=== PATIENT | male | born 1935 | race Caucasian/White ===

== ENCOUNTER → 2019-05-21 12:59 | Outpatient (CLI) | payer MEDICARE, BC, SELFPAY ==
--- NOTE | 2019-05-21 | DI.US.S_ITS ---
PROCEDURE: US RENAL COMPLETE INDICATIONS: CKD STAGE 3 TECHNIQUE: Real-time scanning was performed of the kidneys and bladder, with image documentation. COMPARISON: None. FINDINGS: Kidneys: Kidneys are normal in size. Right kidney measures 11.5 cm long; left kidney measures 12.4 cm long. Right renal cortical thickness is 0.8 cm; left renal cortical thickness is 1.2 cm. Renal cortical echotexture is normal. No hydronephrosis. There are several nonobstructing left renal calcifications the largest measuring 1.4 cm. A 1.5 cm right renal cyst is noted. Bladder: Pre-void bladder volume is 219 mL. Post-void residual is 76 mL. Pre-void images demonstrate no intraluminal masses or stones. On pre-void images, neither ureteral jets are noted with color Doppler interrogation. (Of note, ureteral jets may not be detectable in up to 25% of cases due to insufficient differences in specific gravity between ureteral and bladder urine). Miscellaneous: No free pelvic fluid. IMPRESSION: 1. Right renal cortical thinning. 2. Right renal cyst measuring 1.5 cm. 3. Multiple nonobstructing left renal calcifications. 4. 76 mL post void residual. Dictated by: James Noriega [facility] Interpreted: Laz Ruffin MD on 05/21/2019 at 13:58 Approved by: Laz Ruffin M.D. on 05/24/2019 at 16:48
== END ==
PROVIDERS: Family Provider Physician Assistant; PCP Physician Assistant; Referring Provider Internal Medicine Nephrology; Visit Provider Internal Medicine Nephrology
DX: N18.3 Chronic kidney disease, stage 3 (moderate) (principal); N20.0 Calculus of kidney; N28.1 Cyst of kidney, acquired
CPT/HCPCS: 76770

== ENCOUNTER → 2020-07-04 13:29 | Outpatient (CLI) | payer MEDICARE, BC, SELFPAY ==
[2020-07-04 19:34] LABS: Add Manual Diff / Slide Review NO; Basophils Absolute Auto 100 /uL (0-100); Basophils Percent Auto 0.7 % (0-2); Eosinophils Absolute Auto 200 /uL (0-450); Eosinophils Percent Auto 2.3 % (2-4); Hemoglobin 13.3 g/dL (13.5-17.5); Lymphocytes Absolute Auto 1700 /uL (1100-4500); Lymphocytes Percent Auto 17.3 % (25-40); Mean Corpuscular HGB Conc 33.4 % (30-36); Mean Corpuscular Hemoglobin 31.2 PG (26-34); Mean Corpuscular Volume 93.6 fL (80-100); Monocytes Absolute Auto 600 /uL (0-900); Monocytes Percent Auto 6.7 % (3-14); Neutrophils Absolute Auto 7000 /uL (1500-7000); Platelet Count 230 X10^3/uL (150-400); Red Blood Cell Count 4.27 X10^6/uL (4.5-5.9); Red Cell Distribution Width 15.9 % (11.6-14.8); White Blood Cell Count 9.6 X10^3/uL (4.5-11.0)
[2020-07-04 19:40] LABS: Alanine Aminotransferase 17 IU/L (<50); Albumin 3.6 g/dL (3.5-5.0); Albumin Globulin Ratio 1.2 (1.0-2.8); Alkaline Phosphatase 58 U/L (38-126); Aspartate Aminotransferase 29 IU/L (17-59); BUN Creatinine Ratio 20.9 (6-22); Bilirubin Total 0.6 mg/dL (0.2-1.3); Blood Urea Nitrogen 38 mg/dL (9-20); C-Reactive Protein Quant 0.6 mg/dL (<1.0); Calcium 10.1 mg/dL (8.4-10.2); Carbon Dioxide 28 mmol/L (22-32); Chloride 102 mmol/L (98-107); Estimated Glomerular Filt Rate 35.7 mL/min (>60); Globulin 3.1 g/dL (1.7-4.1); Glucose 107 mg/dL (80-110); HEMOLYSIS < 15 (0-50); Potassium 3.9 mmol/L (3.4-5.1); Sodium 136 mmol/L (137-145); Total Protein 6.7 g/dL (6.3-8.2)
[2020-07-04 20:28] LABS: Vitamin B12 > 1000 pg/mL (239-931)
== END ==
PROVIDERS: Family Provider Physician Assistant; PCP Physician Assistant; Visit Provider Family Medicine
DX: E11.9 Type 2 diabetes mellitus without complications (principal); I25.10 Atherosclerotic heart disease of native coronary artery without angina pectoris; E78.2 Mixed hyperlipidemia; I65.29 Occlusion and stenosis of unspecified carotid artery; N18.9 Chronic kidney disease, unspecified; Z79.4 Long term (current) use of insulin
CPT/HCPCS: 80053; 82607; 83036; 85025; 86140

== ENCOUNTER → 2020-08-08 10:36 | Outpatient (CLI) | payer MEDICARE, BC, SELFPAY ==
[2020-08-08 19:20] LABS: COVID19 - ORCAS (NP or Nasal) Negative (Negative)
== END ==
PROVIDERS: Family Provider Physician Assistant; PCP Physician Assistant; Visit Provider Family Medicine
DX: Z01.812 Encounter for preprocedural laboratory examination (principal)
CPT/HCPCS: C9803; U0003

== ENCOUNTER → 2020-10-08 09:13 | Outpatient (CLI) | payer MEDICARE, BC, SELFPAY ==
[2020-10-08 19:40] LABS: Add Manual Diff / Slide Review NO; Basophils Absolute Auto 0 /uL (0-100); Basophils Percent Auto 0.6 % (0-2); Eosinophils Absolute Auto 300 /uL (0-450); Eosinophils Percent Auto 4.3 % (2-4); Hematocrit 40.3 % (41-53); Lymphocytes Absolute Auto 1600 /uL (1100-4500); Lymphocytes Percent Auto 20.5 % (25-40); Mean Corpuscular HGB Conc 32.2 % (30-36); Mean Corpuscular Hemoglobin 30.7 PG (26-34); Mean Corpuscular Volume 95.1 fL (80-100); Monocytes Absolute Auto 500 /uL (0-900); Monocytes Percent Auto 6.9 % (3-14); Neutrophils Absolute Auto 5200 /uL (1500-7000); Neutrophils Percent Auto 67.7 % (50-75); Platelet Count 223 X10^3/uL (150-400); Red Blood Cell Count 4.24 X10^6/uL (4.5-5.9); Red Cell Distribution Width 15.8 % (11.6-14.8); White Blood Cell Count 7.7 X10^3/uL (4.5-11.0)
[2020-10-08 20:15] LABS: Albumin 3.7 g/dL (3.5-5.0); BUN Creatinine Ratio 19.1 (6-22); Blood Urea Nitrogen 34 mg/dL (9-20); Calcium 9.8 mg/dL (8.4-10.2); Carbon Dioxide 26 mmol/L (22-32); Chloride 105 mmol/L (98-107); Estimated Glomerular Filt Rate 36.6 mL/min (>60); Glucose 105 mg/dL (80-110); HEMOLYSIS < 15 (0-50); Phosphorous 3.5 mg/dL (2.3-3.7); Potassium 3.7 mmol/L (3.4-5.1); Sodium 137 mmol/L (137-145)
[2020-10-08 20:22] LABS: Vitamin D 25 Hydroxy (D3) 31.1 ng/mL (30.0-100.0)
[2020-10-21 13:41] LABS: Parathyroid Hormone Int 57
== END ==
PROVIDERS: Family Provider Physician Assistant; PCP Family Medicine; Visit Provider Internal Medicine Nephrology
DX: L91.8 Other hypertrophic disorders of the skin (principal)
CPT/HCPCS: 80069; 82306; 83970; 85025

== ENCOUNTER → 2020-10-14 10:25 | Outpatient (CLI) | payer MEDICARE, BC, SELFPAY ==
[2020-10-16 07:36] LABS: Parathyroid Hormone Int 57 pg/mL (15-65)
== END ==
PROVIDERS: Family Provider Physician Assistant; PCP Family Medicine; Visit Provider Family Medicine
DX: L91.8 Other hypertrophic disorders of the skin (principal)
CPT/HCPCS: 83970

== ENCOUNTER → 2021-01-12 13:39 | Outpatient (CLI) | payer MEDICARE, BC, SELFPAY ==
[2021-01-12 18:50] LABS: Add Manual Diff / Slide Review NO; Basophils Absolute Auto 100 /uL (0-100); Basophils Percent Auto 0.7 % (0-2); Eosinophils Absolute Auto 300 /uL (0-450); Eosinophils Percent Auto 4.1 % (2-4); Hematocrit 37.7 % (41-53); Hemoglobin 12.5 g/dL (13.5-17.5); Lymphocytes Absolute Auto 1500 /uL (1100-4500); Lymphocytes Percent Auto 18.9 % (25-40); Mean Corpuscular HGB Conc 33.1 % (30-36); Mean Corpuscular Hemoglobin 30.5 PG (26-34); Mean Corpuscular Volume 92.1 fL (80-100); Monocytes Absolute Auto 600 /uL (0-900); Monocytes Percent Auto 7.4 % (3-14); Neutrophils Absolute Auto 5400 /uL (1500-7000); Neutrophils Percent Auto 68.9 % (50-75); Platelet Count 199 X10^3/uL (150-400); Red Blood Cell Count 4.09 X10^6/uL (4.5-5.9); Red Cell Distribution Width 15.4 % (11.6-14.8); White Blood Cell Count 7.8 X10^3/uL (4.5-11.0)
[2021-01-12 19:00] LABS: BUN Creatinine Ratio 20.3 (6-22); Blood Urea Nitrogen 42 mg/dL (9-20); Calcium 9.8 mg/dL (8.4-10.2); Carbon Dioxide 28 mmol/L (22-32); Chloride 105 mmol/L (98-107); Estimated Glomerular Filt Rate 30.7 mL/min (>60); Glucose 113 mg/dL (80-110); HEMOLYSIS 21 (0-50); Phosphorous 3.6 mg/dL (2.3-3.7); Sodium 140 mmol/L (137-145)
[2021-01-12 19:13] LABS: Creatinine Urine Random 49.4 mg/dL
[2021-01-12 19:17] LABS: Microalbumi Creatinin Ratio Ur 66.8 ug/mg CR (<30); Microalbumin Urine Random 3.3 mg/dL (0-1.6)
== END ==
PROVIDERS: Family Provider Physician Assistant; PCP Family Medicine; Visit Provider Internal Medicine Nephrology
DX: N18.32 Chronic kidney disease, stage 3b (principal); D63.1 Anemia in chronic kidney disease
CPT/HCPCS: 80069; 82043; 82570; 85025

== ENCOUNTER → 2021-04-06 09:24 | Outpatient (CLI) | payer MEDICARE, BC, SELFPAY ==
[2021-04-06 18:46] LABS: Add Manual Diff / Slide Review NO; Basophils Absolute Auto 100 /uL (0-100); Basophils Percent Auto 0.7 % (0-2); Eosinophils Absolute Auto 400 /uL (0-450); Eosinophils Percent Auto 4.5 % (2-4); Hematocrit 36.7 % (41-53); Hemoglobin 12.3 g/dL (13.5-17.5); Lymphocytes Absolute Auto 1600 /uL (1100-4500); Lymphocytes Percent Auto 19.3 % (25-40); Mean Corpuscular HGB Conc 33.5 % (30-36); Mean Corpuscular Hemoglobin 31.3 PG (26-34); Mean Corpuscular Volume 93.4 fL (80-100); Monocytes Absolute Auto 600 /uL (0-900); Monocytes Percent Auto 7.4 % (3-14); Neutrophils Absolute Auto 5700 /uL (1500-7000); Neutrophils Percent Auto 68.1 % (50-75); Platelet Count 221 X10^3/uL (150-400); Red Blood Cell Count 3.93 X10^6/uL (4.5-5.9); Red Cell Distribution Width 15.6 % (11.6-14.8); White Blood Cell Count 8.3 X10^3/uL (4.5-11.0)
[2021-04-06 19:07] LABS: Appearance Urine UA CLEAR; Bilirubin Urine UA NEGATIVE (NEGATIVE); Color Urine UA YELLOW; Glucose Urine UA NEGATIVE (Negative); Ketones Urine UA NEGATIVE (NEGATIVE); Leukocyte Esterase Urine UA 1+ (NEGATIVE); Nitrite Urine UA NEGATIVE (Negative); Occult Blood Urine UA 3+ (Negative); Protein Urine UA NEGATIVE (Negative); Urobilinogen Urine UA 0.2 E.U./dL (0.2); pH Urine UA 6.5 (4.5-8.0)
[2021-04-06 19:13] LABS: Alanine Aminotransferase 16 IU/L (<50); Albumin 3.6 g/dL (3.5-5.0); Albumin Globulin Ratio 1.2 (1.0-2.8); Alkaline Phosphatase 53 U/L (38-126); Aspartate Aminotransferase 27 IU/L (17-59); BUN Creatinine Ratio 21.2 (6-22); Bilirubin Total 0.8 mg/dL (0.2-1.3); Blood Urea Nitrogen 44 mg/dL (9-20); Calcium 9.8 mg/dL (8.4-10.2); Carbon Dioxide 30 mmol/L (22-32); Chloride 103 mmol/L (98-107); Cholesterol 98 mg/dL (140-199); Estimated Glomerular Filt Rate 30.5 mL/min (>60); Glucose 103 mg/dL (80-110); HDL Cholesterol 37 mg/dL (40-60); HEMOLYSIS < 15 (0-50); Hemoglobin A1C% w Est Avg Glu 5.5 % (4.0-6.0); LDL Cholesterol Calculated 50 mg/dL (<100); Potassium 4.4 mmol/L (3.4-5.1); Sodium 136 mmol/L (137-145); Total Protein 6.6 g/dL (6.3-8.2); Triglycerides 56 mg/dL (35-150)
[2021-04-06 19:15] LABS: RBC Urine 5-10/HPF (0-5/HPF); Squamous Epithelial Cell Urine 0-1 /HPF (0-5/HPF); WBC Urine 5-10/HPF (0-5/HPF)
[2021-04-06 19:16] LABS: Amorphous Sediment Urine 1+; Bacteria Urine None Seen; Culture Indicated Urine Specimen Cultured
[2021-04-06 19:36] LABS: TSH w/ Reflex to FT4 2.97 uIU/mL (0.47-4.68)
== END ==
PROVIDERS: Family Provider Physician Assistant; PCP Family Medicine; Visit Provider Family Medicine
DX: N18.31 Chronic kidney disease, stage 3a (principal); I50.9 Heart failure, unspecified; E11.22 Type 2 diabetes mellitus with diabetic chronic kidney disease; I25.10 Atherosclerotic heart disease of native coronary artery without angina pectoris; C61 Malignant neoplasm of prostate; K22.70 Barrett's esophagus without dysplasia; N18.30 Chronic kidney disease, stage 3 unspecified; N40.0 Benign prostatic hyperplasia without lower urinary tract symptoms; Z00.00 Encounter for general adult medical examination without abnormal findings; E78.2 Mixed hyperlipidemia
CPT/HCPCS: 80053; 80061; 81001; 83036; 84443; 85025; 87086

== ENCOUNTER → 2021-04-13 10:10 | Outpatient (CLI) | payer MEDICARE, BC, SELFPAY ==
[2021-04-13 19:27] LABS: Appearance Urine UA SL CLOUDY; Bilirubin Urine UA NEGATIVE (NEGATIVE); Color Urine UA YELLOW; Glucose Urine UA NEGATIVE (Negative); Ketones Urine UA NEGATIVE (NEGATIVE); Leukocyte Esterase Urine UA 1+ (NEGATIVE); Nitrite Urine UA NEGATIVE (Negative); Occult Blood Urine UA 3+ (Negative); Protein Urine UA 1+ (Negative); Urobilinogen Urine UA 0.2 E.U./dL (0.2); pH Urine UA 5.5 (4.5-8.0)
[2021-04-13 19:41] LABS: Bacteria Urine None Seen; Other Crystals Urine 1+ Amorphous; RBC Urine 30-100/HPF (0-5/HPF); Squamous Epithelial Cell Urine 0-1 /HPF (0-5/HPF); WBC Urine 10-30/HPF (0-5/HPF)
[2021-04-13 19:43] LABS: Culture Indicated Urine Specimen Cultured; Granular Casts Urine 1-5/LPF; Hyaline Casts Urine 5-10/LPF
== END ==
PROVIDERS: Family Provider Physician Assistant; PCP Family Medicine; Visit Provider Family Medicine
DX: R31.21 Asymptomatic microscopic hematuria (principal)
CPT/HCPCS: 81001; 87086

== ENCOUNTER → 2021-08-04 15:23 | Outpatient (CLI) | payer MEDICARE, BC, SELFPAY ==
--- NOTE | 2021-08-04 15:25 | DI.MRI.S_ITS ---
PROCEDURE: MR CERVICAL SPINE WO CON INDICATIONS: Chronic neck pain TECHNIQUE: Noncontrast sagittal T1 spin echo and T2 fast spin echo, sagittal STIR, foraminal oblique sagittal T2 fast spin echo, and axial gradient echo or T2 fast spin echo through the cervical spine. COMPARISON: None. FINDINGS: Image quality: Excellent. Alignment and Curvature: There is trace retrolisthesis of C3 on C4, C4 on C5, trace anterolisthesis of C5 on C6. Bone Marrow: Marrow demonstrates normal overall signal. Spinal Cord: Visualized spinal cord has normal size and signal. No cerebellar tonsillar herniation. Paraspinous Soft Tissues: No paravertebral masses. Prevertebral soft tissues are normal in thickness. Discs: Overall moderate desiccation is present throughout the cervical spine. C2-C3: Mild disc bulge without spinal stenosis. Mild bilateral foraminal narrowing with uncovertebral hypertrophy. C3-C4: Mild disc bulge with mild spinal stenosis. Moderate bilateral foraminal narrowing, left greater than right with uncovertebral hypertrophy. C4-C5: Mild disc bulge with mild spinal stenosis. Moderate right and [id number] left foraminal narrowing with uncovertebral hypertrophy. C5-C6: Mild disc bulge without spinal stenosis. Moderate to severe bilateral foraminal narrowing, right greater than left with uncovertebral hypertrophy. C6-C7: Mild disc bulge without spinal stenosis. Moderate bilateral foraminal narrowing, left greater than right with uncovertebral hypertrophy. C7-T1: Mild disc bulge without spinal stenosis. Mild bilateral foraminal narrowing. IMPRESSION: Multilevel disc bulges. Multilevel spinal stenosis, mild at C3-4 and C4-5 predominantly secondary to disc bulge. Multilevel overall moderate to severe foraminal narrowing most notable at C5-6 secondary to uncovertebral arthropathy. Dictated by: Aracelis Nguyen M.D. on 08/04/2021 at 16:35 Approved by: Aracelis Nguyen M.D. on 08/04/2021 at 16:37
== END ==
PROVIDERS: Family Provider Physician Assistant; PCP Family Medicine; Referring Provider Family Medicine; Visit Provider Family Medicine
DX: C61 Malignant neoplasm of prostate (principal); M54.12 Radiculopathy, cervical region; G89.29 Other chronic pain; M47.812 Spondylosis without myelopathy or radiculopathy, cervical region; M48.02 Spinal stenosis, cervical region; M50.21 Other cervical disc displacement, high cervical region
CPT/HCPCS: 72141

== ENCOUNTER → 2021-11-17 14:39 | Outpatient (CLI) | payer MEDICARE, BC, SELFPAY ==
[2021-11-17 19:44] LABS: Add Manual Diff / Slide Review NO; Basophils Absolute Auto 0 /uL (0-100); Basophils Percent Auto 0.4 % (0-2); Eosinophils Absolute Auto 300 /uL (0-450); Eosinophils Percent Auto 2.8 % (2-4); Hematocrit 32.5 % (41-53); Lymphocytes Absolute Auto 1100 /uL (1100-4500); Lymphocytes Percent Auto 11.7 % (25-40); Mean Corpuscular HGB Conc 33.9 % (30-36); Mean Corpuscular Hemoglobin 32.8 PG (26-34); Mean Corpuscular Volume 96.7 fL (80-100); Monocytes Absolute Auto 700 /uL (0-900); Monocytes Percent Auto 7.6 % (3-14); Neutrophils Absolute Auto 7300 /uL (1500-7000); Neutrophils Percent Auto 77.5 % (50-75); Platelet Count 276 X10^3/uL (150-400); Red Blood Cell Count 3.36 X10^6/uL (4.5-5.9); Red Cell Distribution Width 13.8 % (11.6-14.8); White Blood Cell Count 9.4 X10^3/uL (4.5-11.0)
[2021-11-17 19:59] LABS: Albumin 3.1 g/dL (3.5-5.0); BUN Creatinine Ratio 12.6 (6-22); Blood Urea Nitrogen 20 mg/dL (9-20); Calcium 9.8 mg/dL (8.4-10.2); Carbon Dioxide 23 mmol/L (22-32); Chloride 100 mmol/L (98-107); Estimated Glomerular Filt Rate 42 mL/min (>60); Glucose 105 mg/dL (80-110); HEMOLYSIS < 15 (0-50); Phosphorous 2.3 mg/dL (2.3-3.7); Potassium 4.5 mmol/L (3.4-5.1); Sodium 130 mmol/L (137-145)
[2021-11-17 20:17] LABS: Creatinine Urine Random 61.1 mg/dL
[2021-11-17 20:22] LABS: Microalbumin Urine Random 1.9 mg/dL (0-1.6)
[2021-11-19 06:22] LABS: Parathyroid Hormone Int 25 pg/mL (15-65)
== END ==
PROVIDERS: Internal Medicine Nephrology; Family Provider Physician Assistant; PCP Family Medicine
DX: N18.32 Chronic kidney disease, stage 3b (principal)
CPT/HCPCS: 80069; 82043; 82570; 83970; 85025

== ENCOUNTER 2021-12-04 11:14 | Inpatient (IN) | payer MEDICARE, BC, SELFPAY ==
[2021-12-04] VITALS (22 sets, daily range): BP systolic 103–165; BP diastolic 59–75; PULSE 81–101; RESP 16–49; TEMP 36.3–37.2; O2SAT 96–100; BMI 40.2; BMI 38.0
--- NOTE | 2021-12-04 12:12 | DI.RAD.S_ITS ---
PROCEDURE: XR CHEST 1V INDICATIONS: suspected sepsis TECHNIQUE: One view of the chest was acquired. COMPARISON: [facility] ([place]), CR, XR CHEST 2V, 12/03/2021, 16:23. FINDINGS: Surgical changes and devices: Sternotomy wires and an aortic valve prosthesis can be seen. Lungs and pleura: Right middle lobe consolidation is seen, which is similar to the radiographs from the prior day. There is minimal blunting of the left costophrenic angle. No pneumothorax. Mediastinum: Mediastinal contours appear normal. Heart size is mildly enlarged. Atherosclerotic calcification is noted. Bones and chest wall: No suspicious bony lesions. Age-appropriate bony degenerative changes are seen. Overlying soft tissues appear unremarkable. IMPRESSION: Continued right middle lobe infiltrate. Minimal blunting of the left costophrenic angle, which may be related to atelectasis. Postoperative and degenerative changes are seen. Mild cardiomegaly. Dictated by: Antonio Walters M.D. on 12/04/2021 at 11:36 Approved by: Antonio Walters M.D. on 12/04/2021 at 11:40
[2021-12-04] MEDS: SODIUM CHLORIDE 0.9% 1,000 ML 1000 ML IV (12:18)
[2021-12-04 12:26] LABS: Add Manual Diff / Slide Review NO; Basophils Absolute Auto 100 /uL (0-100); Basophils Percent Auto 0.2 % (0-2); Eosinophils Absolute Auto 100 /uL (0-450); Eosinophils Percent Auto 0.3 % (2-4); Hematocrit 32.7 % (41-53); Hemoglobin 10.7 g/dL (13.5-17.5); Lymphocytes Absolute Auto 1100 /uL (1100-4500); Mean Corpuscular HGB Conc 32.6 % (30-36); Mean Corpuscular Hemoglobin 31.3 PG (26-34); Mean Corpuscular Volume 96.1 fL (80-100); Monocytes Absolute Auto 1500 /uL (0-900); Monocytes Percent Auto 6.8 % (3-14); Neutrophils Absolute Auto 19500 /uL (1500-7000); Neutrophils Percent Auto 87.7 % (50-75); Platelet Count 495 X10^3/uL (150-400); Red Blood Cell Count 3.41 X10^6/uL (4.5-5.9); White Blood Cell Count 22.2 X10^3/uL (4.5-11.0)
--- NOTE | 2021-12-04 12:26 | ED.SOB ---
HPI - SOB/Dyspnea <Asher Boswell PA-C - Last Filed: 12/04/21 15:22> General Chief Complaint: Shortness of Breath/Dyspnea Stated Complaint: Sob, cough elavalted BP Time Seen by Provider: 12/04/21 12:04 Source: patient and family Mode of arrival: Wheelchair History of Present Illness HPI Narrative: Patient is a 86-year-old male who presents to the emergency room today with complaint of shortness of breath weakness cough general concerns to thrive for the last 2 days. Daughter states patient was also seen at [facility] yesterday and was diagnosed with pneumonia. Patient was also started on doxycycline at that time. Has taking 2 doses to date. Daughter is concerned because patient cannot take care of herself and cannot take care of the patient at this time. Daughter states patient is incontinent not bathing not eating and is not able to change his clothes. Daughter is okay with the patient either be admitted or transferred to a intermediate facility until he is able to take care of himself. Main concern now is very sure that the pneumonia has not worsened and that the patient is able to be cared for upon discharge. Daughter also states patient was diagnosed with COVID about 1 month ago. Related Data Home Medications Medication Instructions Recorded Confirmed [COQ10] 25 mg PO BID ##0 10/20/15 12/04/21 [fish oil] 1 gm PO QDAY ##0 10/20/15 12/04/21 [vitamin D3/D2] 2,000 iu PO QDAY ##0 10/20/15 12/04/21 multivitamin (Multiple Vitamins 1 tab PO QDAY #0 tabs 10/20/15 12/04/21 tablet) latanoprost 0.005 % eye drops 1 drp ophthalmic (eye) DAILY 06/11/20 12/04/21 nitroglycerin 0.4 mg sublingual 0.4 mg sublingual Q5M PRN pain 06/11/20 12/04/21 tablet spironolactone 25 mg tablet 25 mg PO DAILY 06/11/20 12/04/21 taurine 1,000 mg capsule 1,000 mg PO DAILY 06/11/20 12/04/21 zinc gluconate 50 mg tablet 50 mg PO DAILY 06/11/20 12/04/21 Disabled Parking Permit 1 ea topical DAILY 12/04/21 12/04/21 Previous Rx's Medication Instructions Recorded atorvastatin 40 mg tablet 40 mg PO DAILY #90 tabs 03/26/21 colesevelam 625 mg tablet (WelChol) 1,875 mg PO BID #540 tabs 03/26/21 fenofibrate nanocrystallized 145 145 mg PO QDAY #90 tabs 03/26/21 mg tablet (Tricor) apixaban 2.5 mg tablet (Eliquis) 2.5 mg PO BID #180 tabs 04/02/21 mirabegron 25 mg tablet,extended 25 mg PO QDAY #90 tabs 06/11/21 release 24 hr (Myrbetriq) torsemide 100 mg tablet 100 mg PO DAILY #90 tabs 06/11/21 lisinopril 20 mg tablet 20 mg PO DAILY #90 tabs 09/01/21 nirmatrelvir 150 mg-ritonavir 100 See Rx Instructions PO PER PKG DIR 11/23/21 mg tablets in a dose pack (EUA) #1 ea (Paxlovid) Allergies Allergy/AdvReac Type Severity Reaction Status Date / Time No Known Drug Allergies Allergy Verified 12/03/21 16:14 Review of Systems <Asher Boswell PA-C - Last Filed: 12/04/21 15:22> Review of Systems Narrative: R.O.S.: General:Fatigue and has not been able to perform routine ADLs. Cardiovascular: No chest pain or palpitations Respiratory: S.O.B. cough and fatigue HEENT: No congestion, ear pain, rhinorrhea, sore throat or tinnitus Gastrointestinal: No nausea or vomiting : No urinary concerns Skin: No rash or associated abnormalities Musculoskeletal: No pain in muscles or joints, no limitation of range of motion, no paresthesia or numbness. ?? Neurological: Awake, alert and in not apparent distress. No Headaches, changes in vision or other related neurological concerns. Patient History <Asher Boswell PA-C - Last Filed: 12/04/21 15:22> Medical History Anemia Asymptomatic microscopic hematuria BPH (benign prostatic hyperplasia) Chronic diastolic heart failure DM2 (diabetes mellitus, type 2) Hypertension Interstitial lung disease Permanent atrial fibrillation Stage 3b chronic kidney disease (CKD) Surgical History S/P AVR (aortic valve replacement) Family History (Updated 12/04/21 @ 17:42 by Arpit Staton DO) Mother No pertinent past medical history Father No pertinent past medical history Social History (Updated 06/11/20 @ 11:25 by Jenniffer Andrade CMA) household members: spouse Smoking Status: Former smoker alcohol intake: current Smoking Status: Former smoker alcohol intake frequency: 0-2 drinks per day Substance Use Type: does not use Exam <Asher Boswell PA-C - Last Filed: 12/04/21 15:22> Narrative Exam Narrative: Physical Exam: ? General: Lethargic. Able to slowly follow commands upon arousal. ? Head: Normocephalic, no lesions. Chest: Lungs CTAB, no rales, rhonchi or wheezes. ?? Heart: RRR, no murmurs, rubs or gallops. Eyes: PERRLA, EOM's full, conjunctivae clear. ? Neuro: Patient lethargic and slow to follow commands. ? Extremities: Warm, well perfused, FROM, no deformities, no edema. ?? Skin: Normal, no rashes, no lesions noted. ?? PSYCHIATRIC: The mood is good, no blunted affect. Speech is clear. Thought process is linear, thought content is appropriate. The voice is without significant inflection. Gastrointestinal: Soft; NT; ND; Pos BS with Neg. rebound tenderness. No scars or major deformities noted on Visual Inspection. Initial Vital Signs Initial Vital Signs: Vital Signs Temperature 97.4 F L 12/04/21 11:15 Pulse Rate 90 12/04/21 11:15 Respiratory Rate 18 12/04/21 11:15 Blood Pressure 132/72 12/04/21 11:15 Pulse Oximetry 96 12/04/21 11:15 Oxygen Delivery Method 12/04/21 11:15 <Jigar Rodarte MD - Last Filed: 12/07/21 11:17> Initial Vital Signs Initial Vital Signs: Vital Signs Temperature 97.4 F L 12/04/21 11:15 Pulse Rate 90 12/04/21 11:15 Respiratory Rate 18 12/04/21 11:15 Blood Pressure 132/72 12/04/21 11:15 Pulse Oximetry 96 12/04/21 11:15 Oxygen Delivery Method 12/04/21 11:15 Course <Asher Boswell PA-C - Last Filed: 12/04/21 15:22> Orders Ordered: ED Orders 12/07/21 08:25 Complete Blood Count AUTO DIFF DAILY Comprehensive Metabolic Panel DAILY Magnesium DAILY Acetaminophen (Acetaminophen 325 Mg Tablet) 975 mg PO Q8H PRN PRN Reason: Pain, Mild (1-3) Apixaban (Apixaban 5 Mg Tablet) 2.5 mg PO BID [facility] Last Admin: 12/07/21 09:01 Dose: 2.5 mg Documented By: Admin: 12/06/21 21:17 Dose: 2.5 mg Documented By: Admin: 12/06/21 10:20 Dose: 2.5 mg Documented By: Admin: 12/05/21 20:34 Dose: 2.5 mg Documented By: Admin: 12/05/21 10:57 Dose: 2.5 mg Documented By: Admin: 12/04/21 20:24 Dose: 2.5 mg Documented By: BALBINA Atorvastatin Calcium (Atorvastatin 20 Mg Tablet) 40 mg PO BEDTIME [facility] Last Admin: 12/06/21 21:17 Dose: 40 mg Documented By: Admin: 12/05/21 20:27 Dose: 40 mg Documented By: Admin: 12/04/21 20:23 Dose: 40 mg Documented By: BALBINA Colesevelam HCl (Colesevelam 625 Mg Tablet) 1,875 mg PO BID [facility] Last Admin: 12/07/21 09:02 Dose: 1,875 mg Documented By: Admin: 12/06/21 21:18 Dose: 1,875 mg Documented By: Admin: 12/06/21 10:21 Dose: 1,875 mg Documented By: Admin: 12/05/21 20:25 Dose: 1,875 mg Documented By: Admin: 12/05/21 10:57 Dose: 1,875 mg Documented By: Admin: 12/04/21 20:22 Dose: 1,875 mg Documented By: OW Doxycycline Hyclate (Doxycycline Hyclate 100 Mg Tablet) 100 mg PO BID [facility] Stop: 12/07/21 20:59 Last Admin: 12/07/21 09:01 Dose: 100 mg Documented By: Admin: 12/06/21 21:17 Dose: 100 mg Documented By: Admin: 12/06/21 10:21 Dose: 100 mg Documented By: Admin: 12/05/21 20:27 Dose: 100 mg Documented By: Admin: 12/05/21 10:55 Dose: 100 mg Documented By: Admin: 12/04/21 20:23 Dose: 100 mg Documented By: BALBINA Guaifenesin (Guaifenesin Er 600 Mg Tab) 1,200 mg PO BID [facility] Last Admin: 12/07/21 09:01 Dose: 1,200 mg Documented By: Admin: 12/06/21 21:17 Dose: 1,200 mg Documented By: Admin: 12/06/21 10:21 Dose: 1,200 mg Documented By: Admin: 12/05/21 20:34 Dose: 1,200 mg Documented By: Admin: 12/05/21 10:54 Dose: 1,200 mg Documented By: ART Ceftriaxone Sodium 1,000 mg/ (Sodium Chloride) 100 mls @ 200 mls/hr IV Q24H [facility] Last Infusion: 12/06/21 19:08 Dose: 0 mls/hr Documented By: Admin: 12/06/21 14:36 Dose: 100 mls/hr Documented By: Infusion: 12/05/21 16:55 Dose: 0 mls/hr Documented By: Admin: 12/05/21 14:08 Dose: 200 mls/hr Documented By: ART Multivitamins (Multivitamin 1 Tablet) 1 tab PO DAILY [facility] Last Admin: 12/07/21 09:01 Dose: 1 tab Documented By: Admin: 12/06/21 10:22 Dose: 1 tab Documented By: Admin: 12/05/21 10:56 Dose: 1 tab Documented By: ART Mirabegron [ Myrbetriq] 25 Mg Tablet Extended Release 24 Hr 25 mg PO DAILY [facility] Last Admin: 12/07/21 09:02 Dose: Not Given Documented By: Admin: 12/06/21 10:22 Dose: Not Given Documented By: Admin: 12/05/21 10:53 Dose: Not Given Documented By: ART Nystatin (Nystatin Powder 15gm) 1 applic TOP TID PRN PRN Reason: Rash Last Admin: 12/04/21 20:23 Dose: 1 applic Documented By: BALBINA Ondansetron HCl (Ondansetron 4 Mg/2 Ml Inj) 4 mg IV Q8HR PRN PRN Reason: Nausea And Vomiting Discontinued Medications Sodium Chloride (Normal Saline 0.9%) 1,000 mls @ 1,000 mls/hr IV BOLUS ONE Stop: 12/04/21 13:11 Last Infusion: 12/04/21 13:25 Dose: 0 mls/hr Documented By: Admin: 12/04/21 12:18 Dose: 1,000 mls/hr Documented By: AMBREEN Ceftriaxone Sodium 1,000 mg/ (Sodium Chloride) 100 mls @ 200 mls/hr IV NOW ONE Stop: 12/04/21 13:25 Last Infusion: 12/04/21 14:06 Dose: 0 mls/hr Documented By: [email or web address]) Admin: 12/04/21 13:34 Dose: 200 mls/hr Documented By: LEMUEL Doxycycline Hyclate 100 mg/ (Sodium Chloride) 100 mls @ 100 mls/hr IV NOW ONE Stop: 12/04/21 13:25 Last Infusion: 12/04/21 15:32 Dose: 0 mls/hr Documented By: AMBREEN(2) Admin: 12/04/21 14:33 Dose: 100 mls/hr Documented By: AMBREEN Lisinopril (Lisinopril 20 Mg Tablet) 20 mg PO DAILY [facility] Last Admin: 12/06/21 10:22 Dose: 20 mg Documented By: Admin: 12/05/21 10:52 Dose: 20 mg Documented By: ART Magnesium Chloride (Magnesium Chloride 64 Mg Tablet) 128 mg PO NOW ONE Stop: 12/06/21 10:38 Last Admin: 12/06/21 11:47 Dose: 128 mg Documented By: GWYN Spironolactone (Spironolactone 25 Mg Tablet) 25 mg PO DAILY [facility] Last Admin: 12/06/21 10:22 Dose: 25 mg Documented By: Admin: 12/05/21 10:57 Dose: 25 mg Documented By: ART Torsemide (Torsemide 100 Mg Tablet) 100 mg PO DAILY [facility] Last Admin: 12/06/21 10:22 Dose: 100 mg Documented By: Admin: 12/05/21 10:53 Dose: 100 mg Documented By: ART Vital Signs Vital signs: Vital Signs - 8 hr 12/04/21 11:15 12/04/21 11:31 12/04/21 11:33 Temperature 97.4 F L Pulse Rate 90 91 H Respiratory Rate 18 Blood Pressure 132/72 Pulse Oximetry 96 99 98 Oxygen Delivery Method Room Air 12/04/21 11:33 12/04/21 12:00 12/04/21 12:09 Temperature Pulse Rate 93 H 88 Respiratory Rate Blood Pressure 132/72 Pulse Oximetry 97 96 Oxygen Delivery Method 12/04/21 12:09 12/04/21 12:30 12/04/21 12:31 Temperature Pulse Rate 81 Respiratory Rate 28 H Blood Pressure 137/75 158/69 H Pulse Oximetry 96 Oxygen Delivery Method 12/04/21 12:31 12/04/21 13:00 12/04/21 13:01 Temperature Pulse Rate 90 85 Respiratory Rate 33 H 49 H Blood Pressure 165/72 H Pulse Oximetry 97 96 Oxygen Delivery Method 12/04/21 13:01 12/04/21 13:30 12/04/21 13:33 Temperature Pulse Rate 87 81 Respiratory Rate 41 H 26 H Blood Pressure 140/67 Pulse Oximetry 96 96 Oxygen Delivery Method 12/04/21 13:33 12/04/21 14:00 12/04/21 14:01 Temperature Pulse Rate 81 89 Respiratory Rate 32 H 23 Blood Pressure 161/75 H Pulse Oximetry 96 97 Oxygen Delivery Method 12/04/21 14:01 12/04/21 14:30 12/04/21 14:31 Temperature Pulse Rate 87 86 Respiratory Rate 23 22 Blood Pressure 146/67 H Pulse Oximetry 97 97 Oxygen Delivery Method 12/04/21 14:31 Temperature Pulse Rate 83 Respiratory Rate 22 Blood Pressure Pulse Oximetry 96 Oxygen Delivery Method <Jigar Rodarte MD - Last Filed: 12/07/21 11:17> Orders Ordered: ED Orders 12/07/21 08:25 Complete Blood Count AUTO DIFF DAILY Comprehensive Metabolic Panel DAILY Magnesium DAILY Acetaminophen (Acetaminophen 325 Mg Tablet) 975 mg PO Q8H PRN PRN Reason: Pain, Mild (1-3) Apixaban (Apixaban 5 Mg Tablet) 2.5 mg PO BID [facility] Last Admin: 12/07/21 09:01 Dose: 2.5 mg Documented By: Admin: 12/06/21 21:17 Dose: 2.5 mg Documented By: Admin: 12/06/21 10:20 Dose: 2.5 mg Documented By: Admin: 12/05/21 20:34 Dose: 2.5 mg Documented By: Admin: 12/05/21 10:57 Dose: 2.5 mg Documented By: Admin: 12/04/21 20:24 Dose: 2.5 mg Documented By: OW Atorvastatin Calcium (Atorvastatin 20 Mg Tablet) 40 mg PO BEDTIME [facility] Last Admin: 12/06/21 21:17 Dose: 40 mg Documented By: Admin: 12/05/21 20:27 Dose: 40 mg Documented By: Admin: 12/04/21 20:23 Dose: 40 mg Documented By: OW Colesevelam HCl (Colesevelam 625 Mg Tablet) 1,875 mg PO BID [facility] Last Admin: 12/07/21 09:02 Dose: 1,875 mg Documented By: Admin: 12/06/21 21:18 Dose: 1,875 mg Documented By: Admin: 12/06/21 10:21 Dose: 1,875 mg Documented By: Admin: 12/05/21 20:25 Dose: 1,875 mg Documented By: Admin: 12/05/21 10:57 Dose: 1,875 mg Documented By: Admin: 12/04/21 20:22 Dose: 1,875 mg Documented By: BALBINA Doxycycline Hyclate (Doxycycline Hyclate 100 Mg Tablet) 100 mg PO BID [facility] Stop: 12/07/21 20:59 Last Admin: 12/07/21 09:01 Dose: 100 mg Documented By: Admin: 12/06/21 21:17 Dose: 100 mg Documented By: Admin: 12/06/21 10:21 Dose: 100 mg Documented By: Admin: 12/05/21 20:27 Dose: 100 mg Documented By: Admin: 12/05/21 10:55 Dose: 100 mg Documented By: Admin: 12/04/21 20:23 Dose: 100 mg Documented By: BALBINA Guaifenesin (Guaifenesin Er 600 Mg Tab) 1,200 mg PO BID [facility] Last Admin: 12/07/21 09:01 Dose: 1,200 mg Documented By: Admin: 12/06/21 21:17 Dose: 1,200 mg Documented By: Admin: 12/06/21 10:21 Dose: 1,200 mg Documented By: Admin: 12/05/21 20:34 Dose: 1,200 mg Documented By: Admin: 12/05/21 10:54 Dose: 1,200 mg Documented By: ART Ceftriaxone Sodium 1,000 mg/ (Sodium Chloride) 100 mls @ 200 mls/hr IV Q24H [facility] Last Infusion: 12/06/21 19:08 Dose: 0 mls/hr Documented By: Admin: 12/06/21 14:36 Dose: 100 mls/hr Documented By: Infusion: 12/05/21 16:55 Dose: 0 mls/hr Documented By: Admin: 12/05/21 14:08 Dose: 200 mls/hr Documented By: ART Multivitamins (Multivitamin 1 Tablet) 1 tab PO DAILY [facility] Last Admin: 12/07/21 09:01 Dose: 1 tab Documented By: Admin: 12/06/21 10:22 Dose: 1 tab Documented By: Admin: 12/05/21 10:56 Dose: 1 tab Documented By: ART Mirabegron [ Myrbetriq] 25 Mg Tablet Extended Release 24 Hr 25 mg PO DAILY [facility] Last Admin: 12/07/21 09:02 Dose: Not Given Documented By: Admin: 12/06/21 10:22 Dose: Not Given Documented By: Admin: 12/05/21 10:53 Dose: Not Given Documented By: ART Nystatin (Nystatin Powder 15gm) 1 applic TOP TID PRN PRN Reason: Rash Last Admin: 12/04/21 20:23 Dose: 1 applic Documented By: BALBINA Ondansetron HCl (Ondansetron 4 Mg/2 Ml Inj) 4 mg IV Q8HR PRN PRN Reason: Nausea And Vomiting Discontinued Medications Sodium Chloride (Normal Saline 0.9%) 1,000 mls @ 1,000 mls/hr IV BOLUS ONE Stop: 12/04/21 13:11 Last Infusion: 12/04/21 13:25 Dose: 0 mls/hr Documented By: Admin: 12/04/21 12:18 Dose: 1,000 mls/hr Documented By: AMBREEN Ceftriaxone Sodium 1,000 mg/ (Sodium Chloride) 100 mls @ 200 mls/hr IV NOW ONE Stop: 12/04/21 13:25 Last Infusion: 12/04/21 14:06 Dose: 0 mls/hr Documented By: [email or web address]) Admin: 12/04/21 13:34 Dose: 200 mls/hr Documented By: LEMUEL Doxycycline Hyclate 100 mg/ (Sodium Chloride) 100 mls @ 100 mls/hr IV NOW ONE Stop: 12/04/21 13:25 Last Infusion: 12/04/21 15:32 Dose: 0 mls/hr Documented By: AMBREEN(2) Admin: 12/04/21 14:33 Dose: 100 mls/hr Documented By: AMBREEN Lisinopril (Lisinopril 20 Mg Tablet) 20 mg PO DAILY [facility] Last Admin: 12/06/21 10:22 Dose: 20 mg Documented By: Admin: 12/05/21 10:52 Dose: 20 mg Documented By: ART Magnesium Chloride (Magnesium Chloride 64 Mg Tablet) 128 mg PO NOW ONE Stop: 12/06/21 10:38 Last Admin: 12/06/21 11:47 Dose: 128 mg Documented By: GWYN Spironolactone (Spironolactone 25 Mg Tablet) 25 mg PO DAILY [facility] Last Admin: 12/06/21 10:22 Dose: 25 mg Documented By: Admin: 12/05/21 10:57 Dose: 25 mg Documented By: ART Torsemide (Torsemide 100 Mg Tablet) 100 mg PO DAILY [facility] Last Admin: 12/06/21 10:22 Dose: 100 mg Documented By: Admin: 12/05/21 10:53 Dose: 100 mg Documented By: ART Vital Signs Vital signs: Vital Signs - 8 hr 12/04/21 11:15 12/04/21 11:31 12/04/21 11:33 Temperature 97.4 F L Pulse Rate 90 91 H Respiratory Rate 18 Blood Pressure 132/72 Pulse Oximetry 96 99 98 Oxygen Delivery Method Room Air 12/04/21 11:33 12/04/21 12:00 12/04/21 12:09 Temperature Pulse Rate 93 H 88 Respiratory Rate Blood Pressure 132/72 Pulse Oximetry 97 96 Oxygen Delivery Method 12/04/21 12:09 12/04/21 12:30 12/04/21 12:31 Temperature Pulse Rate 81 Respiratory Rate 28 H Blood Pressure 137/75 158/69 H Pulse Oximetry 96 Oxygen Delivery Method 12/04/21 12:31 12/04/21 13:00 12/04/21 13:01 Temperature Pulse Rate 90 85 Respiratory Rate 33 H 49 H Blood Pressure 165/72 H Pulse Oximetry 97 96 Oxygen Delivery Method 12/04/21 13:01 12/04/21 13:30 12/04/21 13:33 Temperature Pulse Rate 87 81 Respiratory Rate 41 H 26 H Blood Pressure 140/67 Pulse Oximetry 96 96 Oxygen Delivery Method 12/04/21 13:33 12/04/21 14:00 12/04/21 14:01 Temperature Pulse Rate 81 89 Respiratory Rate 32 H 23 Blood Pressure 161/75 H Pulse Oximetry 96 97 Oxygen Delivery Method 12/04/21 14:01 12/04/21 14:30 12/04/21 14:31 Temperature Pulse Rate 87 86 Respiratory Rate 23 22 Blood Pressure 146/67 H Pulse Oximetry 97 97 Oxygen Delivery Method 12/04/21 14:31 Temperature Pulse Rate 83 Respiratory Rate 22 Blood Pressure Pulse Oximetry 96 Oxygen Delivery Method MDM - SOB/Dyspnea <Asher Boswell PA-C - Last Filed: 12/04/21 15:22> Lab Data Result diagrams: 12/07/21 08:25 12/07/21 08:25 Labs: Lab Results 12/04/21 12/04/21 12/04/21 Range/Units 11:45 11:50 11:50 WBC 22.2 H (4.5-11.0) X10^3/uL RBC 3.41 L (4.5-5.9) X10^6/uL Hgb 10.7 L (13.5-17.5) g/dL Hct 32.7 L (41-53) % MCV 96.1 (80-100) fL MCH 31.3 (26-34) PG MCHC 32.6 (30-36) % RDW 14.0 (11.6-14.8) % Plt Count 495 H (150-400) X10^3/uL Neut % (Auto) 87.7 H (50-75) % Lymph % (Auto) 5.0 L (25-40) % [place] % (Auto) 6.8 (3-14) % Eos % (Auto) 0.3 L (2-4) % Baso % (Auto) 0.2 (0-2) % Neut # (Auto) 77920 H (6692-7150) /uL Lymph # (Auto) 1100 (3564-5922) /uL [place] # (Auto) 1500 H (0-900) /uL Eos # (Auto) 100 (0-450) /uL Baso # (Auto) 100 (0-100) /uL Sodium 136 L (137-145) mmol/L Potassium 4.6 (3.4-5.1) mmol/L Chloride 104 (98-107) mmol/L Carbon Dioxide 28 (22-32) mmol/L BUN 31 H (9-20) mg/dL Creatinine 1.61 H (0.66-1.25) mg/dL Estimated GFR 41 L (>60) mL/min BUN/Creatinine Ratio 19.3 (6-22) Glucose 110 (80-110) mg/dL Lactate (0.7-2.1) mmol/L Calcium 9.9 (8.4-10.2) mg/dL Total Bilirubin 0.6 (0.2-1.3) mg/dL AST 28 (17-59) IU/L ALT 16 (<50) IU/L Alkaline Phosphatase 107 (38-126) U/L Total Protein 7.2 (6.3-8.2) g/dL Albumin 3.0 L (3.5-5.0) g/dL Globulin 4.2 H (1.7-4.1) g/dL Albumin/Globulin Ratio 0.7 L (1.0-2.8) Lipase 78 (23-300) U/L Procalcitonin 0.32 (<0.5) ng/mL Urine Color Urine Appearance Urine pH (4.5-8.0) Ur Specific [place] (1.000-1.035) Urine Protein (Negative) Urine Glucose (UA) (Negative) g/dL Urine Ketones (NEGATIVE) Urine Occult Blood (Negative) Urine Nitrate (Negative) Urine Bilirubin (NEGATIVE) Urine Urobilinogen (0.2) E.U./dL Ur Leukocyte Esterase (NEGATIVE) Urine RBC (0-5/HPF) Urine WBC (0-5/HPF) Ur Squamous Epith Cells (0-5/HPF) Ur Transition Epith Cell (0-5/HPF) Ur Renal Epithelial Cell (0-1/HPF) Amorphous Sediment Urine Bacteria (None) Hyaline Casts (None) Ur Culture Indicated? Chlamy pneumoniae PCR Not detected (Not Detect) Adenovirus (PCR) Not detected (Not Detect) B. pertussis DNA (PCR) Not detected (Not Detecte) B.parapertussis DNA PCR Not detected (Not Detecte) Coronavirus OC43 (PCR) Not detected (Not Detect) Coronavirus HKU1 (PCR) Not detected (Not Detect) Coronavirus 229E (PCR) Not detected (Not Detect) SARS-CoV-2 (PCR) Detected H (Not Detecte) Coronavirus NL63 (PCR) Not detected (Not Detect) Human Metapneumovir PCR Not detected (Not Detect) Influenza Type A (PCR) Not detected (Not Detect) Influenza Type B (PCR) Not detected (Not Detect) M. pneumoniae (PCR) Not detected (Not Detect) Parainfluenza 1 (PCR) Not detected (Not Detect) Parainfluenza 2 (PCR) Not detected (Not Detect) Parainfluenza 3 (PCR) Not detected (Not Detect) Parainfluenza 4 (PCR) Not detected (Not Detect) RSV (PCR) Not detected (Not Detect) Entero/Rhino (PCR) Not detected (Not Detect) 12/04/21 12/04/21 Range/Units 11:50 14:50 WBC (4.5-11.0) X10^3/uL RBC (4.5-5.9) X10^6/uL Hgb (13.5-17.5) g/dL Hct (41-53) % MCV (80-100) fL MCH (26-34) PG MCHC (30-36) % RDW (11.6-14.8) % Plt Count (150-400) X10^3/uL Neut % (Auto) (50-75) % Lymph % (Auto) (25-40) % [place] % (Auto) (3-14) % Eos % (Auto) (2-4) % Baso % (Auto) (0-2) % Neut # (Auto) (7821-4823) /uL Lymph # (Auto) (6303-7564) /uL [place] # (Auto) (0-900) /uL Eos # (Auto) (0-450) /uL Baso # (Auto) (0-100) /uL Sodium (137-145) mmol/L Potassium (3.4-5.1) mmol/L Chloride (98-107) mmol/L Carbon Dioxide (22-32) mmol/L BUN (9-20) mg/dL Creatinine (0.66-1.25) mg/dL Estimated GFR (>60) mL/min BUN/Creatinine Ratio (6-22) Glucose (80-110) mg/dL Lactate 1.5 (0.7-2.1) mmol/L Calcium (8.4-10.2) mg/dL Total Bilirubin (0.2-1.3) mg/dL AST (17-59) IU/L ALT (<50) IU/L Alkaline Phosphatase (38-126) U/L Total Protein (6.3-8.2) g/dL Albumin (3.5-5.0) g/dL Globulin (1.7-4.1) g/dL Albumin/Globulin Ratio (1.0-2.8) Lipase (23-300) U/L Procalcitonin (<0.5) ng/mL Urine Color Yellow Urine Appearance Clear Urine pH 5.0 (4.5-8.0) Ur Specific [place] <=1.005 (1.000-1.035) Urine Protein Negative (Negative) Urine Glucose (UA) Negative (Negative) g/dL Urine Ketones Negative (NEGATIVE) Urine Occult Blood Negative (Negative) Urine Nitrate Negative (Negative) Urine Bilirubin Negative (NEGATIVE) Urine Urobilinogen 0.2 (0.2) E.U./dL Ur Leukocyte Esterase Negative (NEGATIVE) Urine RBC None seen (0-5/HPF) Urine WBC None seen (0-5/HPF) Ur Squamous Epith Cells 1-5 /hpf (0-5/HPF) Ur Transition Epith Cell 1-5/hpf (0-5/HPF) Ur Renal Epithelial Cell 5-10/hpf H (0-1/HPF) Amorphous Sediment 1+ Urine Bacteria None seen (None) Hyaline Casts 1-5/lpf (None) Ur Culture Indicated? Cult not indicated Chlamy pneumoniae PCR (Not Detect) Adenovirus (PCR) (Not Detect) B. pertussis DNA (PCR) (Not Detecte) B.parapertussis DNA PCR (Not Detecte) Coronavirus OC43 (PCR) (Not Detect) Coronavirus HKU1 (PCR) (Not Detect) Coronavirus 229E (PCR) (Not Detect) SARS-CoV-2 (PCR) (Not Detecte) Coronavirus NL63 (PCR) (Not Detect) Human Metapneumovir PCR (Not Detect) Influenza Type A (PCR) (Not Detect) Influenza Type B (PCR) (Not Detect) M. pneumoniae (PCR) (Not Detect) Parainfluenza 1 (PCR) (Not Detect) Parainfluenza 2 (PCR) (Not Detect) Parainfluenza 3 (PCR) (Not Detect) Parainfluenza 4 (PCR) (Not Detect) RSV (PCR) (Not Detect) Entero/Rhino (PCR) (Not Detect) Imaging Data Chest x-ray: Radiologist's Impression: PROCEDURE:? XR CHEST 1V ? INDICATIONS:? suspected sepsis ? TECHNIQUE:? One view of the chest was acquired.? ? [place]ISON:? [facility] [place] 2[place]03/2021, 16:23. ? FINDINGS:? ? Surgical changes and devices:? Sternotomy wires and an aortic valve prosthesis can be seen. ? Lungs and pleura:? Right middle lobe consolidation is seen, which is similar to the radiographs from the prior day.? There is minimal blunting of the left costophrenic angle.? No pneumothorax. ? Mediastinum:? Mediastinal contours appear normal.? Heart size is mildly enlarged.? Atherosclerotic calcification is noted.? ? Bones and chest wall:? No suspicious bony lesions.? Age-appropriate bony degenerative changes are seen.? ? Overlying soft tissues appear unremarkable.? ? ? IMPRESSION:? Continued right middle lobe infiltrate. ? Minimal blunting of the left costophrenic angle, which may be related to atelectasis. ? Postoperative and degenerative changes are seen.? ? Mild cardiomegaly.? ? Dictated by: Antonio Walters M.D. on 12/04/2021 at 11:36 ? ? Approved by: Antonio Walters M.D. on 12/04/2021 at 11:40 ? MDM Narrative Medical decision making narrative: Patient is an 86-year-old male who presents to the emergency room today with complaint shortness of breath cough weakness and fatigue. Patient was seen at [facility] yesterday and was diagnosed with pneumonia. Daughter however is concerned patient's failure to thrive approach to take care of himself or his . This is also coupled with the fact that the patient was diagnosed with COVID about 4 weeks ago. The daughter is also requesting that the patient either be admitted or having a workup done and sent to intermediate facility facility. Labs done and revealed an increased blood cell count of 22 in other labs and diagnostics reveal continued right middle lobe infiltrate. Discussed patient with Dr. Shemar hutchins from Internal Medicine and Dr. Shemar terrazas advised admitting patient under the diagnosis of pneumonia. <Jigar Rodarte MD - Last Filed: 12/07/21 11:17> Lab Data Labs: Lab Results 12/04/21 12/04/21 12/04/21 Range/Units 11:45 11:50 11:50 WBC 22.2 H (4.5-11.0) X10^3/uL RBC 3.41 L (4.5-5.9) X10^6/uL Hgb 10.7 L (13.5-17.5) g/dL Hct 32.7 L (41-53) % MCV 96.1 (80-100) fL MCH 31.3 (26-34) PG MCHC 32.6 (30-36) % RDW 14.0 (11.6-14.8) % Plt Count 495 H (150-400) X10^3/uL Neut % (Auto) 87.7 H (50-75) % Lymph % (Auto) 5.0 L (25-40) % [place] % (Auto) 6.8 (3-14) % Eos % (Auto) 0.3 L (2-4) % Baso % (Auto) 0.2 (0-2) % Neut # (Auto) 78154 H (3745-3766) /uL Lymph # (Auto) 1100 (8625-6202) /uL [place] # (Auto) 1500 H (0-900) /uL Eos # (Auto) 100 (0-450) /uL Baso # (Auto) 100 (0-100) /uL Sodium 136 L (137-145) mmol/L Potassium 4.6 (3.4-5.1) mmol/L Chloride 104 (98-107) mmol/L Carbon Dioxide 28 (22-32) mmol/L BUN 31 H (9-20) mg/dL Creatinine 1.61 H (0.66-1.25) mg/dL Estimated GFR 41 L (>60) mL/min BUN/Creatinine Ratio 19.3 (6-22) Glucose 110 (80-110) mg/dL Lactate (0.7-2.1) mmol/L Calcium 9.9 (8.4-10.2) mg/dL Total Bilirubin 0.6 (0.2-1.3) mg/dL AST 28 (17-59) IU/L ALT 16 (<50) IU/L Alkaline Phosphatase 107 (38-126) U/L Total Protein 7.2 (6.3-8.2) g/dL Albumin 3.0 L (3.5-5.0) g/dL Globulin 4.2 H (1.7-4.1) g/dL Albumin/Globulin Ratio 0.7 L (1.0-2.8) Lipase 78 (23-300) U/L Procalcitonin 0.32 (<0.5) ng/mL Urine Color Urine Appearance Urine pH (4.5-8.0) Ur Specific [place] (1.000-1.035) Urine Protein (Negative) Urine Glucose (UA) (Negative) g/dL Urine Ketones (NEGATIVE) Urine Occult Blood (Negative) Urine Nitrate (Negative) Urine Bilirubin (NEGATIVE) Urine Urobilinogen (0.2) E.U./dL Ur Leukocyte Esterase (NEGATIVE) Urine RBC (0-5/HPF) Urine WBC (0-5/HPF) Ur Squamous Epith Cells (0-5/HPF) Ur Transition Epith Cell (0-5/HPF) Ur Renal Epithelial Cell (0-1/HPF) Amorphous Sediment Urine Bacteria (None) Hyaline Casts (None) Ur Culture Indicated? Chlamy pneumoniae PCR Not detected (Not Detect) Adenovirus (PCR) Not detected (Not Detect) B. pertussis DNA (PCR) Not detected (Not Detecte) B.parapertussis DNA PCR Not detected (Not Detecte) Coronavirus OC43 (PCR) Not detected (Not Detect) Coronavirus HKU1 (PCR) Not detected (Not Detect) Coronavirus 229E (PCR) Not detected (Not Detect) SARS-CoV-2 (PCR) Detected H (Not Detecte) Coronavirus NL63 (PCR) Not detected (Not Detect) Human Metapneumovir PCR Not detected (Not Detect) Influenza Type A (PCR) Not detected (Not Detect) Influenza Type B (PCR) Not detected (Not Detect) M. pneumoniae (PCR) Not detected (Not Detect) Parainfluenza 1 (PCR) Not detected (Not Detect) Parainfluenza 2 (PCR) Not detected (Not Detect) Parainfluenza 3 (PCR) Not detected (Not Detect) Parainfluenza 4 (PCR) Not detected (Not Detect) RSV (PCR) Not detected (Not Detect) Entero/Rhino (PCR) Not detected (Not Detect) 12/04/21 12/04/21 Range/Units 11:50 14:50 WBC (4.5-11.0) X10^3/uL RBC (4.5-5.9) X10^6/uL Hgb (13.5-17.5) g/dL Hct (41-53) % MCV (80-100) fL MCH (26-34) PG MCHC (30-36) % RDW (11.6-14.8) % Plt Count (150-400) X10^3/uL Neut % (Auto) (50-75) % Lymph % (Auto) (25-40) % [place] % (Auto) (3-14) % Eos % (Auto) (2-4) % Baso % (Auto) (0-2) % Neut # (Auto) (6905-7124) /uL Lymph # (Auto) (9774-3775) /uL [place] # (Auto) (0-900) /uL Eos # (Auto) (0-450) /uL Baso # (Auto) (0-100) /uL Sodium (137-145) mmol/L Potassium (3.4-5.1) mmol/L Chloride (98-107) mmol/L Carbon Dioxide (22-32) mmol/L BUN (9-20) mg/dL Creatinine (0.66-1.25) mg/dL Estimated GFR (>60) mL/min BUN/Creatinine Ratio (6-22) Glucose (80-110) mg/dL Lactate 1.5 (0.7-2.1) mmol/L Calcium (8.4-10.2) mg/dL Total Bilirubin (0.2-1.3) mg/dL AST (17-59) IU/L ALT (<50) IU/L Alkaline Phosphatase (38-126) U/L Total Protein (6.3-8.2) g/dL Albumin (3.5-5.0) g/dL Globulin (1.7-4.1) g/dL Albumin/Globulin Ratio (1.0-2.8) Lipase (23-300) U/L Procalcitonin (<0.5) ng/mL Urine Color Yellow Urine Appearance Clear Urine pH 5.0 (4.5-8.0) Ur Specific [place] <=1.005 (1.000-1.035) Urine Protein Negative (Negative) Urine Glucose (UA) Negative (Negative) g/dL Urine Ketones Negative (NEGATIVE) Urine Occult Blood Negative (Negative) Urine Nitrate Negative (Negative) Urine Bilirubin Negative (NEGATIVE) Urine Urobilinogen 0.2 (0.2) E.U./dL Ur Leukocyte Esterase Negative (NEGATIVE) Urine RBC None seen (0-5/HPF) Urine WBC None seen (0-5/HPF) Ur Squamous Epith Cells 1-5 /hpf (0-5/HPF) Ur Transition Epith Cell 1-5/hpf (0-5/HPF) Ur Renal Epithelial Cell 5-10/hpf H (0-1/HPF) Amorphous Sediment 1+ Urine Bacteria None seen (None) Hyaline Casts 1-5/lpf (None) Ur Culture Indicated? Cult not indicated Chlamy pneumoniae PCR (Not Detect) Adenovirus (PCR) (Not Detect) B. pertussis DNA (PCR) (Not Detecte) B.parapertussis DNA PCR (Not Detecte) Coronavirus OC43 (PCR) (Not Detect) Coronavirus HKU1 (PCR) (Not Detect) Coronavirus 229E (PCR) (Not Detect) SARS-CoV-2 (PCR) (Not Detecte) Coronavirus NL63 (PCR) (Not Detect) Human Metapneumovir PCR (Not Detect) Influenza Type A (PCR) (Not Detect) Influenza Type B (PCR) (Not Detect) M. pneumoniae (PCR) (Not Detect) Parainfluenza 1 (PCR) (Not Detect) Parainfluenza 2 (PCR) (Not Detect) Parainfluenza 3 (PCR) (Not Detect) Parainfluenza 4 (PCR) (Not Detect) RSV (PCR) (Not Detect) Entero/Rhino (PCR) (Not Detect) Discharge Plan Departure Patient Disposition: Admitted As Inpatient Clinical Impression: Pneumonia Admit Date/Time: 12/04/21 15:24 Admit Provider: Arpit Staton <Jigar Rodarte MD - Last Filed: 12/07/21 11:17> Cosign ED Attending Cosignature Attestation: I was immediately available in the department for consultation. This documentation has been reviewed and I agree with assessment and plan. Supervised by Jigar Rodarte MD
[2021-12-04 12:35] LABS: Alanine Aminotransferase 16 IU/L (<50); Albumin Globulin Ratio 0.7 (1.0-2.8); Alkaline Phosphatase 107 U/L (38-126); Aspartate Aminotransferase 28 IU/L (17-59); BUN Creatinine Ratio 19.3 (6-22); Bilirubin Total 0.6 mg/dL (0.2-1.3); Blood Urea Nitrogen 31 mg/dL (9-20); Calcium 9.9 mg/dL (8.4-10.2); Carbon Dioxide 28 mmol/L (22-32); Chloride 104 mmol/L (98-107); Estimated Glomerular Filt Rate 41 mL/min (>60); Globulin 4.2 g/dL (1.7-4.1); Glucose 110 mg/dL (80-110); HEMOLYSIS < 15 (0-50); Lipase 78 U/L (23-300); Potassium 4.6 mmol/L (3.4-5.1); Sodium 136 mmol/L (137-145); Total Protein 7.2 g/dL (6.3-8.2)
[2021-12-04 12:36] LABS: Lactate (Lactic Acid) 1.5 mmol/L (0.7-2.1)
[2021-12-04 12:52] LABS: Procalcitonin 0.32 ng/mL (<0.5)
[2021-12-04 13:22] LABS: Adenovirus Not Detected (Not Detect); B. parapertussis Not Detected (Not Detecte); Bordetella pertussis Not Detected (Not Detecte); Chlamydophila pneumoniae Not Detected (Not Detect); Coronavirus 229E Not Detected (Not Detect); Coronavirus HKU1 Not Detected (Not Detect); Coronavirus NL 63 Not Detected (Not Detect); Coronavirus OC43 Not Detected (Not Detect); Human Metapneumovirus Not Detected (Not Detect); Human Rhinovirus/Enterovirus Not Detected (Not Detect); Influenza A Not Detected (Not Detect); Influenza B Not Detected (Not Detect); Mycoplasma pneumoniae Not Detected (Not Detect); Parainfluenza Virus 1 Not Detected (Not Detect); Parainfluenza Virus 2 Not Detected (Not Detect); Parainfluenza Virus 3 Not Detected (Not Detect); Parainfluenza Virus 4 Not Detected (Not Detect); Respiratory Syncytial Virus Not Detected (Not Detect)
[2021-12-04 13:23] LABS: SARS- CoV-2 Detected (Not Detecte)
[2021-12-04] MEDS: cefTRIAXone 1,000 MG in SODIUM CHLORIDE 0.9% 100 ML 200 MG IV (13:34)
[2021-12-04] MEDS: DOXYCYCLINE 100 MG in SODIUM CHLORIDE 0.9% 100 ML IV (14:33)
[2021-12-04 15:29] LABS: Appearance Urine UA CLEAR; Bilirubin Urine UA NEGATIVE (NEGATIVE); Color Urine UA YELLOW; Glucose Urine UA NEGATIVE (Negative); Ketones Urine UA NEGATIVE (NEGATIVE); Leukocyte Esterase Urine UA NEGATIVE (NEGATIVE); Nitrite Urine UA NEGATIVE (Negative); Occult Blood Urine UA NEGATIVE (Negative); Protein Urine UA NEGATIVE (Negative); Specific Gravity Urine UA <=1.005 (1.000-1.035); Urobilinogen Urine UA 0.2 E.U./dL (0.2)
--- NOTE | 2021-12-04 15:31 | CM.IDA ---
Initial Discharge Assessment Note Patient is 86 y/o male who presents to ED via EMS due to concern for worsening Pneumonia symptoms, SOB, increased weakness, cough and elevated BP. Patient went to [facility] in Clinic yesterday and was diagnosed with Pneumonia. Patient has hx of Covid dx from aprox. 4 weeks ago. Patient tests positive for Covid today. Patient has hx of Anemia, Asymptomatic Microscopic Hematuria, BPH and Hypertension. Patient's PCP is Dr. Misha Bruce and patient has Medicare and [employer] insurance. Per EMR, patient has upcoming appt in December [address] Cadena for pain management. SPIRAL BINDER enters room to meet with patient. Patient presents with daughter Dasia who is visiting from [place]. Patient presents as A/Ox3 but would often close his eyes and rest. Patient resides at home with on [facility]. It is reported that was recently discharged from [facility] due to concern for worsening Covid symptoms. It is reported by patient's daughter that patient and are normally independent at baseline but have declined since Covid dx and patient's new Pneumonia dx. Per RN, patient presented with soiled clothes and concern for hygiene. Patient's daughter endorses concern for patient's recent ability to conduct ADLs such as toileting, bathing, preparing food and getting dressed. Patient endorses he uses a FWW but has been struggling with walking recently. Patient does not drive. Patient's daughter endorses she is looking into getting patient and connected with Meals on Wheels. SPIRAL BINDER asks daughter about oysterman care planning and she states that she has started the discussion with patient's but not patient but it is reported that patient and have half-way health care. Daughter endorses that she plans to have discussion with family to determine [place] care plans. Daughter endorses interest in patient going to SNF rehab as patient's is recovering at home for her recent hospital stay and cannot care for patient. Per Alicia, patient has hx of SNF rehab stay at [facility] in [place]. Per ED provider, Asher Boswell PA-C patient has been admitted by Hospitalist Dr. Staton due to patient's Pneumonia and elevated white blood cell count. Plan: patient to be admitted to acute care, DCP to f/u with POC. Awaiting PT evaluation, possible plan of SNF rehab upon d/c. VENTURA Giles Discharge Planning/Care Management CM Discharge Assessment Start: 12/04/21 13:09 Freq: Status: Active Protocol: Document 12/04/21 13:09 LN (Rec: 12/04/21 14:39 LN [id number]) Discharge Planning Assessment Assigned Pantograph Machine Set Up Operator VENTURA Jacobs Advance Directives? Yes History Provided By Patient,Family Member,Medical Record Has Patient been admitted in last 30 No days? Prior Living Arrangements House Household Members spouse Comment Patient resides on [facility] with . Type of transporation used prior to Relies on Others admit Independent with ADL's No Is patient alert and oriented? Yes Needs Assistance With Bathing,Eating,Grooming,Meal Prep,Toileting,Managing Medications,Home Chores / Shopping Comment Patient has had increased weakness and decline since recent Covid and Pnemonia dx and has greatly impacted his ability to complete ADLs. Caregiver for Another No DME Already Rented / Owned FWW / Walker Patient/Family Preference Long Term Facility Comment Family preference is SNF rehab , patient is unsure at this time and focusing on wanting to feel better.
[2021-12-04 15:40] LABS: Amorphous Sediment Urine 1+; Bacteria Urine None Seen; Hyaline Casts Urine 1-5/LPF; RBC Urine None Seen (0-5/HPF); Renal Epithelial Cells Urine 5-10/HPF (0-1/HPF); Squamous Epithelial Cell Urine 1-5 /HPF (0-5/HPF); Transitional Epi Cells Urine 1-5/HPF (0-5/HPF); WBC Urine None Seen (0-5/HPF)
[2021-12-04 15:41] LABS: Culture Indicated Urine Cult Not Indicated
--- NOTE | 2021-12-04 17:40 | P.HP_ITS ---
History of Present Illness History of Present Illness Date Patient Seen: 12/04/21 Time Patient Seen: 18:11 Chief complaint: Sob, cough elavalted BP Narrative: This is an 86-year-old male with a past medical history diastolic heart failure, permanent atrial fibrillation, bioprosthetic aortic valve, interstitial disease with chronic dyspnea, CKD stage IIIB chronic cardiorenal syndrome, carotid artery stenosis, hypertension, hyperlipidemia, obstructive sleep apnea, and type 2 diabetes who presents with progressive cough and weakness over the past week or so. History is largely obtained by the patient and from chart review, no family is available at this time. He presented to the clinic on [facility] yesterday per his Daughter's request, he did not wish to transfer to the hospital at that time. He has has more difficulty caring for himself and reports he has not been eating as he has been having bowel movements and urinating after each meal. He is finding it difficult to do basic activities but states this is only due to weakness at the moment. He could not further elaborate with me. He states he has been weaker since about a week after his covid infection. He was diagnosed with covid about 3 weeks ago, and felt well after. He received paxlovid per chart review. He states about a week after he began to have worsening cough and weakness which continued to today's visit to the ER. CXR showed a right middle lobe infiltrate, similar to yesterday's exam. Laboratory evaluation showed a leukocytosis with WBC of 22. Creatinine was 1.61 from apparent baseline of around 1.1 per review of records. Respiratory panel was positive for COVID 19. EKG was consistent to prior tracings per review of his cardiology notes. Patient was admitted for community acquired pneumonia. Patient History Medical History Anemia Asymptomatic microscopic hematuria BPH (benign prostatic hyperplasia) Chronic diastolic heart failure DM2 (diabetes mellitus, type 2) Hypertension Interstitial lung disease Permanent atrial fibrillation Stage 3b chronic kidney disease (CKD) Surgical History S/P AVR (aortic valve replacement) Family & Social History Family History (Updated 12/04/21 @ 17:42 by Arpit Staton DO) Mother No pertinent past medical history Father No pertinent past medical history Social History: household members spouse Prior Living Arrangements House Safety & Behavioral: Feels Safe in Current Yes Environment Been Physically Hurt or No Threatened By a Person Tobacco & Substance use: Tobacco type cigarettes Smoking Status Former smoker alcohol intake current alcohol intake frequency 0-2 drinks per day Substance Use Type does not use Meds Home Medications and Allergies Home Medications Medication Instructions Recorded Confirmed Type [COQ10] 25 mg PO BID ##0 10/20/15 12/04/21 History [fish oil] 1 gm PO QDAY ##0 10/20/15 12/04/21 History [vitamin D3/D2] 2,000 iu PO QDAY ##0 10/20/15 12/04/21 History multivitamin (Multiple Vitamins 1 tab PO QDAY #0 tabs 10/20/15 12/04/21 History tablet) latanoprost 0.005 % eye drops 1 drp ophthalmic (eye) DAILY 06/11/20 12/04/21 History nitroglycerin 0.4 mg sublingual 0.4 mg sublingual Q5M PRN pain 06/11/20 12/04/21 History tablet spironolactone 25 mg tablet 25 mg PO DAILY 06/11/20 12/04/21 History taurine 1,000 mg capsule 1,000 mg PO DAILY 06/11/20 12/04/21 History zinc gluconate 50 mg tablet 50 mg PO DAILY 06/11/20 12/04/21 History atorvastatin 40 mg tablet 40 mg PO DAILY #90 tabs 03/26/21 12/04/21 Rx colesevelam 625 mg tablet (WelChol) 1,875 mg PO BID #540 tabs 03/26/21 12/04/21 Rx fenofibrate nanocrystallized 145 145 mg PO QDAY #90 tabs 03/26/21 12/04/21 Rx mg tablet (Tricor) apixaban 2.5 mg tablet (Eliquis) 2.5 mg PO BID #180 tabs 04/02/21 12/04/21 Rx mirabegron 25 mg tablet,extended 25 mg PO QDAY #90 tabs 06/11/21 12/04/21 Rx release 24 hr (Myrbetriq) torsemide 100 mg tablet 100 mg PO DAILY #90 tabs 06/11/21 12/04/21 Rx lisinopril 20 mg tablet 20 mg PO DAILY #90 tabs 09/01/21 12/04/21 Rx nirmatrelvir 150 mg-ritonavir 100 See Rx Instructions PO PER PKG DIR 11/23/21 12/04/21 Rx mg tablets in a dose pack (EUA) #1 ea (Paxlovid) Disabled Parking Permit 1 ea topical DAILY 12/04/21 12/04/21 History Allergies Allergy/AdvReac Type Severity Reaction Status Date / Time No Known Drug Allergies Allergy Verified 12/03/21 16:14 Review of Systems Review of Systems Narrative: All other systems reviewed with the patient and are negative unless otherwise stated. Exam Vital Signs (past 8 hours): - 12/04/21 11:15 12/04/21 11:31 12/04/21 11:33 Temperature 97.4 F L Pulse Rate 90 91 H Respiratory Rate 18 Blood Pressure 132/72 Pulse Oximetry 96 99 98 Oxygen Delivery Method Room Air 12/04/21 11:33 12/04/21 12:00 12/04/21 12:09 Temperature Pulse Rate 93 H 88 Respiratory Rate Blood Pressure 132/72 Pulse Oximetry 97 96 Oxygen Delivery Method 12/04/21 12:09 12/04/21 12:30 12/04/21 12:31 Temperature Pulse Rate 81 Respiratory Rate 28 H Blood Pressure 137/75 158/69 H Pulse Oximetry 96 Oxygen Delivery Method 12/04/21 12:31 12/04/21 13:00 12/04/21 13:01 Temperature Pulse Rate 90 85 Respiratory Rate 33 H 49 H Blood Pressure 165/72 H Pulse Oximetry 97 96 Oxygen Delivery Method 12/04/21 13:01 12/04/21 13:30 12/04/21 13:33 Temperature Pulse Rate 87 81 Respiratory Rate 41 H 26 H Blood Pressure 140/67 Pulse Oximetry 96 96 Oxygen Delivery Method 12/04/21 13:33 12/04/21 14:00 12/04/21 14:01 Temperature Pulse Rate 81 89 Respiratory Rate 32 H 23 Blood Pressure 161/75 H Pulse Oximetry 96 97 Oxygen Delivery Method 12/04/21 14:01 12/04/21 14:30 12/04/21 14:31 Temperature Pulse Rate 87 86 Respiratory Rate 23 22 Blood Pressure 146/67 H Pulse Oximetry 97 97 Oxygen Delivery Method 12/04/21 14:31 12/04/21 15:00 12/04/21 15:28 Temperature Pulse Rate 83 94 H 93 H Respiratory Rate 22 24 24 Blood Pressure Pulse Oximetry 96 99 98 Oxygen Delivery Method 12/04/21 15:28 12/04/21 15:30 12/04/21 15:30 Temperature Pulse Rate 93 H Respiratory Rate 21 Blood Pressure 139/73 146/66 H Pulse Oximetry 98 Oxygen Delivery Method 12/04/21 16:51 Temperature Pulse Rate Respiratory Rate Blood Pressure Pulse Oximetry 98 Oxygen Delivery Method Room Air Oxygen Delivery Method Room Air Narrative Exam Narrative: General:? Patient is a mildly ill appearing elderly male in mild distress, appears short of breath and coughing frequently. HEENT:? Normocephalic, atraumatic, extraocular muscles intact, oral pharynx is clear and mucous membranes are moist. Neck: supple and symmetric, trachea is midline, no cervical adenopathy. Negative for JVD Chest:? Normal AP diameter and contour without kyphoscoliosis, no tachypnea, equal chest rise bilaterally. Lungs:? CTA b/l no wheezing rhonchi or rales. Cardio:?RRR no m/r/g. Abdomen: S NT ND. Musculoskeletal:? Muscle strength and tone are equal within normal limits, no deformity. Extremities: Trace bilateral lower extremity edema. No joint effusions. No cyanosis or clubbing. Skin:? Pale,? Warm to touch,dry and intact without rashes, ulcerations or petechiae.? Neuro:? Alert and orientated x3,? sensation to touch intact in all extremities, no gross deficits noted of cranial nerves. Psych:? Patient has a well-kept appearance, appropriate affect, mental status attitude thought context and judgment are appropriate for age. He does seem mildly anxious and answers questions in very short phrases intentionally. Objective ECG Impression: Atrial fibrillation with premature ventricular or aberrantly conducted complexes Right bundle branch block Left anterior fascicular block Bifascicular block Labs Result Diagrams: 12/04/21 11:50 12/04/21 11:50 Labs: Laboratory Results - last 24 hr 12/04/21 12/04/21 12/04/21 11:45 11:50 11:50 WBC 22.2 H RBC 3.41 L Hgb 10.7 L Hct 32.7 L MCV 96.1 MCH 31.3 MCHC 32.6 RDW 14.0 Plt Count 495 H Neut % (Auto) 87.7 H Lymph % (Auto) 5.0 L [place] % (Auto) 6.8 Eos % (Auto) 0.3 L Baso % (Auto) 0.2 Neut # (Auto) 71565 H Lymph # (Auto) 1100 [place] # (Auto) 1500 H Eos # (Auto) 100 Baso # (Auto) 100 Sodium 136 L Potassium 4.6 Chloride 104 Carbon Dioxide 28 BUN 31 H Creatinine 1.61 H Estimated GFR 41 L BUN/Creatinine Ratio 19.3 Glucose 110 Lactate Calcium 9.9 Total Bilirubin 0.6 AST 28 ALT 16 Alkaline Phosphatase 107 Total Protein 7.2 Albumin 3.0 L Globulin 4.2 H Albumin/Globulin Ratio 0.7 L Lipase 78 Procalcitonin 0.32 Urine Color Urine Appearance Urine pH Ur Specific [place] Urine Protein Urine Glucose (UA) Urine Ketones Urine Occult Blood Urine Nitrate Urine Bilirubin Urine Urobilinogen Ur Leukocyte Esterase Urine RBC Urine WBC Ur Squamous Epith Cells Ur Transition Epith Cell Ur Renal Epithelial Cell Amorphous Sediment Urine Bacteria Hyaline Casts Ur Culture Indicated? Chlamy pneumoniae PCR Not detected Adenovirus (PCR) Not detected B. pertussis DNA (PCR) Not detected B.parapertussis DNA PCR Not detected Coronavirus OC43 (PCR) Not detected Coronavirus HKU1 (PCR) Not detected Coronavirus 229E (PCR) Not detected SARS-CoV-2 (PCR) Detected H Coronavirus NL63 (PCR) Not detected Human Metapneumovir PCR Not detected Influenza Type A (PCR) Not detected Influenza Type B (PCR) Not detected M. pneumoniae (PCR) Not detected Parainfluenza 1 (PCR) Not detected Parainfluenza 2 (PCR) Not detected Parainfluenza 3 (PCR) Not detected Parainfluenza 4 (PCR) Not detected RSV (PCR) Not detected Entero/Rhino (PCR) Not detected 12/04/21 12/04/21 11:50 14:50 WBC RBC Hgb Hct MCV MCH MCHC RDW Plt Count Neut % (Auto) Lymph % (Auto) [place] % (Auto) Eos % (Auto) Baso % (Auto) Neut # (Auto) Lymph # (Auto) [place] # (Auto) Eos # (Auto) Baso # (Auto) Sodium Potassium Chloride Carbon Dioxide BUN Creatinine Estimated GFR BUN/Creatinine Ratio Glucose Lactate 1.5 Calcium Total Bilirubin AST ALT Alkaline Phosphatase Total Protein Albumin Globulin Albumin/Globulin Ratio Lipase Procalcitonin Urine Color Yellow Urine Appearance Clear Urine pH 5.0 Ur Specific [place] <=1.005 Urine Protein Negative Urine Glucose (UA) Negative Urine Ketones Negative Urine Occult Blood Negative Urine Nitrate Negative Urine Bilirubin Negative Urine Urobilinogen 0.2 Ur Leukocyte Esterase Negative Urine RBC None seen Urine WBC None seen Ur Squamous Epith Cells 1-5 /hpf Ur Transition Epith Cell 1-5/hpf Ur Renal Epithelial Cell 5-10/hpf H Amorphous Sediment 1+ Urine Bacteria None seen Hyaline Casts 1-5/lpf Ur Culture Indicated? Cult not indicated Chlamy pneumoniae PCR Adenovirus (PCR) B. pertussis DNA (PCR) B.parapertussis DNA PCR Coronavirus OC43 (PCR) Coronavirus HKU1 (PCR) Coronavirus 229E (PCR) SARS-CoV-2 (PCR) Coronavirus NL63 (PCR) Human Metapneumovir PCR Influenza Type A (PCR) Influenza Type B (PCR) M. pneumoniae (PCR) Parainfluenza 1 (PCR) Parainfluenza 2 (PCR) Parainfluenza 3 (PCR) Parainfluenza 4 (PCR) RSV (PCR) Entero/Rhino (PCR) Assessment & Plan Assessment & Plan narrative: 1. Community-acquired bacterial pneumonia of the right middle lobe, respiratory distress. - continue ceftriaxone and doxycycline - WBC 22 and RML infiltrate on CXR. likely superinfection after COVID 19. He is not hypoxic, but does have tachypnea, mild respiratory distress. - PT / OT consultation - UA negative for infection - Elevated PSI of 156, or class V risk. Admit as inpatient. 2. COVID-19 infection - suspect patient has largely recovered from COVID 19 and this does not represent acute infection. S/p completion of paxlovid 2.5 weeks ago. 3. YORDY on CKD 3B - prior baseline Cr around 1.1 per review. Cr 1.61 today but unknown recent baseline. Suspect YORDY in setting of community acquired pneumonia. 4. permanent atrial fibrillation - continue home medications and anticoagulation. 5. HTN - continue home medications 6. HLD - continue home medications 7. Chronic diastolic heart failure with prior bioprosthetic aortic valve - continue home medications, does not represent acute exacerbation - depending on improvement, consider TTE for further evaluation. Code: full, surrogate is patient's DVT: on apixaban Dispo: admit as inpatient. may need SNF depending on PT/OT evaluations. I have utilized all available immediate resources to obtain, update, or review the patient's current medications. COVID-19 COVID-19 status: Positive Time Spent With Patient Critical Care time: I spent a total of [] minutes of critical care time on this patient's care today; this time is exclusive of procedural time. Quality VTE Deep Vein Thrombosis/Pulmonary Embolism Present on Admission: No MIPS - Admit I confirm the patient?s Advance Care Plan is present, Code status is documented, Surrogate decision maker is in patient?s record [If Yes, STOP here]: Yes
--- NOTE | 2021-12-04 19:29 | PC.NURSE ---
Pt arrived from ED this afternoon. He is A&Ox2, forgetful. He states that he doesnt want to eat or drink because he doesn't have a way to get to the bathroom. He is reassured that we will assist him and tolerates 80% of dinner and is drinking water. He denies pain, MD evaluating patient with daughter at bedside. AFIB on telemetry. Bed alarm on and call light in place. Continuos monitoring.
[2021-12-04] MEDS: COLESEVELAM 625 MG TABLET 1875 MG PO (20:22)
[2021-12-04] MEDS: ATORVASTATIN 20 MG TABLET 40 MG PO (20:23)
[2021-12-04] MEDS: NYSTATIN POWDER 15GM 1 APPLIC TOP (20:23)
[2021-12-04] MEDS: DOXYCYCLINE HYCLATE 100 MG TABLET PO (20:23)
[2021-12-04] MEDS: APIXABAN 5 MG TABLET 2.5 MG PO (20:24)
[2021-12-05] VITALS (12 sets, daily range): BP systolic 88–131; BP diastolic 52–79; PULSE 78–98; RESP 18–27; TEMP 36.3–36.8; O2SAT 94–98
--- NOTE | 2021-12-05 04:37 | PC.NURSE ---
Pt is AxOx1-2, calm and cooperative. VSS, pt denies pain. Continue droplet precaution. Tele shows A-fib rhythm with some PVCs. Pt is incontinent and has brief on. No BM overnight. No other changes. Continue monitor.
--- NOTE | 2021-12-05 05:29 | P.PN_ITS ---
Subjective Subjective Date Patient Seen: 12/05/21 Interval history: 86-year-old male with diastolic CHF, permanent atrial fibrillation, bioprosthetic aortic valve, interstitial lung disease with chronic dyspnea, CKD stage IIIB, chronic cardiorenal syndrome, carotid artery stenosis, hypertension, hyperlipidemia, obstructive sleep apnea, and type 2 diabetes who was admitted last night w/RML pneumonia. Patient reports he is feeling poorly today. He denies any sputum production. He does report ongoing dyspnea. He is hungry and plans on eating breakfast. No chest pain. No nausea, vomiting, or diarrhea. Exam Vital Signs (past 8 hours): - 12/05/21 00:00 12/05/21 01:00 12/05/21 04:00 Temperature 98.2 F Pulse Rate 83 Respiratory Rate 18 Blood Pressure 119/72 Pulse Oximetry 98 Oxygen Delivery Method Room Air Room Air Oxygen Flow Rate 0 12/05/21 04:48 Temperature 98.3 F Pulse Rate 88 Respiratory Rate 18 Blood Pressure 116/71 Pulse Oximetry 98 Oxygen Delivery Method Oxygen Flow Rate 0 Oxygen Delivery Method Room Air Oxygen Flow Rate 0 Narrative Exam Narrative: GEN: Ill-appearing elderly male, Alert and oriented x 3, moderately dyspneic at rest HEENT:NC, Face symmetric CHEST: Respiratory excursions symmetric, course with diffusely diminished breath sounds, most notable in the right upper/mid lung zone CV: Irregularly irregular, no M/R/G ABD: Soft, NT/ND, BT present in all 4 quadrants, body habitus limits exam EXTR: warm, well perfused, no C/C/1+ bilateral lower extremity pitting edema, 2+ to the ankles SKIN: warm and dry, no rash NEURO: Alert and oriented x 3, nonfocal Objective Labs Result Diagrams: 12/05/21 05:57 12/05/21 05:57 Labs: Laboratory Results - last 24 hr 12/04/21 12/04/21 12/04/21 11:45 11:50 11:50 WBC 22.2 H RBC 3.41 L Hgb 10.7 L Hct 32.7 L MCV 96.1 MCH 31.3 MCHC 32.6 RDW 14.0 Plt Count 495 H Neut % (Auto) 87.7 H Lymph % (Auto) 5.0 L [place] % (Auto) 6.8 Eos % (Auto) 0.3 L Baso % (Auto) 0.2 Neut # (Auto) 83897 H Lymph # (Auto) 1100 [place] # (Auto) 1500 H Eos # (Auto) 100 Baso # (Auto) 100 Sodium 136 L Potassium 4.6 Chloride 104 Carbon Dioxide 28 BUN 31 H Creatinine 1.61 H Estimated GFR 41 L BUN/Creatinine Ratio 19.3 Glucose 110 Lactate Calcium 9.9 Total Bilirubin 0.6 AST 28 ALT 16 Alkaline Phosphatase 107 Total Protein 7.2 Albumin 3.0 L Globulin 4.2 H Albumin/Globulin Ratio 0.7 L Lipase 78 Procalcitonin 0.32 Urine Color Urine Appearance Urine pH Ur Specific [place] Urine Protein Urine Glucose (UA) Urine Ketones Urine Occult Blood Urine Nitrate Urine Bilirubin Urine Urobilinogen Ur Leukocyte Esterase Urine RBC Urine WBC Ur Squamous Epith Cells Ur Transition Epith Cell Ur Renal Epithelial Cell Amorphous Sediment Urine Bacteria Hyaline Casts Ur Culture Indicated? Chlamy pneumoniae PCR Not detected Adenovirus (PCR) Not detected B. pertussis DNA (PCR) Not detected B.parapertussis DNA PCR Not detected Coronavirus OC43 (PCR) Not detected Coronavirus HKU1 (PCR) Not detected Coronavirus 229E (PCR) Not detected SARS-CoV-2 (PCR) Detected H Coronavirus NL63 (PCR) Not detected Human Metapneumovir PCR Not detected Influenza Type A (PCR) Not detected Influenza Type B (PCR) Not detected M. pneumoniae (PCR) Not detected Parainfluenza 1 (PCR) Not detected Parainfluenza 2 (PCR) Not detected Parainfluenza 3 (PCR) Not detected Parainfluenza 4 (PCR) Not detected RSV (PCR) Not detected Entero/Rhino (PCR) Not detected 12/04/21 12/04/21 11:50 14:50 WBC RBC Hgb Hct MCV MCH MCHC RDW Plt Count Neut % (Auto) Lymph % (Auto) [place] % (Auto) Eos % (Auto) Baso % (Auto) Neut # (Auto) Lymph # (Auto) [place] # (Auto) Eos # (Auto) Baso # (Auto) Sodium Potassium Chloride Carbon Dioxide BUN Creatinine Estimated GFR BUN/Creatinine Ratio Glucose Lactate 1.5 Calcium Total Bilirubin AST ALT Alkaline Phosphatase Total Protein Albumin Globulin Albumin/Globulin Ratio Lipase Procalcitonin Urine Color Yellow Urine Appearance Clear Urine pH 5.0 Ur Specific [place] <=1.005 Urine Protein Negative Urine Glucose (UA) Negative Urine Ketones Negative Urine Occult Blood Negative Urine Nitrate Negative Urine Bilirubin Negative Urine Urobilinogen 0.2 Ur Leukocyte Esterase Negative Urine RBC None seen Urine WBC None seen Ur Squamous Epith Cells 1-5 /hpf Ur Transition Epith Cell 1-5/hpf Ur Renal Epithelial Cell 5-10/hpf H Amorphous Sediment 1+ Urine Bacteria None seen Hyaline Casts 1-5/lpf Ur Culture Indicated? Cult not indicated Chlamy pneumoniae PCR Adenovirus (PCR) B. pertussis DNA (PCR) B.parapertussis DNA PCR Coronavirus OC43 (PCR) Coronavirus HKU1 (PCR) Coronavirus 229E (PCR) SARS-CoV-2 (PCR) Coronavirus NL63 (PCR) Human Metapneumovir PCR Influenza Type A (PCR) Influenza Type B (PCR) M. pneumoniae (PCR) Parainfluenza 1 (PCR) Parainfluenza 2 (PCR) Parainfluenza 3 (PCR) Parainfluenza 4 (PCR) RSV (PCR) Entero/Rhino (PCR) [facility] Medical History Anemia Asymptomatic microscopic hematuria BPH (benign prostatic hyperplasia) Chronic diastolic heart failure DM2 (diabetes mellitus, type 2) Hypertension Interstitial lung disease Permanent atrial fibrillation Stage 3b chronic kidney disease (CKD) Surgical History S/P AVR (aortic valve replacement) Family History (Updated 12/04/21 @ 17:42 by Arpit Staton DO) Mother No pertinent past medical history Father No pertinent past medical history Social History (Updated 06/11/20 @ 11:25 by Jenniffer Andrade [facility]) household members: spouse Smoking Status: Former smoker alcohol intake: current Assessment & Plan Assessment & Plan narrative: 1. Community-acquired bacterial pneumonia of the right middle lobe, respiratory distress. White blood cell count is improved today, down from 22.2-17.5 today. Continue ceftriaxone and doxycycline. Vital signs are stable. Remains stable in room air. He remains moderately dyspneic. Will add a flutter valve and Mucinex to assist with expectoration. 2. COVID-19 infection Patient was diagnosed several weeks ago and completed Paxlovid approximately 2 and half weeks ago. He remains in droplet precautions here. 3. YORDY on CKD 3B Baseline creatinine is 1.1. On admission creatinine was 1.61, but it is down to 1.42 today. Improving. Etiology of the YORDY is likely acute pneumonia. 4. permanent atrial fibrillation Presently rate controlled. Anticoagulated on apixaban which has been continued. 5. HTN Continue lisinopril 20 mg daily, torsemide 100 mg daily, and spironolactone 25 m g daily. Blood pressures are normotensive. 6. HLD Continue atorvastatin. 7. Chronic diastolic heart failure with prior bioprosthetic aortic valve He does have some pitting edema which he describes as being chronic. He typically wears compression stockings. He remains on Osei inhibitor, spironola ctone, and torsemide. Code: full, surrogate is patient's Prophylaxis: On apixaban Dispo: PT/OT consult requested. Time Spent With Patient Critical Care time: I spent a total of [] minutes of critical care time on this patient's care today; this time is exclusive of procedural time. Quality VTE Deep Vein Thrombosis/Pulmonary Embolism Present on Admission: No
[2021-12-05 06:15] LABS: Add Manual Diff / Slide Review NO; Basophils Absolute Auto 100 /uL (0-100); Basophils Percent Auto 0.4 % (0-2); Eosinophils Absolute Auto 300 /uL (0-450); Eosinophils Percent Auto 1.7 % (2-4); Hematocrit 28.2 % (41-53); Hemoglobin 9.4 g/dL (13.5-17.5); Lymphocytes Absolute Auto 1300 /uL (1100-4500); Lymphocytes Percent Auto 7.6 % (25-40); Mean Corpuscular HGB Conc 33.4 % (30-36); Mean Corpuscular Hemoglobin 31.9 PG (26-34); Mean Corpuscular Volume 95.6 fL (80-100); Monocytes Absolute Auto 1400 /uL (0-900); Monocytes Percent Auto 7.8 % (3-14); Neutrophils Absolute Auto 14400 /uL (1500-7000); Neutrophils Percent Auto 82.5 % (50-75); Platelet Count 405 X10^3/uL (150-400); Red Blood Cell Count 2.95 X10^6/uL (4.5-5.9); Red Cell Distribution Width 13.8 % (11.6-14.8); White Blood Cell Count 17.5 X10^3/uL (4.5-11.0)
[2021-12-05 06:20] LABS: Alanine Aminotransferase 13 IU/L (<50); Albumin 2.4 g/dL (3.5-5.0); Albumin Globulin Ratio 0.6 (1.0-2.8); Alkaline Phosphatase 76 U/L (38-126); Aspartate Aminotransferase 22 IU/L (17-59); BUN Creatinine Ratio 21.8 (6-22); Bilirubin Total 0.4 mg/dL (0.2-1.3); Blood Urea Nitrogen 31 mg/dL (9-20); Calcium 9.2 mg/dL (8.4-10.2); Carbon Dioxide 24 mmol/L (22-32); Chloride 108 mmol/L (98-107); Estimated Glomerular Filt Rate 48 mL/min (>60); Globulin 3.7 g/dL (1.7-4.1); Glucose 110 mg/dL (80-110); HEMOLYSIS 19 (0-50); Potassium 4.4 mmol/L (3.4-5.1); Sodium 135 mmol/L (137-145); Total Protein 6.1 g/dL (6.3-8.2)
[2021-12-05] MEDS: lisinopriL 20 MG TABLET PO (10:52)
[2021-12-05] MEDS: TORSEMIDE 100 MG TABLET PO (10:53)
[2021-12-05] MEDS: guaiFENesin ER 600 MG TAB 1200 MG PO ×2 (10:54→20:34)
[2021-12-05] MEDS: DOXYCYCLINE HYCLATE 100 MG TABLET PO ×2 (10:55→20:27)
[2021-12-05] MEDS: MULTIVITAMIN 1 TABLET 1 TAB PO (10:56)
[2021-12-05] MEDS: SPIRONOLACTONE 25 MG TABLET PO (10:57)
[2021-12-05] MEDS: COLESEVELAM 625 MG TABLET 1875 MG PO ×2 (10:57→20:25)
[2021-12-05] MEDS: APIXABAN 5 MG TABLET 2.5 MG PO ×2 (10:57→20:34)
--- NOTE | 2021-12-05 11:01 | PT.IIE ---
Surgical History (Last Reviewed 12/04/21 @ 17:44 by Arpit Staton DO) S/P AVR (aortic valve replacement) Medical History (Last Reviewed 12/04/21 @ 17:45 by Arpit Staton DO) Anemia Asymptomatic microscopic hematuria BPH (benign prostatic hyperplasia) Chronic diastolic heart failure DM2 (diabetes mellitus, type 2) Hypertension Interstitial lung disease Permanent atrial fibrillation Stage 3b chronic kidney disease (CKD) Physical Therapy Inpatient Evaluation/Re-Eval M1 PT/OT-IP Prior Functional Status Start: 12/05/21 12:53 Freq: NEEDED Status: Active Protocol: Document 12/05/21 11:01 AB (Rec: 12/05/21 13:06 [email or web address]) Medical Review Prior Functional Status Medical History Reviewed Yes Communication able to make needs known Mobility and Gait pt stated that he is modified independent with ambulation using a FWW but can only walk ~ 10 ft and uses a manual w/c for outdoor mobility; pt stated that his neighbor comes in every morning to assist him to get up from his chair and comes in every time he needs assistance; daughter also comes to assist pt Social History Household Members spouse Living Arrangements House Number of Floors (Floors) One Floor Number of Stairs To Enter/Railing? no steps to enter Home Environment Standard Height Toilet,Walk in Shower,Built-In Shower Seat Home Equipment Front Wheel Walker,Manual Wheelchair,Hand Held Shower, Grab Bars Near Toilet Additional Social History Comment pt sleeps on a recliner pt stated that their shower has not been working for 2 months and he has not taken a shower since then M2 PT-IP Current Condition Start: 12/05/21 12:53 Freq: NEEDED Status: Active Protocol: Document 12/05/21 11:01 AB (Rec: 12/05/21 13:06 [email or web address]) Physical Therapy Current Condition Current Condition Evaluation Date 12/05/21 Treatment Diagnosis Covid; difficulty in walking Onset Date 12/04/21 M3 PT-IP Subjective Start: 12/05/21 12:53 Freq: NEEDED Status: Active Protocol: Document 12/05/21 11:01 AB (Rec: 12/05/21 13:06 [email or web address]) Subjective Physical Therapy Visit Type Type Initial Evaluation Visit Start Time 11:01 Visit Stop Time 11:39 Total Visit Minutes 39 Number of TRANS ROUTER Visits 0 Physical Therapy Visit Comments Patient Comments agreeable to do PT but needs encouragement M4 PT-IP Mobility and Gait Start: 12/05/21 12:53 Freq: NEEDED Status: Active Protocol: Document 12/05/21 11:01 AB (Rec: 12/05/21 13:06 AB [email or web address]) PT-Bed Mobility Assessment Supine to Sit Supine to Sit Maximum Assistance,1 Person Assistance,Head of Bed Elevated,Bedrails Scooting Scooting to Edge of Bed Maximum Assistance PT-Transfer Assessment Sit to and From Stand Sit to and from Stand Moderate Assistance,1 Person Assistance,Use of Upper Extremities Equipment Transfer Assistive Device Gait Belt,Front Wheeled Walker Orthotic/Prosthetic Devices or Brace: No Transfers Transfer Destination Chair Transfer Technique Stand Step Pivot Comments Mobility Comments BP: 137/67 O2 sat at room air: 96% completed supine to sit max A and max cues with HOB elevated . used bed rail to assist. able to sit on EOB min A. completed sit to stand mod A and cues and step transfer to chair using FWW min A. O2 sat checked: 89% cued for deep breathing and O2 sat increased to 94%. pt agreed to ambulate in room. completed sit to stand mod A and ambulated in room using FWW ~ 20 ft min A. agreed to sit on the chair. O2 sat after ambulation: 85%. cued for deep breathing and O2 sat increased to 91%. positioned pt on the chair. call light and table placed within reach. Left pt with NAC in room. informed nurse regarding O2 sat. Gait Assessment Gait Gait Assistance Required: Minimum Assistance Distance (Feet) 20 Able to Maintain Weight Bearing Status Yes During Gait Assistive Devices Assistive Device Gait Belt,Front Wheeled Walker Orthotic/Prosthetic Devices or Brace: No Gait Deviations General Gait Pattern Antalgic,Decreased Stride Length,Decreased Feet Clearance,Flexed Trunk,Step-to Gait Factors Limiting Gait Function Factors Limiting Gait Function Decreased Activity Tolerance, Decreased Strength,Difficulty Following Directions,Poor Safety Awareness,Respiratory Distress PT-Balance Assessment Sitting Balance and Reactions Static Sitting Balance Ability Good Dynamic Sitting Balance Ability Fair Standing Balance and Reactions Static Standing Balance Ability Fair Dynamic Standing Balance Ability Poor Device Used FWW M5 PT-IP Objective Assessments Start: 12/05/21 12:53 Freq: NEEDED Status: Active Protocol: Document 12/05/21 11:01 AB (Rec: 12/05/21 13:06 [email or web address]) Orientation Orientation/Cognition Level of Alertness Alert Orientation Name,Place,Situation Safety Awareness Decreased Safety Awareness Memory Description Short Term Impaired Gross Range of Motion Lower Extremity ROM Assessment Within Functional Limits Strength Lower Extremity Strength Hip 4-/5 Knee 4-/5 Sensation Assessment Sensation Gross Sensation WNL Muscle Tone Muscle Tone WNL Yes M6 PT-IP Treatment Start: 12/05/21 12:53 Freq: NEEDED Status: Active Protocol: Document 12/05/21 11:01 (Rec: 12/05/21 13:06 [email or web address]) Physical Therapy Treatment Education Education Provided Safety M7 PT-IP Assessment and Plan Start: 12/05/21 12:53 Freq: NEEDED Status: Active Protocol: Document 12/05/21 11:01 (Rec: 12/05/21 13:06 [email or web address]) PT Summary Assessment and Plan Potential Rehabilitation Potential Fair Status of Condition at Evaluation Evolving Summary Impairments Pain,ROM,Strength,Balance, Coordination,Sensation,Tone, Cognition,Bed Mobility, Transfers,Gait,Activity Tolerance Assessment Summary pt requiring max A for bed mobility, mod A for sit to stand and min A for ambulation using FWW. pt presents with decrease activity tolerance with decrease in O2 sat to 85% after ambulation. d/c plan depending on progress and assistance availability at home but at this time will require SNF rehab. Goals Bed Mobility Goal Standby Assistance Transfer Goal Standby Assistance,Front Wheeled Walker Gait Goal Standby Assistance,Front Wheel Walker Gait Distance 50 Days to Meet Goals 10 Frequency of Treatment Frequency Of Treatment Once a Day Treatment Plan Physical Therapy Treatment Plan Bed Mobility Training,Transfer Training,Gait Training, Therapeutic Exercise,Balance Retraining,Discharge Planning, Hot or Cold Pack,Neuromuscular Re-ed,Coordination Retraining ,Manual Therapy Precautions Other Precautions Covid Recommendations To Nursing Amount of Assist Needed 1 Person Assist Discharge Recommendations PT Discharge Recommendations SNF Rehab Transportation Needs at Discharge Wheelchair/Cabulance
[2021-12-05] MEDS: cefTRIAXone 1,000 MG in SODIUM CHLORIDE 0.9% 100 ML 200 MG IV (14:08)
--- NOTE | 2021-12-05 16:24 | OT.IPNOTE ---
Attempted to see pt for OT eval and pt states too tired and wanting to rest. Able to get prior history for pt, no charge.
[2021-12-05] MEDS: ATORVASTATIN 20 MG TABLET 40 MG PO (20:27)
[2021-12-06] VITALS (10 sets, daily range): BP systolic 103–130; BP diastolic 58–81; PULSE 73–93; RESP 18–20; TEMP 35.7–36.5; O2SAT 96–100
--- NOTE | 2021-12-06 05:36 | P.PN_ITS ---
Subjective Subjective Date Patient Seen: 12/06/21 Interval history: [address] [address] Progress Note Patient: Delfino Albarado MR#: [id number] : 1935 Acct:[id number] Age/Sex: 86 / M ? Date of Service: 12/04/21 86-year-old male with diastolic CHF, permanent atrial fibrillation, bioprosthet ic aortic valve, interstitial lung disease with chronic dyspnea, CKD stage IIIB, chronic cardiorenal syndrome, carotid artery stenosis, hypertension, hyperlipidemia, obstructive sleep apnea, and type 2 diabetes who was admitted last night w/RML pneumonia. Patient reports he is feeling poorly today.? He denies any sputum production.? He does report ongoing dyspnea.? He is hungry and plans on eating breakfast.? No chest pain.? No nausea, vomiting, or diarrhea. Exam Vital Signs (past 8 hours): - 12/05/21 23:33 12/06/21 00:00 12/06/21 04:00 Temperature 97.4 F L Pulse Rate 81 Respiratory Rate 20 Blood Pressure 112/68 Pulse Oximetry 96 96 96 Oxygen Delivery Method Room Air Room Air Oxygen Flow Rate 0 0 Oxygen Delivery Method Room Air Oxygen Flow Rate 0 Narrative Exam Narrative: GEN:? Ill-appearing elderly male, Alert and oriented x 3, moderately dyspneic at rest HEENT:NC, Face symmetric CHEST: Respiratory excursions symmetric, course with diffusely diminished breath sounds, most notable in the right upper/mid lung zone CV:? Irregularly irregular, no M/R/G ABD: Soft, NT/ND, BT present in all 4 quadrants, body habitus limits exam EXTR: warm, well perfused, no C/C/1+ bilateral lower extremity pitting edema, 2+ to the ankles SKIN: warm and dry, no rash NEURO: Alert and oriented x 3, nonfocal Objective Labs Result Diagrams: 12/05/21 05:57 12/05/21 05:57 Labs: Laboratory Results - last 24 hr 12/05/21 12/05/21 05:57 05:57 WBC 17.5 H RBC 2.95 L Hgb 9.4 L Hct 28.2 L MCV 95.6 MCH 31.9 MCHC 33.4 RDW 13.8 Plt Count 405 H Neut % (Auto) 82.5 H Lymph % (Auto) 7.6 L [place] % (Auto) 7.8 Eos % (Auto) 1.7 L Baso % (Auto) 0.4 Neut # (Auto) 55029 H Lymph # (Auto) 1300 [place] # (Auto) 1400 H Eos # (Auto) 300 Baso # (Auto) 100 Sodium 135 L Potassium 4.4 Chloride 108 H Carbon Dioxide 24 BUN 31 H Creatinine 1.42 H Estimated GFR 48 L BUN/Creatinine Ratio 21.8 Glucose 110 Calcium 9.2 Magnesium 2.0 Total Bilirubin 0.4 AST 22 ALT 13 Alkaline Phosphatase 76 Total Protein 6.1 L Albumin 2.4 L Globulin 3.7 Albumin/Globulin Ratio 0.6 L PFSH Medical History Anemia Asymptomatic microscopic hematuria BPH (benign prostatic hyperplasia) Chronic diastolic heart failure DM2 (diabetes mellitus, type 2) Hypertension Interstitial lung disease Permanent atrial fibrillation Stage 3b chronic kidney disease (CKD) Surgical History S/P AVR (aortic valve replacement) Family History (Updated 12/04/21 @ 17:42 by Arpit Staton DO) Mother No pertinent past medical history Father No pertinent past medical history Social History (Updated 06/11/20 @ 11:25 by Jenniffer Andrade CMA) household members: spouse Smoking Status: Former smoker alcohol intake: current Assessment & Plan Assessment & Plan narrative: 1. Community-acquired bacterial pneumonia of the right middle lobe, respiratory distress. White blood cell count is improved today, down from 22.2-17.5 today.? Continue ceftriaxone and doxycycline.? Vital signs are stable.? Remains stable in room ai r.? He remains moderately dyspneic.? Will add a flutter valve and Mucinex to assist with expectoration. 2. COVID-19 infection Patient was diagnosed several weeks ago and completed Paxlovid approximately 2 and half weeks ago.? He remains in droplet precautions here. 3. YORDY on CKD 3B Baseline creatinine is 1.1.? On admission creatinine was 1.61, but it is down to 1.42 today.? Improving.? Etiology of the YORDY is likely acute pneumonia. 4. permanent atrial fibrillation Presently rate controlled.? Anticoagulated on apixaban which has been continued. 5. HTN Continue lisinopril 20 mg daily, torsemide 100 mg daily, and spironolactone 25 mg daily.? Blood pressures are normotensive. 6. HLD Continue atorvastatin. 7. Chronic diastolic heart failure with prior bioprosthetic aortic valve He does have some pitting edema which he describes as being chronic.? He typically wears compression stockings.? He remains on Osei inhibitor, spironolactone, and torsemide. Code: full, surrogate is patient's Prophylaxis: On apixaban Dispo: PT/OT consult requested. Time Spent With Patient Critical Care time: I spent a total of [] minutes of critical care time on this patient's care today; this time is exclusive of procedural time. Quality VTE Deep Vein Thrombosis/Pulmonary Embolism Present on Admission: No
[2021-12-06 08:05] LABS: Add Manual Diff / Slide Review NO; Basophils Absolute Auto 0 /uL (0-100); Basophils Percent Auto 0.2 % (0-2); Eosinophils Absolute Auto 300 /uL (0-450); Eosinophils Percent Auto 2.1 % (2-4); Hematocrit 30.2 % (41-53); Hemoglobin 10.1 g/dL (13.5-17.5); Lymphocytes Absolute Auto 1400 /uL (1100-4500); Lymphocytes Percent Auto 8.8 % (25-40); Mean Corpuscular HGB Conc 33.4 % (30-36); Mean Corpuscular Hemoglobin 31.7 PG (26-34); Mean Corpuscular Volume 95.1 fL (80-100); Monocytes Absolute Auto 1400 /uL (0-900); Monocytes Percent Auto 8.7 % (3-14); Neutrophils Absolute Auto 12700 /uL (1500-7000); Neutrophils Percent Auto 80.2 % (50-75); Platelet Count 420 X10^3/uL (150-400); Red Blood Cell Count 3.18 X10^6/uL (4.5-5.9); Red Cell Distribution Width 13.9 % (11.6-14.8); White Blood Cell Count 15.9 X10^3/uL (4.5-11.0)
[2021-12-06 08:23] LABS: Alanine Aminotransferase 15 IU/L (<50); Albumin 2.5 g/dL (3.5-5.0); Albumin Globulin Ratio 0.7 (1.0-2.8); Alkaline Phosphatase 88 U/L (38-126); Aspartate Aminotransferase 27 IU/L (17-59); BUN Creatinine Ratio 20.6 (6-22); Bilirubin Total 0.4 mg/dL (0.2-1.3); Blood Urea Nitrogen 36 mg/dL (9-20); Calcium 9.3 mg/dL (8.4-10.2); Carbon Dioxide 27 mmol/L (22-32); Chloride 105 mmol/L (98-107); Estimated Glomerular Filt Rate 37 mL/min (>60); Globulin 3.8 g/dL (1.7-4.1); Glucose 108 mg/dL (80-110); HEMOLYSIS < 15 (0-50); Magnesium 1.7 mg/dL (1.6-2.3); Potassium 3.9 mmol/L (3.4-5.1); Sodium 137 mmol/L (137-145); Total Protein 6.3 g/dL (6.3-8.2)
--- NOTE | 2021-12-06 10:16 | PT.IPTN ---
Physical Therapy Treatment Note M2 PT-IP Current Condition Start: 12/05/21 12:53 Freq: NEEDED Status: Active Protocol: Document 12/05/21 11:01 AB (Rec: 12/05/21 13:06 AB [email or web address]) Physical Therapy Current Condition Current Condition Evaluation Date 12/05/21 Treatment Diagnosis Covid; difficulty in walking Onset Date 12/04/21 M3 PT-IP Subjective Start: 12/05/21 12:53 Freq: NEEDED Status: Active Protocol: Document 12/06/21 10:16 AW (Rec: 12/06/21 12:19 AW [id number]) Subjective Physical Therapy Visit Type Type Treatment Note Visit Start Time 09:44 Visit Stop Time 10:16 Total Visit Minutes 32 Number of FINANCIAL SERVICES SPECIALIST Visits 0 Physical Therapy Visit Comments Patient Comments Pt is interested in getting out of bed M4 PT-IP Mobility and Gait Start: 12/05/21 12:53 Freq: NEEDED Status: Active Protocol: Document 12/06/21 10:16 AW (Rec: 12/06/21 12:19 AW [id number]) PT-Bed Mobility Assessment Supine to Sit Supine to Sit Moderate Assistance,1 Person Assistance,Head of Bed Elevated,Bedrails Scooting Scooting to Edge of Bed Moderate Assistance PT-Transfer Assessment Sit to and From Stand Sit to and from Stand Moderate Assistance,Maximum Assistance,1 Person Assistance ,Use of Upper Extremities Equipment Transfer Assistive Device Gait Belt,Front Wheeled Walker Orthotic/Prosthetic Devices or Brace: No Transfers Transfer Destination Chair,Toilet Transfer Technique pt ambulated with FWW Transfer Ability Level of Assist Moderate Assistance Comments Mobility Comments Pt was lying in bed as PT arrived and expressed interest in getting up to chair. SpO2 97% on room air. Pt needed mod A for supine to sit. Sitting balance was fair. He stood mod A and used FWW to ambulate to the chair. He sat and was able to scoot backward/forward on the chair. He stood from the chair mod A and used FWW to walk to the toilet. Cues were needed for hand placement and use of the grab bar as pt transferred mod A. Standing from the toilet required max A and cues for hand placement. Pt was unable to pull up his briefs and needed assist. Pt ambulated to the chair and sat . SpO2 was stable throughout 96-98%. Gait Assessment Gait Gait Assistance Required: Contact Guard Assist,Minimum Assistance Distance (Feet) 20 Assistive Devices Assistive Device Gait Belt,Front Wheeled Walker Orthotic/Prosthetic Devices or Brace: No Gait Deviations General Gait Pattern Antalgic,Decreased Stride Length,Decreased Feet Clearance,Flexed Trunk,Step-to Gait Factors Limiting Gait Function Factors Limiting Gait Function Decreased Activity Tolerance, Decreased Strength,Difficulty Following Directions,Poor Safety Awareness,Respiratory Distress Comments Gait Comments Pt had poor tolerance. Wet cough and SOB during ambulation were limiting factors. Quick to fatigue. PT-Balance Assessment Sitting Balance and Reactions Static Sitting Balance Ability Good Dynamic Sitting Balance Ability Fair Standing Balance and Reactions Static Standing Balance Ability Fair Dynamic Standing Balance Ability Fair Device Used FWW M5 PT-IP Objective Assessments Start: 12/05/21 12:53 Freq: NEEDED Status: Active Protocol: Document 12/05/21 11:01 AB (Rec: 12/05/21 13:06 AB [id number]) Orientation Orientation/Cognition Level of Alertness Alert Orientation Name,Place,Situation Safety Awareness Decreased Safety Awareness Memory Description Short Term Impaired Gross Range of Motion Lower Extremity ROM Assessment Within Functional Limits Strength Lower Extremity Strength Hip 4-/5 Knee 4-/5 Sensation Assessment Sensation Gross Sensation WNL Muscle Tone Muscle Tone WNL Yes M6 PT-IP Treatment Start: 12/05/21 12:53 Freq: NEEDED Status: Active Protocol: Document 12/06/21 10:16 AW (Rec: 12/06/21 12:19 AW [id number]) Physical Therapy Treatment Education Education Provided Safety Other Treatments Other Treatment Performed Seated marching and LAQ x 10 each side. Pt instructed to do several times daily. M7 PT-IP Assessment and Plan Start: 12/05/21 12:53 Freq: NEEDED Status: Active Protocol: Document 12/06/21 10:16 AW (Rec: 12/06/21 12:19 AW [id number]) PT Summary Assessment and Plan Summary Progress Towards Goals Slow Progress due to Medical Issues,Slow Progress due to Activity Tolerance Assessment Summary Pt needs mod assist for bed mobility and CGA/min A for ambulation and transfers with FWW today. SpO2 was stable throughout all activity 96-98% but pt is quick to fatigue and needing assist with all mobility. d/c plan depending on progress and assistance availability at home but at this time would benefit from SNF rehab. Goals Bed Mobility Goal Standby Assistance Transfer Goal Standby Assistance,Front Wheeled Walker Gait Goal Standby Assistance,Front Wheel Walker Gait Distance 50 Days to Meet Goals 10 Frequency of Treatment Frequency Of Treatment Once a Day Treatment Plan Physical Therapy Treatment Plan Bed Mobility Training,Transfer Training,Gait Training, Therapeutic Exercise,Balance Retraining,Discharge Planning, Hot or Cold Pack,Neuromuscular Re-ed,Coordination Retraining ,Manual Therapy Precautions Other Precautions Covid Recommendations To Nursing Amount of Assist Needed 2 Person Assist Discharge Recommendations PT Discharge Recommendations SNF Rehab Transportation Needs at Discharge Wheelchair/Cabulance
[2021-12-06] MEDS: APIXABAN 5 MG TABLET 2.5 MG PO ×2 (10:20→21:17)
[2021-12-06] MEDS: DOXYCYCLINE HYCLATE 100 MG TABLET PO ×2 (10:21→21:17)
[2021-12-06] MEDS: COLESEVELAM 625 MG TABLET 1875 MG PO ×2 (10:21→21:18)
[2021-12-06] MEDS: guaiFENesin ER 600 MG TAB 1200 MG PO ×2 (10:21→21:17)
[2021-12-06] MEDS: MULTIVITAMIN 1 TABLET 1 TAB PO (10:22)
[2021-12-06] MEDS: TORSEMIDE 100 MG TABLET PO (10:22)
[2021-12-06] MEDS: lisinopriL 20 MG TABLET PO (10:22)
[2021-12-06] MEDS: SPIRONOLACTONE 25 MG TABLET PO (10:22)
[2021-12-06] MEDS: MAGNESIUM CHLORIDE 64 MG TABLET 128 MG PO (11:47)
[2021-12-06] MEDS: cefTRIAXone 1,000 MG in SODIUM CHLORIDE 0.9% 100 ML 100 MG IV (14:36)
--- NOTE | 2021-12-06 18:49 | P.PN_ITS ---
Subjective Subjective Date Patient Seen: 12/06/21 Time Patient Seen: 18:00 Interval history: He continues to have a cough. He feels weak. He does not feel short of breath. Exam Vital Signs (past 8 hours): - 12/06/21 11:53 12/06/21 12:00 12/06/21 16:21 Temperature 96.2 F L 97.4 F L Pulse Rate 88 91 H Respiratory Rate 18 19 Blood Pressure 126/69 105/59 L Pulse Oximetry 96 97 100 Oxygen Delivery Method Room Air 12/06/21 16:00 Temperature Pulse Rate Respiratory Rate Blood Pressure Pulse Oximetry 100 Oxygen Delivery Method Room Air Oxygen Delivery Method Room Air Oxygen Flow Rate 0 Narrative Exam Narrative: GEN:?appears in mild respiratory distress PULM: diminished breath sounds, increased work of breathing CV:? Irregularly irregular ABD: soft, nontender EXTR: warm, well perfused, with 1+ edema Objective Labs Result Diagrams: 12/06/21 06:50 12/06/21 06:50 Labs: Laboratory Results - last 24 hr 12/06/21 12/06/21 06:50 06:50 WBC 15.9 H RBC 3.18 L Hgb 10.1 L Hct 30.2 L MCV 95.1 MCH 31.7 MCHC 33.4 RDW 13.9 Plt Count 420 H Neut % (Auto) 80.2 H Lymph % (Auto) 8.8 L Dupage % (Auto) 8.7 Eos % (Auto) 2.1 Baso % (Auto) 0.2 Neut # (Auto) 50720 H Lymph # (Auto) 1400 Dupage # (Auto) 1400 H Eos # (Auto) 300 Baso # (Auto) 0 Sodium 137 Potassium 3.9 Chloride 105 Carbon Dioxide 27 BUN 36 H Creatinine 1.75 H Estimated GFR 37 L BUN/Creatinine Ratio 20.6 Glucose 108 Calcium 9.3 Magnesium 1.7 Total Bilirubin 0.4 AST 27 ALT 15 Alkaline Phosphatase 88 Total Protein 6.3 Albumin 2.5 L Globulin 3.8 Albumin/Globulin Ratio 0.7 L PFSH Medical History Anemia Asymptomatic microscopic hematuria BPH (benign prostatic hyperplasia) Chronic diastolic heart failure DM2 (diabetes mellitus, type 2) Hypertension Interstitial lung disease Permanent atrial fibrillation Stage 3b chronic kidney disease (CKD) Surgical History S/P AVR (aortic valve replacement) Family History (Updated 12/04/21 @ 17:42 by Arpit Staton DO) Mother No pertinent past medical history Father No pertinent past medical history Social History (Updated 06/11/20 @ 11:25 by Jenniffer Andrade CMA) household members: spouse Smoking Status: Former smoker alcohol intake: current Assessment & Plan Assessment & Plan narrative: 1. Community-acquired bacterial pneumonia of the right middle lobe, respiratory distress. White blood cell count continues to improve.? Continue ceftriaxone and doxycycline.? Vital signs are stable.? Remains stable in room air.? He remains dyspneic. Already ordered for a flutter valve and Mucinex to assist with expectoration. 2. COVID-19 infection Patient was diagnosed several weeks ago and completed Paxlovid approximately 2 and half weeks ago.? He remains in droplet precautions here. 3. YORDY on CKD 3B Baseline creatinine is 1.1.? On admission creatinine was 1.61 now up to 1.75, Etiology of the YORDY is likely acute pneumonia. Trend daily. Hold lisinoporil, torsemide and spironolactone on 12/06 4. permanent atrial fibrillation Presently rate controlled.? Anticoagulated on apixaban which has been continued. 5. HTN Continue lisinopril 20 mg daily, torsemide 100 mg daily, and spironolactone 25 mg daily.? Blood pressures are normotensive. 6. HLD Continue atorvastatin. 7. Chronic diastolic heart failure with prior bioprosthetic aortic valve He does have some pitting edema which he describes as being chronic.? He typically wears compression stockings.? Code: full, surrogate is patient's Prophylaxis: On apixaban Dispo: PT/OT consult requested. Time Spent With Patient Critical Care time: I spent a total of [] minutes of critical care time on this patient's care today; this time is exclusive of procedural time. Quality VTE Deep Vein Thrombosis/Pulmonary Embolism Present on Admission: No
[2021-12-06] MEDS: ATORVASTATIN 20 MG TABLET 40 MG PO (21:17)
[2021-12-07 06:00] VITALS: BP 117/74; PULSE 51; RESP 18; TEMP 36.4; O2SAT 94
[2021-12-07 07:00] VITALS: BP 129/79; PULSE 80; RESP 20; TEMP 36.2; O2SAT 94
--- NOTE | 2021-12-07 08:27 | PM.PN.1 ---
Subjective Subjective Date Patient Seen: 12/07/21 Time Patient Seen: 13:00 Interval history: Patient still feeling somewhat poorly but improving slowly. Has trouble standing and requiring assist to get from chair to bed. Exam Vital Signs (past 8 hours): - 12/07/21 06:00 Temperature 97.5 F L Pulse Rate 51 L Respiratory Rate 18 Blood Pressure 117/74 Pulse Oximetry 94 Oxygen Flow Rate 0 Oxygen Delivery Method Room Air Oxygen Flow Rate 0 Narrative Exam Narrative: GEN:?appears comfortable SKIN: no rashes PULM: diminished breath sounds, increased work of breathing CV:? Irregularly irregular ABD: soft, nontender EXTR: warm, well perfused, with 1+ edema NEURO: no focal deficits Objective Labs Result Diagrams: 12/07/21 08:25 12/07/21 08:25 [facility] Medical History Anemia Asymptomatic microscopic hematuria BPH (benign prostatic hyperplasia) Chronic diastolic heart failure DM2 (diabetes mellitus, type 2) Hypertension Interstitial lung disease Permanent atrial fibrillation Stage 3b chronic kidney disease (CKD) Surgical History S/P AVR (aortic valve replacement) Family History (Updated 12/04/21 @ 17:42 by Arpit Staton DO) Mother No pertinent past medical history Father No pertinent past medical history Social History (Updated 06/11/20 @ 11:25 by Jenniffer Andrade CMA) household members: spouse Smoking Status: Former smoker alcohol intake: current Assessment & Plan Assessment & Plan narrative: 1. Community-acquired bacterial pneumonia of the right middle lobe, respiratory distress resolved Continue ceftriaxone and doxycycline.? Vital signs are stable.? Remains stable in room air.? He remains dyspneic. Already ordered for a flutter valve and Mucinex to assist with expectoration. 2. COVID-19 infection Patient was diagnosed several weeks ago and completed Paxlovid approximately 2 and half weeks ago.? He remains in droplet precautions here due to persistenly positive PCR. 3. YORDY on CKD 3B Baseline creatinine is 1.1.? On admission creatinine was 1.61 now up to 1.75, Etiology of the YORDY is likely acute pneumonia. Trend daily. Hold lisinoporil, torsemide and spironolactone on 12/06 4. Permanent atrial fibrillation Presently rate controlled.? Anticoagulated on apixaban which has been continued. 5. HTN Continue lisinopril 20 mg daily, torsemide 100 mg daily, and spironolactone 25 mg daily.? Blood pressures are normotensive. 6. HLD Continue atorvastatin. 7. Chronic diastolic heart failure with prior bioprosthetic aortic valve He does have some pitting edema which he describes as being chronic.? He typically wears compression stockings.? Code: full, surrogate is patient's Prophylaxis: On apixaban Dispo: PT/OT rec SNF. Time Spent With Patient Critical Care time: I spent a total of [] minutes of critical care time on this patient's care today; this time is exclusive of procedural time. Quality VTE Deep Vein Thrombosis/Pulmonary Embolism Present on Admission: No
[2021-12-07 08:35] LABS: Add Manual Diff / Slide Review NO; Basophils Absolute Auto 100 /uL (0-100); Basophils Percent Auto 0.5 % (0-2); Eosinophils Absolute Auto 300 /uL (0-450); Eosinophils Percent Auto 1.6 % (2-4); Hematocrit 30.6 % (41-53); Hemoglobin 10.1 g/dL (13.5-17.5); Lymphocytes Absolute Auto 1600 /uL (1100-4500); Lymphocytes Percent Auto 8.8 % (25-40); Mean Corpuscular HGB Conc 33.1 % (30-36); Mean Corpuscular Hemoglobin 31.6 PG (26-34); Mean Corpuscular Volume 95.5 fL (80-100); Monocytes Absolute Auto 1200 /uL (0-900); Monocytes Percent Auto 6.4 % (3-14); Neutrophils Absolute Auto 15200 /uL (1500-7000); Neutrophils Percent Auto 82.7 % (50-75); Platelet Count 445 X10^3/uL (150-400); Red Blood Cell Count 3.21 X10^6/uL (4.5-5.9); Red Cell Distribution Width 13.7 % (11.6-14.8); White Blood Cell Count 18.4 X10^3/uL (4.5-11.0)
[2021-12-07 09:00] LABS: Alanine Aminotransferase 18 IU/L (<50); Albumin 2.6 g/dL (3.5-5.0); Albumin Globulin Ratio 0.7 (1.0-2.8); Alkaline Phosphatase 86 U/L (38-126); Aspartate Aminotransferase 33 IU/L (17-59); BUN Creatinine Ratio 25.1 (6-22); Bilirubin Total 0.4 mg/dL (0.2-1.3); Blood Urea Nitrogen 43 mg/dL (9-20); Calcium 9.5 mg/dL (8.4-10.2); Carbon Dioxide 28 mmol/L (22-32); Chloride 103 mmol/L (98-107); Estimated Glomerular Filt Rate 39 mL/min (>60); Glucose 102 mg/dL (80-110); HEMOLYSIS < 15 (0-50); Magnesium 1.6 mg/dL (1.6-2.3); Potassium 3.7 mmol/L (3.4-5.1); Sodium 136 mmol/L (137-145); Total Protein 6.6 g/dL (6.3-8.2)
[2021-12-07] MEDS: APIXABAN 5 MG TABLET 2.5 MG PO ×2 (09:01→20:47)
[2021-12-07] MEDS: guaiFENesin ER 600 MG TAB 1200 MG PO ×2 (09:01→20:46)
[2021-12-07] MEDS: DOXYCYCLINE HYCLATE 100 MG TABLET PO (09:01)
[2021-12-07] MEDS: MULTIVITAMIN 1 TABLET 1 TAB PO (09:01)
[2021-12-07] MEDS: COLESEVELAM 625 MG TABLET 1875 MG PO ×2 (09:02→20:46)
--- NOTE | 2021-12-07 09:58 | PC.NURSE ---
Patient has a slight cough, is nonproductive. Lung sounds with some wheezes. He is incontinent of urine and 2person assist when cleaning up. Patient is also a 2 pa when moving with a walker. He does have a few skin issues that can be seen under physical assessment.
--- NOTE | 2021-12-07 13:01 | CM.DPC ---
Addendum entered by ESTUARDO Lehman 12/07/21 15:34: ADD: Samira from [facility] called stating she has reviewed and if they have a bed when pt stable for d/c then she would like to do an onsite bedside assessment with pt as he has had some occasional confusion. Keep her updated. BF Addendum entered by ESTUARDO Lehman 12/07/21 15:32: ADD: Per Jennifer, they will not be able to accept as they do not have space for any more pts that might need to be in isolation initially. BF Original Note: DCP SNF Planning: Per MD, pt continues to be quite fatigued and not yet medically stable to d/c yet today. Per CNO, will try to confirm that due to pt's initial COVID+ being 3 weeks ago around 11/17/21 and treated with Paxlovid that isolation precautions can be discontinued. Per PT and Dtr, recommending SNF at d/c as spouse is home recovering from COVID as well and pt currently 1-2PA and Dtr only visiting from [place]. SW called Jennifer and they will need documentation that pt was initially COVID positive back in Nov and SW found [facility] documentation of pt being COVID+ on 11/17/21 and treated and faxed to [facility] to review. SW made following SNF referrals: [facility]- reviewing [facility]- reviewing [facility]- left msg and faxed referral [facility]- reviewing [facility]- reviewing. [facility] completed and printed [facility] COVID vax status. Plan: SW to follow closely for above SNF reviews for rehab prior to return home with spouse on [facility]. ESTUARDO Lehman
[2021-12-07] MEDS: cefTRIAXone 1,000 MG in SODIUM CHLORIDE 0.9% 100 ML 200 MG IV (13:26)
--- NOTE | 2021-12-07 15:36 | OT.IP.EVAL ---
Current Diagnoses Unspecified bacterial pneumonia (12/04/21) Past Medical History (Last Reviewed 12/04/21 @ 17:45 by Arpit Staton DO) Anemia Asymptomatic microscopic hematuria BPH (benign prostatic hyperplasia) Chronic diastolic heart failure DM2 (diabetes mellitus, type 2) Hypertension Interstitial lung disease Permanent atrial fibrillation Stage 3b chronic kidney disease (CKD) Surgical History (Last Reviewed 12/04/21 @ 17:44 by Arpit Staton DO) S/P AVR (aortic valve replacement) Occupational Therapy Inpatient Evaluation/Re-Eval M1 PT/OT-IP Prior Functional Status Start: 12/05/21 12:53 Freq: NEEDED Status: Active Protocol: Document 12/07/21 17:50 CGR (Rec: 12/07/21 18:04 CGR [id number]) Medical Review Prior Functional Status Medical History Reviewed Yes Communication able to make needs known Mobility and Gait pt stated that he is modified independent with ambulation using a FWW but can only walk ~ 10 ft and uses a manual w/c for outdoor mobility; pt stated that his neighbor comes in every morning to assist him to get up from his chair and comes in every time he needs assistance; daughter also comes to assist pt Activities of Daily Living and IADL's Pt states that his family assists with all needs in the last few weeks. Pt's does all IADLs. Social History Household Members spouse Living Arrangements House Number of Floors (Floors) One Floor Number of Stairs To Enter/Railing? no steps to enter Home Environment Standard Height Toilet,Walk in Shower,Built-In Shower Seat Home Equipment Front Wheel Walker,Manual Wheelchair,Hand Held Shower, Grab Bars Near Toilet Employment Status Retired Additional Social History Comment pt sleeps on a recliner pt stated that their shower has not been working for 2 months and he has not taken a shower since then M1 PT/OT-IP Prior Functional Status Start: 12/07/21 17:50 Freq: NEEDED Status: Active Protocol: Document 12/07/21 17:50 CGR (Rec: 12/07/21 18:04 CGR [id number]) Medical Review Prior Functional Status Medical History Reviewed Yes Communication able to make needs known Mobility and Gait pt stated that he is modified independent with ambulation using a FWW but can only walk ~ 10 ft and uses a manual w/c for outdoor mobility; pt stated that his neighbor comes in every morning to assist him to get up from his chair and comes in every time he needs assistance; daughter also comes to assist pt Activities of Daily Living and IADL's Pt states that his family assists with all needs in the last few weeks. Pt's does all IADLs. Social History Household Members spouse Living Arrangements House Number of Floors (Floors) One Floor Number of Stairs To Enter/Railing? no steps to enter Home Environment Standard Height Toilet,Walk in Shower,Built-In Shower Seat Home Equipment Front Wheel Walker,Manual Wheelchair,Hand Held Shower, Grab Bars Near Toilet Employment Status Retired Additional Social History Comment pt sleeps on a recliner pt stated that their shower has not been working for 2 months and he has not taken a shower since then M2 OT-IP Current Condition Start: 12/07/21 17:50 Freq: Status: Active Protocol: Document 12/07/21 17:50 CGR (Rec: 12/07/21 18:04 CGR [id number]) Occupational Therapy Current Condition Current Condition Evaluation Date 12/07/21 Treatment Diagnosis R middle lobe PNA, covid + ~3 weeks ago, still testing covid + Diagnosis Onset Date 12/04/21 M3 OT- IP Subjective and Pain Start: 12/07/21 17:50 Freq: Status: Active Protocol: Document 12/07/21 17:50 CGR (Rec: 12/07/21 18:04 CGR [id number]) OT- Subjective Occupational Therapy Visit Type Type Initial Evaluation Visit Start Time 15:20 Visit Stop Time 15:36 Total Visit Minutes 16 Notes Pt agreeable to get up to the chair. Occupational Therapy Visit Comments Patient Comments I want to be seen by physical therapy. OT Pain Assessment Pain When Pain Assessed At Rest Pain Present Pain Present Denied Pain M4 OT- IP ADL's Start: 12/07/21 17:50 Freq: Status: Active Protocol: Document 12/07/21 17:50 CGR (Rec: 12/07/21 18:04 CGR [id number]) OT [id number] Comments OT Self-Feeding Comments not meal time OT ADL-Grooming General Evaluation Grooming Ability Standby Assistance Areas Needing Assistance Face Washing Comments OT Grooming Comments seated in chair OT ADL-Oral Care General Eval Oral Care Ability Standby Assistance Areas of Assistance Brushing Teeth Comments Oral Care Comments seated in chair OT ADL-Dressing Comments OT Dressing Comments not performed, pt declined OT ADL-Toileting Comments OT Toileting Comments not performed, pt declined need OT ADL-Bathing Comments OT Bathing Comments not performed M5 OT- IP IADL's Start: 12/07/21 17:50 Freq: Status: Active Protocol: Document 12/07/21 17:50 CGR (Rec: 12/07/21 18:04 CGR [id number]) OT-Instrumental Activities of Daily Living Deficits IADL Deficits Identified Deficits Home Safety Awareness Awareness of Need for Assistance at Home Decreased Awareness Ability to Problem Solve Emergency Able to Problem Solve Situations Medication Management Medication Management Caregiver Administers Money Management Money Management Caregiver Provides Assistance Meal Preparation Meal Preparation Caregiver Provides Assist Oil Laboratory Analyst Oil Laboratory Analyst Caregiver Provides Assist Driving Driving Comments Pt does not drive M6 OT- IP Functional Cognition Start: 12/07/21 17:50 Freq: Status: Active Protocol: Document 12/07/21 17:50 CGR (Rec: 12/07/21 18:04 CGR [id number]) Cognitive Factors Limiting Selfcare Function Cognitive Ability Level of Alertness Alert Patient Orientation Name,Age,Birthday,Month,Date, Year,Day of Week,Place, Situation Cognitive Comments Cognitive Assessment Comments Pt is minimally participatory in OT services. Pt would benefit from cog assessment but is unlikley to agree to it . OT- Vision and Hearing OT- Hearing Assessment OT- Hearing Assessment WFL OT- Vision Assessment Visual Acuity Glasses For Reading Visual Attentiveness WFL Occular Pursuits WFL Visual Convergence WFL M7 OT- IP Mobility and Balance Start: 12/07/21 17:50 Freq: Status: Active Protocol: Document 12/07/21 17:50 CGR (Rec: 12/07/21 18:04 CGR [id number]) OT- Bed Mobility Assessment Supine to Sit Supine to Sit Assist Standby Assistance,Head of Bed Elevated,Bedrails Scooting Scooting to Edge of Bed Standby Assistance OT-Transfer Assessment Sit to and From Stand Sit to and from Stand Moderate Assistance,1 Person Assistance Transfers Transfer Ability Moderate Assistance,1 Person Assistance Technique Transfer Destination Bed,Chair Transfer Technique Stand Step Pivot Devices Transfer Assistive Devices Gait Belt,Front Wheeled Walker Comments Mobility Comments Pt was able to transfer to the chair with mod a. Pt declined all other mobility stating that he wants to be seen by P. T. OT- Balance Assessment Sitting Balance and Reactions Static Sitting Balance Ability Good Dynamic Sitting Balance Ability Good M8 OT- IP Objective Assessments Start: 12/07/21 17:50 Freq: Status: Active Protocol: Document 12/07/21 17:50 CGR (Rec: 12/07/21 18:04 CGR [id number]) OT Gross Range of Motion Upper Extremity Range of Motion Assessment Bilaterally Impaired ROM Impairments 0-90 shld ROM to B shlds OT Strength Comments Strength Comments arms and hands 4-/5 OT- Coordination Assessment Upper Extremity Finger to Nose Test Within Functional Limits Finger Tapping Test Within Functional Limits OT-Muscle Tone Assessment Muscle Tone WNL Yes OT Sensation Assessment Edema Edema Absent M9 OT- IP Assessment and Plan Start: 12/07/21 17:50 Freq: Status: Active Protocol: Document 12/07/21 17:50 CGR (Rec: 12/07/21 18:04 CGR [id number]) OT Summary Assessment and Plan Potential Rehabilitation Potential Good Analytic Complexity at Evaluation High Summary OT Impairments Range of Motion,Strength, Balance,Functional Cognition, Functional Mobility,Grooming, Dressing,Toileting,Bathing, Toilet Transfers,Shower Transfers,Activity Tolerance Progress Towards Goals Slow Progress due to Medical Issues,Slow Progress due to Activity Tolerance Assessment Summary Pt presents as a high complexity evaluation s/p admit for generalized weakness , found to have R middle lobe PNA and recent covid +. Pt is grossly weak with poor endurance. Pt was able to transfer to the chair with mod a and declined other activity. Of note, pt with noted heavy diaphramatic breathing after transfer. PT states his breathing at this time is normal. Pt performed ADLs seated in chair and declined other activity. Pt would benefit from a cog assessment but is unlikely to agree to perform. Pt is likely to need SNF at time of discharge. Goals Self-Feeding Goal Independent Grooming Goal Independent Dressing Goal Independent Toileting Goal Independent Bathing Goal Independent Toilet Transfer Goal Independent Shower Transfer Goal Independent Days to Meet Goals 30 Frequency of Treatment Frequency Of Treatment Once a Day Treatment Plan OT Treatment Plan ADL Training,Functional Mobility,Patient/Family Education,Discharge Planning Other Treatment Recommendations and Next cog assessment if pt is Treatment Focus willing, ADLs seated at sink? Discharge Recommendations OT Discharge Recommendations SNF Rehab Transportation Needs at Discharge Wheelchair/Cabulance
[2021-12-07] MEDS: MAGNESIUM CHLORIDE 64 MG TABLET 128 MG PO (16:05)
--- NOTE | 2021-12-07 16:44 | PT.IPTN ---
Current Diagnoses Unspecified bacterial pneumonia (12/04/21) Physical Therapy Treatment Note M2 PT-IP Current Condition Start: 12/05/21 12:53 Freq: NEEDED Status: Active Protocol: Document 12/05/21 11:01 AB (Rec: 12/05/21 13:06 AB [id number]) Physical Therapy Current Condition Current Condition Evaluation Date 12/05/21 Treatment Diagnosis Covid; difficulty in walking Onset Date 12/04/21 M3 PT-IP Subjective Start: 12/05/21 12:53 Freq: NEEDED Status: Active Protocol: Document 12/07/21 16:47 AW (Rec: 12/07/21 16:58 AW [id number]) Subjective Physical Therapy Visit Type Type Treatment Note Visit Start Time 16:20 Visit Stop Time 16:44 Total Visit Minutes 24 Number of POULTRY HUSBANDRY WORKER Visits 0 Physical Therapy Visit Comments Patient Comments Pt has been asking to get up again. M4 PT-IP Mobility and Gait Start: 12/05/21 12:53 Freq: NEEDED Status: Active Protocol: Document 12/07/21 16:47 AW (Rec: 12/07/21 16:58 AW [id number]) PT-Transfer Assessment Sit to and From Stand Sit to and from Stand Moderate Assistance,1 Person Assistance,Use of Upper Extremities Equipment Transfer Assistive Device Gait Belt,Front Wheeled Walker Orthotic/Prosthetic Devices or Brace: No Transfers Transfer Destination Chair,Toilet Transfer Technique pt ambulated with FWW Transfer Ability Level of Assist Minimal Assistance,Moderate Assistance,1 Person Assistance ,Use of Upper Extremities Comments Mobility Comments Pt was sitting up in the chair as PT arrived. He stood mod A and used FWW to walk slowly around the room. He was then interested in using the bathroom. Mod A for toilet transfer with heavy use of grab bar. Pt was straining to have a BM. PT instructed pt in deep breathing techniques and pelvic movement. Encouraged pt to stand and sit again which he did three times mod A at first and min A on 3rd rep . Ultimately, pt was unable to move his bowels. He stood again min A and used FWW to walk back to the chair, transferring min A. Pt was left in the chair with call light and all needs in reach. Gait Assessment Gait Gait Assistance Required: Contact Guard Assist,Minimum Assistance Distance (Feet) 25 Assistive Devices Assistive Device Gait Belt,Front Wheeled Walker Orthotic/Prosthetic Devices or Brace: No Gait Deviations General Gait Pattern Antalgic,Decreased Stride Length,Decreased Feet Clearance,Flexed Trunk,Step-to Gait Factors Limiting Gait Function Factors Limiting Gait Function Decreased Activity Tolerance, Decreased Strength,Difficulty Following Directions,Poor Safety Awareness,Respiratory Distress PT-Balance Assessment Sitting Balance and Reactions Static Sitting Balance Ability Good Dynamic Sitting Balance Ability Fair Standing Balance and Reactions Static Standing Balance Ability Fair Dynamic Standing Balance Ability Fair Device Used FWW M5 PT-IP Objective Assessments Start: 12/05/21 12:53 Freq: NEEDED Status: Active Protocol: Document 12/05/21 11:01 AB (Rec: 12/05/21 13:06 AB [id number]) Orientation Orientation/Cognition Level of Alertness Alert Orientation Name,Place,Situation Safety Awareness Decreased Safety Awareness Memory Description Short Term Impaired Gross Range of Motion Lower Extremity ROM Assessment Within Functional Limits Strength Lower Extremity Strength Hip 4-/5 Knee 4-/5 Sensation Assessment Sensation Gross Sensation WNL Muscle Tone Muscle Tone WNL Yes M6 PT-IP Treatment Start: 12/05/21 12:53 Freq: NEEDED Status: Active Protocol: Document 12/07/21 16:47 AW (Rec: 12/07/21 16:58 AW [id number]) Physical Therapy Treatment Education Education Provided Safety Other Treatments Other Treatment Performed Instruction in deep breathing and pelvic movement for relaxed pelvic floor on the toilet. Sit to stand x 3 at the toilet. M7 PT-IP Assessment and Plan Start: 12/05/21 12:53 Freq: NEEDED Status: Active Protocol: Document 12/07/21 16:47 AW (Rec: 12/07/21 16:58 AW [id number]) PT Summary Assessment and Plan Summary Impairments Pain,ROM,Strength,Balance, Coordination,Sensation,Tone, Cognition,Bed Mobility, Transfers,Gait,Activity Tolerance Progress Towards Goals Slow Progress due to Medical Issues,Slow Progress due to Activity Tolerance Assessment Summary Pt improving slowly but still needing min/mod A for trasnfers and CGA/min A for gait with FWW. Pt fatigues quickly and appears discouraged today. SpO2 was stable high 90's thoughout treatment. Discharge plan depending on progress and assistance availability at home but at this time would benefit from SNF rehab. Goals Bed Mobility Goal Standby Assistance Transfer Goal Standby Assistance,Front Wheeled Walker Gait Goal Standby Assistance,Front Wheel Walker Gait Distance 50 Days to Meet Goals 10 Frequency of Treatment Frequency Of Treatment Once a Day Treatment Plan Physical Therapy Treatment Plan Bed Mobility Training,Transfer Training,Gait Training, Therapeutic Exercise,Balance Retraining,Discharge Planning, Hot or Cold Pack,Neuromuscular Re-ed,Coordination Retraining ,Manual Therapy Precautions Other Precautions Covid Recommendations To Nursing Amount of Assist Needed 1 Person Assist Discharge Recommendations PT Discharge Recommendations SNF Rehab Transportation Needs at Discharge Wheelchair/Cabulance
[2021-12-07 19:50] VITALS: BP 126/70; PULSE 59; RESP 17; TEMP 36.9; O2SAT 96
[2021-12-07] MEDS: ATORVASTATIN 20 MG TABLET 40 MG PO (20:46)
[2021-12-07 21:00] VITALS: O2SAT 96
--- NOTE | 2021-12-08 03:46 | PC.NURSE ---
Pt is AxOx2-3, slighlty forgetful and calm. VSS, pt denies pain. VSS, continued droplet precaution. Last BM on 12/07. Pt slept well. No other changes. Continue monitor.
[2021-12-08 06:38] LABS: Add Manual Diff / Slide Review NO; Basophils Absolute Auto 100 /uL (0-100); Basophils Percent Auto 0.5 % (0-2); Eosinophils Absolute Auto 400 /uL (0-450); Eosinophils Percent Auto 2.2 % (2-4); Hematocrit 30.4 % (41-53); Lymphocytes Absolute Auto 1700 /uL (1100-4500); Lymphocytes Percent Auto 9.4 % (25-40); Mean Corpuscular HGB Conc 32.8 % (30-36); Mean Corpuscular Hemoglobin 31.2 PG (26-34); Mean Corpuscular Volume 95.1 fL (80-100); Monocytes Absolute Auto 1300 /uL (0-900); Monocytes Percent Auto 7.4 % (3-14); Neutrophils Absolute Auto 14500 /uL (1500-7000); Neutrophils Percent Auto 80.5 % (50-75); Platelet Count 407 X10^3/uL (150-400); Red Blood Cell Count 3.19 X10^6/uL (4.5-5.9); Red Cell Distribution Width 13.9 % (11.6-14.8)
[2021-12-08 06:47] LABS: BUN Creatinine Ratio 28.7 (6-22); Blood Urea Nitrogen 45 mg/dL (9-20); Calcium 9.2 mg/dL (8.4-10.2); Carbon Dioxide 25 mmol/L (22-32); Chloride 105 mmol/L (98-107); Estimated Glomerular Filt Rate 43 mL/min (>60); Glucose 103 mg/dL (80-110); HEMOLYSIS < 15 (0-50); Potassium 3.7 mmol/L (3.4-5.1); Sodium 135 mmol/L (137-145)
[2021-12-08 06:48] LABS: Magnesium 1.7 mg/dL (1.6-2.3)
[2021-12-08 08:00] VITALS: BP 131/77; PULSE 84; RESP 18; TEMP 36.3; O2SAT 95
--- NOTE | 2021-12-08 08:49 | P.PN_ITS ---
Subjective Subjective Date Patient Seen: 12/08/21 Time Patient Seen: 16:00 Interval history: Patient still feeling quite tired today. Worked with PT and was quite weak so SNF is recommended. He feels constipated as well. Exam Vital Signs (past 8 hours): - 12/08/21 01:00 12/08/21 05:00 12/08/21 08:00 Temperature 97.4 F L Pulse Rate 84 Respiratory Rate 18 Blood Pressure 131/77 Pulse Oximetry 95 Oxygen Delivery Method Room Air Room Air Oxygen Flow Rate 0 Oxygen Delivery Method Room Air Oxygen Flow Rate 0 Narrative Exam Narrative: GEN:?appears comfortable SKIN: no rashes PULM: diminished breath sounds, no increased work of breathing CV:? Irregularly irregular ABD: soft, nontender EXTR: warm, well perfused, with 1+ edema NEURO: no focal deficits Objective Labs Result Diagrams: 12/08/21 06:20 12/08/21 06:20 Labs: Laboratory Results - last 24 hr 12/07/21 12/08/21 12/08/21 08:25 06:20 06:20 WBC 18.0 H RBC 3.19 L Hgb 10.0 L Hct 30.4 L MCV 95.1 MCH 31.2 MCHC 32.8 RDW 13.9 Plt Count 407 H Neut % (Auto) 80.5 H Lymph % (Auto) 9.[address] [place] % (Auto) 7.4 Eos % (Auto) 2.2 Baso % (Auto) 0.5 Neut # (Auto) 52740 H Lymph # (Auto) 17[address] [place] # (Auto) 1300 H Eos # (Auto) 400 Baso # (Auto) 100 Sodium 136 L Potassium 3.7 Chloride 103 Carbon Dioxide 28 BUN 43 H Creatinine 1.71 H Estimated GFR 39 L BUN/Creatinine Ratio 25.1 H Glucose 102 Calcium 9.5 Magnesium 1.6 1.7 Total Bilirubin 0.4 AST 33 ALT 18 Alkaline Phosphatase 86 Total Protein 6.6 Albumin 2.6 L Globulin 4.0 Albumin/Globulin Ratio 0.7 L 12/08/21 06:20 WBC RBC Hgb Hct MCV MCH MCHC RDW Plt Count Neut % (Auto) Lymph % (Auto) [place] % (Auto) Eos % (Auto) Baso % (Auto) Neut # (Auto) Lymph # (Auto) [place] # (Auto) Eos # (Auto) Baso # (Auto) Sodium 135 L Potassium 3.7 Chloride 105 Carbon Dioxide 25 BUN 45 H Creatinine 1.57 H Estimated GFR 43 L BUN/Creatinine Ratio 28.7 H Glucose 103 Calcium 9.2 Magnesium Total Bilirubin AST ALT Alkaline Phosphatase Total Protein Albumin Globulin Albumin/Globulin Ratio [facility] Medical History Anemia Asymptomatic microscopic hematuria BPH (benign prostatic hyperplasia) Chronic diastolic heart failure DM2 (diabetes mellitus, type 2) Hypertension Interstitial lung disease Permanent atrial fibrillation Stage 3b chronic kidney disease (CKD) Surgical History S/P AVR (aortic valve replacement) Family History (Updated 12/04/21 @ 17:42 by Arpit Staton DO) Mother No pertinent past medical history Father No pertinent past medical history Social History (Updated 06/11/20 @ 11:25 by Jenniffer Andrade CMA) household members: spouse Smoking Status: Former smoker alcohol intake: current Assessment & Plan Assessment & Plan narrative: 1. Community-acquired bacterial pneumonia of the right middle lobe, respiratory distress resolved Continue ceftriaxone and doxycycline.? Vital signs are stable.? Remains stable in room air.? He remains dyspneic. Already ordered for a flutter valve and Mucinex to assist with expectoration. Obtain sputum culture. 2. COVID-19 infection Patient was diagnosed several weeks ago and completed Paxlovid approximately 2 and half weeks ago.? He remains in droplet precautions here due to persistenly positive PCR. 3. YORDY on CKD 3B Baseline creatinine is 1.1.? On admission creatinine was 1.61 now up to 1.75, Etiology of the YORDY is likely acute pneumonia. Trend daily. Hold lisinoporil, torsemide and spironolactone on 12/06 4. Permanent atrial fibrillation Presently rate controlled.? Anticoagulated on apixaban which has been continued. 5. HTN Continue lisinopril 20 mg daily, torsemide 100 mg daily, and spironolactone 25 mg daily.? Blood pressures are normotensive. 6. HLD Continue atorvastatin. 7. Chronic diastolic heart failure with prior bioprosthetic aortic valve He does have some pitting edema which he describes as being chronic.? He typically wears compression stockings.? 8. Constipation -start scheduled laxatives Code: full, surrogate is patient's Prophylaxis: On apixaban Dispo: PT/OT rec SNF and pending acceptance likely 12/09. Time Spent With Patient Critical Care time: I spent a total of [] minutes of critical care time on this patient's care today; this time is exclusive of procedural time. Quality VTE Deep Vein Thrombosis/Pulmonary Embolism Present on Admission: No
[2021-12-08 09:00] VITALS: O2SAT 95
[2021-12-08] MEDS: COLESEVELAM 625 MG TABLET 1875 MG PO ×2 (09:03→21:04)
[2021-12-08] MEDS: guaiFENesin ER 600 MG TAB 1200 MG PO ×2 (09:06→21:07)
[2021-12-08] MEDS: MULTIVITAMIN 1 TABLET 1 TAB PO (09:10)
[2021-12-08] MEDS: APIXABAN 5 MG TABLET 2.5 MG PO ×2 (09:10→21:05)
[2021-12-08] MEDS: MAGNESIUM CHLORIDE 64 MG TABLET 128 MG PO (09:36)
--- NOTE | 2021-12-08 11:33 | PT.IPTN ---
Current Diagnoses Unspecified bacterial pneumonia (12/04/21) Physical Therapy Treatment Note M2 PT-IP Current Condition Start: 12/05/21 12:53 Freq: NEEDED Status: Active Protocol: Document 12/08/21 11:00 SP (Rec: 12/08/21 11:57 SP [id number]) Physical Therapy Current Condition Current Condition Evaluation Date 12/05/21 Treatment Diagnosis Covid; difficulty in walking Onset Date 12/04/21 M3 PT-IP Subjective Start: 12/05/21 12:53 Freq: NEEDED Status: Active Protocol: Document 12/08/21 11:00 SP (Rec: 12/08/21 11:57 SP [id number]) Subjective Physical Therapy Visit Type Type Treatment Note Visit Start Time 11:00 Visit Stop Time 11:33 Total Visit Minutes 33 Notes Vitals pre mobility: BP 128/73 HR 80s SaO2 92 on RA . Number of GRAVITY PROSPECTING OPERATOR Visits 1 Physical Therapy Visit Comments Patient Comments Pt requested use of bathroom. M4 PT-IP Mobility and Gait Start: 12/05/21 12:53 Freq: NEEDED Status: Active Protocol: Document 12/08/21 11:00 SP (Rec: 12/08/21 11:57 SP [id number]) PT-Transfer Assessment Sit to and From Stand Sit to and from Stand Contact Guard Assistance, Minimal Assistance,1 Person Assistance,Use of Upper Extremities Equipment Transfer Assistive Device Gait Belt,Front Wheeled Walker Orthotic/Prosthetic Devices or Brace: No Transfers Transfer Destination Chair,Toilet Transfer Technique pt ambulated using FWW Transfer Ability Level of Assist Contact Guard Assistance,Use of Upper Extremities Comments Mobility Comments Pt was up in chair when arrived. completed forward scoot to EOchair with cues, Sit>stand cued push from chair arms Min A to complete to standing, gait to bathroom toilet w/FWW, pivot turn with cues fully back to toilet, self brief mgt lowering and stand>sit L grab bar and RUE on FWW Min A descend to sit, cued scoot to L to center self on toilet. Pt challenged with defocating so stated needed to stand then sit for gravity assist, needed complete x8 decrease assist required to CGA, GRAVITY PROSPECTING OPERATOR light contact FWW for stability as needed, pt also self stimulation with cleansing wipe good productive post sitting lrg MB with noted small blood clot and loose blood in toilet but stopped. Pt able to complete self hygiene in standing CGA- SBA for safety throughout time . Pt gait to sink wash hands w / FWW 15 ft stable standign without UE support. Pt returned to chair, cues for centering and reachign back for slow descent to chair Min A. GRAVITY PROSPECTING OPERATOR assisted donning pull up brief, completed sit<>stand Min A. DAIRY POWDER MIXER OPERATOR arrived assist pt with all other needs while GRAVITY PROSPECTING OPERATOR left. Pt total gait 10 ft, 15 ft, 5 ft in room w/ FWW CGA> SBA. Pt declined reassessment of bed mobility, will attempt next tx, but pt sleeps in his recliner at home . Gait Assessment Gait Gait Assistance Required: Contact Guard Assist,Minimum Assistance Distance (Feet) 30 Able to Maintain Weight Bearing Status Yes During Gait Assistive Devices Assistive Device Gait Belt,Front Wheeled Walker Orthotic/Prosthetic Devices or Brace: No Gait Deviations General Gait Pattern Antalgic,Decreased Stride Length,Decreased Feet Clearance,Flexed Trunk,Wide Based Gait Factors Limiting Gait Function Factors Limiting Gait Function Decreased Activity Tolerance, Decreased Strength,Poor Safety Awareness Comments Gait Comments Pt stable gait and standing during bathroom transfer w/ FWW/grab bar. Receiprocal stepping WBOS, flexed posture at neck> thoracic spine, cued increase upright posture but reports is the best can. Stair Climbing Assessment Comments Stair Climbing Comments no stairs at home need assess. PT-Balance Assessment Sitting Balance and Reactions Static Sitting Balance Ability Normal Dynamic Sitting Balance Ability Good Standing Balance and Reactions Static Standing Balance Ability Good Dynamic Standing Balance Ability Good Device Used FWW M5 PT-IP Objective Assessments Start: 12/05/21 12:53 Freq: NEEDED Status: Active Protocol: Document 12/05/21 11:01 AB (Rec: 12/05/21 13:06 AB [id number]) Orientation Orientation/Cognition Level of Alertness Alert Orientation Name,Place,Situation Safety Awareness Decreased Safety Awareness Memory Description Short Term Impaired Gross Range of Motion Lower Extremity ROM Assessment Within Functional Limits Strength Lower Extremity Strength Hip 4-/5 Knee 4-/5 Sensation Assessment Sensation Gross Sensation WNL Muscle Tone Muscle Tone WNL Yes M6 PT-IP Treatment Start: 12/05/21 12:53 Freq: NEEDED Status: Active Protocol: Document 12/08/21 11:00 SP (Rec: 12/08/21 11:57 SP [id number]) Physical Therapy Treatment Education Education Provided Safety Other Treatments Other Treatment Performed Instruction in deep breathing and pelvic movement for relaxed pelvic floor on the toilet. Sit to stand x 8 at the toilet to assist bowel bowel production. M7 PT-IP Assessment and Plan Start: 12/05/21 12:53 Freq: NEEDED Status: Active Protocol: Document 12/08/21 11:00 SP (Rec: 12/08/21 11:57 SP [id number]) PT Summary Assessment and Plan Potential Rehabilitation Potential Fair Status of Condition at Evaluation Evolving Summary Impairments Pain,ROM,Strength,Balance, Coordination,Sensation,Tone, Cognition,Bed Mobility, Transfers,Gait,Activity Tolerance Progress Towards Goals Progressing Toward Goals,Slow Progress due to Activity Tolerance Assessment Summary Pt improving Mod>CGA during mobiltiy with FWW. Declined bed mobility today, but sleeps in recliner so doesn't have to lay down. Will continue to assess progress. Pt would beneifit from CGT for safe DC home when medically cleared. Recommending home 24/7 assist available HHPT vs SNF. Goals Bed Mobility Goal Standby Assistance Transfer Goal Standby Assistance,Front Wheeled Walker Gait Goal Standby Assistance,Front Wheel Walker Gait Distance 50 Days to Meet Goals 10 Frequency of Treatment Frequency Of Treatment Once a Day Treatment Plan Physical Therapy Treatment Plan Bed Mobility Training,Transfer Training,Gait Training, Therapeutic Exercise,Balance Retraining,Discharge Planning, Hot or Cold Pack,Neuromuscular Re-ed,Coordination Retraining ,Manual Therapy Other Recommendations and Next Treatment Le ex, STS, standing balance Focus acitivities, bed mob, gait further distances LRAD. Precautions Other Precautions Covid Recommendations To Nursing Amount of Assist Needed 1 Person Assist Discharge Recommendations PT Discharge Recommendations Home with Assistance,Home with 24/7 Assist Available,SNF Rehab,Home vs SNF Transportation Needs at Discharge Private Vehicle,Wheelchair/ Cabulance
[2021-12-08 13:00] VITALS: O2SAT 95
[2021-12-08] MEDS: cefTRIAXone 1,000 MG in SODIUM CHLORIDE 0.9% 100 ML 200 MG IV (13:32)
[2021-12-08] MEDS: SODIUM CHLORIDE 0.9% FLUSH 10 ML IV ×2 (13:34→21:07)
--- NOTE | 2021-12-08 13:45 | CM.DPC ---
DCP/continued: Reviewed chart. Received phone call from Elizabeth at [facility], she reports that they can accept this patient on Tuesday12-09-21 if he is medically stable. Per Elizabeth's message they have private room. [employer] updated provider. Unclear at this time if COVID test will be needed prior to d/c? Will refer to provider and facility in AM when we know for sure patient is discharging. P: [facility] has accepted when medically stable. GERRI
[2021-12-08 17:00] VITALS: O2SAT 95
--- NOTE | 2021-12-08 17:00 | OT.IPNOTE ---
Attempted to work with pt for OT and pt states just had a bowel movement earlier. Pt just content to wait on dinner coming up shortly. NO charge.
[2021-12-08] MEDS: PIPERACILLIN/TAZO 4.5 GM in SODIUM CHLORIDE 0.9% 100 ML IV (17:30)
[2021-12-08 20:00] VITALS: BP 130/66; PULSE 81; RESP 25; TEMP 36.4; O2SAT 96
[2021-12-08 21:00] VITALS: O2SAT 96
[2021-12-08] MEDS: PIPERACILLIN/TAZO 3.375 GM in SODIUM CHLORIDE 0.9% 100 ML IV (21:04)
[2021-12-08] MEDS: ATORVASTATIN 20 MG TABLET 40 MG PO (21:07)
[2021-12-08 22:19] LABS: COVID19 -Nasal RAPID Negative (Negative)
[2021-12-09] VITALS (8 sets, daily range): BP systolic 131–133; BP diastolic 66–71; PULSE 88; RESP 17; TEMP 36.4–36.5; O2SAT 94–100
[2021-12-09] MEDS: PIPERACILLIN/TAZO 3.375 GM in SODIUM CHLORIDE 0.9% 100 ML IV ×3 (05:03→21:29)
[2021-12-09 07:35] LABS: Add Manual Diff / Slide Review NO; Basophils Absolute Auto 100 /uL (0-100); Basophils Percent Auto 0.6 % (0-2); Eosinophils Absolute Auto 400 /uL (0-450); Eosinophils Percent Auto 2.4 % (2-4); Hematocrit 30.9 % (41-53); Hemoglobin 10.2 g/dL (13.5-17.5); Lymphocytes Absolute Auto 1600 /uL (1100-4500); Lymphocytes Percent Auto 9.8 % (25-40); Mean Corpuscular HGB Conc 33.1 % (30-36); Mean Corpuscular Hemoglobin 31.6 PG (26-34); Mean Corpuscular Volume 95.6 fL (80-100); Monocytes Absolute Auto 1200 /uL (0-900); Monocytes Percent Auto 7.5 % (3-14); Neutrophils Absolute Auto 13100 /uL (1500-7000); Neutrophils Percent Auto 79.7 % (50-75); Platelet Count 423 X10^3/uL (150-400); Red Blood Cell Count 3.23 X10^6/uL (4.5-5.9); Red Cell Distribution Width 13.7 % (11.6-14.8); White Blood Cell Count 16.5 X10^3/uL (4.5-11.0)
[2021-12-09 07:44] LABS: BUN Creatinine Ratio 24.5 (6-22); Blood Urea Nitrogen 39 mg/dL (9-20); Calcium 9.5 mg/dL (8.4-10.2); Carbon Dioxide 27 mmol/L (22-32); Chloride 107 mmol/L (98-107); Estimated Glomerular Filt Rate 42 mL/min (>60); Glucose 101 mg/dL (80-110); HEMOLYSIS < 15 (0-50); Potassium 3.8 mmol/L (3.4-5.1); Sodium 139 mmol/L (137-145)
[2021-12-09 07:47] LABS: Magnesium 1.9 mg/dL (1.6-2.3)
--- NOTE | 2021-12-09 07:47 | P.PN_ITS ---
Subjective Subjective Date Patient Seen: 12/09/21 Time Patient Seen: 14:00 Interval history: Feels better today with less coughing and overall generally better. Likely to SNF tomorrow. Exam Vital Signs (past 8 hours): - 12/09/21 01:00 12/09/21 05:00 Pulse Oximetry 95 94 Oxygen Delivery Method Room Air Room Air Oxygen Flow Rate 0 0 Oxygen Delivery Method Room Air Oxygen Flow Rate 0 Narrative Exam Narrative: GEN:?appears comfortable SKIN: no rashes PULM: diminished breath sounds, no increased work of breathing CV:? Irregularly irregular ABD: soft, nontender EXTR: warm, well perfused, with 1+ edema NEURO: no focal deficits Objective Labs Result Diagrams: 12/09/21 06:56 12/09/21 06:56 Labs: Laboratory Results - last 24 hr 12/08/21 12/09/21 12/09/21 21:34 06:56 06:56 WBC 16.5 H RBC 3.23 L Hgb 10.2 L Hct 30.9 L MCV 95.6 MCH 31.6 MCHC 33.1 RDW 13.7 Plt Count 423 H Neut % (Auto) 79.7 H Lymph % (Auto) 9.[address] [place] % (Auto) 7.5 Eos % (Auto) 2.4 Baso % (Auto) 0.6 Neut # (Auto) 44326 H Lymph # (Auto) [address] [place] # (Auto) 1200 H Eos # (Auto) 400 Baso # (Auto) 100 Sodium 139 Potassium 3.8 Chloride 107 Carbon Dioxide 27 BUN 39 H Creatinine 1.59 H Estimated GFR 42 L BUN/Creatinine Ratio 24.5 H Glucose 101 Calcium 9.5 SARS-CoV-2 (PCR) Negative COUNTS INCLUDE 234 BEDS AT [facility] Medical History Anemia Asymptomatic microscopic hematuria BPH (benign prostatic hyperplasia) Chronic diastolic heart failure DM2 (diabetes mellitus, type 2) Hypertension Interstitial lung disease Permanent atrial fibrillation Stage 3b chronic kidney disease (CKD) Surgical History S/P AVR (aortic valve replacement) Family History (Updated 12/04/21 @ 17:42 by Arpit Staton DO) Mother No pertinent past medical history Father No pertinent past medical history Social History (Updated 06/11/20 @ 11:25 by Jenniffer Andrade CMA) household members: spouse Smoking Status: Former smoker alcohol intake: current Assessment & Plan Assessment & Plan narrative: 1. Community-acquired bacterial pneumonia of the right middle lobe, respiratory distress resolved Changed from ceftriaxone and doxycycline to zosyn given persistent elevated WBC.? Vital signs are stable.? Remains stable in room air.? He remains dyspneic. Already ordered for a flutter valve and Mucinex to assist with expectoration. Sputum culture with normal jessie. -Leukocytosis now improving, likely to dc on po levaquin 2. COVID-19 infection Patient was diagnosed several weeks ago and completed Paxlovid approximately 2 and half weeks ago.? PCR negative on 12/08 so taken off precautions. 3. YORDY on CKD 3B Baseline creatinine is 1.1.? On admission creatinine was 1.61 now up to 1.75, Etiology of the YORDY is likely acute pneumonia. Trend daily. Hold lisinoporil, torsemide and spironolactone on 12/06 4. Permanent atrial fibrillation Presently rate controlled.? Anticoagulated on apixaban which has been continued. 5. HTN Continue lisinopril 20 mg daily, torsemide 100 mg daily, and spironolactone 25 mg daily.? Blood pressures are normotensive. 6. HLD Continue atorvastatin. 7. Chronic diastolic heart failure with prior bioprosthetic aortic valve He does have some pitting edema which he describes as being chronic.? He typically wears compression stockings.? 8. Constipation -start scheduled laxatives Code: full, surrogate is patient's Prophylaxis: On apixaban Dispo: PT/OT rec SNF and pending acceptance likely 12/10. Time Spent With Patient Critical Care time: I spent a total of [] minutes of critical care time on this patient's care today; this time is exclusive of procedural time. Quality VTE Deep Vein Thrombosis/Pulmonary Embolism Present on Admission: No
[2021-12-09] MEDS: MULTIVITAMIN 1 TABLET 1 TAB PO (08:27)
[2021-12-09] MEDS: APIXABAN 5 MG TABLET 2.5 MG PO ×2 (08:27→21:30)
[2021-12-09] MEDS: guaiFENesin ER 600 MG TAB 1200 MG PO ×2 (08:28→21:30)
[2021-12-09] MEDS: COLESEVELAM 625 MG TABLET 1875 MG PO (08:28)
[2021-12-09] MEDS: SODIUM CHLORIDE 0.9% FLUSH 10 ML IV ×2 (08:29→22:13)
--- NOTE | 2021-12-09 11:45 | PT.IPTN ---
Current Diagnoses Unspecified bacterial pneumonia (12/04/21) Physical Therapy Treatment Note M2 PT-IP Current Condition Start: 12/05/21 12:53 Freq: NEEDED Status: Active Protocol: Document 12/08/21 11:00 SP (Rec: 12/08/21 11:57 SP [id number]) Physical Therapy Current Condition Current Condition Evaluation Date 12/05/21 Treatment Diagnosis Covid; difficulty in walking Onset Date 12/04/21 M3 PT-IP Subjective Start: 12/05/21 12:53 Freq: NEEDED Status: Active Protocol: Document 12/09/21 11:22 KS (Rec: 12/09/21 12:35 KS [id number]) Subjective Physical Therapy Visit Type Type Treatment Note Visit Start Time 11:22 Visit Stop Time 11:45 Total Visit Minutes 23 Number of GOVERNMENT GUARD Visits 2 Physical Therapy Visit Comments Patient Comments Pt agreeable to ambulate. M4 PT-IP Mobility and Gait Start: 12/05/21 12:53 Freq: NEEDED Status: Active Protocol: Document 12/09/21 11:22 KS (Rec: 12/09/21 12:35 KS [id number]) PT-Bed Mobility Assessment Supine to Sit Supine to Sit Minimal Assistance Scooting Scooting to Edge of Bed Minimal Assistance PT-Transfer Assessment Sit to and From Stand Sit to and from Stand Minimal Assistance,1 Person Assistance,Use of Upper Extremities Equipment Transfer Assistive Device Gait Belt,Front Wheeled Walker Orthotic/Prosthetic Devices or Brace: No Transfers Transfer Destination Chair Transfer Technique pt ambulated using FWW Transfer Ability Level of Assist Minimal Assistance,1 Person Assistance,Use of Upper Extremities Comments Mobility Comments Pt in bed upon arrival and agreeable to ambulate and transfer to chair for lunch. Pt required Min A for bed mobility and increased time to scoot EOB. Fatigues quickly. After short seated rest break, pt sit<>Stand w/ FWW Min A. He then ambulated ~25 ft in room w/ FWW and CGA w/ cues for FWW mgmt. Decreased stride and foot clearance w/ wide based gait. Pt then requested to sit, able to follow instructions for hand placement and slow descent. Pt then completed ankle pumps, quad sets, and glute sets. Left in chair w/ all needs in reach. Gait Assessment Gait Gait Assistance Required: Contact Guard Assist,Minimum Assistance Distance (Feet) 25 Able to Maintain Weight Bearing Status Yes During Gait Assistive Devices Assistive Device Gait Belt,Front Wheeled Walker Orthotic/Prosthetic Devices or Brace: No Gait Deviations General Gait Pattern Antalgic,Decreased Stride Length,Decreased Feet Clearance,Flexed Trunk,Wide Based Gait Factors Limiting Gait Function Factors Limiting Gait Function Decreased Activity Tolerance, Decreased Strength,Poor Safety Awareness Comments Gait Comments Please refer to mobility section for details. Stair Climbing Assessment Comments Stair Climbing Comments no stairs at home need assess. PT-Balance Assessment Sitting Balance and Reactions Static Sitting Balance Ability Normal Dynamic Sitting Balance Ability Good Standing Balance and Reactions Static Standing Balance Ability Good Dynamic Standing Balance Ability Fair Device Used FWW M5 PT-IP Objective Assessments Start: 12/05/21 12:53 Freq: NEEDED Status: Active Protocol: Document 12/05/21 11:01 AB (Rec: 12/05/21 13:06 AB [id number]) Orientation Orientation/Cognition Level of Alertness Alert Orientation Name,Place,Situation Safety Awareness Decreased Safety Awareness Memory Description Short Term Impaired Gross Range of Motion Lower Extremity ROM Assessment Within Functional Limits Strength Lower Extremity Strength Hip 4-/5 Knee 4-/5 Sensation Assessment Sensation Gross Sensation WNL Muscle Tone Muscle Tone WNL Yes M6 PT-IP Treatment Start: 12/05/21 12:53 Freq: NEEDED Status: Active Protocol: Document 12/09/21 11:22 KS (Rec: 12/09/21 12:35 CA [id number]) Physical Therapy Treatment Exercises Exercises Ankle Pumps,Gluteal Sets,Quad Sets Education Education Provided Safety M7 PT-IP Assessment and Plan Start: 12/05/21 12:53 Freq: NEEDED Status: Active Protocol: Document 12/09/21 11:22 KS (Rec: 12/09/21 12:35 CA [id number]) PT Summary Assessment and Plan Potential Rehabilitation Potential Fair Summary Impairments Pain,ROM,Strength,Balance, Coordination,Sensation,Tone, Cognition,Bed Mobility, Transfers,Gait,Activity Tolerance Progress Towards Goals Progressing Toward Goals,Slow Progress due to Activity Tolerance Assessment Summary Pt required Min A for bed mobility and sit<>stand w/ FWW . He was able to ambulate 25 ft w/ FWW but had quick approach to fatigue needing to sit down. At this time, recommending SNF to improve strength, functional mobility, and activity tolerance as pt does not have adequate assistance at home/lives alone . Goals Bed Mobility Goal Standby Assistance Transfer Goal Standby Assistance,Front Wheeled Walker Gait Goal Standby Assistance,Front Wheel Walker Gait Distance 50 Days to Meet Goals 10 Frequency of Treatment Frequency Of Treatment Once a Day Treatment Plan Physical Therapy Treatment Plan Bed Mobility Training,Transfer Training,Gait Training, Therapeutic Exercise,Balance Retraining,Discharge Planning, Hot or Cold Pack,Neuromuscular Re-ed,Coordination Retraining ,Manual Therapy Other Recommendations and Next Treatment Le ex, STS, standing balance Focus acitivities, bed mob, gait further distances LRAD. Recommendations To Nursing Amount of Assist Needed 1 Person Assist Discharge Recommendations PT Discharge Recommendations Home with 27/09 Assist Available,Home Health,SNF Rehab Transportation Needs at Discharge Private Vehicle,Wheelchair/ Cabulance
--- NOTE | 2021-12-09 14:01 | OT.IP.TRT ---
Current Diagnoses Unspecified bacterial pneumonia (12/04/21) Occupational Therapy Treatment Note M2 OT-IP Current Condition Start: 12/07/21 17:50 Freq: Status: Active Protocol: Document 12/07/21 17:50 [facility] (Rec: 12/07/21 18:04 [facility] [id number]) Occupational Therapy Current Condition Current Condition Evaluation Date 12/07/21 Treatment Diagnosis R middle lobe PNA, covid + ~3 weeks ago, still testing covid + Diagnosis Onset Date 12/04/21 M3 OT- IP Subjective and Pain Start: 12/07/21 17:50 Freq: Status: Active Protocol: Document 12/09/21 14:00 [facility] (Rec: 12/09/21 14:20 [facility] [id number]) OT- Subjective Occupational Therapy Visit Type Type Treatment Note Visit Start Time 13:40 Visit Stop Time 14:01 Total Visit Minutes 21 Occupational Therapy Visit Comments Patient Comments Pt not wanting to get up as currently having an IV running and not wanting to move his arm. OT Pain Assessment Pain When Pain Assessed At Rest Pain Present Pain Present Denied Pain M6 OT- IP Functional Cognition Start: 12/07/21 17:50 Freq: Status: Active Protocol: Document 12/09/21 14:00 [facility] (Rec: 12/09/21 14:20 [facility] [id number]) Cognitive Factors Limiting Selfcare Function Cognitive Tests SLUMS Pt scoring 9/24 as not wanting to do any of the writing items as having IV in at the time. Pt thought it was instead of Tuesday, not able to recall information of math questions in order to add and subtract values, able to recall 3/5 objects after time passed, not able to states 4 digit number backwards, and able to answer 3/4 questions right after paragraph read. Cognitive Comments Cognitive Assessment Comments Pt very hard of hearing but able to participate today and agreed to do the SLUMS. Pt score even though unable to complete all of the assessment scoring 9/24 which appears to imply dementia. Pt wanting to go over states and capitals as pt states did geology in school and only able to recall approximately 20% of the [place] capitals at this time. M9 OT- IP Assessment and Plan Start: 12/07/21 17:50 Freq: Status: Active Protocol: Document 12/09/21 14:00 [facility] (Rec: 12/09/21 14:20 [facility] [id number]) OT Summary Assessment and Plan Potential Rehabilitation Potential Good Analytic Complexity at Evaluation High Summary OT Impairments Range of Motion,Strength, Balance,Functional Cognition, Functional Mobility,Grooming, Dressing,Toileting,Bathing, Toilet Transfers,Shower Transfers,Activity Tolerance Progress Towards Goals Slow Progress due to Medical Issues,Slow Progress due to Activity Tolerance,Slow Progress due to Cognition Assessment Summary Pt able to initiate SLUMS and scoring 11/28 so far. Pt not wanting to get up as IV currently running for the pt. Pt is motivated to go to skilled rehab to get stronger and be able to do more for himself. Pt to go to skilled rehab when medically stable. Goals Self-Feeding Goal Independent Grooming Goal Independent Dressing Goal Independent Toileting Goal Independent Bathing Goal Independent Toilet Transfer Goal Independent Shower Transfer Goal Independent Days to Meet Goals 29 Frequency of Treatment Frequency Of Treatment Once a Day Treatment Plan OT Treatment Plan ADL Training,Functional Mobility,Patient/Family Education,Discharge Planning Other Treatment Recommendations and Next Oral care while standing with Treatment Focus FWW and recliner behind him. Discharge Recommendations OT Discharge Recommendations SNF Rehab Transportation Needs at Discharge Wheelchair/Cabulance
[2021-12-09] MEDS: ATORVASTATIN 20 MG TABLET 40 MG PO (21:29)
[2021-12-10] MEDS: PIPERACILLIN/TAZO 3.375 GM in SODIUM CHLORIDE 0.9% 100 ML IV (04:59)
--- NOTE | 2021-12-10 05:31 | PC.NURSE ---
Pt is AxOx3 sometimes forgetful but pleasant. VSS, pt denies pain. Pt slept well. No other changes. Continue monitor.
[2021-12-10 07:00] VITALS: BP 120/64; PULSE 86; RESP 20; TEMP 35.9; O2SAT 95
[2021-12-10 07:04] LABS: Add Manual Diff / Slide Review NO; Basophils Absolute Auto 100 /uL (0-100); Basophils Percent Auto 0.4 % (0-2); Eosinophils Absolute Auto 500 /uL (0-450); Eosinophils Percent Auto 3.3 % (2-4); Hematocrit 30.2 % (41-53); Hemoglobin 10.3 g/dL (13.5-17.5); Lymphocytes Absolute Auto 2000 /uL (1100-4500); Mean Corpuscular HGB Conc 33.9 % (30-36); Mean Corpuscular Hemoglobin 32.1 PG (26-34); Mean Corpuscular Volume 94.6 fL (80-100); Monocytes Absolute Auto 1200 /uL (0-900); Monocytes Percent Auto 7.2 % (3-14); Neutrophils Absolute Auto 12700 /uL (1500-7000); Neutrophils Percent Auto 77.1 % (50-75); Platelet Count 407 X10^3/uL (150-400); Red Blood Cell Count 3.19 X10^6/uL (4.5-5.9); Red Cell Distribution Width 13.9 % (11.6-14.8); White Blood Cell Count 16.4 X10^3/uL (4.5-11.0)
[2021-12-10 07:16] LABS: BUN Creatinine Ratio 23.1 (6-22); Blood Urea Nitrogen 31 mg/dL (9-20); Calcium 9.2 mg/dL (8.4-10.2); Carbon Dioxide 24 mmol/L (22-32); Chloride 109 mmol/L (98-107); Estimated Glomerular Filt Rate 52 mL/min (>60); Glucose 97 mg/dL (80-110); HEMOLYSIS < 15 (0-50); Potassium 4.2 mmol/L (3.4-5.1); Sodium 135 mmol/L (137-145)
--- NOTE | 2021-12-10 08:38 | PM.DS.1 ---
History of Present Illness History of Present Illness Date Patient Seen: 12/10/21 Time Patient Seen: 08:39 Chief complaint: Sob, cough elavalted BP Narrative: This is an 86-year-old male with a past medical history diastolic heart failure, permanent atrial fibrillation, bioprosthetic aortic valve, interstitial disease with chronic dyspnea, CKD stage IIIB chronic cardiorenal syndrome, carotid artery stenosis, hypertension, hyperlipidemia, obstructive sleep apnea, and type 2 diabetes who presents with progressive cough and weakness over the past week or so.? History is largely obtained by the patient and from chart review, no family is available at this time. He presented to the clinic on [facility] yesterday per his Daughter's request, he did not wish to transfer to the hospital at that time. He has has more difficulty caring for himself and reports he has not been eating as he has been having bowel movements and urinating after each meal. He is finding it difficult to do basic activities but states this is only due to weakness at the moment. He could not further elaborate with me. He states he has been weaker since about a week after his covid infection. He was diagnosed with covid about 3 weeks ago, and felt well after. He received paxlovid per chart review. He states about a week after he began to have worsening cough and weakness which continued to today's visit to the ER. CXR showed a right middle lobe infiltrate, similar to yesterday's exam. Laboratory evaluation showed a leukocytosis with WBC of 22. Creatinine was 1.61 from apparent baseline of around 1.1 per review of records. Respiratory panel was positive for COVID 19. EKG was consistent to prior tracings per review of his cardiology notes. Patient was admitted for community acquired pneumonia. Discharge Providers Provider Date of admission: 12/04/21 15:24 Discharge Date: 12/10/21 Primary care physician: Misha Bruce DO Consults: 12/04/21 12:34 Consult to HUMAN [employer] TRAINING MANAGER - [employer] Filling Machine Operator Stat Comment: 12/05/21 09:05 Consult to Occupational Therapy Evaluate & Treat Comment: Physician Instructions: Evaluate and treat Consult to Physical Therapy Evaluate & Treat Comment: Physician Instructions: Evaluate and Treat Discharge provider: Francisco Nava DO Summary Hospital Course Discharge Diagnosis: 1. Community-acquired bacterial pneumonia of the right middle lobe, respiratory distress resolved Changed from ceftriaxone and doxycycline to zosyn given persistent elevated WBC.? Vital signs are stable.? Remains stable in room air.? He remains dyspneic. Already ordered for a flutter valve and Mucinex to assist with expectoration. Sputum culture with normal jessie. -Leukocytosis now improving, will dc with 1 additional week of po levaquin 2. COVID-19 infection Patient was diagnosed several weeks ago and completed Paxlovid approximately 2 and half weeks ago.? PCR negative on 12/08 so taken off precautions. 3. YORDY on CKD 3B Baseline creatinine is 1.1.? On admission creatinine was 1.61 now up to 1.75, Etiology of the YORDY is likely acute pneumonia. Trend daily. Hold lisinoporil, torsemide and spironolactone on 12/06 4. Permanent atrial fibrillation Presently rate controlled.? Anticoagulated on apixaban which has been continued. 5. HTN Continue lisinopril 20 mg daily, torsemide 100 mg daily, and spironolactone 25 mg daily.? Blood pressures are normotensive. 6. HLD Continue atorvastatin. 7. Chronic diastolic heart failure with prior bioprosthetic aortic valve He does have some pitting edema which he describes as being chronic.? He typically wears compression stockings.? 8. Constipation, resolved -improved with laxatives Hospital Course: Admitted for CAP after having COVID recently. Initially required O2 but able to wean to room air. Had persistently elevated WBC despite rocephina and doxy so switched to zosyn with improvement in his white count. All cultures including blood, sputum and urine were negative. No diarrhea. He was dsicharged to SNF on 1 additional week of po levaquin. Time Spent with Patient Time spent: Greater than 30 minutes Exam Vital Signs (past 8 hours): - 12/10/21 01:00 12/10/21 05:00 Oxygen Delivery Method Room Air Room Air Oxygen Delivery Method Room Air Oxygen Flow Rate 0 Narrative Exam Narrative: GEN:?appears comfortable SKIN: no rashes PULM: diminished breath sounds, no increased work of breathing CV:? Irregularly irregular ABD: soft, nontender EXTR: warm, well perfused, with 1+ edema NEURO: no focal deficits Objective Labs Result Diagrams: 12/10/21 06:36 12/10/21 06:36 Labs: Laboratory Results - last 24 hr 10/06/22 10/06/22 06:36 06:36 WBC 16.4 H RBC 3.19 L Hgb 10.3 L Hct 30.2 L MCV 94.6 MCH 32.1 MCHC 33.9 RDW 13.9 Plt Count 407 H Neut % (Auto) 77.1 H Lymph % (Auto) 12.0 L [place] % (Auto) 7.2 Eos % (Auto) 3.3 Baso % (Auto) 0.4 Neut # (Auto) 14203 H Lymph # (Auto) 2000 [place] # (Auto) 1200 H Eos # (Auto) 500 H Baso # (Auto) 100 Sodium 135 L Potassium 4.2 Chloride 109 H Carbon Dioxide 24 BUN 31 H Creatinine 1.34 H Estimated GFR 52 L BUN/Creatinine Ratio 23.1 H Glucose 97 Calcium 9.2 PFSH Medical History Anemia Asymptomatic microscopic hematuria BPH (benign prostatic hyperplasia) Chronic diastolic heart failure DM2 (diabetes mellitus, type 2) Hypertension Interstitial lung disease Permanent atrial fibrillation Stage 3b chronic kidney disease (CKD) Surgical History S/P AVR (aortic valve replacement) Family History (Updated 12/04/21 @ 17:42 by Arpit Staton DO) Mother No pertinent past medical history Father No pertinent past medical history Social History (Updated 06/11/20 @ 11:25 by Jenniffer Andrade CMA) household members: spouse Smoking Status: Former smoker alcohol intake: current Discharge Plan Discharge Plan Patient Disposition: SNF Discharge orders & Medications Prescriptions: New levofloxacin 750 mg tablet 750 mg PO DAILY 7 Days Qty: 7 0RF Continued [COQ10] 25 mg PO BID Qty: 0 [vitamin D3/D2] 2,000 iu PO QDAY Qty: 0 [fish oil] 1 gm PO QDAY Qty: 0 multivitamin [Multiple Vitamins] 1 EACH tablet 1 tab PO QDAY Qty: 0 atorvastatin 40 mg tablet 40 mg PO DAILY Qty: 90 3RF colesevelam [WelChol] 625 mg tablet 1,875 mg PO BID Qty: 540 3RF fenofibrate nanocrystallized [Tricor] 145 mg tablet 145 mg PO QDAY Qty: 90 3RF Eliquis 2.5 mg tablet 2.5 mg PO BID Qty: 180 4RF torsemide 100 mg tablet 100 mg PO DAILY Qty: 90 3RF Myrbetriq 25 mg tablet extended release 24 hr 25 mg PO QDAY Qty: 90 3RF Disabled Parking Permit 1 ea topical DAILY latanoprost 0.005 % drops 1 drp ophthalmic (eye) DAILY nitroglycerin 0.4 mg tablet, sublingual 0.4 mg sublingual Q5M PRN (Reason: pain) Rx Instructions: do not exceed 3 doses per episode spironolactone 25 mg tablet 25 mg PO DAILY Rx Instructions: TAKE 0.5 TABLETS (12.5 MG) BY MOUTH DAILY. taurine 1,000 mg capsule 1,000 mg PO DAILY zinc gluconate 50 mg tablet 50 mg PO DAILY lisinopril 20 mg tablet 20 mg PO DAILY Qty: 90 3RF Discontinued Paxlovid (EUA) 150-100 mg tablets,dose pack See Rx Instructions PO PER PKG DIR Qty: 1 0RF Rx Instructions: PO PER PKG DIR Follow up/Referrals: Misha Bruce, [Primary Care Provider] - Discharge Data Primary Care Provider: Misha Bruce Quality VTE Deep Vein Thrombosis/Pulmonary Embolism Present on Admission: No
[2021-12-10 09:00] VITALS: O2SAT 95
[2021-12-10] MEDS: APIXABAN 5 MG TABLET 2.5 MG PO (09:52)
[2021-12-10] MEDS: MULTIVITAMIN 1 TABLET 1 TAB PO (09:52)
[2021-12-10] MEDS: guaiFENesin ER 600 MG TAB 1200 MG PO (09:52)
[2021-12-10] MEDS: SODIUM CHLORIDE 0.9% FLUSH 10 ML IV (09:54)
--- NOTE | 2021-12-10 11:40 | PT-IP ANOTE ---
Attempted to see pt at 11:40, pt had already d/c.
--- NOTE | 2021-12-10 11:58 | PC.NURSE ---
Pt discharged at 1100, escorted off floor in wheelchair, accompanied by staff from [facility]. IV removed, discharge packet and prescriptions sent with patient. All belongings left with patient. Report called to Quang at [facility].
--- NOTE | 2021-12-10 12:30 | CM.DPNOTE ---
DC Note DC to [facility] today; faxed completed AUBREY Caceres CMA, faxed DC ppk, med list, DC Summary Patient remained agreeable to plan, no need for COVID to be updated per Marleni at [facility] P/u at approx [phone] JW
== END 2021-12-10 12:00 | DRG 193 ==
LOC: ED 15:23 → AC 15:25
PROVIDERS: Emergency Medicine; Student in an Organized Health Care Education/Training Program; Admitting Provider Internal Medicine; Emergency Provider Physician Assistant; Family Provider Physician Assistant; PCP Family Medicine; Referring Provider Physician Assistant; Visit Provider Internal Medicine
DX: J15.9 Unspecified bacterial pneumonia (principal); U07.1 COVID-19; N17.9 Acute kidney failure, unspecified; I48.21 Permanent atrial fibrillation; I13.0 Hypertensive heart and chronic kidney disease with heart failure and stage 1 through stage 4 chronic kidney disease, or unspecified chronic kidney disease; I50.32 Chronic diastolic (congestive) heart failure; N18.32 Chronic kidney disease, stage 3b; E78.5 Hyperlipidemia, unspecified; K59.00 Constipation, unspecified; E11.22 Type 2 diabetes mellitus with diabetic chronic kidney disease; Z79.01 Long term (current) use of anticoagulants; Z95.2 Presence of prosthetic heart valve; Z87.891 Personal history of nicotine dependence; Z79.84 Long term (current) use of oral hypoglycemic drugs
CPT/HCPCS: 36415; 51701; 71045; 71046; 80048; 80053; 81001; 83605; 83690; 83735; 84145; 85025; 87040; 87070; 87205; 87633; 87635; 93005; 96365; 96367; 97116; 97129; 97162; 97167; 97530; 99284; C9803; J0696; J2543

== ENCOUNTER → 2022-03-25 13:15 | Outpatient (CLI) | payer MEDICARE, BC, SELFPAY ==
[2022-03-10 09:49] VITALS: BMI 38.0
[2022-03-25 20:21] LABS: Add Manual Diff / Slide Review NO; Basophils Absolute Auto 100 /uL (0-100); Basophils Percent Auto 0.8 % (0-2); Eosinophils Absolute Auto 400 /uL (0-450); Eosinophils Percent Auto 5.4 % (2-4); Hematocrit 32.5 % (41-53); Hemoglobin 10.7 g/dL (13.5-17.5); Lymphocytes Absolute Auto 1700 /uL (1100-4500); Lymphocytes Percent Auto 22.2 % (25-40); Mean Corpuscular HGB Conc 32.9 % (30-36); Mean Corpuscular Hemoglobin 31.1 PG (26-34); Mean Corpuscular Volume 94.7 fL (80-100); Monocytes Absolute Auto 600 /uL (0-900); Monocytes Percent Auto 7.3 % (3-14); Neutrophils Absolute Auto 4800 /uL (1500-7000); Neutrophils Percent Auto 64.3 % (50-75); Platelet Count 243 X10^3/uL (150-400); Red Blood Cell Count 3.44 X10^6/uL (4.5-5.9); White Blood Cell Count 7.5 X10^3/uL (4.5-11.0)
[2022-03-25 20:30] LABS: Alanine Aminotransferase 17 IU/L (<50); Alkaline Phosphatase 56 U/L (38-126); Aspartate Aminotransferase 25 IU/L (17-59); BUN Creatinine Ratio 16.7 (6-22); BUN Creatinine Ratio 17.5 (6-22); Bilirubin Total 0.6 mg/dL (0.2-1.3); Blood Urea Nitrogen 40 mg/dL (9-20); Calcium 9.4 mg/dL (8.4-10.2); Calcium 9.5 mg/dL (8.4-10.2); Carbon Dioxide 27 mmol/L (22-32); Carbon Dioxide 28 mmol/L (22-32); Chloride 102 mmol/L (98-107); Chloride 104 mmol/L (98-107); Estimated Glomerular Filt Rate 26 mL/min (>60); Estimated Glomerular Filt Rate 27 mL/min (>60); Glucose 86 mg/dL (80-110); Glucose 87 mg/dL (80-110); HEMOLYSIS < 15 (0-50); Phosphorous 4.3 mg/dL (2.3-3.7); Potassium 3.7 mmol/L (3.4-5.1); Potassium 3.8 mmol/L (3.4-5.1); Sodium 138 mmol/L (137-145); Sodium 139 mmol/L (137-145)
[2022-03-25 20:31] LABS: Creatinine Urine Random 35.6 mg/dL; Microalbumi Creatinin Ratio Ur 33.7 ug/mg CR (<30); Microalbumin Urine Random 1.2 mg/dL (0-1.6)
[2022-03-25 20:41] LABS: NT-proBNP (BNP-Adult 18+) 3810 pg/mL (<450)
[2022-03-26 16:53] LABS: Albumin 3.8 g/dL (3.5-5.0); Albumin Globulin Ratio 1.2 (1.0-2.8); Globulin 3.2 g/dL (1.7-4.1)
[2022-03-26 17:28] LABS: Albumin 3.8 g/dL (3.5-5.0)
== END ==
PROVIDERS: Internal Medicine Nephrology; Family Provider Physician Assistant; PCP Family Medicine; Visit Provider Physician Assistant
DX: I50.42 Chronic combined systolic (congestive) and diastolic (congestive) heart failure (principal); I25.10 Atherosclerotic heart disease of native coronary artery without angina pectoris; N18.31 Chronic kidney disease, stage 3a; R60.0 Localized edema; N18.32 Chronic kidney disease, stage 3b
CPT/HCPCS: 80053; 80069; 82043; 82570; 83880; 85025

== ENCOUNTER → 2022-04-14 10:51 | Outpatient (CLI) | payer MEDICARE, BC, SELFPAY ==
[2022-03-10 09:49] VITALS: BMI 38.0
--- NOTE | 2022-04-14 | DI.US.S_ITS ---
PROCEDURE: US RENAL COMPLETE INDICATIONS: ACUTE KIDNEY INJURY TECHNIQUE: Real-time scanning was performed of the kidneys and bladder, with image documentation. COMPARISON: [facility], , US RENAL COMPLETE, 05/21/2019, 13:10. FINDINGS: Kidneys: Kidneys are normal in size. Right kidney measures 11.1 cm long; left kidney measures 11.1 cm long. Right renal cortical thickness is 0.9 cm; left renal cortical thickness is 0.9 cm. Renal cortical echotexture is echogenic bilaterally. There is no obstruction. The right kidney demonstrates at least 3 foci of echogenicity most suggestive of stones the largest measuring 1.6 cm. Multiple simple cysts are noted the largest inferiorly measuring 2 cm on the right. The left kidney demonstrates multiple stones the largest measuring 2 cm. Bladder: Pre-void bladder volume is 780 mL. Post-void residual is 238 mL. Pre-void images demonstrate no intraluminal masses or stones. On pre-void images, neither ureteral jets are noted with color Doppler interrogation. (Of note, ureteral jets may not be detectable in up to 25% of cases due to insufficient differences in specific gravity between ureteral and bladder urine). Miscellaneous: No free pelvic fluid. Gallstones are present without wall thickening. There is a non mobile focus of increased echogenicity measuring 4 mm suspicious for polyp. IMPRESSION: Nonobstructing bilateral renal stones. Bilateral simple renal cysts. Cholelithiasis as well as suspected gallbladder polyp. Dictated by: Aracelis Nguyen M.D. on 04/15/2022 at 15:05 Approved by: Aracelis Nguyen M.D. on 04/15/2022 at 15:07
[2022-04-14 12:57] LABS: Add Manual Diff / Slide Review NO; Basophils Absolute Auto 100 /uL (0-100); Basophils Percent Auto 0.8 % (0-2); Eosinophils Absolute Auto 600 /uL (0-450); Eosinophils Percent Auto 8.7 % (2-4); Hematocrit 34.8 % (41-53); Hemoglobin 11.4 g/dL (13.5-17.5); Lymphocytes Absolute Auto 1600 /uL (1100-4500); Lymphocytes Percent Auto 22.9 % (25-40); Mean Corpuscular HGB Conc 32.7 % (30-36); Mean Corpuscular Hemoglobin 30.7 PG (26-34); Mean Corpuscular Volume 93.8 fL (80-100); Monocytes Absolute Auto 500 /uL (0-900); Monocytes Percent Auto 7.8 % (3-14); Neutrophils Absolute Auto 4200 /uL (1500-7000); Neutrophils Percent Auto 59.8 % (50-75); Platelet Count 278 X10^3/uL (150-400); Red Blood Cell Count 3.71 X10^6/uL (4.5-5.9); Red Cell Distribution Width 15.1 % (11.6-14.8)
[2022-04-14 13:16] LABS: Albumin 4.1 g/dL (3.5-5.0); BUN Creatinine Ratio 29.7 (6-22); Blood Urea Nitrogen 73 mg/dL (9-20); Carbon Dioxide 27 mmol/L (22-32); Chloride 101 mmol/L (98-107); Estimated Glomerular Filt Rate 25 mL/min (>60); Glucose 97 mg/dL (80-110); HEMOLYSIS < 15 (0-50); Phosphorous 4.6 mg/dL (2.3-3.7); Potassium 3.9 mmol/L (3.4-5.1); Sodium 138 mmol/L (137-145)
== END ==
PROVIDERS: Family Provider Physician Assistant; PCP Family Medicine; Referring Provider Internal Medicine Nephrology; Visit Provider Internal Medicine Nephrology
DX: N17.9 Acute kidney failure, unspecified (principal); N20.0 Calculus of kidney; N28.1 Cyst of kidney, acquired; K80.20 Calculus of gallbladder without cholecystitis without obstruction
CPT/HCPCS: 36415; 76770; 80069; 85025

== ENCOUNTER 2022-04-21 16:38 | Inpatient (IN) | payer MEDICARE, BC, SELFPAY ==
[2022-03-10 09:49] VITALS: BMI 38.0
[2022-04-21] VITALS (13 sets, daily range): BP systolic 137–154; BP diastolic 66–84; PULSE 82–108; RESP 16–31; TEMP 36.2–36.3; O2SAT 97–99; BMI 34.2; BMI 32.8
--- NOTE | 2022-04-21 16:56 | DI.RAD.S_ITS ---
PROCEDURE: XR CHEST 1V INDICATIONS: Suspected sepsis TECHNIQUE: One view of the chest was acquired. COMPARISON: [facility], CR, XR CHEST 1V, 12/04/2021, 12:14. FINDINGS: Patchy airspace disease in the right mid lung and right lung base. Possible small left pleural effusion. Increased interstitial markings with cephalization of pulmonary vessels in both lungs. Cardiomegaly and median sternotomy changes. IMPRESSION: Cardiomegaly with probable mild to moderate interstitial edema. Airspace disease in the right mid lung and right lung base may be infectious but has significantly improved from 12/04/2021 exam. Dictated by: Israel Vásquez M.D. on 04/21/2022 at 17:16 Approved by: Israel Vásquez M.D. on 04/21/2022 at 17:17
[2022-04-21 17:31] LABS: INR 1.1 (0.9-1.3); Prothrombin Time 12.5 SECONDS (10.1-12.7)
[2022-04-21 17:34] LABS: PTT Partial Thromboplastin Tim 34 SECONDS (26-36)
[2022-04-21 17:37] LABS: Alanine Aminotransferase 21 IU/L (<50); Albumin 4.3 g/dL (3.5-5.0); Albumin Globulin Ratio 1.1 (1.0-2.8); Alkaline Phosphatase 63 U/L (38-126); Aspartate Aminotransferase 31 IU/L (17-59); BUN Creatinine Ratio 28.3 (6-22); Bilirubin Total 0.5 mg/dL (0.2-1.3); Blood Urea Nitrogen 77 mg/dL (9-20); Calcium 9.6 mg/dL (8.4-10.2); Carbon Dioxide 25 mmol/L (22-32); Chloride 105 mmol/L (98-107); Estimated Glomerular Filt Rate 22 mL/min (>60); Glucose 100 mg/dL (80-110); HEMOLYSIS < 15 (0-50); Lactate (Lactic Acid) 0.9 mmol/L (0.7-2.1); Lipase 499 U/L (23-300); Potassium 4.4 mmol/L (3.4-5.1); Sodium 138 mmol/L (137-145); Total Protein 8.3 g/dL (6.3-8.2)
[2022-04-21 17:54] LABS: Procalcitonin 0.19 ng/mL (<0.5)
--- NOTE | 2022-04-21 17:56 | ED.SKABFB ---
HPI - Skin/Abscess/Foreign Bdy <Carmelina Diaz, [facility] - Last Filed: 04/21/22 20:25> General Chief complaint: Skin/Abscess/Foreign Body Stated complaint: Lt Lower Leg Cellulitis Time Seen by Provider: 04/21/22 17:48 History of Present Illness HPI narrative: This is an 86-year-old gentleman who was mode of back to the emergency department today for worsening swelling to his bilateral lower extremities with weeping, wounds, an extensive medical history. Patient states he is anticoagulated on apixaban, has a history of AVR repair, is a poor historian, but on chart review it appears that patient has history of CHF, CKD with a baseline creatinine of around 2, carotid artery stenosis, CAD, diabetes, hyperlipidemia, atrial fibrillation and chronic anticoagulation. Patient states that he is incontinent at baseline, states that he needs to void. Patient states he has been taking his medications as prescribed, was concerned about his lower extremity edema, wounds, erythema and inability to walk. He states that he was here for renal ultrasound onto 823, states that his right thigh and hip have been hurting since then and he has been unable to walk on them, an x-ray of his right hip was taken on 04/19/2022 without acute fracture. He called EMS today for the new blister to his left lower extremity and weeping wounds and they told him to go to the emergency department. He has a history of CHF and chronic anticoagulation and endorses shortness of breath with exertion. Denies chest pain, dizziness or lightheadedness, states that he feels poorly. He has not had any recent antibiotics. Related Data Home Medications Medication Instructions Recorded Confirmed [COQ10] 25 mg PO BID ##0 10/20/15 04/21/22 [fish oil] 1 gm PO QDAY ##0 10/20/15 04/21/22 [vitamin D3/D2] 2,000 iu PO QDAY ##0 10/20/15 04/21/22 multivitamin (Multiple Vitamins 1 tab PO QDAY #0 tabs 10/20/15 04/21/22 tablet) latanoprost 0.005 % eye drops 1 drp ophthalmic (eye) DAILY 06/11/20 04/21/22 nitroglycerin 0.4 mg sublingual 0.4 mg sublingual Q5M PRN pain 06/11/20 04/21/22 tablet taurine 1,000 mg capsule 1,000 mg PO DAILY 06/11/20 04/21/22 zinc gluconate 50 mg tablet 50 mg PO DAILY 06/11/20 04/21/22 Disabled Parking Permit 1 ea topical DAILY 12/04/21 04/21/22 acetaminophen 325 mg capsule 650 mg PO Q4H PRN Pain (Scale 02/16/22 04/21/22 Score 1-3) albuterol sulfate 90 mcg/actuation 2 puff inhalation Q6H PRN 02/16/22 04/21/22 aerosol inhaler Bronchospasm bisacodyl 10 mg rectal suppository 10 mg VA DAILY PRN Constipation 02/16/22 04/21/22 dextromethorphan-guaifenesin 5 15 ml PO Q4H PRN Cough 02/16/22 04/21/22 mg-100 mg/5 mL oral liquid dextrose 40 % oral gel (Glutose-15) 10 g PO Q15M PRN Hypoglycemia 02/16/22 04/21/22 glucagon 1 mg injection kit See Rx Instructions .Route 02/16/22 04/21/22 .COMPLEX PRN Hypoglycemia ipratropium 0.5 mg-albuterol 3 mg 3 ml inhalation Q6H PRN short 02/16/22 04/21/22 (2.5 mg base)/3 mL nebulization soln magnesium hydroxide 400 mg/5 mL 30 ml PO DAILY PRN Constipation 02/16/22 04/21/22 oral suspension (Milk of Magnesia) doxazosin 2 mg tablet (Cardura) 2 mg PO DAILY 03/05/22 04/21/22 lisinopril 20 mg tablet 20 mg PO DAILY 03/05/22 04/21/22 spironolactone 25 mg tablet 25 mg PO DAILY 03/05/22 04/21/22 Previous Rx's Medication Instructions Recorded colesevelam 625 mg tablet (WelChol) 1,875 mg PO BID #540 tabs 03/26/21 mirabegron 25 mg tablet,extended 25 mg PO QDAY #90 tabs 06/11/21 release 24 hr (Myrbetriq) apixaban 2.5 mg tablet (Eliquis) 2.5 mg PO BID #180 tabs 02/16/22 atorvastatin 40 mg tablet 40 mg PO DAILY #90 tabs 03/05/22 torsemide 20 mg tablet 20 mg PO TID #270 tabs 03/15/22 mupirocin 2 % ointment topical kit 1 applic topical BID #1 ea 04/19/22 oxycodone 5 mg tablet 5 mg PO BEDTIME PRN pain #10 tabs 04/19/22 Allergies Allergy/AdvReac Type Severity Reaction Status Date / Time No Known Drug Allergies Allergy Verified 03/05/22 13:48 Review of Systems <AUGUST Newman - Last Filed: 04/21/22 20:25> Review of Systems ROS Unobtainable: All systems reviewed & are unremarkable except as noted in HPI and below Patient History <AUGUST Newman - Last Filed: 04/21/22 20:25> Medical History Anemia Asymptomatic microscopic hematuria BPH (benign prostatic hyperplasia) Chronic diastolic heart failure DM2 (diabetes mellitus, type 2) Hypertension Interstitial lung disease Permanent atrial fibrillation Stage 3b chronic kidney disease (CKD) Surgical History S/P AVR (aortic valve replacement) Family History Mother No pertinent past medical history Father No pertinent past medical history Social History household members: spouse Smoking Status: Former smoker alcohol intake: current Smoking Status: Former smoker alcohol intake frequency: 0-2 drinks per day Substance Use Type: does not use Exam <AUGUST Newman - Last Filed: 04/21/22 20:25> Narrative Exam Narrative: Reviewed vitals signs and nursing notes. General: cooperative, comfortable, in no acute distress, sitting upright in bed resting backwards HEENT: symmetrical facial expressions, dry mucous membranes, EOMI Cardiovascular: Irregular rate and rhythm, left extremity with multiple wounds, clear fluid draining large blister to the anterior left lower leg, wound culture obtained and is pending, erythematous circumferentially around the lower leg, edema to bilateral lower extremities is pitting, multiple small wounds Respiratory: normal effort, able to speak in complete sentences, without wheezing, stridor, or abnormal breath sounds. No retractions or tachypnea. GI: abdomen soft, nontender to palpation, nondistended, without masses, rebound tenderness or exquisite tenderness with exam. MSK: moves all extremities, neurovascularly intact, no weakness, normal tone Skin: brisk capillary refill, without pallor or erythema Neuro: normal speech and cognition, A&O x3, ambulatory, clear speech Psych: mental status is grossly normal, congruent mood, normal affect, pleasant and cooperative Initial Vital Signs Initial Vital Signs: Vital Signs Temperature 97.2 F L 04/21/22 16:50 Pulse Rate 99 H 04/21/22 16:50 Respiratory Rate 16 04/21/22 16:50 Blood Pressure 141/75 H 04/21/22 16:50 Pulse Oximetry 97 04/21/22 16:50 Oxygen Delivery Method 04/21/22 16:50 <Barrera Mccann DO - Last Filed: 04/22/22 03:43> Initial Vital Signs Initial Vital Signs: Vital Signs Temperature 97.2 F L 04/21/22 16:50 Pulse Rate 99 H 04/21/22 16:50 Respiratory Rate 16 04/21/22 16:50 Blood Pressure 141/75 H 04/21/22 16:50 Pulse Oximetry 97 04/21/22 16:50 Oxygen Delivery Method 04/21/22 16:50 Course <AUGUST Newman - Last Filed: 04/21/22 20:25> Orders Ordered: ED Orders 04/21/22 18:48 EKG-12 Lead Stat 04/21/22 19:43 Covid-19 + FLU A/B + RSV - PCR Stat 04/21/22 22:48 Consult to Physical Therapy Evaluate & Treat 04/22/22 05:00 Complete Blood Count AUTO DIFF Routine Comprehensive Metabolic Panel Routine Magnesium Routine Acetaminophen (Acetaminophen 325 Mg Tablet) 650 mg PO Q6H PRN PRN Reason: Fever/Mild Pain (1-3) Last Admin: 04/21/22 23:14 Dose: 650 mg Documented By: CT Apixaban (Apixaban 5 Mg Tablet) 2.5 mg PO BID SAHIL Cephalexin HCl (Cephalexin 250 Mg Capsule) 500 mg PO TID SAHIL Furosemide 80 mg/ Sodium (Chloride) 58 mls @ 116 mls/hr IV Q12H SAHIL Last Infusion: 04/22/22 01:30 Dose: 0 mls/hr Documented By: Admin: 04/22/22 00:57 Dose: 116 mls/hr Documented By: CT Naloxone HCl (Naloxone 0.4 Mg/Ml Vial) 0.2 mg IV Q2MIN PRN PRN Reason: Opiate Reversal Ondansetron HCl (Ondansetron 4 Mg/2 Ml Inj) 4 mg IV Q8HR PRN PRN Reason: Nausea And Vomiting Discontinued Medications Sodium Chloride (Normal Saline 0.9%) 1,000 mls @ 1,000 mls/hr IV BOLUS ONE Stop: 04/21/22 17:55 Last Admin: 04/21/22 18:27 Dose: Not Given Documented By: NR Ceftriaxone Sodium 2,000 mg/ (Sodium Chloride) 100 mls @ 200 mls/hr IV NOW ONE Stop: 04/21/22 18:48 Last Infusion: 04/21/22 19:54 Dose: 0 mls/hr Documented By: Admin: 04/21/22 19:12 Dose: 200 mls/hr Documented By: PACO Vital Signs Vital signs: Vital Signs - 8 hr 04/21/22 20:00 04/21/22 20:30 04/21/22 20:53 Pulse Rate 86 107 H Respiratory Rate 31 H 25 H Blood Pressure 137/82 Pulse Oximetry 99 99 04/21/22 20:53 Pulse Rate 87 Respiratory Rate Blood Pressure Pulse Oximetry 99 <Barrera Mccann DO - Last Filed: 04/22/22 03:43> Orders Ordered: ED Orders 04/21/22 18:48 EKG-12 Lead Stat 04/21/22 19:43 Covid-19 + FLU A/B + RSV - PCR Stat 04/21/22 22:48 Consult to Physical Therapy Evaluate & Treat 04/22/22 05:00 Complete Blood Count AUTO DIFF Routine Comprehensive Metabolic Panel Routine Magnesium Routine Acetaminophen (Acetaminophen 325 Mg Tablet) 650 mg PO Q6H PRN PRN Reason: Fever/Mild Pain (1-3) Last Admin: 04/21/22 23:14 Dose: 650 mg Documented By: CT Apixaban (Apixaban 5 Mg Tablet) 2.5 mg PO BID SAHIL Cephalexin HCl (Cephalexin 250 Mg Capsule) 500 mg PO TID SAHIL Furosemide 80 mg/ Sodium (Chloride) 58 mls @ 116 mls/hr IV Q12H ASHIL Last Infusion: 04/22/22 01:30 Dose: 0 mls/hr Documented By: Admin: 04/22/22 00:57 Dose: 116 mls/hr Documented By: CT Naloxone HCl (Naloxone 0.4 Mg/Ml Vial) 0.2 mg IV Q2MIN PRN PRN Reason: Opiate Reversal Ondansetron HCl (Ondansetron 4 Mg/2 Ml Inj) 4 mg IV Q8HR PRN PRN Reason: Nausea And Vomiting Discontinued Medications Sodium Chloride (Normal Saline 0.9%) 1,000 mls @ 1,000 mls/hr IV BOLUS ONE Stop: 04/21/22 17:55 Last Admin: 04/21/22 18:27 Dose: Not Given Documented By: JUDITH Ceftriaxone Sodium 2,000 mg/ (Sodium Chloride) 100 mls @ 200 mls/hr IV NOW ONE Stop: 04/21/22 18:48 Last Infusion: 04/21/22 19:54 Dose: 0 mls/hr Documented By: Admin: 04/21/22 19:12 Dose: 200 mls/hr Documented By: PACO Vital Signs Vital signs: Vital Signs - 8 hr 04/21/22 20:00 04/21/22 20:30 04/21/22 20:53 Pulse Rate 86 107 H Respiratory Rate 31 H 25 H Blood Pressure 137/82 Pulse Oximetry 99 99 04/21/22 20:53 Pulse Rate 87 Respiratory Rate Blood Pressure Pulse Oximetry 99 MDM - Skin/Abscess/Foreign Bdy <AUGUST Newman - Last Filed: 04/21/22 20:25> Lab Data 04/21/22 17:00 04/21/22 17:00 Labs: Lab Results 04/21/22 04/21/22 04/21/22 Range/Units 17:00 17:00 17:00 WBC 7.7 (4.5-11.0) X10^3/uL RBC 3.67 L (4.5-5.9) X10^6/uL Hgb 11.4 L (13.5-17.5) g/dL Hct 33.9 L (41-53) % MCV 92.3 (80-100) fL MCH 31.0 (26-34) PG MCHC 33.6 (30-36) % RDW 15.0 H (11.6-14.8) % Plt Count 286 (150-400) X10^3/uL Neut % (Auto) 67.7 (50-75) % Lymph % (Auto) 17.8 L (25-40) % Ceiba % (Auto) 7.9 (3-14) % Eos % (Auto) 6.2 H (2-4) % Baso % (Auto) 0.4 (0-2) % Neut # (Auto) 5200 (4866-7314) /uL Lymph # (Auto) 1400 (2731-0296) /uL [place] # (Auto) 600 (0-900) /uL Eos # (Auto) 500 H (0-450) /uL Baso # (Auto) 0 (0-100) /uL ESR (0-15) MM/HR PT 12.5 (10.1-12.7) SECONDS INR 1.1 (0.9-1.3) APTT 34 (26-36) SECONDS Sodium 138 (137-145) mmol/L Potassium 4.4 (3.4-5.1) mmol/L Chloride 105 (98-107) mmol/L Carbon Dioxide 25 (22-32) mmol/L BUN 77 H (9-20) mg/dL Creatinine 2.72 H (0.66-1.25) mg/dL Estimated GFR 22 L (>60) mL/min BUN/Creatinine Ratio 28.3 H (6-22) Glucose 100 (80-110) mg/dL Lactate (0.7-2.1) mmol/L Calcium 9.6 (8.4-10.2) mg/dL Total Bilirubin 0.5 (0.2-1.3) mg/dL AST 31 (17-59) IU/L ALT 21 (<50) IU/L Alkaline Phosphatase 63 (38-126) U/L Total Creatine Kinase (55-170) U/L CK-MB (CK-2) CK-MB (CK-2) Rel Index Troponin I (0.01-0.034) ng/mL C-Reactive Protein (<1.0) mg/dL NT-Pro-B Natriuret Pep (<450) pg/mL Total Protein 8.3 H (6.3-8.2) g/dL Albumin 4.3 (3.5-5.0) g/dL Globulin 4.0 (1.7-4.1) g/dL Albumin/Globulin Ratio 1.1 (1.0-2.8) Lipase 499 H (23-300) U/L Procalcitonin 0.19 (<0.5) ng/mL SARS-CoV-2 (PCR) (Negative) Influenza A (RT-PCR) (NEGATIVE) Influenza B (RT-PCR) (NEGATIVE) RSV (PCR) (Negative) 04/21/22 04/21/22 04/21/22 Range/Units 17:00 17:00 17:00 WBC (4.5-11.0) X10^3/uL RBC (4.5-5.9) X10^6/uL Hgb (13.5-17.5) g/dL Hct (41-53) % MCV (80-100) fL MCH (26-34) PG MCHC (30-36) % RDW (11.6-14.8) % Plt Count (150-400) X10^3/uL Neut % (Auto) (50-75) % Lymph % (Auto) (25-40) % [place]iba % (Auto) (3-14) % Eos % (Auto) (2-4) % Baso % (Auto) (0-2) % Neut # (Auto) (4442-8592) /uL Lymph # (Auto) (9815-8774) /uL Ceiba # (Auto) (0-900) /uL Eos # (Auto) (0-450) /uL Baso # (Auto) (0-100) /uL ESR 38 H (0-15) MM/HR PT (10.1-12.7) SECONDS INR (0.9-1.3) APTT (26-36) SECONDS Sodium (137-145) mmol/L Potassium (3.4-5.1) mmol/L Chloride (98-107) mmol/L Carbon Dioxide (22-32) mmol/L BUN (9-20) mg/dL Creatinine (0.66-1.25) mg/dL Estimated GFR (>60) mL/min BUN/Creatinine Ratio (6-22) Glucose (80-110) mg/dL Lactate 0.9 (0.7-2.1) mmol/L Calcium (8.4-10.2) mg/dL Total Bilirubin (0.2-1.3) mg/dL AST (17-59) IU/L ALT (<50) IU/L Alkaline Phosphatase (38-126) U/L Total Creatine Kinase (55-170) U/L CK-MB (CK-2) CK-MB (CK-2) Rel Index Troponin I (0.01-0.034) ng/mL C-Reactive Protein (<1.0) mg/dL NT-Pro-B Natriuret Pep 1820 H (<450) pg/mL Total Protein (6.3-8.2) g/dL Albumin (3.5-5.0) g/dL Globulin (1.7-4.1) g/dL Albumin/Globulin Ratio (1.0-2.8) Lipase (23-300) U/L Procalcitonin (<0.5) ng/mL SARS-CoV-2 (PCR) (Negative) Influenza A (RT-PCR) (NEGATIVE) Influenza B (RT-PCR) (NEGATIVE) RSV (PCR) (Negative) 04/21/22 04/21/22 04/21/22 Range/Units 17:00 17:31 19:43 WBC (4.5-11.0) X10^3/uL RBC (4.5-5.9) X10^6/uL Hgb (13.5-17.5) g/dL Hct (41-53) % MCV (80-100) fL MCH (26-34) PG MCHC (30-36) % RDW (11.6-14.8) % Plt Count (150-400) X10^3/uL Neut % (Auto) (50-75) % Lymph % (Auto) (25-40) % Ceiba % (Auto) (3-14) % Eos % (Auto) (2-4) % Baso % (Auto) (0-2) % Neut # (Auto) (2770-5743) /uL Lymph # (Auto) (6630-2007) /uL Ceiba # (Auto) (0-900) /uL Eos # (Auto) (0-450) /uL Baso # (Auto) (0-100) /uL ESR (0-15) MM/HR PT (10.1-12.7) SECONDS INR (0.9-1.3) APTT (26-36) SECONDS Sodium (137-145) mmol/L Potassium (3.4-5.1) mmol/L Chloride (98-107) mmol/L Carbon Dioxide (22-32) mmol/L BUN (9-20) mg/dL Creatinine (0.66-1.25) mg/dL Estimated GFR (>60) mL/min BUN/Creatinine Ratio (6-22) Glucose (80-110) mg/dL Lactate (0.7-2.1) mmol/L Calcium (8.4-10.2) mg/dL Total Bilirubin (0.2-1.3) mg/dL AST (17-59) IU/L ALT (<50) IU/L Alkaline Phosphatase (38-126) U/L Total Creatine Kinase 70 (55-170) U/L CK-MB (CK-2) TNP CK-MB (CK-2) Rel Index TNP Troponin I 0.045 H (0.01-0.034) ng/mL C-Reactive Protein < 0.5 (<1.0) mg/dL NT-Pro-B Natriuret Pep (<450) pg/mL Total Protein (6.3-8.2) g/dL Albumin (3.5-5.0) g/dL Globulin (1.7-4.1) g/dL Albumin/Globulin Ratio (1.0-2.8) Lipase (23-300) U/L Procalcitonin (<0.5) ng/mL SARS-CoV-2 (PCR) Negative Negative (Negative) Influenza A (RT-PCR) Flu a negative (NEGATIVE) Influenza B (RT-PCR) Flu b negative (NEGATIVE) RSV (PCR) Negative (Negative) Urine Dip Bedside Urine Glucose Negative Bedside Urine Bilirubin - Negative Bedside Urine Ketone - Negative Urine Specific [place] 1.015 Bedside Urine Occult Blood - Negative Bedside Urine pH 6 Bedside Urine Protein - Negative Bedside Urine Urobilinogen - Negative Bedside Urine Nitrite - Negative Bedside Urine Leukocytes - Negative Esterase Imaging Data Chest x-ray: Radiologist's Impression: PROCEDURE:? XR CHEST 1V ? INDICATIONS:? Suspected sepsis ? TECHNIQUE:? One view of the chest was acquired.? ? COMPARISON:? [facility], CR, XR CHEST 1V, 12/04/2021, 12:14. ? FINDINGS:? ? Patchy airspace disease in the right mid lung and right lung base.? Possible small left pleural effusion.? Increased interstitial markings with cephalization of pulmonary vessels in both lungs.? Cardiomegaly and median sternotomy changes. ? IMPRESSION:? Cardiomegaly with probable mild to moderate interstitial edema.? Airspace disease in the right mid lung and right lung base may be infectious but has significantly improved from 12/04/2021 exam. ? ? Dictated by: Israel Vásquez M.D. on 04/21/2022 at 17:16 ? ? Approved by: Israel Vásquez M.D. on 04/21/2022 at 17:17 ? CT scan - abdomen/pelvis: Radiologist's Impression: [place] [address] CT Scan Report Signed Patient: Delfino Albarado MR#: [id number] : 1935 Acct:[id number] Age/Sex: 86 / M Date of Service: 04/21/22 Loc: ED Accession Number: [id number] ?? Procedure: CT chest abd pel wo con Ordering Provider: Carmelina Diaz PROCEDURE:? CT CHEST ABD PEL WO CON ? INDICATIONS:? Pancreatitis?? Ascites?? Pleural effusion? ? TECHNIQUE:? After the administration of oral contrast, 5 mm thick sections acquired from the lung apices to the symphysis pubis.? 5 mm thick coronal and sagittal reformats acquired, with additional 7 mm coronal MIP reformats through the lungs.? For radiation dose reduction, the following was used:? automated exposure control, adjustment of mA and/or kV according to patient size.? ? COMPARISON:? [facility] ([place]), CR, XR HIP W PEL IF DONE RT 2V, 04/19/2022, 14:36. ? FINDINGS:? Image quality:? Excellent.? ? CHEST:? Lungs and pleura:? Central airways, lungs, and pleural spaces are clear other than a few scattered tiny pulmonary nodules which likely reflect granulomata. ? Mediastinum:? Cardiomegaly with four-vessel coronary atherosclerosis.? No pericardial effusion.? No mediastinal or hilar lymphadenopathy. ? Chest wall:? No acute thoracic or lumbar compression fracture.? No suspicious bone lesion identified. ? ? ABDOMEN:? Solid organs:? Grossly unremarkable unenhanced CT appearance of the liver, spleen, pancreas, and adrenal glands.? Bilateral nonobstructing renal calculi.? No findings of hydronephrosis or hydroureter.? Fairly symmetric mild perinephric fat stranding likely chronic.? Small gallstone in the dependent gallbladder measuring 8 mm.? No gallbladder wall thickening or adjacent fat stranding. ? Peritoneum and bowel:? No findings of bowel obstruction.? No pericolonic or mesenteric inflammatory changes. ? Nodes and vessels:? No retroperitoneal or mesenteric adenopathy by size criteria.? Aorta and inferior vena cava are normal in size.? ? Miscellaneous:? No ventral hernias.? ? ? PELVIS:? Moderately distended urinary bladder.? No pelvic or inguinal lymphadenopathy.? 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 ? IMPRESSION:? ? ? No acute finding. ? Atrophic appearance of the kidneys with bone findings suggestive of renal osteodystrophy. ? Cardiomegaly with four-vessel coronary atherosclerosis. ? Cholelithiasis without findings of cholecystitis.? ? Dictated by: Israel Vásquez M.D. on 04/21/2022 at 18:31 ? ? Approved by: Israel Vásquez M.D. on 04/21/2022 at 18:38 ? ECG Data Interpretation: EKG independently reviewed by myself at 1850 reveals irregularly irregular rhythm with wide QRS of 162 milliseconds, left axis with a right bundle-branch bpm with regular axis and intervals. No STEMI, ST segment changes, arrhythmia, or acute ischemic changes. MDM Narrative Medical decision making narrative: Chief Complaint: Lower extremity wounds, redness, not able to walk due to pain This is an 86-year-old gentleman who was mode of back to the emergency department today for worsening swelling to his bilateral lower extremities with weeping, wounds, an extensive medical history. Patient states he is anticoagulated on apixaban, has a history of AVR repair, is a poor historian, but on chart review it appears that patient has history of CHF, CKD with a baseline creatinine of around 2, carotid artery stenosis, CAD, diabetes, hyperlipidemia, atrial fibrillation and chronic anticoagulation. Differential diagnoses include but are not limited to: Cellulitis, diabetic ulcer, osteomyelitis, CHF exacerbation, fluid overload, I have reviewed the patient's vital signs and nursing notes as well as prior records if available. Pertinent lab findings reviewed: CMP is significant for worsening GFR and creatinine compared with prior today creatinine 2.72, BUN of 77 and GFR of 22. troponin of 0.045 without priors to compare to, no elevation to CRP, today BNP is 1820, previously BNP was 3810 on 03/25/2022, patient takes torsemide at baseline and doxazosin. ESR is elevated at 38, INR 1.1 Lipase is elevated at 499, most recent lipase is 78 on 12/04/2021. Patient has nontender to the right upper quadrant. Pertinent Imaging reviewed: Chest CT abdomen and pelvis without contrast shows no acute abnormalities cardiomegaly 4 vessel atherosclerosis, cholelithiasis without cholecystitis, moderately distended urinary bladder, patient states that he is unable to void. Wallace catheter was placed by bedside RN with 1400 mL of urinary output. This was clamped for 1-1/2 hour and opened again. Patient has been taking his medications as prescribed, states that over the last 3 days his lower legs have gotten worse and he is having difficulty moving around, complains of shortness of breath with any activity, states that he feels poorly, denies fever chills or vomiting. Discussed patient's case and presenting symptoms w/Dr. Paz Hospitalist who agrees to come and see the patient. Patient was informed of lab and imaging results, pertinent diagnoses, consulting physicians, and treatment plan. I have spoken with the patient in regard to admission, patient understands and agrees. I have communicated the patient's evaluation and treatment plan to the admitting physician who agrees with admission. All questions answered at this time. 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 MIPS: This encounter doesn't have any diagnosis' associated with MIPS criteria. <Barrera Mccann DO - Last Filed: 04/22/22 03:43> Lab Data Labs: Lab Results 04/21/22 04/21/22 04/21/22 Range/Units 17:00 17:00 17:00 WBC 7.7 (4.5-11.0) X10^3/uL RBC 3.67 L (4.5-5.9) X10^6/uL Hgb 11.4 L (13.5-17.5) g/dL Hct 33.9 L (41-53) % MCV 92.3 (80-100) fL MCH 31.0 (26-34) PG MCHC 33.6 (30-36) % RDW 15.0 H (11.6-14.8) % Plt Count 286 (150-400) X10^3/uL Neut % (Auto) 67.7 (50-75) % Lymph % (Auto) 17.8 L (25-40) % Ceiba % (Auto) 7.9 (3-14) % Eos % (Auto) 6.2 H (2-4) % Baso % (Auto) 0.4 (0-2) % Neut # (Auto) 5200 (8592-3844) /uL Lymph # (Auto) 1400 (4533-2326) /uL Ceiba # (Auto) 600 (0-900) /uL Eos # (Auto) 500 H (0-450) /uL Baso # (Auto) 0 (0-100) /uL ESR (0-15) MM/HR PT 12.5 (10.1-12.7) SECONDS INR 1.1 (0.9-1.3) APTT 34 (26-36) SECONDS Sodium 138 (137-145) mmol/L Potassium 4.4 (3.4-5.1) mmol/L Chloride 105 (98-107) mmol/L Carbon Dioxide 25 (22-32) mmol/L BUN 77 H (9-20) mg/dL Creatinine 2.72 H (0.66-1.25) mg/dL Estimated GFR 22 L (>60) mL/min BUN/Creatinine Ratio 28.3 H (6-22) Glucose 100 (80-110) mg/dL Lactate (0.7-2.1) mmol/L Calcium 9.6 (8.4-10.2) mg/dL Total Bilirubin 0.5 (0.2-1.3) mg/dL AST 31 (17-59) IU/L ALT 21 (<50) IU/L Alkaline Phosphatase 63 (38-126) U/L Total Creatine Kinase (55-170) U/L CK-MB (CK-2) CK-MB (CK-2) Rel Index Troponin I (0.01-0.034) ng/mL C-Reactive Protein (<1.0) mg/dL NT-Pro-B Natriuret Pep (<450) pg/mL Total Protein 8.3 H (6.3-8.2) g/dL Albumin 4.3 (3.5-5.0) g/dL Globulin 4.0 (1.7-4.1) g/dL Albumin/Globulin Ratio 1.1 (1.0-2.8) Lipase 499 H (23-300) U/L Procalcitonin 0.19 (<0.5) ng/mL SARS-CoV-2 (PCR) (Negative) Influenza A (RT-PCR) (NEGATIVE) Influenza B (RT-PCR) (NEGATIVE) RSV (PCR) (Negative) 04/21/22 04/21/22 04/21/22 Range/Units 17:00 17:00 17:00 WBC (4.5-11.0) X10^3/uL RBC (4.5-5.9) X10^6/uL Hgb (13.5-17.5) g/dL Hct (41-53) % MCV (80-100) fL MCH (26-34) PG MCHC (30-36) % RDW (11.6-14.8) % Plt Count (150-400) X10^3/uL Neut % (Auto) (50-75) % Lymph % (Auto) (25-40) % [place] % (Auto) (3-14) % Eos % (Auto) (2-4) % Baso % (Auto) (0-2) % Neut # (Auto) (3502-0432) /uL Lymph # (Auto) (2792-2797) /uL Ce[place] # (Auto) (0-900) /uL Eos # (Auto) (0-450) /uL Baso # (Auto) (0-100) /uL ESR 38 H (0-15) MM/HR PT (10.1-12.7) SECONDS INR (0.9-1.3) APTT (26-36) SECONDS Sodium (137-145) mmol/L Potassium (3.4-5.1) mmol/L Chloride (98-107) mmol/L Carbon Dioxide (22-32) mmol/L BUN (9-20) mg/dL Creatinine (0.66-1.25) mg/dL Estimated GFR (>60) mL/min BUN/Creatinine Ratio (6-22) Glucose (80-110) mg/dL Lactate 0.9 (0.7-2.1) mmol/L Calcium (8.4-10.2) mg/dL Total Bilirubin (0.2-1.3) mg/dL AST (17-59) IU/L ALT (<50) IU/L Alkaline Phosphatase (38-126) U/L Total Creatine Kinase (55-170) U/L CK-MB (CK-2) CK-MB (CK-2) Rel Index Troponin I (0.01-0.034) ng/mL C-Reactive Protein (<1.0) mg/dL NT-Pro-B Natriuret Pep 1820 H (<450) pg/mL Total Protein (6.3-8.2) g/dL Albumin (3.5-5.0) g/dL Globulin (1.7-4.1) g/dL Albumin/Globulin Ratio (1.0-2.8) Lipase (23-300) U/L Procalcitonin (<0.5) ng/mL SARS-CoV-2 (PCR) (Negative) Influenza A (RT-PCR) (NEGATIVE) Influenza B (RT-PCR) (NEGATIVE) RSV (PCR) (Negative) 04/21/22 04/21/22 04/21/22 Range/Units 17:00 17:31 19:43 WBC (4.5-11.0) X10^3/uL RBC (4.5-5.9) X10^6/uL Hgb (13.5-17.5) g/dL Hct (41-53) % MCV (80-100) fL MCH (26-34) PG MCHC (30-36) % RDW (11.6-14.8) % Plt Count (150-400) X10^3/uL Neut % (Auto) (50-75) % Lymph % (Auto) (25-40) % [place] % (Auto) (3-14) % Eos % (Auto) (2-4) % Baso % (Auto) (0-2) % Neut # (Auto) (5462-7541) /uL Lymph # (Auto) (8988-5897) /uL [place] # (Auto) (0-900) /uL Eos # (Auto) (0-450) /uL Baso # (Auto) (0-100) /uL ESR (0-15) MM/HR PT (10.1-12.7) SECONDS INR (0.9-1.3) APTT (26-36) SECONDS Sodium (137-145) mmol/L Potassium (3.4-5.1) mmol/L Chloride (98-107) mmol/L Carbon Dioxide (22-32) mmol/L BUN (9-20) mg/dL Creatinine (0.66-1.25) mg/dL Estimated GFR (>60) mL/min BUN/Creatinine Ratio (6-22) Glucose (80-110) mg/dL Lactate (0.7-2.1) mmol/L Calcium (8.4-10.2) mg/dL Total Bilirubin (0.2-1.3) mg/dL AST (17-59) IU/L ALT (<50) IU/L Alkaline Phosphatase (38-126) U/L Total Creatine Kinase 70 (55-170) U/L CK-MB (CK-2) TNP CK-MB (CK-2) Rel Index TNP Troponin I 0.045 H (0.01-0.034) ng/mL C-Reactive Protein < 0.5 (<1.0) mg/dL NT-Pro-B Natriuret Pep (<450) pg/mL Total Protein (6.3-8.2) g/dL Albumin (3.5-5.0) g/dL Globulin (1.7-4.1) g/dL Albumin/Globulin Ratio (1.0-2.8) Lipase (23-300) U/L Procalcitonin (<0.5) ng/mL SARS-CoV-2 (PCR) Negative Negative (Negative) Influenza A (RT-PCR) Flu a negative (NEGATIVE) Influenza B (RT-PCR) Flu b negative (NEGATIVE) RSV (PCR) Negative (Negative) Urine Dip Bedside Urine Glucose Negative Bedside Urine Bilirubin - Negative Bedside Urine Ketone - Negative Urine Specific [place] 1.015 Bedside Urine Occult Blood - Negative Bedside Urine pH 6 Bedside Urine Protein - Negative Bedside Urine Urobilinogen - Negative Bedside Urine Nitrite - Negative Bedside Urine Leukocytes - Negative Esterase Discharge Plan Departure Patient Disposition: Admitted As Inpatient Clinical Impression: Cellulitis of left leg, Chronic anticoagulation, Acute urinary retention, Diabetic leg ulcer CHF (congestive heart failure) Qualifiers: Heart failure type: unspecified Heart failure chronicity: acute on chronic Qualified Code(s): I50.9 - Heart failure, unspecified Acute renal failure superimposed on chronic kidney disease Qualifiers: Acute renal failure type: unspecified Chronic kidney disease stage: stage 4 (severe) Qualified Code(s): N17.9 - Acute kidney failure, unspecified Cholelithiasis Qualifiers: Cholelithiasis location: gallbladder Cholecystitis presence: without cholecystitis Biliary obstruction: without biliary obstruction Qualified Code(s): K80.20 - Calculus of gallbladder without cholecystitis without obstruction Admit Date/Time: 04/21/22 21:33 Admit Provider: Marco Paz <Barrera Mccann DO - Last Filed: 04/22/22 03:43> Cosign ED Attending Cosignature Attestation: I was immediately available in the department for consultation. This documentation has been reviewed and I agree with assessment and plan. Supervised by Barrera Mccann DO
[2022-04-21 17:59] LABS: Add Manual Diff / Slide Review NO; Basophils Absolute Auto 0 /uL (0-100); Basophils Percent Auto 0.4 % (0-2); Eosinophils Absolute Auto 500 /uL (0-450); Eosinophils Percent Auto 6.2 % (2-4); Hematocrit 33.9 % (41-53); Hemoglobin 11.4 g/dL (13.5-17.5); Lymphocytes Absolute Auto 1400 /uL (1100-4500); Lymphocytes Percent Auto 17.8 % (25-40); Mean Corpuscular HGB Conc 33.6 % (30-36); Mean Corpuscular Volume 92.3 fL (80-100); Monocytes Absolute Auto 600 /uL (0-900); Monocytes Percent Auto 7.9 % (3-14); Neutrophils Absolute Auto 5200 /uL (1500-7000); Neutrophils Percent Auto 67.7 % (50-75); Platelet Count 286 X10^3/uL (150-400); Red Blood Cell Count 3.67 X10^6/uL (4.5-5.9); White Blood Cell Count 7.7 X10^3/uL (4.5-11.0)
--- NOTE | 2022-04-21 18:07 | DI.CT.S_ITS ---
PROCEDURE: CT CHEST ABD PEL WO CON INDICATIONS: Pancreatitis? Ascites? Pleural effusion? TECHNIQUE: After the administration of oral contrast, 5 mm thick sections acquired from the lung apices to the symphysis pubis. 5 mm thick coronal and sagittal reformats acquired, with additional 7 mm coronal MIP reformats through the lungs. For radiation dose reduction, the following was used: automated exposure control, adjustment of mA and/or kV according to patient size. COMPARISON: [facility] ([facility]), CR, XR HIP W PEL IF DONE RT 2V, 04/19/2022, 14:36. FINDINGS: Image quality: Excellent. CHEST: Lungs and pleura: Central airways, lungs, and pleural spaces are clear other than a few scattered tiny pulmonary nodules which likely reflect granulomata. Mediastinum: Cardiomegaly with four-vessel coronary atherosclerosis. No pericardial effusion. No mediastinal or hilar lymphadenopathy. Chest wall: No acute thoracic or lumbar compression fracture. No suspicious bone lesion identified. ABDOMEN: Solid organs: Grossly unremarkable unenhanced CT appearance of the liver, spleen, pancreas, and adrenal glands. Bilateral nonobstructing renal calculi. No findings of hydronephrosis or hydroureter. Fairly symmetric mild perinephric fat stranding likely chronic. Small gallstone in the dependent gallbladder measuring 8 mm. No gallbladder wall thickening or adjacent fat stranding. Peritoneum and bowel: No findings of bowel obstruction. No pericolonic or mesenteric inflammatory changes. Nodes and vessels: No retroperitoneal or mesenteric adenopathy by size criteria. Aorta and inferior vena cava are normal in size. Miscellaneous: No ventral hernias. PELVIS: Moderately distended urinary bladder. No pelvic or inguinal lymphadenopathy. 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 IMPRESSION: No acute finding. Atrophic appearance of the kidneys with bone findings suggestive of renal osteodystrophy. Cardiomegaly with four-vessel coronary atherosclerosis. Cholelithiasis without findings of cholecystitis. Dictated by: Israel Vásquez M.D. on 04/21/2022 at 18:31 Approved by: Israel Vásquez M.D. on 04/21/2022 at 18:38
[2022-04-21 18:34] LABS: Creatine Kinase 70 U/L (55-170)
[2022-04-21 18:45] LABS: NT-proBNP (BNP-Adult 18+) 1820 pg/mL (<450)
[2022-04-21 18:47] LABS: Troponin I 0.045 ng/mL (0.01-0.034)
[2022-04-21 18:49] LABS: COVID19 -Nasal RAPID Negative (Negative)
[2022-04-21] MEDS: cefTRIAXone 2,000 MG in SODIUM CHLORIDE 0.9% 100 ML 200 MG IV (19:12)
[2022-04-21 19:17] LABS: Erythrocyte Sedimentation Rate 38 MM/HR (0-15)
--- NOTE | 2022-04-21 19:21 | PC.NURSE ---
1000ml of clear yellow drained immediately from catheter. Clamped for a short while. IVAN Bell informed.
[2022-04-21 19:32] LABS: C-Reactive Protein Quant < 0.5 mg/dL (<1.0)
[2022-04-21 20:33] LABS: Influenza A - CEPHEID Flu A NEGATIVE (NEGATIVE); Influenza B - CEPHEID Flu B NEGATIVE (NEGATIVE); Respiratory Syncytial Virus Negative (Negative)
[2022-04-21 20:39] LABS: COVID-19 CEPHEID 4-PLEX PCR Negative (Negative)
--- NOTE | 2022-04-21 21:42 | PM.HP.1 ---
History of Present Illness History of Present Illness Date Patient Seen: 04/21/22 Time Patient Seen: 21:00 Chief complaint: Lt Lower Leg Cellulitis Narrative: Mr. Albarado is a 86M with PMH CHFpEF, DM 2, HTN, afib, CKD stage 3 who presents to the hospital with leg swelling and short of breath. He has notes documenting that he has some cognitive issues. He states that he notes he has had wounds and swelling in his legs for two weeks. He began having weeping legs, and some mild erythema around ulcers. He denies missing any of his medications. He came in to the hospital with exertional shortness of breath. He has had worsening difficulty with ambulating. He has no chest pain. No fevers/chills. He has seen a geotechnical operating engineer, he does not remember the details of if there were discussions of dialysis. He has seen his automotive machinist apprentice recently, last month, who noted that he has had right heart cath in the past to help determine medical management, and whose note states the patient would right heart cath prior to adjust diuretics. At that time he weighed 96kg, and in the ED today he is weighed in the bed at 102kg. In the ED workup was done, vitals notable for afebrile, heart rate in the 90s, blood pressure 140s/70s, sats in the 90s on room air. Labs notable for WBC 7.7, hgb 11.4, plts 286. BUN 77, creatinine 2.72. BNP 1820, Procal 0.19. Mccoy was placed for difficulty with urination, and he had over a 1L of urine out quickly. Chest xray concerning for cardiomegaly and interstitial pulmonary edema. CT chest abdomen and pelvis showed no acute process. He was given antibiotics and admitted for further treatment. Patient History Medical History Anemia Asymptomatic microscopic hematuria BPH (benign prostatic hyperplasia) Chronic diastolic heart failure DM2 (diabetes mellitus, type 2) Hypertension Interstitial lung disease Permanent atrial fibrillation Stage 3b chronic kidney disease (CKD) Surgical History S/P AVR (aortic valve replacement) Family & Social History Family History Mother No pertinent past medical history Father No pertinent past medical history Social History: household members spouse Safety & Behavioral: Feels Safe in Current Yes Environment Been Physically Hurt or No Threatened By a Person Tobacco & Substance use: Tobacco type cigarettes Smoking Status Former smoker alcohol intake current alcohol intake frequency 0-2 drinks per day Substance Use Type does not use Meds Home Medications and Allergies Home Medications Medication Instructions Recorded Confirmed Type [COQ10] 25 mg PO BID ##0 10/20/15 04/21/22 History [fish oil] 1 gm PO QDAY ##0 10/20/15 04/21/22 History [vitamin D3/D2] 2,000 iu PO QDAY ##0 10/20/15 04/21/22 History multivitamin (Multiple Vitamins 1 tab PO QDAY #0 tabs 10/20/15 04/21/22 History tablet) latanoprost 0.005 % eye drops 1 drp ophthalmic (eye) DAILY 06/11/20 04/21/22 History nitroglycerin 0.4 mg sublingual 0.4 mg sublingual Q5M PRN pain 06/11/20 04/21/22 History tablet taurine 1,000 mg capsule 1,000 mg PO DAILY 06/11/20 04/21/22 History zinc gluconate 50 mg tablet 50 mg PO DAILY 06/11/20 04/21/22 History colesevelam 625 mg tablet (WelChol) 1,875 mg PO BID #540 tabs 03/26/21 04/21/22 Rx mirabegron 25 mg tablet,extended 25 mg PO QDAY #90 tabs 06/11/21 04/21/22 Rx release 24 hr (Myrbetriq) Disabled Parking Permit 1 ea topical DAILY 12/04/21 04/21/22 History acetaminophen 325 mg capsule 650 mg PO Q4H PRN Pain (Scale 02/16/22 04/21/22 History Score 1-3) albuterol sulfate 90 mcg/actuation 2 puff inhalation Q6H PRN 02/16/22 04/21/22 History aerosol inhaler Bronchospasm apixaban 2.5 mg tablet (Eliquis) 2.5 mg PO BID #180 tabs 02/16/22 04/21/22 Rx bisacodyl 10 mg rectal suppository 10 mg FL DAILY PRN Constipation 02/16/22 04/21/22 History dextromethorphan-guaifenesin 5 15 ml PO Q4H PRN Cough 02/16/22 04/21/22 History mg-100 mg/5 mL oral liquid dextrose 40 % oral gel (Glutose-15) 10 g PO Q15M PRN Hypoglycemia 02/16/22 04/21/22 History glucagon 1 mg injection kit See Rx Instructions .Route 02/16/22 04/21/22 History .COMPLEX PRN Hypoglycemia ipratropium 0.5 mg-albuterol 3 mg 3 ml inhalation Q6H PRN short 02/16/22 04/21/22 History (2.5 mg base)/3 mL nebulization soln magnesium hydroxide 400 mg/5 mL 30 ml PO DAILY PRN Constipation 02/16/22 04/21/22 History oral suspension (Milk of Magnesia) atorvastatin 40 mg tablet 40 mg PO DAILY #90 tabs 03/05/22 04/21/22 Rx doxazosin 2 mg tablet (Cardura) 2 mg PO DAILY 03/05/22 04/21/22 History lisinopril 20 mg tablet 20 mg PO DAILY 03/05/22 04/21/22 History spironolactone 25 mg tablet 25 mg PO DAILY 03/05/22 04/21/22 History torsemide 20 mg tablet 20 mg PO TID #270 tabs 03/15/22 04/21/22 Rx mupirocin 2 % ointment topical kit 1 applic topical BID #1 ea 04/19/22 04/21/22 Rx oxycodone 5 mg tablet 5 mg PO BEDTIME PRN pain #10 tabs 04/19/22 04/21/22 Rx Allergies Allergy/AdvReac Type Severity Reaction Status Date / Time No Known Drug Allergies Allergy Verified 03/05/22 13:48 Review of Systems Review of Systems Narrative: 14 systems reviewed and negative aside from what is noted in HPI Exam Vital Signs (past 8 hours): - 04/21/22 16:50 04/21/22 16:54 04/21/22 17:00 Temperature 97.2 F L Pulse Rate 99 H 95 H Respiratory Rate 16 26 H Blood Pressure 141/75 H 153/84 H Pulse Oximetry 97 98 Oxygen Delivery Method Room Air 04/21/22 17:00 04/21/22 17:30 04/21/22 17:30 Temperature Pulse Rate 90 82 Respiratory Rate 23 28 H Blood Pressure 154/72 H Pulse Oximetry 99 99 Oxygen Delivery Method 04/21/22 18:00 04/21/22 18:00 04/21/22 18:30 Temperature Pulse Rate 85 90 Respiratory Rate 21 19 Blood Pressure 138/69 Pulse Oximetry 99 99 Oxygen Delivery Method 04/21/22 19:00 04/21/22 19:30 04/21/22 20:00 Temperature Pulse Rate 108 H 94 H 86 Respiratory Rate 31 H Blood Pressure Pulse Oximetry 98 99 99 Oxygen Delivery Method 04/21/22 20:30 04/21/22 20:53 04/21/22 20:53 Temperature Pulse Rate 107 H 87 Respiratory Rate 25 H Blood Pressure 137/82 Pulse Oximetry 99 99 Oxygen Delivery Method Oxygen Delivery Method Room Air Narrative Exam Narrative: GEN: no acute distress HEENT: moist mucous membranes, PERRL NECK: trachea midline, no JVD PULM: clear bilaterally, no wheezes, rhonchi, rales CV: irregular, no murmurs ABD: soft, nontender, nondistended, no organomegaly EXT: warm and well perfused, 2+ edema with shallow ulcers, left leg with mild erythema above ankle, slight tenderness, no warmth NEURO: awake, alert, oriented, no focal deficits Objective Labs 04/21/22 17:00 04/21/22 17:00 Labs: Laboratory Results - last 24 hr 04/21/22 04/21/22 04/21/22 17:00 17:00 17:00 WBC 7.7 RBC 3.67 L Hgb 11.4 L Hct 33.9 L MCV 92.3 MCH 31.0 MCHC 33.6 RDW 15.0 H Plt Count 286 Neut % (Auto) 67.7 Lymph % (Auto) 17.8 L [place] % (Auto) 7.9 Eos % (Auto) 6.2 H Baso % (Auto) 0.4 Neut # (Auto) 5200 Lymph # (Auto) 1400 [place] # (Auto) 600 Eos # (Auto) 500 H Baso # (Auto) 0 ESR PT 12.5 INR 1.1 APTT 34 Sodium 138 Potassium 4.4 Chloride 105 Carbon Dioxide 25 BUN 77 H Creatinine 2.72 H Estimated GFR 22 L BUN/Creatinine Ratio 28.3 H Glucose 100 Lactate Calcium 9.6 Total Bilirubin 0.5 AST 31 ALT 21 Alkaline Phosphatase 63 Total Creatine Kinase CK-MB (CK-2) CK-MB (CK-2) Rel Index Troponin I C-Reactive Protein NT-Pro-B Natriuret Pep Total Protein 8.3 H Albumin 4.3 Globulin 4.0 Albumin/Globulin Ratio 1.1 Lipase 499 H Procalcitonin 0.19 SARS-CoV-2 (PCR) Influenza A (RT-PCR) Influenza B (RT-PCR) RSV (PCR) 04/21/22 04/21/22 04/21/22 17:00 17:00 17:00 WBC RBC Hgb Hct MCV MCH MCHC RDW Plt Count Neut % (Auto) Lymph % (Auto) [place] % (Auto) Eos % (Auto) Baso % (Auto) Neut # (Auto) Lymph # (Auto) [place] # (Auto) Eos # (Auto) Baso # (Auto) ESR 38 H PT INR APTT Sodium Potassium Chloride Carbon Dioxide BUN Creatinine Estimated GFR BUN/Creatinine Ratio Glucose Lactate 0.9 Calcium Total Bilirubin AST ALT Alkaline Phosphatase Total Creatine Kinase CK-MB (CK-2) CK-MB (CK-2) Rel Index Troponin I C-Reactive Protein NT-Pro-B Natriuret Pep 1820 H Total Protein Albumin Globulin Albumin/Globulin Ratio Lipase Procalcitonin SARS-CoV-2 (PCR) Influenza A (RT-PCR) Influenza B (RT-PCR) RSV (PCR) 04/21/22 04/21/22 04/21/22 17:00 17:31 19:43 WBC RBC Hgb Hct MCV MCH MCHC RDW Plt Count Neut % (Auto) Lymph % (Auto) [place] % (Auto) Eos % (Auto) Baso % (Auto) Neut # (Auto) Lymph # (Auto) [place] # (Auto) Eos # (Auto) Baso # (Auto) ESR PT INR APTT Sodium Potassium Chloride Carbon Dioxide BUN Creatinine Estimated GFR BUN/Creatinine Ratio Glucose Lactate Calcium Total Bilirubin AST ALT Alkaline Phosphatase Total Creatine Kinase 70 CK-MB (CK-2) TNP CK-MB (CK-2) Rel Index TNP Troponin I 0.045 H C-Reactive Protein < 0.5 NT-Pro-B Natriuret Pep Total Protein Albumin Globulin Albumin/Globulin Ratio Lipase Procalcitonin SARS-CoV-2 (PCR) Negative Negative Influenza A (RT-PCR) Flu a negative Influenza B (RT-PCR) Flu b negative RSV (PCR) Negative Assessment & Plan Assessment & Plan narrative: 1. Acute on chronic CHF exacerbation -noted on admission with fluid overload, elevated bnp, and weight 6kg higher than last office visit -will order 80mg IV lasix BID -hold spironolactone for now -order ECHO for further evaluation -check AM troponin 2. YORDY on CKD stage 4 -suspect etiology is secondary to obstructive process -now status post mccoy placement -may also be secondarty to volume overload, will start IV lasix as above -patient not sure he would want dialysis -will need to watch creatinine daily 3. Possible cellulitis -possible left leg cellulitis -no leukocytosis, fevers, or elevated procalcitonin -for now ordered keflex, plan for 5-7 days 4. Chronic atrial fibrillation -continue home medications with apixaban 5. HTN -hold spironolactone I have discussed the case with bedside RN and ED physician. I have discussed the plan of care with the patient. I have personally reviewed the labs, oupatient clinic notes, chest xray and CT scan, and EKG CODE: DNR/DNI Proxy: Loreta Albarado, spouse I have utilized all available resources to reconcile the patient's home medications Time Spent With Patient Critical Care time: I spent a total of [] minutes of critical care time on this patient's care today; this time is exclusive of procedural time. Quality MIPS - Meds 'Current medications' to include all prescriptions, [id number] products, herbals, cannabis/cannabidiol products, and vitamin/mineral/dietary (nutritional) supplements. I have utilized all available resources to obtain, update, or review the patient?s current medications. [If Yes, STOP here]: Yes
[2022-04-21] MEDS: ACETAMINOPHEN 325 MG TABLET 650 MG PO (23:14)
[2022-04-22] VITALS (12 sets, daily range): BP systolic 85–137; BP diastolic 42–69; PULSE 69–84; RESP 18–20; TEMP 36.4–36.8; O2SAT 94–100; BMI 32.8
--- NOTE | 2022-04-22 00:35 | DI.ECHO.S_ITS ---
[place] +---------+ [facility] +---------+ : : [address] : : : : [id number] : : : : Phone: [phone] Echocardiogram Report + + :Name: NISHANT TRAN Study Date: 04/22/2022 Height: 68 in : :[facility] ReadingLocation: Weight: 216 lb : : Gender: Male BSA: 2.1 m2 : :: 1935 Age: 86 yrs BP: 137/69 mmHg: :Reason For Study: CONGESTIVE HEART FAILURE : :Ordering Physician: NO, : :OLU Performed By: Sloane Silva : :Referring: OLU SARABIA : + + Interpretation Summary The patient was in atrial fibrillation with controlled ventricular rate during the exam. The left ventricle is normal in size. There is mild-moderate concentric left ventricular hypertrophy. The ejection fraction is estimated to be 65-70%. The right ventricle is mildly dilated. The right ventricular systolic function is normal. There is severe biatrial enlargement. There is a bioprosthetic aortic valve. Ao V2 max: 252.8 cm/sec Ao mean P.8 mmHg There is moderate tricuspid regurgitation. The right ventricular systolic pressure is estimated to be at least 32 mmHg based on an estimated right atrial pressure of 3 mm Hg. The ascending aorta is mildly enlarged. Procedure: A two-dimensional transthoracic echocardiogram with color flow and Doppler was performed. The study quality was technically difficult. There is no prior echocardiogram noted for this patient. The patient was in atrial fibrillation with controlled ventricular rate during the exam. The patient had a bundle branch block rhythm during the exam. Left Ventricle: The left ventricle is normal in size. There is mild-moderate concentric left ventricular hypertrophy. Proximal septal thickening is noted. There is no echo evidence for significant left ventricular outflow tract obstruction. There is no thrombus. The ejection fraction is estimated to be 65-70%. There are no focal wall motion abnormalities. Diastolic function could not be accurately assessed due to atrial fibrillation. Right Ventricle: The right ventricle is mildly dilated. The right ventricular systolic function is normal. Atria: The left atrium is severely dilated. There is severe biatrial enlargement. The right atrium is severely dilated. There is no Doppler evidence for an interatrial shunt. Mitral Valve: There is mild mitral annular calcification. There is trace mitral regurgitation. Aortic Valve: There is a bioprosthetic aortic valve. The prosthetic aortic valve is well-seated. The prosthetic aortic valve is not well visualized. Ao V2 max: 252.8 cm/sec Ao mean P.8 mmHg. There is trace aortic regurgitation. Tricuspid Valve: The tricuspid valve is not well visualized, but is grossly normal. The tricuspid annulus is dilated. There is moderate tricuspid regurgitation. The right ventricular systolic pressure is estimated to be at least 32 mmHg based on an estimated right atrial pressure of 3 mm Hg. Pulmonic Valve: The pulmonic valve is not well seen, but is grossly normal. There is no pulmonic valvular regurgitation. Great Vessels: The ascending aorta is mildly enlarged. The IVC is of normal diameter and collapses greater than 50% with a sniff. This suggests a low right atrial pressure of 3 mm Hg. Pericardium/ Pleura There is no pericardial effusion. There is no pleural effusion. MMode/2D Measurements & Calculations LVIDd: 4.9 cm LVOT diam: 2.2 cm LVIDs: 3.0 cm asc Aorta Diam: 3.9 cm FS: 38.6 % IVSd: 1.5 cm LVPWd: 1.2 cm LV joy. diameter/BSA (cm/m^2): 2.3 LV sys. diameter/BSA (cm/m^2): 1.4 LA A2 area: 43.8 cm2 RA long axis: 7.6 cm LA A4 area: 37.6 cm2 RA area: 38.5 cm2 LA length (vol): 8.0 cm RA vol: 166.0 ml LA vol: 175.5 ml RA : 78.6 ml/m2 LA vol index: 83.1 ml/m2 IVC diam: 1.6 cm RVD1 (basal): 4.3 cm RVD2 (mid): 3.8 cm Doppler Measurements & Calculations Ao V2 max: 252.8 cm/sec LVOT Max Robb: 91.5 cm/sec Ao V2 mean: 173.8 cm/sec LV V1 max P.4 mmHg Ao max P.6 mmHg LV V1 VTI: 18.3 cm Ao mean P.8 mmHg MYRTLE(I,D): 1.6 cm2 Ao V2 VTI: 43.0 cm MYRTLE(V,D): 1.3 cm2 sev ratio: 0.43 MYRTLE indexed to BSA (cm^2/m^2): 0.74 MV E max robb: 102.2 cm/sec TR max robb: 267.2 cm/sec MV A max robb: 1.4 cm/sec TR max P.5 mmHg MV E/A: 70.8 PA V2 max: 123.4 cm/sec Med Peak E' Robb: 9.2 cm/sec PA V2 mean: 82.3 cm/sec E/E' med: 11.1 PA mean P.1 mmHg Lat Peak E' Robb: 11.1 cm/sec PA pr(Accel): 37.9 mmHg E/E' lat: 9.2 E/e' average: 10.2 MV dec time: 0.20 sec SV(LVOT): 66.8 ml Reading Physician:11:11 AM
[2022-04-22] MEDS: FUROSEMIDE 80 MG in SODIUM CHLORIDE 0.9% 50 ML 116 MG IV ×2 (00:57→12:00)
[2022-04-22 05:21] LABS: Add Manual Diff / Slide Review NO; Basophils Absolute Auto 0 /uL (0-100); Basophils Percent Auto 0.3 % (0-2); Eosinophils Absolute Auto 500 /uL (0-450); Eosinophils Percent Auto 6.3 % (2-4); Hematocrit 30.7 % (41-53); Hemoglobin 10.3 g/dL (13.5-17.5); Lymphocytes Absolute Auto 1100 /uL (1100-4500); Mean Corpuscular HGB Conc 33.6 % (30-36); Mean Corpuscular Volume 92.3 fL (80-100); Monocytes Absolute Auto 900 /uL (0-900); Monocytes Percent Auto 10.3 % (3-14); Neutrophils Absolute Auto 5800 /uL (1500-7000); Neutrophils Percent Auto 70.1 % (50-75); Platelet Count 249 X10^3/uL (150-400); Red Blood Cell Count 3.32 X10^6/uL (4.5-5.9); White Blood Cell Count 8.3 X10^3/uL (4.5-11.0)
[2022-04-22 05:32] LABS: Alanine Aminotransferase 20 IU/L (<50); Albumin 3.5 g/dL (3.5-5.0); Alkaline Phosphatase 47 U/L (38-126); Aspartate Aminotransferase 31 IU/L (17-59); BUN Creatinine Ratio 28.7 (6-22); Bilirubin Total 0.6 mg/dL (0.2-1.3); Blood Urea Nitrogen 77 mg/dL (9-20); Calcium 9.3 mg/dL (8.4-10.2); Carbon Dioxide 24 mmol/L (22-32); Chloride 105 mmol/L (98-107); Estimated Glomerular Filt Rate 22 mL/min (>60); Globulin 3.4 g/dL (1.7-4.1); Glucose 126 mg/dL (80-110); HEMOLYSIS < 15 (0-50); Magnesium 2.4 mg/dL (1.6-2.3); Potassium 3.8 mmol/L (3.4-5.1); Sodium 139 mmol/L (137-145); Total Protein 6.9 g/dL (6.3-8.2)
--- NOTE | 2022-04-22 05:54 | PC.NURSE ---
Picture 1-Dorsal Head Picture 2-L lower leg Picture 3- R lower leg
[2022-04-22] MEDS: ACETAMINOPHEN 325 MG TABLET 650 MG PO ×2 (07:24→22:45)
--- NOTE | 2022-04-22 07:57 | P.PN_ITS ---
Subjective Subjective Date Patient Seen: 04/22/22 Interval history: Patient says he feels terrible. Mainly due to pain in his legs. He is requesting a LE US as he has one scheduled outpatient next week. Exam Vital Signs (past 8 hours): - 04/22/22 04:00 04/22/22 02:48 04/22/22 06:00 Temperature 97.8 F Pulse Rate 84 Respiratory Rate 20 Blood Pressure 137/69 Pulse Oximetry 97 98 98 Oxygen Delivery Method Room Air Room Air Oxygen Flow Rate 0 0 Oxygen Delivery Method Room Air Oxygen Flow Rate 0 Narrative Exam Narrative: GEN: no acute distress, elderly male HEENT: moist mucous membranes, PERRL NECK: trachea midline, no JVD PULM: clear bilaterally, no wheezes, rhonchi, rales CV: irregular, no murmurs ABD: soft, nontender, nondistended, no organomegaly EXT: warm and well perfused, 2+ edema with shallow ulcers, left leg with mild erythema above ankle, slight tenderness, slight warmth NEURO: awake, alert, oriented, no focal deficits Objective Labs 04/22/22 04:54 04/22/22 04:54 Labs: Laboratory Results - last 24 hr 04/21/22 04/21/22 04/21/22 17:00 17:00 17:00 WBC 7.7 RBC 3.67 L Hgb 11.4 L Hct 33.9 L MCV 92.3 MCH 31.0 MCHC 33.6 RDW 15.0 H Plt Count 286 Neut % (Auto) 67.7 Lymph % (Auto) 17.8 L [place] % (Auto) 7.9 Eos % (Auto) 6.2 H Baso % (Auto) 0.4 Neut # (Auto) 5200 Lymph # (Auto) 1400 [place] # (Auto) 600 Eos # (Auto) 500 H Baso # (Auto) 0 ESR PT 12.5 INR 1.1 APTT 34 Sodium 138 Potassium 4.4 Chloride 105 Carbon Dioxide 25 BUN 77 H Creatinine 2.72 H Estimated GFR 22 L BUN/Creatinine Ratio 28.3 H Glucose 100 Lactate Calcium 9.6 Magnesium Total Bilirubin 0.5 AST 31 ALT 21 Alkaline Phosphatase 63 Total Creatine Kinase CK-MB (CK-2) CK-MB (CK-2) Rel Index Troponin I C-Reactive Protein NT-Pro-B Natriuret Pep Total Protein 8.3 H Albumin 4.3 Globulin 4.0 Albumin/Globulin Ratio 1.1 Lipase 499 H Procalcitonin 0.19 SARS-CoV-2 (PCR) Influenza A (RT-PCR) Influenza B (RT-PCR) RSV (PCR) 04/21/22 04/21/22 04/21/22 17:00 17:00 17:00 WBC RBC Hgb Hct MCV MCH MCHC RDW Plt Count Neut % (Auto) Lymph % (Auto) [place] % (Auto) Eos % (Auto) Baso % (Auto) Neut # (Auto) Lymph # (Auto) [place] # (Auto) Eos # (Auto) Baso # (Auto) ESR 38 H PT INR APTT Sodium Potassium Chloride Carbon Dioxide BUN Creatinine Estimated GFR BUN/Creatinine Ratio Glucose Lactate 0.9 Calcium Magnesium Total Bilirubin AST ALT Alkaline Phosphatase Total Creatine Kinase CK-MB (CK-2) CK-MB (CK-2) Rel Index Troponin I C-Reactive Protein NT-Pro-B Natriuret Pep 1820 H Total Protein Albumin Globulin Albumin/Globulin Ratio Lipase Procalcitonin SARS-CoV-2 (PCR) Influenza A (RT-PCR) Influenza B (RT-PCR) RSV (PCR) 04/21/22 04/21/22 04/21/22 17:00 17:31 19:43 WBC RBC Hgb Hct MCV MCH MCHC RDW Plt Count Neut % (Auto) Lymph % (Auto) [place] % (Auto) Eos % (Auto) Baso % (Auto) Neut # (Auto) Lymph # (Auto) [place] # (Auto) Eos # (Auto) Baso # (Auto) ESR PT INR APTT Sodium Potassium Chloride Carbon Dioxide BUN Creatinine Estimated GFR BUN/Creatinine Ratio Glucose Lactate Calcium Magnesium Total Bilirubin AST ALT Alkaline Phosphatase Total Creatine Kinase 70 CK-MB (CK-2) TNP CK-MB (CK-2) Rel Index TNP Troponin I 0.045 H C-Reactive Protein < 0.5 NT-Pro-B Natriuret Pep Total Protein Albumin Globulin Albumin/Globulin Ratio Lipase Procalcitonin SARS-CoV-2 (PCR) Negative Negative Influenza A (RT-PCR) Flu a negative Influenza B (RT-PCR) Flu b negative RSV (PCR) Negative 04/22/22 04/22/22 04:54 04:54 WBC 8.3 RBC 3.32 L Hgb 10.3 L Hct 30.7 L MCV 92.3 MCH 31.0 MCHC 33.6 RDW 15.0 H Plt Count 249 Neut % (Auto) 70.1 Lymph % (Auto) 13.0 L [place] % (Auto) 10.3 Eos % (Auto) 6.3 H Baso % (Auto) 0.3 Neut # (Auto) 5800 Lymph # (Auto) 1100 [place] # (Auto) 900 Eos # (Auto) 500 H Baso # (Auto) 0 ESR PT INR APTT Sodium 139 Potassium 3.8 Chloride 105 Carbon Dioxide 24 BUN 77 H Creatinine 2.68 H Estimated GFR 22 L BUN/Creatinine Ratio 28.7 H Glucose 126 H Lactate Calcium 9.3 Magnesium 2.4 H Total Bilirubin 0.6 AST 31 ALT 20 Alkaline Phosphatase 47 Total Creatine Kinase CK-MB (CK-2) CK-MB (CK-2) Rel Index Troponin I C-Reactive Protein NT-Pro-B Natriuret Pep Total Protein 6.9 Albumin 3.5 Globulin 3.4 Albumin/Globulin Ratio 1.0 Lipase Procalcitonin SARS-CoV-2 (PCR) Influenza A (RT-PCR) Influenza B (RT-PCR) RSV (PCR) [facility] Medical History Anemia Asymptomatic microscopic hematuria BPH (benign prostatic hyperplasia) Chronic diastolic heart failure DM2 (diabetes mellitus, type 2) Hypertension Interstitial lung disease Permanent atrial fibrillation Stage 3b chronic kidney disease (CKD) Surgical History S/P AVR (aortic valve replacement) Family History Mother No pertinent past medical history Father No pertinent past medical history Social History household members: spouse Smoking Status: Former smoker alcohol intake: current Assessment & Plan Assessment & Plan narrative: 1. Acute on chronic HFpEF exacerbation with myocardial demand ischemia -noted on admission with fluid overload, elevated bnp, and weight 6kg higher than last office visit -ciontinue 80mg IV lasix BID -hold spironolactone for now -echo with EF 65-70%, mild-mod LVH, and RVSP 32 -initial troponin 0.045, likely demand ischemia from CHF 2. YORDY on CKD stage 4 -suspect etiology is secondary to congestion from CHF and urinary obstruction -immediate 1L drainage after mccoy placement -diuresis as above -daily BMP's 3. Possible cellulitis -possible left leg cellulitis -no leukocytosis, fevers, or elevated procalcitonin -for now ordered keflex, plan for 5-7 days -patient notes increased pain in his legs and they are slightly erythematous and increased warmth to touch -LE DVT US ordered, although unlikely given he is on eliquis 4. Chronic atrial fibrillation -continue home medications with apixaban 5. HTN -hold spironolactone due to YORDY 6. Bladder outlet obstruction -will perform voiding trail and if fails, mccoy likely to remain in on discharge and patient will need to see urology as outpatient CODE: DNR/DNI Proxy: Loreta Albarado, spouse Dispo: Home in 1-2 days. Time Spent With Patient Critical Care time: I spent a total of [] minutes of critical care time on this patient's care to day; this time is exclusive of procedural time. Quality VTE Deep Vein Thrombosis/Pulmonary Embolism Present on Admission: No
[2022-04-22] MEDS: cephALEXin 250 MG CAPSULE 500 MG PO (08:23)
[2022-04-22] MEDS: APIXABAN 5 MG TABLET 2.5 MG PO (08:24)
--- NOTE | 2022-04-22 10:41 | PT.IPTN ---
Physical Therapy Treatment Note M3 PT-IP Subjective Start: 04/22/22 14:48 Freq: NEEDED Status: Active Protocol: Document 04/22/22 10:41 AB (Rec: 04/22/22 14:51 AB [id number]) Subjective Physical Therapy Visit Type Type Patient Refusal Notes checked on pt and initially agreeable to do PT. PLOF and home set up obtained but when instructed to move, pt refused . educated pt on importance of PT but pt stated that he is not going to move today and that he just got into the hospital last night. will f/u.
--- NOTE | 2022-04-22 14:03 | DI.US.S_ITS ---
PROCEDURE: US PERIPH VENOUS LOW EXTREM BI INDICATIONS: RULE OUT DVT TECHNIQUE: Real-time imaging, as well as color and pulse Doppler interrogation, were performed of the deep veins of both legs from the inguinal ligament to the popliteal fossa. COMPARISON: None. FINDINGS: Right: The common femoral, femoral and popliteal veins are normally compressible, and free of intraluminal thrombus. Color and pulse Doppler demonstrate normal phasic intravascular flow. There is normal augmentation response to distal compression maneuver. Left: There is incomplete compressibility of the distal left femoral vein with incomplete filling on color flow images, compatible with nonocclusive thrombus. The common femoral and popliteal veins and the mid to proximal left femoral vein are normally compressible, and free of intraluminal thrombus. Color and pulse Doppler demonstrate normal phasic intravascular flow. There is normal augmentation response to distal compression maneuver. IMPRESSION: Short segment of nonocclusive deep venous thrombus within the distal left femoral vein. Concordant preliminary findings were conveyed to the treatment team by the manager protein at the time of the exam. Approved by: Alex Clifton M.D. on 04/22/2022 at 17:37
--- NOTE | 2022-04-22 14:40 | CM.DANOTE ---
Addendum entered by ESTUARDO Sutton 04/23/22 10:17: ADD: Therapies on hold, patient w/known DVT and on heparin drip currently SHA Original Note: Initial DCP Assessment Note Pt is an 86 yo male, resident of [facility] , presents to the ER w/worsening swelling to his bilateral lower extremities with weeping, wounds admitted inpatient for management of CHF, YORDY and possible cellulitis. PMH includes CHF, CKD with a baseline creatinine of around 2, carotid artery stenosis, CAD, diabetes, hyperlipidemia, atrial fibrillation and chronic anticoagulation. PCP: Carmelina Casey Payer: [facility] Reviewed chart, attempted call to patient's spouse today and listed number is incorrect, states disconnected number. Met w/patient to introduce self and role. Patient reports he lives on [facility] w/spouse who assists w/most ADLs- toileting, bathing, meal prep, meds, chores and transportation. Patient has [facility] services Patient reports his 3 dtrs live out of state According to review of APPLICATIONS ARCHITECT notes from patient's Nov admission- Dtr Trish had been assisting her parents w/LTC planning. Trish Hou: P [phone]. Patient has hx at [facility] and a stay at [facility] () CM team will plan to follow closely for needs, therapy evals will be helpful to assist in dispo planning. Coordination w/spouse and family will be paramount ESTUARDO Lang Discharge Planning/Care Management CM Discharge Assessment Start: 04/22/22 14:04 Freq: Status: Active Protocol: Document 04/22/22 14:04 SHA (Rec: 04/22/22 14:40 SHA [id number]) Discharge Planning Assessment Assigned Legal Billing Analyst ESTUARDO Saeed DPOA/Assigned Designee Name Loreta Albarado, spouse Contact Information [phone] Advance Directives? Yes Advance Directives on File No History Provided By Patient,Family Member,Medical Record Prior Living Arrangements House Household Members spouse Type of transporation used prior to Relies on Others admit Independent with ADL's No Is patient alert and oriented? No: Mild cog impairment Needs Assistance With Bathing,Grooming,Meal Prep, Toileting,Managing Medications ,Home Chores / Shopping Comment Spouse provides assist according to patient Patient/Family Preference Shelter Facility,Home with Home Health Barriers to Discharge Yes Comment Therapies will be helpful to assist in dispo recs and planning. Will discuss DCP w/ patient and spouse as medical POC unfolds Whiteboard Updated in Patient Room with Yes name and ext. # of Legal Billing Analyst
--- NOTE | 2022-04-22 15:39 | PC.NURSE ---
MADE AWARE OF LOW BP,REV.TREND FOR THE BED AND WILL RECHECK IN 20MIN
[2022-04-22] MEDS: polyethylene glycoL 3350 17 GM POWD.PACK PO (16:43)
[2022-04-22] MEDS: cephALEXin 250 MG CAPSULE PO ×2 (16:43→20:20)
[2022-04-22] MEDS: HEPARIN 5,000 UNIT/ML VIAL 7500 UNIT IV (17:42)
[2022-04-22] MEDS: HEPARIN DRIP 25,000 UNIT/500 ML IV.SOLN 35.28 UNIT IV (17:43)
[2022-04-22 18:01] LABS: PTT Partial Thromboplastin Tim 34 SECONDS (26-36)
[2022-04-22] MEDS: LATANOPROST 0.005% OPHTH 2.5 ML 1 DROPS EYE-BOTH (20:19)
[2022-04-22] MEDS: ATORVASTATIN 20 MG TABLET 40 MG PO (20:20)
[2022-04-22] MEDS: SENNOSIDES 8.6 MG TABLET PO (20:20)
[2022-04-22] MEDS: COLESEVELAM 625 MG TABLET 1875 MG PO (20:21)
[2022-04-23] VITALS (7 sets, daily range): BP systolic 89–120; BP diastolic 35–69; PULSE 62–87; RESP 16–18; TEMP 36.6–36.9; O2SAT 95–97
[2022-04-23 00:21] LABS: PTT Partial Thromboplastin Tim 161 SECONDS (26-36)
--- NOTE | 2022-04-23 00:33 | PC.NURSE ---
Checked B/P prior to admin. 80 mg. of Lasix IV. Hypotensive 89/35 & 95/47, SH[employer]UT[employer] DEVELOPERKevin Gaines notified ordered to hold 2359 dose of Lasix. APTT was very high 161, 0020 stopped infusion for 60 minutes & will resume @ 0120 and decrease infusion rate by 300 units per hour. Will cont. POC & monitor.
[2022-04-23] MEDS: ACETAMINOPHEN 325 MG TABLET 650 MG PO ×3 (05:26→21:44)
[2022-04-23 07:57] LABS: PTT Partial Thromboplastin Tim 88 SECONDS (26-36)
[2022-04-23 08:02] LABS: Add Manual Diff / Slide Review NO; BUN Creatinine Ratio 30.6 (6-22); Basophils Absolute Auto 0 /uL (0-100); Basophils Percent Auto 0.2 % (0-2); Blood Urea Nitrogen 72 mg/dL (9-20); Calcium 8.9 mg/dL (8.4-10.2); Carbon Dioxide 22 mmol/L (22-32); Chloride 102 mmol/L (98-107); Eosinophils Absolute Auto 600 /uL (0-450); Estimated Glomerular Filt Rate 26 mL/min (>60); Glucose 126 mg/dL (80-110); HEMOLYSIS < 15 (0-50); Hematocrit 28.7 % (41-53); Hemoglobin 9.8 g/dL (13.5-17.5); Lymphocytes Absolute Auto 1300 /uL (1100-4500); Lymphocytes Percent Auto 14.8 % (25-40); Mean Corpuscular HGB Conc 34.3 % (30-36); Mean Corpuscular Hemoglobin 31.5 PG (26-34); Mean Corpuscular Volume 91.8 fL (80-100); Monocytes Absolute Auto 900 /uL (0-900); Monocytes Percent Auto 9.9 % (3-14); Neutrophils Absolute Auto 6100 /uL (1500-7000); Neutrophils Percent Auto 68.1 % (50-75); Platelet Count 218 X10^3/uL (150-400); Red Blood Cell Count 3.13 X10^6/uL (4.5-5.9); Red Cell Distribution Width 14.7 % (11.6-14.8); Sodium 136 mmol/L (137-145); White Blood Cell Count 8.9 X10^3/uL (4.5-11.0)
--- NOTE | 2022-04-23 08:45 | PC.NURSE ---
Addendum entered by Genevieve Qureshi R.N. 04/23/22 12:52: Patient has been napping comfortably. He has a mccoy catheter in with yellow urine present. Patients PTT this morning was 88, this is within normal target range for patients heparin drip. Next PTT will be drawn tomorrow morning at 0720. His settings will remain the same on the drip at 1465 and 29.3 cc/hr. Original Note: Patient has multiple bruises to his arms and legs, blisters to l.extremity with a large blister open and wheeping. Patient attempted to get up to have a bowel movement, he only managed to sit up at the side of the bed. Put on the bed gautam and just passed gas. He is eating breakfast with hob up 90 degrees. Patient has dx of diabetes in his history with leg ulcers and kidney issues caused from this according to dx in chart. Patient states that he is not diabetic. This RN talked to and he states that blood sugars are not needed at this time.
--- NOTE | 2022-04-23 09:26 | OT.IPNOTE ---
OT eval orders received and pt on Heparin drip and per hospitalist to okay to hold therapy evals for today.
[2022-04-23] MEDS: cephALEXin 250 MG CAPSULE PO ×3 (09:42→21:43)
[2022-04-23] MEDS: polyethylene glycoL 3350 17 GM POWD.PACK PO (09:42)
[2022-04-23] MEDS: COLESEVELAM 625 MG TABLET 1875 MG PO ×2 (10:08→17:51)
--- NOTE | 2022-04-23 10:30 | PT-IP ANOTE ---
EMR reviewed and pt with LLE DVT and on heparin drip at this time. talked with hospitalist and stated to hold pt at this time.
[2022-04-23] MEDS: HEPARIN DRIP 25,000 UNIT/500 ML IV.SOLN 29.302 UNIT IV (10:55)
--- NOTE | 2022-04-23 13:02 | PT-IP ANOTE ---
talked with nurse and stated that pt will be on heparin drip until tomorrow. hold PT for today.
--- NOTE | 2022-04-23 17:25 | PM.PN.1 ---
Subjective Subjective Date Patient Seen: 04/23/22 Interval history: Continues on heparin drip after DVT found in LLE. No bleeding. Patient notes right thigh pain likely from a cramp. Cr down to 2.35 today and lasix held due to soft BP. Exam Vital Signs (past 8 hours): - 04/23/22 11:27 04/23/22 14:06 04/23/22 15:00 Temperature 97.9 F Pulse Rate 78 Respiratory Rate 16 Blood Pressure 116/69 Pulse Oximetry 96 Oxygen Delivery Method Room Air Room Air Oxygen Delivery Method Room Air Oxygen Flow Rate 0 Narrative Exam Narrative: GEN: no acute distress, elderly male HEENT: moist mucous membranes, PERRL NECK: trachea midline, no JVD PULM: clear bilaterally, no wheezes, rhonchi, rales CV: irregular, no murmurs ABD: soft, nontender, nondistended, no organomegaly EXT: warm and well perfused, 1+ edema with shallow ulcers, left leg with mild erythema above ankle, slight tenderness, slight warmth NEURO: awake, alert, oriented, no focal deficits Objective Labs 04/23/22 07:33 04/23/22 07:33 Labs: Laboratory Results - last 24 hr 04/22/22 04/22/22 04/23/22 17:44 23:49 07:21 WBC RBC Hgb Hct MCV MCH MCHC RDW Plt Count Neut % (Auto) Lymph % (Auto) [place] % (Auto) Eos % (Auto) Baso % (Auto) Neut # (Auto) Lymph # (Auto) [place] # (Auto) Eos # (Auto) Baso # (Auto) APTT 34 161 H* D 88 H* D Sodium Potassium Chloride Carbon Dioxide BUN Creatinine Estimated GFR BUN/Creatinine Ratio Glucose Calcium 04/23/22 04/23/22 07:33 07:33 WBC 8.9 RBC 3.13 L Hgb 9.8 L Hct 28.7 L MCV 91.8 MCH 31.5 MCHC 34.3 RDW 14.7 Plt Count 218 Neut % (Auto) 68.1 Lymph % (Auto) 14.8 L [place] % (Auto) 9.9 Eos % (Auto) 7.0 H Baso % (Auto) 0.2 Neut # (Auto) 6100 Lymph # (Auto) 1300 [place] # (Auto) 900 Eos # (Auto) 600 H Baso # (Auto) 0 APTT Sodium 136 L Potassium 4.0 Chloride 102 Carbon Dioxide 22 BUN 72 H Creatinine 2.35 H Estimated GFR 26 L BUN/Creatinine Ratio 30.6 H Glucose 126 H Calcium 8.9 PFSH Medical History Anemia Asymptomatic microscopic hematuria BPH (benign prostatic hyperplasia) Chronic diastolic heart failure DM2 (diabetes mellitus, type 2) Hypertension Interstitial lung disease Permanent atrial fibrillation Stage 3b chronic kidney disease (CKD) Surgical History S/P AVR (aortic valve replacement) Family History Mother No pertinent past medical history Father No pertinent past medical history Social History household members: spouse Smoking Status: Former smoker alcohol intake: current Assessment & Plan Assessment & Plan narrative: 1. Acute on chronic HFpEF exacerbation with myocardial demand ischemia -noted on admission with fluid overload, elevated bnp, and weight 6kg higher than last office visit -received 80mg IV lasix BID, now stopped -hold spironolactone for now -echo with EF 65-70%, mild-mod LVH, and RVSP 32 -initial troponin 0.045, likely demand ischemia from CHF 2. YORDY on CKD stage 4, improving -suspect etiology is secondary to congestion from CHF and urinary obstruction -immediate 1L drainage after mccoy placement -diuresis as above -daily BMP's 3. Possible cellulitis -possible left leg cellulitis -no leukocytosis, fevers, or elevated procalcitonin -for now ordered keflex, plan for 5-7 days -patient notes increased pain in his legs and they are slightly erythematous and increased warmth to touch 4. Chronic atrial fibrillation -now on heparin drip as below 5. HTN -hold spironolactone due to YORDY 6. Bladder outlet obstruction -will perform voiding trail and if fails, mccoy likely to remain in on discharge and patient will need to see urology as outpatient 7. Acute DVT of LLE -increased swelling, warmth and pain of left leg noted -US positive for femoral DVT -stopped eliquis 2.5 BID and started heparin drip -if Cr continues to improve will start xarelto on 04/24 CODE: DNR/DNI Proxy: Loreta Albarado, spouse Dispo: Home in 1-2 days pending PT evals. Time Spent With Patient Critical Care time: I spent a total of [] minutes of critical care time on this patient's care today; this time is exclusive of procedural time. Quality VTE Deep Vein Thrombosis/Pulmonary Embolism Present on Admission: No
[2022-04-23] MEDS: ATORVASTATIN 20 MG TABLET 40 MG PO (21:43)
[2022-04-23] MEDS: LATANOPROST 0.005% OPHTH 2.5 ML 1 DROPS EYE-BOTH (21:51)
[2022-04-24] VITALS (9 sets, daily range): BP systolic 106–133; BP diastolic 56–72; PULSE 68–72; RESP 18–20; TEMP 36.1–36.9; O2SAT 95–100
[2022-04-24] MEDS: HEPARIN DRIP 25,000 UNIT/500 ML IV.SOLN 29.302 UNIT IV (02:33)
[2022-04-24 06:28] LABS: Add Manual Diff / Slide Review NO; Basophils Absolute Auto 0 /uL (0-100); Basophils Percent Auto 0.4 % (0-2); Eosinophils Absolute Auto 600 /uL (0-450); Eosinophils Percent Auto 7.4 % (2-4); Hematocrit 27.4 % (41-53); Hemoglobin 9.4 g/dL (13.5-17.5); Lymphocytes Absolute Auto 1400 /uL (1100-4500); Lymphocytes Percent Auto 16.6 % (25-40); Mean Corpuscular HGB Conc 34.3 % (30-36); Mean Corpuscular Hemoglobin 31.3 PG (26-34); Mean Corpuscular Volume 91.3 fL (80-100); Monocytes Absolute Auto 800 /uL (0-900); Monocytes Percent Auto 9.8 % (3-14); Neutrophils Absolute Auto 5500 /uL (1500-7000); Neutrophils Percent Auto 65.8 % (50-75); Platelet Count 207 X10^3/uL (150-400); Red Cell Distribution Width 14.4 % (11.6-14.8); White Blood Cell Count 8.3 X10^3/uL (4.5-11.0)
[2022-04-24 06:32] LABS: PTT Partial Thromboplastin Tim 65 SECONDS (26-36)
[2022-04-24 06:35] LABS: BUN Creatinine Ratio 29.3 (6-22); Blood Urea Nitrogen 66 mg/dL (9-20); Carbon Dioxide 22 mmol/L (22-32); Chloride 102 mmol/L (98-107); Estimated Glomerular Filt Rate 28 mL/min (>60); Glucose 111 mg/dL (80-110); HEMOLYSIS < 15 (0-50); Potassium 3.8 mmol/L (3.4-5.1); Sodium 132 mmol/L (137-145)
--- NOTE | 2022-04-24 07:35 | PM.PN.1 ---
Subjective Subjective Date Patient Seen: 04/24/22 Interval history: Transitioning from heparin drip to xarelto 15mg daily today. PT/OT evals ordered. Patient says his legs still hurt. Exam Vital Signs (past 8 hours): - 04/24/22 02:31 04/24/22 04:56 Temperature 98.5 F 97.5 F L Pulse Rate 72 72 Respiratory Rate 18 18 Blood Pressure 121/72 114/69 Pulse Oximetry 98 97 Oxygen Flow Rate 0 0 Oxygen Delivery Method Room Air Oxygen Flow Rate 0 Narrative Exam Narrative: GEN: no acute distress, elderly male HEENT: moist mucous membranes, PERRL NECK: trachea midline, no JVD PULM: clear bilaterally, no wheezes, rhonchi, rales CV: irregular, no murmurs ABD: soft, nontender, nondistended, no organomegaly EXT: warm and well perfused, no edema with shallow ulcers, left leg with mild erythema above ankle, slight tenderness, slight warmth NEURO: awake, alert, oriented, no focal deficits Objective Labs 04/24/22 06:13 04/24/22 06:13 Labs: Laboratory Results - last 24 hr 04/23/22 04/23/22 04/23/22 07:21 07:33 07:33 WBC 8.9 RBC 3.13 L Hgb 9.8 L Hct 28.7 L MCV 91.8 MCH 31.5 MCHC 34.3 RDW 14.7 Plt Count 218 Neut % (Auto) 68.1 Lymph % (Auto) 14.8 L [place] % (Auto) 9.9 Eos % (Auto) 7.0 H Baso % (Auto) 0.2 Neut # (Auto) 6100 Lymph # (Auto) 1300 [place] # (Auto) 900 Eos # (Auto) 600 H Baso # (Auto) 0 APTT 88 H* D Sodium 136 L Potassium 4.0 Chloride 102 Carbon Dioxide 22 BUN 72 H Creatinine 2.35 H Estimated GFR 26 L BUN/Creatinine Ratio 30.6 H Glucose 126 H Calcium 8.9 04/24/22 04/24/22 04/24/22 06:13 06:13 06:13 WBC 8.3 RBC 3.00 L Hgb 9.4 L Hct 27.4 L MCV 91.3 MCH 31.3 MCHC 34.3 RDW 14.4 Plt Count 207 Neut % (Auto) 65.8 Lymph % (Auto) 16.6 L [place] % (Auto) 9.8 Eos % (Auto) 7.4 H Baso % (Auto) 0.4 Neut # (Auto) 5500 Lymph # (Auto) 1400 [place] # (Auto) 800 Eos # (Auto) 600 H Baso # (Auto) 0 APTT 65 H D Sodium 132 L Potassium 3.8 Chloride 102 Carbon Dioxide 22 BUN 66 H Creatinine 2.25 H Estimated GFR 28 L BUN/Creatinine Ratio 29.3 H Glucose 111 H Calcium 9.0 PFSH Medical History Anemia Asymptomatic microscopic hematuria BPH (benign prostatic hyperplasia) Chronic diastolic heart failure DM2 (diabetes mellitus, type 2) Hypertension Interstitial lung disease Permanent atrial fibrillation Stage 3b chronic kidney disease (CKD) Surgical History S/P AVR (aortic valve replacement) Family History Mother No pertinent past medical history Father No pertinent past medical history Social History household members: spouse Smoking Status: Former smoker alcohol intake: current Assessment & Plan Assessment & Plan narrative: 1. Acute on chronic HFpEF exacerbation with myocardial demand ischemia, improving -noted on admission with fluid overload, elevated bnp, and weight 6kg higher than last office visit -received 80mg IV lasix BID, now stopped as euvolemic -resumed spironolactone -echo with EF 65-70%, mild-mod LVH, and RVSP 32 -initial troponin 0.045, likely demand ischemia from CHF 2. YORDY on CKD stage 4, improving -suspect etiology is secondary to congestion from CHF and urinary obstruction -immediate 1L drainage after mccoy placement -diuresis as above -daily BMP's 3. Possible left leg cellulitis -no leukocytosis, fevers, or elevated procalcitonin -for now ordered keflex, plan for 5 days -patient notes increased pain in his legs and they are slightly erythematous and increased warmth to touch 4. Chronic atrial fibrillation -now on xarelto 5. HTN -restarted spironolactone -holding lisinopril due to YORDY 6. Bladder outlet obstruction -had 1L return after mccoy placed -mccoy likely to remain in on discharge and patient will need to see urology as outpatient 7. Acute DVT of LLE -increased swelling, warmth and pain of left leg noted -US positive for femoral DVT -stopped eliquis 2.5 BID and started heparin drip due to kidney function -transitioned from heparin to xarelto 15mg daily CODE: DNR/DNI Proxy: Loreta Albarado, spouse Dispo: Likely SNF pending PT evals. Time Spent With Patient Critical Care time: I spent a total of [] minutes of critical care time on this patient's care today; this time is exclusive of procedural time. Quality VTE Deep Vein Thrombosis/Pulmonary Embolism Present on Admission: No
[2022-04-24] MEDS: cephALEXin 250 MG CAPSULE PO ×3 (08:49→20:34)
[2022-04-24] MEDS: COLESEVELAM 625 MG TABLET 1875 MG PO ×2 (08:50→16:03)
[2022-04-24] MEDS: RIVAROXABAN 10 MG TABLET 15 MG PO (08:50)
[2022-04-24] MEDS: ACETAMINOPHEN 325 MG TABLET 650 MG PO (08:51)
[2022-04-24] MEDS: polyethylene glycoL 3350 17 GM POWD.PACK PO (08:51)
--- NOTE | 2022-04-24 10:40 | CM.DPNOTE ---
Addendum entered by ESTUARDO Sutton 04/24/22 13:43: ADD: PT recommending SNF. Returned to patient's room to review and patient states he is hopeful to go home w/spouse but unsure when she will be here to discuss plan further. Patient recommends a call to spouse Loreta, cell P [phone]. Placed call to Loreta, introduced self and role. Lroeta unsure when she will be able to come [place] but will try. Loreta hopeful patient can come home and states planning for SNF stay is premature Educated spouse that if patient requires more assist than she can provide once home and patient/spouse agreeable to facility search, SNF referrals need to be sent ERIC to secure a SNF bed. Suggested electronic review of SNF options via IPAD; Spouse states understanding and reiterates she hopes to bring patient home CM team will continue to follow closely for coordination of plan. DC home w/spouse and HH vs SNF stay. If home, Transport (?) JW Addendum entered by ESTUARDO Sutton 04/24/22 11:49: ADD: PASRR completed in anticipation of SNF upon DC JW Original Note: DCP Note Patient discussed in multidisciplinary rounds this morning. Heparin drip has been discontinued and Xarelto started. PT pending today Team anticipates patient will need SNF rehab before returning home. Met w/patient at bedside to discuss this recommendation, patient currently with very poor activity tolerance. Patient requests time to discuss this w/spouse by phone today, states his three daughters live out of the area and so are unlikely to be able to assist patient upon his return home. Spouse has not been here to visit so unsure what her capabilities are (?) Offered to speak with patient and spouse on speaker re DCP options and patient stated he would rather speak to his in private CM team following closely for coordination of DCP, PT eval and dispo recs will be helpful SHA
--- NOTE | 2022-04-24 11:05 | PT.IIE ---
Current Diagnoses Heart failure, unspecified (04/21/22) Surgical History (Last Reviewed 04/22/22 @ 01:14 by Marco Paz MD) S/P AVR (aortic valve replacement) Medical History (Last Reviewed 04/22/22 @ 01:14 by Marco Paz MD) Anemia Asymptomatic microscopic hematuria BPH (benign prostatic hyperplasia) Chronic diastolic heart failure DM2 (diabetes mellitus, type 2) Hypertension Interstitial lung disease Permanent atrial fibrillation Stage 3b chronic kidney disease (CKD) Physical Therapy Inpatient Evaluation/Re-Eval M1 PT/OT-IP Prior Functional Status Start: 04/22/22 14:48 Freq: NEEDED Status: Active Protocol: Document 04/24/22 11:05 AB (Rec: 04/24/22 11:59 AB [id number]) Medical Review Prior Functional Status Medical History Reviewed Yes Communication able to make needs known Mobility and Gait pt stated that he is modified independent with ambulation using 4WW indoors but also uses a manual w/c for mobility ; stated that he uses a FWW from the house to the car Social History Household Members spouse Living Arrangements House Number of Floors (Floors) One Floor Number of Stairs To Enter/Railing? no steps to enter Home Environment High Toilet,Walk in Shower, Built-In Shower Seat Home Equipment Front Wheel Walker,Four Wheel Walker,Manual Wheelchair,Hand Held Shower,Grab Bars Near Toilet,Grab Bars In Shower Additional Social History Comment pt stated that he sleeps on a recliner M2 PT-IP Current Condition Start: 04/22/22 14:48 Freq: NEEDED Status: Active Protocol: Document 04/24/22 11:05 AB (Rec: 04/24/22 11:59 AB [email or web address]) Physical Therapy Current Condition Current Condition Evaluation Date 04/24/22 Treatment Diagnosis LLE cellulitis; LLE DVT; difficulty in walking Onset Date 04/21/22 M3 PT-IP Subjective Start: 04/22/22 14:48 Freq: NEEDED Status: Active Protocol: Document 04/24/22 11:05 AB (Rec: 04/24/22 11:59 AB [email or web address]) Subjective Physical Therapy Visit Type Type Initial Evaluation Visit Start Time 11:05 Visit Stop Time 11:35 Total Visit Minutes 30 Notes pt completed his heparin drip and is cleared for PT eval. Number of BOOKKEEPER RECEPTIONIST Visits 0 Physical Therapy Visit Comments Patient Comments needs encouragement to participate but agreed to do PT Therapy Pain Assessment Pain When Pain Assessed At Rest Pain Present Pain Present Pain Reported Location Bilateral Leg Intensity 8 Scale Used Numeric (0 - 10) Pain Management Techniques Distraction,Modification of Treatment,Re-positioning, Timing of Activity with Medications M4 PT-IP Mobility and Gait Start: 04/22/22 14:48 Freq: NEEDED Status: Active Protocol: Document 04/24/22 11:05 AB (Rec: 04/24/22 11:59 AB [id number]) PT-Bed Mobility Assessment Supine to Sit Supine to Sit Maximum Assistance,2 Person Assistance,Head of Bed Elevated,Bedrails Sit to Supine Sit to Supine Maximum Assistance,2 Person Assistance,Head of Bed Elevated,Bedrails Scooting Scooting to Edge of Bed Dependent PT-Transfer Assessment Sit to and From Stand Sit to and from Stand Maximum Assistance,2 Person Assistance,Use of Upper Extremities Equipment Transfer Assistive Device Gait Belt,Front Wheeled Walker Orthotic/Prosthetic Devices or Brace: No Comments Mobility Comments Checked on pt and stated that he want 1 hour to rest due to being moved during brief change. checked back on pt. completed supine to sit max A x 2 and max cues. pt can be resistant and needs motivation to participate. Able to sit on EOB with initial max A. positioned pt on EOB total A and was able to sit SBA to CGA after positioning. completed sit to stand max A x 2 and max cues and was able to stand mod to max A using FWW for support. pt refusing to transfer to the chair. stated that he is doing BM. encouraged to transfer to a bedside commode and pt stating NO! but eventually tried to transfer but unable to complete stating that he cannot move his legs and refused for PT to assist him with his legs but when instructed to take side steps towards HOB for positioning, pt was able to take side steps using FWW max A x 1-2 and max cues. pt sat on EOB. completed sit to supine max A x 2 and max cues. Left pt with NAC to be cleaned up. PT-Balance Assessment Sitting Balance and Reactions Static Sitting Balance Ability Good Dynamic Sitting Balance Ability Fair Standing Balance and Reactions Static Standing Balance Ability Poor Dynamic Standing Balance Ability Poor Device Used FWW M5 PT-IP Objective Assessments Start: 04/22/22 14:48 Freq: NEEDED Status: Active Protocol: Document 04/24/22 11:05 AB (Rec: 04/24/22 11:59 AB [id number]) Orientation Orientation/Cognition Level of Alertness Alert Orientation Name,Place,Situation Language Function Ability Hard of Hearing Safety Awareness Decreased Safety Awareness Memory Description Short Term Impaired Gross Range of Motion Lower Extremity ROM Impairments increase guarding during movement with c/o pain limiting ROM Strength Lower Extremity Strength Assessment Bilaterally Impaired Hip 3-/5 Knee 3+/5 Muscle Tone Muscle Tone WNL Yes M6 PT-IP Treatment Start: 04/22/22 14:48 Freq: NEEDED Status: Active Protocol: Document 04/24/22 11:05 AB (Rec: 04/24/22 11:59 AB [id number]) Physical Therapy Treatment Education Education Provided Safety M7 PT-IP Assessment and Plan Start: 04/22/22 14:48 Freq: NEEDED Status: Active Protocol: Document 04/24/22 11:05 AB (Rec: 04/24/22 11:59 AB [email or web address]) PT Summary Assessment and Plan Potential Rehabilitation Potential Fair Status of Condition at Evaluation Evolving Summary Impairments Pain,ROM,Strength,Balance, Coordination,Sensation,Tone, Cognition,Bed Mobility, Transfers,Gait,Activity Tolerance Assessment Summary pt requiring max A x 2 with mobility and recommending mechanical lift transfer with nursing staff at this time. pt needs encouragement to participate. pt will need SNF rehab to improve mobility. Goals Bed Mobility Goal Minimal Assistance Transfer Goal Minimal Assistance,Front Wheeled Walker Gait Goal Minimal Assistance,Front Wheel Walker Gait Distance 25 Other Goals improve bed mobility, transfers, ambulation using FWW 50 ft SBA Days to Meet Goals 10 Frequency of Treatment Frequency Of Treatment Once a Day Treatment Plan Physical Therapy Treatment Plan Bed Mobility Training,Transfer Training,Gait Training, Therapeutic Exercise,Balance Retraining,Discharge Planning, Hot or Cold Pack,Neuromuscular Re-ed,Coordination Retraining ,Manual Therapy Precautions Other Precautions falls Recommendations To Nursing Amount of Assist Needed Mechanical Lift Discharge Recommendations PT Discharge Recommendations SNF Rehab Transportation Needs at Discharge Wheelchair/Cabulance,Stretcher /Ambulance
[2022-04-24] MEDS: OXYCODONE IR 5 MG TABLET PO ×2 (13:26→20:34)
[2022-04-24] MEDS: LATANOPROST 0.005% OPHTH 2.5 ML 1 DROPS EYE-BOTH (20:33)
[2022-04-24] MEDS: ATORVASTATIN 20 MG TABLET 40 MG PO (20:34)
[2022-04-25] VITALS (9 sets, daily range): BP systolic 93–115; BP diastolic 54–68; PULSE 60–90; RESP 18–20; TEMP 36.1–36.8; O2SAT 96–97
[2022-04-25] MEDS: OXYCODONE IR 5 MG TABLET PO ×5 (00:30→21:55)
[2022-04-25] MEDS: ACETAMINOPHEN 325 MG TABLET 650 MG PO ×3 (00:30→21:55)
[2022-04-25 07:54] LABS: Add Manual Diff / Slide Review NO; Basophils Absolute Auto 0 /uL (0-100); Basophils Percent Auto 0.5 % (0-2); Eosinophils Absolute Auto 700 /uL (0-450); Eosinophils Percent Auto 8.3 % (2-4); Hematocrit 28.7 % (41-53); Hemoglobin 9.6 g/dL (13.5-17.5); Lymphocytes Absolute Auto 1500 /uL (1100-4500); Lymphocytes Percent Auto 18.9 % (25-40); Mean Corpuscular HGB Conc 33.5 % (30-36); Mean Corpuscular Hemoglobin 30.7 PG (26-34); Mean Corpuscular Volume 91.5 fL (80-100); Monocytes Absolute Auto 800 /uL (0-900); Monocytes Percent Auto 9.8 % (3-14); Neutrophils Absolute Auto 5100 /uL (1500-7000); Neutrophils Percent Auto 62.5 % (50-75); Platelet Count 232 X10^3/uL (150-400); Red Blood Cell Count 3.13 X10^6/uL (4.5-5.9); Red Cell Distribution Width 14.8 % (11.6-14.8); White Blood Cell Count 8.1 X10^3/uL (4.5-11.0)
[2022-04-25 08:07] LABS: PTT Partial Thromboplastin Tim 31 SECONDS (26-36)
[2022-04-25 08:13] LABS: BUN Creatinine Ratio 30.6 (6-22); Blood Urea Nitrogen 60 mg/dL (9-20); Calcium 9.3 mg/dL (8.4-10.2); Carbon Dioxide 22 mmol/L (22-32); Chloride 100 mmol/L (98-107); Estimated Glomerular Filt Rate 33 mL/min (>60); Glucose 110 mg/dL (80-110); HEMOLYSIS < 15 (0-50); Sodium 129 mmol/L (137-145)
[2022-04-25] MEDS: SPIRONOLACTONE 25 MG TABLET PO (10:16)
[2022-04-25] MEDS: cephALEXin 250 MG CAPSULE PO ×3 (10:17→22:05)
[2022-04-25] MEDS: DOXAZOSIN 2 MG TABLET PO (10:17)
[2022-04-25] MEDS: COLESEVELAM 625 MG TABLET 1875 MG PO ×2 (11:45→17:57)
--- NOTE | 2022-04-25 15:44 | PM.PN.1 ---
Subjective Subjective Date Patient Seen: 04/25/22 Interval history: Mr. Albarado is a 86M with PMH CHFpEF, DM 2, HTN, afib, CKD stage 3 who presents to the hospital with leg swelling and short of breath. He has notes documenting that he has some cognitive issues. He states that he notes he has had wounds and swelling in his legs for two weeks. He began having weeping legs, and some mild erythema around ulcers. He denies missing any of his medications. He came in to the hospital with exertional shortness of breath. He has had worsening difficulty with ambulating. He has no chest pain. No fevers/chills. He has seen a hair designer, he does not remember the details of if there were discussions of dialysis. He has seen his basket turner recently, last month, who noted that he has had right heart cath in the past to help determine medical management, and whose note states the patient would right heart cath prior to adjust diuretics. At that time he weighed 96kg, and in the ED today he is weighed in the bed at 102kg. Exam Vital Signs (past 8 hours): - 04/25/22 09:17 04/25/22 12:00 Temperature 97.6 F Pulse Rate 78 Respiratory Rate 18 Blood Pressure 114/60 Pulse Oximetry 97 97 Oxygen Delivery Method Room Air Oxygen Flow Rate 0 Oxygen Delivery Method Room Air Oxygen Flow Rate 0 Narrative Exam Narrative: GEN: no acute distress, elderly male HEENT: moist mucous membranes, PERRL NECK: trachea midline, no JVD PULM: clear bilaterally, no wheezes, rhonchi, rales CV: irregular, no murmurs ABD: soft, nontender, nondistended, no organomegaly EXT: warm and well perfused, no edema with shallow ulcers, left leg with mild erythema above ankle which has improved, slight tenderness, has some blistering on legs with bloody fluid inside NEURO: awake, alert, oriented, no focal deficits Objective Labs 04/25/22 06:50 04/25/22 06:50 Labs: Laboratory Results - last 24 hr 04/25/22 04/25/22 04/25/22 06:50 06:50 06:50 WBC 8.1 RBC 3.13 L Hgb 9.6 L Hct 28.7 L MCV 91.5 MCH 30.7 MCHC 33.5 RDW 14.8 Plt Count 232 Neut % (Auto) 62.5 Lymph % (Auto) 18.9 L Guthrie % (Auto) 9.8 Eos % (Auto) 8.3 H Baso % (Auto) 0.5 Neut # (Auto) 5100 Lymph # (Auto) 1500 Guthrie # (Auto) 800 Eos # (Auto) 700 H Baso # (Auto) 0 APTT 31 D Sodium 129 L Potassium 4.0 Chloride 100 Carbon Dioxide 22 BUN 60 H Creatinine 1.96 H Estimated GFR 33 L BUN/Creatinine Ratio 30.6 H Glucose 110 Calcium 9.3 PFSH Medical History Anemia Asymptomatic microscopic hematuria BPH (benign prostatic hyperplasia) Chronic diastolic heart failure DM2 (diabetes mellitus, type 2) Hypertension Interstitial lung disease Permanent atrial fibrillation Stage 3b chronic kidney disease (CKD) Surgical History S/P AVR (aortic valve replacement) Family History Mother No pertinent past medical history Father No pertinent past medical history Social History (Reviewed 04/21/22 @ 20:11 by Carmelina Diaz [facility]) household members: spouse Smoking Status: Former smoker alcohol intake: current Assessment & Plan Assessment & Plan narrative: 1. Acute on chronic CHF exacerbation -noted on admission with fluid overload, elevated bnp, and weight 6kg higher than last office visit -ordered 80mg IV lasix BID on admission but not now -hold spironolactone initially and now that no longer on lasix, is on spironolactone 25 mg daily - ECHO shows ejection fraction of 60-65% - troponin was minimally elevated 2. YORDY on CKD stage 4 -suspect etiology is secondary to obstructive process -now status post mccoy placement, trending to towards baseline values -may also be secondarty to volume overload, initially treated with IV Lasix as above -patient not sure he would want dialysis -will need to watch creatinine daily, continue, trending downward consistently 3. Possible cellulitis -possible left leg cellulitis -no leukocytosis, fevers, or elevated procalcitonin -for now ordered keflex, plan for 5-7 days 4. Chronic atrial fibrillation -continue home medications with apixaban 5. HTN -hold spironolactone initially due to IV furosemide. Spironolactone has been reinitiated. 6. Hyponatremia. Likely secondary to furosemide diuresis. Continue to follow. Follow labs and clinically. CODE: DNR/DNI Proxy: Loreta Albarado, spouse Time Spent With Patient Critical Care time: I spent a total of [] minutes of critical care time on this patient's care today; this time is exclusive of procedural time. Quality VTE Deep Vein Thrombosis/Pulmonary Embolism Present on Admission: No
[2022-04-25] MEDS: RIVAROXABAN 10 MG TABLET 15 MG PO (17:59)
[2022-04-25] MEDS: ATORVASTATIN 20 MG TABLET 40 MG PO (21:55)
[2022-04-25] MEDS: LATANOPROST 0.005% OPHTH 2.5 ML 1 DROPS EYE-BOTH (21:59)
[2022-04-25] MEDS: ONDANSETRON 4 MG/2 ML INJ IV (22:32)
[2022-04-26] VITALS (10 sets, daily range): BP systolic 79–106; BP diastolic 47–64; PULSE 58–87; RESP 16–74; TEMP 36.2–36.8; O2SAT 93–96
--- NOTE | 2022-04-26 01:40 | DI.RAD.S_ITS ---
PROCEDURE: XR KUB INDICATIONS: abdominal pain TECHNIQUE: One view of the abdomen acquired. COMPARISON: [facility], CT, CT CHEST ABD PEL WO CON, 04/21/2022, 18:16. FINDINGS: Surgical changes and devices: Surgical clips are seen projecting over the pelvis. Sternotomy wires. Bowel: Large amount of stool is seen within the colon. Mildly dilated loops of small and large bowel are seen throughout the abdomen, which appear worse when compared to the CT from 04/21/2022. Soft tissues: No suspicious abdominal calcifications. Visualized solid organ contours appear normal in size. Bones: No suspicious bony lesions. IMPRESSION: Mildly dilated loops of bowel throughout the abdomen, possibly related to ileus. Mechanical bowel obstruction is considered less likely, but is not excluded. Large amount of stool is seen in the colon. There is no significant discrepancy when compared to the overnight preliminary report. Approved by: Alex Clifton M.D. on 04/26/2022 at 8:01
[2022-04-26] MEDS: METOCLOPRAMIDE 10 MG/2 ML INJ IV (02:04)
--- NOTE | 2022-04-26 02:32 | PC.NURSE ---
Patient is A & O x 4, c/o nausea, stated he had chicken for dinner and it was too spicy, small emesis. Zofran IV given at 2232. 0230: Patient continued to c/o nausea and had several emesis, very dark brown. Patient anxious, insisted that it was food poisoning and wanted to call 911. Patient denies abdominal pain. Abdomen distended, which patient states is his baseline.. Abdomen non-tender, bowel tones active x4Q. Two small BMs reported on day shift, one loose garrett and one watery. Guaiac of emesis positive for blood. AUGUST Lizama, notified of above and orders received. Metoclopromide given, KUB done. Patient calm and resting in bed.
[2022-04-26] MEDS: BISACODYL 10 MG SUPP PR (04:04)
[2022-04-26] MEDS: ONDANSETRON 4 MG/2 ML INJ IV (04:04)
[2022-04-26] MEDS: OXYCODONE IR 5 MG TABLET PO ×5 (05:29→21:55)
--- NOTE | 2022-04-26 06:14 | PC.NURSE ---
Patient's nausea improved after Metoclopramide and 2nd dose of Zofran, no further emesis. Suppository given, patient passed large amount of flatulence and small amount liquid brown stool. BP 89/47, MAP 59, HR 75. AUGUST Lizama notified, no new orders.
[2022-04-26] MEDS: SODIUM CHLORIDE 0.9% 1,000 ML 1000 ML IV (06:50)
[2022-04-26 07:21] LABS: Add Manual Diff / Slide Review NO; Basophils Absolute Auto 0 /uL (0-100); Basophils Percent Auto 0.2 % (0-2); Eosinophils Absolute Auto 200 /uL (0-450); Eosinophils Percent Auto 2.4 % (2-4); Hematocrit 27.7 % (41-53); Hemoglobin 9.3 g/dL (13.5-17.5); Lymphocytes Absolute Auto 800 /uL (1100-4500); Lymphocytes Percent Auto 8.8 % (25-40); Mean Corpuscular HGB Conc 33.8 % (30-36); Mean Corpuscular Volume 91.9 fL (80-100); Monocytes Absolute Auto 900 /uL (0-900); Monocytes Percent Auto 9.2 % (3-14); Neutrophils Absolute Auto 7600 /uL (1500-7000); Neutrophils Percent Auto 79.4 % (50-75); Platelet Count 215 X10^3/uL (150-400); Red Blood Cell Count 3.01 X10^6/uL (4.5-5.9); Red Cell Distribution Width 14.8 % (11.6-14.8); White Blood Cell Count 9.6 X10^3/uL (4.5-11.0)
[2022-04-26 07:32] LABS: Blood Urea Nitrogen 76 mg/dL (9-20); Carbon Dioxide 23 mmol/L (22-32); Chloride 98 mmol/L (98-107); Estimated Glomerular Filt Rate 24 mL/min (>60); Glucose 133 mg/dL (80-110); HEMOLYSIS < 15 (0-50); Potassium 4.4 mmol/L (3.4-5.1); Sodium 131 mmol/L (137-145)
--- NOTE | 2022-04-26 07:46 | PC.NURSE ---
BP 79/47, MAP 57, HR 74. AUGUST Lizama notified. NS 1000ml bolus hung and infusing.
[2022-04-26] MEDS: polyethylene glycoL 3350 17 GM POWD.PACK PO (09:52)
[2022-04-26] MEDS: COLESEVELAM 625 MG TABLET 1875 MG PO ×2 (09:52→17:18)
[2022-04-26] MEDS: cephALEXin 250 MG CAPSULE PO ×3 (10:00→21:54)
--- NOTE | 2022-04-26 10:29 | OT.IP.EVAL ---
Current Diagnoses Heart failure, unspecified (04/21/22) Past Medical History (Last Reviewed 04/22/22 @ 01:14 by Marco Paz MD) Anemia Asymptomatic microscopic hematuria BPH (benign prostatic hyperplasia) Chronic diastolic heart failure DM2 (diabetes mellitus, type 2) Hypertension Interstitial lung disease Permanent atrial fibrillation Stage 3b chronic kidney disease (CKD) Surgical History (Last Reviewed 04/22/22 @ 01:14 by Marco Paz MD) S/P AVR (aortic valve replacement) Occupational Therapy Inpatient Evaluation/Re-Eval M1 PT/OT-IP Prior Functional Status Start: 04/22/22 14:48 Freq: NEEDED Status: Active Protocol: Document 04/26/22 10:29 [facility] (Rec: 04/26/22 13:04 [facility] [id number]) Medical Review Prior Functional Status Medical History Reviewed Yes Communication able to make needs known Mobility and Gait pt stated that he is modified independent with ambulation using 4WW indoors but also uses a manual w/c for mobility ; stated that he uses a FWW from the house to the car Activities of Daily Living and IADL's Pt states initially that he can care for himself with ADl needs and then states that his has been assisting him for ADL's in addition to IADL needs. Social History Household Members spouse Living Arrangements House Number of Floors (Floors) One Floor Number of Stairs To Enter/Railing? no steps to enter Home Environment High Toilet,Walk in Shower, Built-In Shower Seat Home Equipment Front Wheel Walker,Four Wheel Walker,Manual Wheelchair,Hand Held Shower,Grab Bars Near Toilet,Grab Bars In Shower Additional Social History Comment pt stated that he sleeps on a recliner M2 OT-IP Current Condition Start: 04/26/22 12:46 Freq: Status: Active Protocol: Document 04/26/22 10:29 [facility] (Rec: 04/26/22 13:04 [facility] [id number]) Occupational Therapy Current Condition Current Condition Evaluation Date 04/26/22 Treatment Diagnosis LLE cellulitis, LLE DVT Diagnosis Onset Date 04/21/22 M3 OT- IP Subjective and Pain Start: 04/26/22 12:46 Freq: Status: Active Protocol: Document 04/26/22 10:29 [facility] (Rec: 04/26/22 13:04 [facility] [id number]) OT- Subjective Occupational Therapy Visit Type Type Initial Evaluation Visit Start Time 10:29 Visit Stop Time 11:08 Total Visit Minutes 39 Occupational Therapy Visit Comments Patient Comments Pt needing encouragement initially and then agreed to get up. Patient/Caregiver Goals TO go home. OT Pain Assessment Pain When Pain Assessed During Mobility Pain Present Pain Present Pain Reported M4 OT- IP ADL's Start: 04/26/22 12:46 Freq: Status: Active Protocol: Document 04/26/22 10:29 [facility] (Rec: 04/26/22 13:04 [facility] [id number]) OT [id number] Comments OT Self-Feeding Comments Not at meal time. OT ADL-Grooming Comments OT Grooming Comments Pt able to wash his face after set-up. OT ADL-Oral Care Comments Oral Care Comments NOt performed. OT ADL-Dressing General Eval Lower Body Dressing Ability Maximum Assistance Comments OT Dressing Comments Assist to help van the brief over his feet and up over his hips. Pt also has Wallace in place. OT ADL-Toileting General Evaluation Toileting Ability Total Assistance Comments OT Toileting Comments Wallace in place and dependent for brief change and hygiene needs after a bowel movement. OT ADL-Bathing Comments OT Bathing Comments Sponge bath more appropriate at this time. Pt states sponges off at home. Pt able to sponge his arms and needing assist to get under his armpits due to decreased AROM and weakness for BUE. M5 OT- IP IADL's Start: 04/26/22 12:46 Freq: Status: Active Protocol: Document 04/26/22 10:29 [facility] (Rec: 04/26/22 13:04 [facility] [id number]) OT-Instrumental Activities of Daily Living Deficits IADL Deficits Identified Deficits Home Safety Awareness Awareness of Need for Assistance at Home Decreased Awareness Ability to Problem Solve Emergency Able to Problem Solve Situations Medication Management Medication Management Caregiver Administers Money Management Money Management Caregiver Provides Assistance Meal Preparation Meal Preparation Caregiver Provides Assist Drug Purchaser Drug Purchaser Caregiver Provides Assist M6 OT- IP Functional Cognition Start: 04/26/22 12:46 Freq: Status: Active Protocol: Document 04/26/22 10:29 [facility] (Rec: 04/26/22 13:04 [facility] [id number]) Cognitive Factors Limiting Selfcare Function Cognitive Ability Level of Alertness Alert Patient Orientation Name Attention Span Ability Capable of Focused Attention, Capable of Sustained Attention Ability to Follow Commands Able to Follow One Step Commands with Increased Time, Able to Follow One Step Commands with Repetition Memory Description Short Term Impaired Cognitive Comments Cognitive Assessment Comments Pt needing step by step commands to follow for ADl and mobility needs. OT- Vision and Hearing OT- Hearing Assessment OT- Hearing Assessment WFL OT- Vision Assessment Visual Acuity Glasses For Reading Visual Attentiveness WFL Occular Pursuits WFL M7 OT- IP Mobility and Balance Start: 04/26/22 12:46 Freq: Status: Active Protocol: Document 04/26/22 10:29 [facility] (Rec: 04/26/22 13:04 [facility] [id number]) OT- Bed Mobility Assessment Supine to Sit Supine to Sit Assist Maximum Assistance,2 Person Assistance Sit to Supine Sit to Supine Assist Maximum Assistance,2 Person Assistance OT-Transfer Assessment Sit to and From Stand Sit to and from Stand Maximum Assistance,2 Person Assistance Comments Mobility Comments Pt sleep in his recliner at home and needing MAX AX 2 to get to the edge of the bed, assist to help move his trunk and legs. MAX AX 2 to stand to FWW. Pt able to stand long enough for the nurse to switch the bed to BSC. Pt able to take small side steps with cues and encouragement to push on the FWw with his BUE so able to move his legs. MAX AX 1with FWW. Pt not wanting to do anymore at this time. Pt's BP 95/55 supine, sitting 93/ 39 and 97/51, after standing and then sitting on the BSC 67 /36- nursing present and after getting back to bed 87/46. OT- Balance Assessment Sitting Balance and Reactions Static Sitting Balance Ability Fair Dynamic Sitting Balance Ability Poor Standing Balance and Reactions Static Standing Balance Ability Poor Dynamic Standing Balance Ability Poor M8 OT- IP Objective Assessments Start: 04/26/22 12:46 Freq: Status: Active Protocol: Document 04/26/22 10:29 [facility] (Rec: 04/26/22 13:04 [facility] [id number]) OT Gross Range of Motion Upper Extremity Range of Motion Assessment Bilaterally Impaired OT Strength Upper Extremity Strength Assessment Bilaterally Impaired Shoulder 3-/5 Elbow 4/5 Forearm 4/5 Wrist 4-/5 Hand 4-/5 OT Sensation Assessment Comments Summary Comments INtact for light touch M9 OT- IP Assessment and Plan Start: 04/26/22 12:46 Freq: Status: Active Protocol: Document 04/26/22 10:29 [facility] (Rec: 04/26/22 13:04 [facility] [id number]) OT Summary Assessment and Plan Potential Rehabilitation Potential Good Analytic Complexity at Evaluation Moderate Summary OT Impairments Pain,Range of Motion,Strength, Balance,Functional Cognition, Functional Mobility,Self- Feeding,Grooming,Dressing, Toileting,Bathing,Toilet Transfers,Shower Transfers, Activity Tolerance Progress Towards Goals Slow Progress due to Pain,Slow Progress due to Medical Issues,Slow Progress due to Activity Tolerance,Slow Progress due to Cognition Assessment Summary Pt MOD complexity and main barriers are decreased activity tolerance, balance, pain and now needing extensive two person assist for mobility and ADL needs. pt will benefit from skilled rehab prior to going home. Pt' s current level too great for his to assist. Goals Grooming Goal Independent Dressing Goal Minimal Assistance Toileting Goal Moderate Assistance Bathing Goal Moderate Assistance Toilet Transfer Goal Minimal Assistance Days to Meet Goals 30 Frequency of Treatment Frequency Of Treatment Once a Day Treatment Plan OT Treatment Plan ADL Training,Functional Cognition Training,Functional Mobility,Patient/Family Education,Discharge Planning Other Treatment Recommendations and Next Transfer to [facility] with MAX x2 Treatment Focus with FWW. Discharge Recommendations OT Discharge Recommendations SNF Rehab Transportation Needs at Discharge Wheelchair/Cabulance
--- NOTE | 2022-04-26 11:04 | PT.IPTN ---
Current Diagnoses Heart failure, unspecified (04/21/22) Physical Therapy Treatment Note M2 PT-IP Current Condition Start: 04/22/22 14:48 Freq: NEEDED Status: Active Protocol: Document 04/24/22 11:05 AB (Rec: 04/24/22 11:59 AB [id number]) Physical Therapy Current Condition Current Condition Evaluation Date 04/24/22 Treatment Diagnosis LLE cellulitis; LLE DVT; difficulty in walking Onset Date 04/21/22 M3 PT-IP Subjective Start: 04/22/22 14:48 Freq: NEEDED Status: Active Protocol: Document 04/26/22 11:04 AW (Rec: 04/26/22 12:49 AW [id number]) Subjective Physical Therapy Visit Type Type Treatment Note Visit Start Time 10:29 Visit Stop Time 11:04 Total Visit Minutes 35 Notes Co-tx with OT due to pt's need for high level mobility assist Number of MARKET SURVEY REPRESENTATIVE Visits 0 Physical Therapy Visit Comments Patient Comments Pt is on the fence about going home vs SNF. Encouraged pt to participate to better gauge his abilities. Therapy Pain Assessment Pain When Pain Assessed At Rest Pain Present Pain Present Pain Reported Location Bilateral Leg Scale Used not quantified Pain Management Techniques Distraction,Modification of Treatment,Re-positioning, Timing of Activity with Medications M4 PT-IP Mobility and Gait Start: 04/22/22 14:48 Freq: NEEDED Status: Active Protocol: Document 04/26/22 11:04 AW (Rec: 04/26/22 12:49 AW [id number]) PT-Bed Mobility Assessment Supine to Sit Supine to Sit Maximum Assistance,2 Person Assistance,Head of Bed Elevated,Bedrails Sit to Supine Sit to Supine Maximum Assistance,2 Person Assistance,Head of Bed Elevated,Bedrails Scooting Scooting to Edge of Bed Maximum Assistance PT-Transfer Assessment Sit to and From Stand Sit to and from Stand Maximum Assistance,2 Person Assistance,Use of Upper Extremities Equipment Transfer Assistive Device Gait Belt,Front Wheeled Walker Transfers Transfer Destination Bed,Bedside Commode Transfer Technique sit <> stand Transfer Ability Level of Assist Maximum Assistance,1 Person Assistance,Use of Upper Extremities Comments Mobility Comments Pt was lying in bed as PT and OT arrived. BP 95/55 HR 78. He initially stated he could not move his legs at all but agreed to attempt sitting up EOB. He needed assist to begin moving his legs toward the left side of the bed and ultimately needed max A x 2 to complete supine to sit transfer. In sitting, he attempted to assist with scooting forward but expressed fear of falling which may have limited his participation . PT and OT were able to help him shift weight side to side to move his legs forward. He sat min A initially and then was able to support himself with BUE on the bed. Sitting BP was 93/39 HR 82. Checked a few minutes later and BP was 97/51 HR 82. Pt sat several minutes and then agreed to attempt to stand. Pt needed max A x 2 and both therapists blocked pt's feet to avoid sliding. In standing with FWW, pt able to stand ~2 minutes with 1PA as briefs were pulled up and bed linens were changed. Pt sat EOB and stated he may need to have a bowel movement. He stood max A x 2 and attempted to move his feet but was unable to do more than pivot both feet with minimal movement. He refused transfer to the commode but stated he was actively having a bowel movement. RN was in the room and able to move the bed and push the BSC into position behind pt. Pt sat on the commode. After several minutes, BP was assessed 67/35 . Pt stated he was feeling slightly lightheaded. Assisted pt to stand max A x 2 with FWW as RN rearranged with bed behind pt again. He was able to take small steps backward toward the bed before sitting. He reached back to the mattress with his hands and sat with good control. He needed max A x 2 to return to supine. He was able to effectively bridge his hips x 4 to reposition on the bed but needed help to move his legs side to side. He was left with OT for further assessment. Gait Assessment Comments Gait Comments Unable at this time. PT-Balance Assessment Sitting Balance and Reactions Static Sitting Balance Ability Fair Dynamic Sitting Balance Ability Fair Standing Balance and Reactions Static Standing Balance Ability Poor Dynamic Standing Balance Ability Poor Device Used FWW M5 PT-IP Objective Assessments Start: 04/22/22 14:48 Freq: NEEDED Status: Active Protocol: Document 04/24/22 11:05 AB (Rec: 04/24/22 11:59 AB [id number]) Orientation Orientation/Cognition Level of Alertness Alert Orientation Name,Place,Situation Language Function Ability Hard of Hearing Safety Awareness Decreased Safety Awareness Memory Description Short Term Impaired Gross Range of Motion Lower Extremity ROM Impairments increase guarding during movement with c/o pain limiting ROM Strength Lower Extremity Strength Assessment Bilaterally Impaired Hip 3-/5 Knee 3+/5 Muscle Tone Muscle Tone WNL Yes M6 PT-IP Treatment Start: 04/22/22 14:48 Freq: NEEDED Status: Active Protocol: Document 04/26/22 11:04 AW (Rec: 04/26/22 12:49 AW [id number]) Physical Therapy Treatment Education Education Provided Safety Other Treatments Other Treatment Performed Educated pt on level of assist currently required for mobility and on recommendation for SNF rehab. Pt understood and agreed. M7 PT-IP Assessment and Plan Start: 04/22/22 14:48 Freq: NEEDED Status: Active Protocol: Document 04/26/22 11:04 AW (Rec: 04/26/22 12:49 AW [id number]) PT Summary Assessment and Plan Potential Rehabilitation Potential Fair Status of Condition at Evaluation Evolving Summary Impairments Pain,ROM,Strength,Balance, Coordination,Sensation,Tone, Cognition,Bed Mobility, Transfers,Gait,Activity Tolerance Assessment Summary Pt continues to require max assist x 2 for bed mobility and sit to stand. He is unable to transfer. He lacks the strength to elevate his LE's during gait attempts and resorts to pivoting on his feet to achieve minimal movement. Pt will require SNF rehab to improve his functional mobility. Goals Bed Mobility Goal Minimal Assistance Transfer Goal Minimal Assistance,Front Wheeled Walker Gait Goal Minimal Assistance,Front Wheel Walker Gait Distance 25 Other Goals improve bed mobility, transfers, ambulation using FWW 50 ft SBA Days to Meet Goals 10 Frequency of Treatment Frequency Of Treatment Once a Day Treatment Plan Physical Therapy Treatment Plan Bed Mobility Training,Transfer Training,Gait Training, Therapeutic Exercise,Balance Retraining,Discharge Planning, Hot or Cold Pack,Neuromuscular Re-ed,Coordination Retraining ,Manual Therapy Precautions Other Precautions falls, LE wounds Recommendations To Nursing Amount of Assist Needed Mechanical Lift Discharge Recommendations PT Discharge Recommendations SNF Rehab Transportation Needs at Discharge Wheelchair/Cabulance,Stretcher /Ambulance
[2022-04-26] MEDS: SODIUM CHLORIDE 0.9% 500 ML 1000 ML IV (12:06)
--- NOTE | 2022-04-26 12:49 | PM.PN.1 ---
Subjective Subjective Date Patient Seen: 04/26/22 Interval history: Mr. Albarado is a 86M with H CHFpEF, DM 2, HTN, afib, CKD stage 3 who presents to the hospital with leg swelling and short of breath. He has notes documenting that he has some cognitive issues. He states that he notes he has had wounds and swelling in his legs for two weeks. He began having weeping legs, and some mild erythema around ulcers. He denies missing any of his medications. He came in to the hospital with exertional shortness of breath. He has had worsening difficulty with ambulating. He has no chest pain. No fevers/chills. He has seen a analyst sales, he does not remember the details of if there were discussions of dialysis. He has seen his counter sales representative recently, last month, who noted that he has had right heart cath in the past to help determine medical management, and whose note states the patient would right heart cath prior to adjust diuretics. At that time he weighed 96kg, and in the ED today he is weighed in the bed at 102kg. Today patient had episode of low BP and had fluid bolus early in AM and then up with PT and minimal walking and also had BP systolic less than 90, so a second bolus of 500 ml NS given. No new complaints from the patient himself. Exam Vital Signs (past 8 hours): - 04/26/22 06:41 04/26/22 07:00 04/26/22 12:10 Temperature 97.5 F L 97.8 F Pulse Rate 72 87 Respiratory Rate 74 H 16 22 Blood Pressure 79/47 L 89/47 L 89/55 L Pulse Oximetry 95 93 Oxygen Delivery Method Oxygen Flow Rate 0 04/26/22 09:00 04/26/22 08:00 Temperature Pulse Rate Respiratory Rate Blood Pressure Pulse Oximetry 96 Oxygen Delivery Method Room Air Room Air Oxygen Flow Rate 0 Oxygen Delivery Method Room Air Oxygen Flow Rate 0 Narrative Exam Narrative: GEN: no acute distress, elderly male HEENT: moist mucous membranes, PERRL NECK: trachea midline, no JVD PULM: clear bilaterally, no wheezes, rhonchi, rales CV: irregular, no murmurs ABD: soft, nontender, nondistended, no organomegaly EXT: warm and well perfused, no edema with shallow ulcers, left leg with mild erythema above ankle which has improved, slight tenderness, has some blistering on legs with bloody fluid inside which has been drained and covered with dressing NEURO: awake, alert, oriented, no focal deficits Objective Labs 04/26/22 06:37 04/26/22 06:37 Labs: Laboratory Results - last 24 hr 04/26/22 04/26/22 06:37 06:37 WBC 9.6 RBC 3.01 L Hgb 9.3 L Hct 27.7 L MCV 91.9 MCH 31.0 MCHC 33.8 RDW 14.8 Plt Count 215 Neut % (Auto) 79.4 H Lymph % (Auto) 8.8 L [place] % (Auto) 9.2 Eos % (Auto) 2.4 Baso % (Auto) 0.2 Neut # (Auto) 7600 H Lymph # (Auto) 800 L [place] # (Auto) 900 Eos # (Auto) 200 Baso # (Auto) 0 Sodium 131 L Potassium 4.4 Chloride 98 Carbon Dioxide 23 BUN 76 H Creatinine 2.53 H Estimated GFR 24 L BUN/Creatinine Ratio 30.0 H Glucose 133 H Calcium 9.0 PFSH Medical History Anemia Asymptomatic microscopic hematuria BPH (benign prostatic hyperplasia) Chronic diastolic heart failure DM2 (diabetes mellitus, type 2) Hypertension Interstitial lung disease Permanent atrial fibrillation Stage 3b chronic kidney disease (CKD) Surgical History S/P AVR (aortic valve replacement) Family History Mother No pertinent past medical history Father No pertinent past medical history Social History household members: spouse Smoking Status: Former smoker alcohol intake: current Assessment & Plan Assessment & Plan narrative: 1. Acute on chronic CHF exacerbation -noted on admission with fluid overload, elevated bnp, and weight 6kg higher than last office visit, will follow BNP tomorrow -ordered 80mg IV lasix BID on admission but not now -hold spironolactone initially and now that no longer on lasix, is on spironolactone 25 mg daily - ECHO shows ejection fraction of 60-65% - troponin was minimally elevated 2. YORDY on CKD stage 4 -suspect etiology is secondary to obstructive process -now status post mccoy placement, trending to towards baseline values, however today creatinine increased, follow. -may also be secondarty to volume overload, initially treated with IV Lasix as above -patient not sure he would want dialysis -will need to watch creatinine daily, continue 3. Possible cellulitis -possible left leg cellulitis -no leukocytosis, fevers, or elevated procalcitonin -for now ordered keflex, plan for 5-7 days 4. Chronic atrial fibrillation -continue home medications with apixaban 5. HTN -hold spironolactone initially due to IV furosemide.? Spironolactone has been reinitiated. 6. Hyponatremia.? Likely secondary to furosemide diuresis.? Appears to be stablizing low 130's. Continue to follow. Follow labs and clinically. CODE: DNR/DNI Proxy: Loreta Albarado, spouse Time Spent With Patient Critical Care time: I spent a total of [] minutes of critical care time on this patient's care today; this time is exclusive of procedural time. Quality VTE Deep Vein Thrombosis/Pulmonary Embolism Present on Admission: No
--- NOTE | 2022-04-26 13:25 | CM.DPC ---
Addendum entered by ESTUARDO Lehman 04/26/22 14:18: ADD: SW met bedside with pt again to discuss d/c planning of likely SNF and inquired if pt had spoken to his spouse about it while on the phone earlier like he said he was planning to do, and pt states no I didn't talk to her about d/c plans. SW inquired if spouse could be called again now and SW could answer any questions and pt states she won't be home until tonight and does not have a cell phone with her. SW discussed the importance of making SNF referrals to secure a bed and also best attempts at getting his SNF preference otherwise he could be left with a SNF that isn't his preference. SW discussed need of plan A and B since pt is currently max 2PA and ginny and aware his preference is home but he has already been in the hospital for 5 nights and likely getting close to being discharged. Pt acknowledged understanding and states he will talk with his tomorrow towards providing his SNF preference in the AM. SW discussed need to make some SNF referrals today to [facility]Fs to determine bed availability and can update him in the morning if any can accept so he can make his preference at that time or discuss additional SNF referrals. Pt acknowledges understanding. SW made initial SNF referrals to [facility], [facility] to start with. BF Original Note: DCP SNF Planning: Per MD, pt was nauseous and taken for xray and determined he was constipated and has now had a bm but continues with some nausea and will have PT attempt to work with him again today as there was no PT or OT available yesterday Sun. Per PT/OT, pt needed max 2PA for bed mobility and to stand and was unable to ambulate but had to pivot to BSC. Ginny and SNF recommended. SW attempted to meet bedside with pt who had spouse on speaker phone providing her an update and SW inquired if d/c discussion could happen now with spouse on phone and pt requested SW come back after he has a chance to update his spouse. SW updated RN and will return shortly to discuss SNF. ESTUARDO Lehman
[2022-04-26] MEDS: MINERAL OIL 1 EACH ENEMA PR (16:30)
[2022-04-26] MEDS: RIVAROXABAN 10 MG TABLET 15 MG PO (17:17)
[2022-04-26] MEDS: ATORVASTATIN 20 MG TABLET 40 MG PO (21:55)
[2022-04-26] MEDS: SENNOSIDES 8.6 MG TABLET PO (21:56)
[2022-04-26] MEDS: LATANOPROST 0.005% OPHTH 2.5 ML 1 DROPS EYE-BOTH (21:57)
[2022-04-27] VITALS (10 sets, daily range): BP systolic 87–111; BP diastolic 50–60; PULSE 74–91; RESP 15–19; TEMP 36.3–37; O2SAT 94–98
[2022-04-27 05:02] LABS: Add Manual Diff / Slide Review NO; Basophils Absolute Auto 0 /uL (0-100); Basophils Percent Auto 0.2 % (0-2); Eosinophils Absolute Auto 500 /uL (0-450); Eosinophils Percent Auto 4.9 % (2-4); Hematocrit 26.7 % (41-53); Lymphocytes Absolute Auto 800 /uL (1100-4500); Lymphocytes Percent Auto 8.9 % (25-40); Mean Corpuscular HGB Conc 33.8 % (30-36); Mean Corpuscular Hemoglobin 31.3 PG (26-34); Mean Corpuscular Volume 92.6 fL (80-100); Monocytes Absolute Auto 1000 /uL (0-900); Monocytes Percent Auto 10.3 % (3-14); Neutrophils Absolute Auto 7200 /uL (1500-7000); Neutrophils Percent Auto 75.7 % (50-75); Platelet Count 209 X10^3/uL (150-400); Red Blood Cell Count 2.88 X10^6/uL (4.5-5.9); Red Cell Distribution Width 14.7 % (11.6-14.8); White Blood Cell Count 9.6 X10^3/uL (4.5-11.0)
[2022-04-27 05:03] LABS: Alanine Aminotransferase 26 IU/L (<50); Albumin 3.1 g/dL (3.5-5.0); Alkaline Phosphatase 42 U/L (38-126); Aspartate Aminotransferase 45 IU/L (17-59); BUN Creatinine Ratio 29.7 (6-22); Bilirubin Total 0.7 mg/dL (0.2-1.3); Blood Urea Nitrogen 78 mg/dL (9-20); Calcium 8.9 mg/dL (8.4-10.2); Carbon Dioxide 24 mmol/L (22-32); Chloride 100 mmol/L (98-107); Estimated Glomerular Filt Rate 23 mL/min (>60); Globulin 3.2 g/dL (1.7-4.1); Glucose 115 mg/dL (80-110); HEMOLYSIS < 15 (0-50); Potassium 4.3 mmol/L (3.4-5.1); Sodium 131 mmol/L (137-145); Total Protein 6.3 g/dL (6.3-8.2)
[2022-04-27 05:09] LABS: NT-proBNP (BNP-Adult 18+) 3430 pg/mL (<450)
[2022-04-27] MEDS: ACETAMINOPHEN 325 MG TABLET 650 MG PO ×2 (07:12→20:48)
[2022-04-27] MEDS: OXYCODONE IR 5 MG TABLET PO ×4 (07:12→20:48)
[2022-04-27] MEDS: BISACODYL 10 MG SUPP PR (09:36)
[2022-04-27] MEDS: cephALEXin 250 MG CAPSULE PO (09:36)
[2022-04-27] MEDS: COLESEVELAM 625 MG TABLET 1875 MG PO ×2 (09:36→18:12)
[2022-04-27] MEDS: polyethylene glycoL 3350 17 GM POWD.PACK PO (09:36)
--- NOTE | 2022-04-27 11:20 | PM.PN.1 ---
Subjective Subjective Date Patient Seen: 04/27/22 Interval history: Mr. Albarado is a 86M with H CHFpEF, DM 2, HTN, afib, CKD stage 3 who presents to the hospital with leg swelling and short of breath. He has notes documenting that he has some cognitive issues. He states that he notes he has had wounds and swelling in his legs for two weeks. He began having weeping legs, and some mild erythema around ulcers. He denies missing any of his medications. He came in to the hospital with exertional shortness of breath. He has had worsening difficulty with ambulating. He has no chest pain. No fevers/chills. He has seen a body straightener, he does not remember the details of if there were discussions of dialysis. He has seen his supervisor pleating recently, last month, who noted that he has had right heart cath in the past to help determine medical management, and whose note states the patient would right heart cath prior to adjust diuretics. At that time he weighed 96kg, and in the ED today he is weighed in the bed at 102kg. Current weight is 98kg, which is still a little high for patient. Generally feel fine but still has catheter. Discussed with patient will remove and do a trial of void. no SOB and off O2. Exam Vital Signs (past 8 hours): - 04/27/22 05:00 04/27/22 06:00 04/27/22 07:42 Temperature 97.4 F L Pulse Rate 80 Respiratory Rate 16 Blood Pressure 95/55 L 87/50 L Pulse Oximetry 96 95 Oxygen Delivery Method Room Air Oxygen Flow Rate 0 04/27/22 07:42 04/27/22 09:00 Temperature Pulse Rate 74 Respiratory Rate Blood Pressure 100/51 L 93/58 L Pulse Oximetry Oxygen Delivery Method Oxygen Flow Rate Oxygen Delivery Method Room Air Oxygen Flow Rate 0 Narrative Exam Narrative: GEN: no acute distress, elderly male HEENT: moist mucous membranes, PERRL NECK: trachea midline, no JVD PULM: clear bilaterally, no wheezes, rhonchi, rales CV: irregular, no murmurs ABD: soft, nontender, nondistended, no organomegaly EXT: warm and well perfused, no edema with shallow ulcers, left leg with no erythema above ankle, minimal tenderness, had some blistering on legs with bloody fluid inside which has been drained and covered with dressing NEURO: awake, alert, oriented, no focal deficits BASS: draining well, will do a trial of void, not on home Bass Objective Labs 04/27/22 04:15 04/27/22 04:15 Labs: Laboratory Results - last 24 hr 04/27/22 04/27/22 04:15 04:15 WBC 9.6 RBC 2.88 L Hgb 9.0 L Hct 26.7 L MCV 92.6 MCH 31.3 MCHC 33.8 RDW 14.7 Plt Count 209 Neut % (Auto) 75.7 H Lymph % (Auto) 8.9 L [place] % (Auto) 10.3 Eos % (Auto) 4.9 H Baso % (Auto) 0.2 Neut # (Auto) 7200 H Lymph # (Auto) 800 L [place] # (Auto) 1000 H Eos # (Auto) 500 H Baso # (Auto) 0 Sodium 131 L Potassium 4.3 Chloride 100 Carbon Dioxide 24 BUN 78 H Creatinine 2.63 H Estimated GFR 23 L BUN/Creatinine Ratio 29.7 H Glucose 115 H Calcium 8.9 Total Bilirubin 0.7 AST 45 ALT 26 Alkaline Phosphatase 42 NT-Pro-B Natriuret Pep 3430 H Total Protein 6.3 Albumin 3.1 L Globulin 3.2 Albumin/Globulin Ratio 1.0 PFSH Medical History Anemia Asymptomatic microscopic hematuria BPH (benign prostatic hyperplasia) Chronic diastolic heart failure DM2 (diabetes mellitus, type 2) Hypertension Interstitial lung disease Permanent atrial fibrillation Stage 3b chronic kidney disease (CKD) Surgical History S/P AVR (aortic valve replacement) Family History Mother No pertinent past medical history Father No pertinent past medical history Social History household members: spouse Smoking Status: Former smoker alcohol intake: current Assessment & Plan Assessment & Plan narrative: 1. Acute on chronic CHF exacerbation -noted on admission with fluid overload, elevated bnp, and weight 6kg higher than last office visit, will follow BNP tomorrow, has lost 4 kg fluid in hospital per today's weight -ordered 80mg IV lasix BID initally on admission, now only on sprionalactone 25 mg daily, will add torsemide 10 mg daily -held spironolactone initially and now that no longer on lasix, is on spironolactone 25 mg daily - ECHO shows ejection fraction of 60-65% - troponin was minimally elevated 2. YORDY on CKD stage 4 -suspect etiology is secondary to obstructive process -now status post bass placement, trending to towards baseline values, however yesterday creatinine increased, today similar value at 2.63, query new baseline? -may also be secondary to volume overload, initially treated with IV Lasix as above -patient not sure he would want dialysis -will need to watch creatinine daily, continue 3. Possible cellulitis -possible left leg cellulitis -no leukocytosis, fevers, or elevated procalcitonin -for now ordered keflex, plan for 5-7 days 4. Chronic atrial fibrillation -was on apixaban at home, this was switch to rivaroxaban due to findings of vascular US of left leg 5. HTN -hold spironolactone initially due to IV furosemide.? Spironolactone has been reinitiated. Starting low dose torsemide tomorrow to help BNP 6. Hyponatremia.? Likely secondary to furosemide diuresis.? Appears to be stablizing low 130's. Continue to follow. Expect ready for SNF to improve mobility in next 1-2 days. Time Spent With Patient Critical Care time: I spent a total of [] minutes of critical care time on this patient's care today; this time is exclusive of procedural time. Quality VTE Deep Vein Thrombosis/Pulmonary Embolism Present on Admission: No
--- NOTE | 2022-04-27 12:14 | OT.IP.TRT ---
Current Diagnoses Heart failure, unspecified (04/21/22) Occupational Therapy Treatment Note M2 OT-IP Current Condition Start: 04/26/22 12:46 Freq: Status: Active Protocol: Document 04/26/22 10:29 [facility] (Rec: 04/26/22 13:04 [facility] [id number]) Occupational Therapy Current Condition Current Condition Evaluation Date 04/26/22 Treatment Diagnosis LLE cellulitis, LLE DVT Diagnosis Onset Date 04/21/22 M3 OT- IP Subjective and Pain Start: 04/26/22 12:46 Freq: Status: Active Protocol: Document 04/27/22 11:38 [facility] (Rec: 04/27/22 12:39 [facility] [id number]) OT- Subjective Occupational Therapy Visit Type Type Treatment Note Visit Start Time 11:38 Visit Stop Time 12:14 Total Visit Minutes 36 Occupational Therapy Visit Comments Patient Comments Pt agreed to get up. Nursing aid and nurse in to assist as pt needing a bandage change on his leg and form bandage on a rare spot on his back. Patient/Caregiver Goals To get better. OT Pain Assessment Pain When Pain Assessed During Mobility Pain Present Pain Present Pain Reported Location Bilateral Leg Intensity 8 Scale Used Numeric (0 - 10) M4 OT- IP ADL's Start: 04/26/22 12:46 Freq: Status: Active Protocol: Document 04/27/22 11:38 [facility] (Rec: 04/27/22 12:39 [facility] [id number]) OT [id number] Comments OT Self-Feeding Comments Not at meal time. OT ADL-Grooming Comments OT Grooming Comments Pt refusing at this time. OT ADL-Oral Care Comments Oral Care Comments Pt refusing at this time. OT ADL-Dressing General Eval Lower Body Dressing Ability Maximum Assistance Comments OT Dressing Comments MAXAto total assist for LB dressing needs at this time. OT ADL-Toileting General Evaluation Toileting Ability Total Assistance Comments OT Toileting Comments MAXA x2 to stand to the FWW while nursing aid assist with brief and hygiene needs. OT ADL-Bathing General Evaluation Bathing Ability Total Assistance Areas Needing Assistance Wash/Dry Back Comments OT Bathing Comments Able to assist to help sponge pt's back off. M5 OT- IP IADL's Start: 04/26/22 12:46 Freq: Status: Active Protocol: Document 04/26/22 10:29 [facility] (Rec: 04/26/22 13:04 [facility] [id number]) OT-Instrumental Activities of Daily Living Deficits IADL Deficits Identified Deficits Home Safety Awareness Awareness of Need for Assistance at Home Decreased Awareness Ability to Problem Solve Emergency Able to Problem Solve Situations Medication Management Medication Management Caregiver Administers Money Management Money Management Caregiver Provides Assistance Meal Preparation Meal Preparation Caregiver Provides Assist Weekday Babysitter Weekday Babysitter Caregiver Provides Assist M6 OT- IP Functional Cognition Start: 04/26/22 12:46 Freq: Status: Active Protocol: Document 04/27/22 11:38 [facility] (Rec: 04/27/22 12:39 [facility] [id number]) Cognitive Factors Limiting Selfcare Function Cognitive Ability Level of Alertness Alert Patient Orientation Name Attention Span Ability Capable of Focused Attention, Capable of Sustained Attention Ability to Follow Commands Able to Follow One Step Commands Memory Description Short Term Impaired Cognitive Comments Cognitive Assessment Comments Pt able to follow commands better for bed mobility and transfer needs today. M7 OT- IP Mobility and Balance Start: 04/26/22 12:46 Freq: Status: Active Protocol: Document 04/27/22 11:38 [facility] (Rec: 04/27/22 12:39 [facility] [id number]) OT- Bed Mobility Assessment Supine to Sit Supine to Sit Assist Maximum Assistance,2 Person Assistance,Head of Bed Elevated OT-Transfer Assessment Sit to and From Stand Sit to and from Stand Maximum Assistance,Total Assistance,2 Person Assistance Transfers Transfer Ability Maximum Assistance,2 Person Assistance Technique Transfer Destination Bed,Chair Comments Mobility Comments MAXA X2 to stand from the high bed and from lower surfaces would be best to have three person assist. Also to make sure his gown in underneath the gait belt or place pillow case under the gait belt as needed as pt's skin is very fragile. At this time due to his fragile skin , best to not use the art lift and have 2 -3 person assist to stand pt to the FWW. Pt able to shuffle and vegetable picker his feet a little for the transfer from the bed to recliner. OT- Gait Assessment Comments Gait Ability Comments Transfer only. OT- Balance Assessment Sitting Balance and Reactions Static Sitting Balance Ability Good Dynamic Sitting Balance Ability Fair Standing Balance and Reactions Static Standing Balance Ability Poor Dynamic Standing Balance Ability Poor M8 OT- IP Objective Assessments Start: 04/26/22 12:46 Freq: Status: Active Protocol: Document 04/26/22 10:29 [facility] (Rec: 04/26/22 13:04 [facility] [id number]) OT Gross Range of Motion Upper Extremity Range of Motion Assessment Bilaterally Impaired OT Strength Upper Extremity Strength Assessment Bilaterally Impaired Shoulder 3-/5 Elbow 4/5 Forearm 4/5 Wrist 4-/5 Hand 4-/5 OT Sensation Assessment Comments Summary Comments INtact for light touch M9 OT- IP Assessment and Plan Start: 04/26/22 12:46 Freq: Status: Active Protocol: Document 04/27/22 11:38 [facility] (Rec: 04/27/22 12:39 [facility] [id number]) OT Summary Assessment and Plan Potential Rehabilitation Potential Good Analytic Complexity at Evaluation Moderate Summary OT Impairments Pain,Range of Motion,Strength, Balance,Functional Cognition, Functional Mobility,Self- Feeding,Grooming,Dressing, Toileting,Bathing,Toilet Transfers,Shower Transfers, Activity Tolerance Progress Towards Goals Progressing Toward Goals,Slow Progress due to Pain,Slow Progress due to Medical Issues Assessment Summary Pt able to tolerate standing for hygiene needs and transfer today with MAXA X2 with FWW. Pt will greatly benefit from skilled rehab. Pt very cooperative and pleasant today. Goals Grooming Goal Independent Dressing Goal Minimal Assistance Toileting Goal Moderate Assistance Bathing Goal Moderate Assistance Toilet Transfer Goal Minimal Assistance Days to Meet Goals 29 Frequency of Treatment Frequency Of Treatment Once a Day Treatment Plan OT Treatment Plan ADL Training,Functional Cognition Training,Functional Mobility,Patient/Family Education,Discharge Planning Other Treatment Recommendations and Next Transfer to [facility] [place] with MAXA x2 Treatment Focus with FWW. Discharge Recommendations OT Discharge Recommendations SNF Rehab Transportation Needs at Discharge Wheelchair/Cabulance
--- NOTE | 2022-04-27 12:39 | PT.IPTN ---
Current Diagnoses Heart failure, unspecified (04/21/22) Physical Therapy Treatment Note M2 PT-IP Current Condition Start: 04/22/22 14:48 Freq: NEEDED Status: Active Protocol: Document 04/24/22 11:05 AB (Rec: 04/24/22 11:59 AB [id number]) Physical Therapy Current Condition Current Condition Evaluation Date 04/24/22 Treatment Diagnosis LLE cellulitis; LLE DVT; difficulty in walking Onset Date 04/21/22 M3 PT-IP Subjective Start: 04/22/22 14:48 Freq: NEEDED Status: Active Protocol: Document 04/27/22 12:20 LJ (Rec: 04/27/22 12:39 LJ [id number]) Subjective Physical Therapy Visit Type Type Treatment Note Visit Start Time 11:38 Visit Stop Time 12:14 Total Visit Minutes 36 Notes Co-tx with OT due to pt's need for high level mobility assist Physical Therapy Visit Comments Patient Comments Pt wiling to get up to sit on the chair. Therapy Pain Assessment Pain When Pain Assessed At Rest Pain Present Pain Present Pain Reported Location Bilateral Leg Intensity 8 Pain Management Techniques Distraction,Modification of Treatment,Re-positioning, Timing of Activity with Medications M4 PT-IP Mobility and Gait Start: 04/22/22 14:48 Freq: NEEDED Status: Active Protocol: Document 04/27/22 12:20 LJ (Rec: 04/27/22 12:39 LJ [id number]) PT-Bed Mobility Assessment Supine to Sit Supine to Sit Maximum Assistance,2 Person Assistance,Head of Bed Elevated,Bedrails PT-Transfer Assessment Sit to and From Stand Sit to and from Stand Maximum Assistance,2 Person Assistance,Use of Upper Extremities Equipment Transfer Assistive Device Gait Belt,Front Wheeled Walker Transfers Transfer Destination Chair Transfer Technique ambulated Transfer Ability Level of Assist Maximum Assistance,2 Person Assistance,Use of Upper Extremities Comments Mobility Comments Pt lying in bed. With HOB elevated pt reqquired MaxA x2 for supine>sit 1 person front, on in back of pt. Once sitting on side of bed pt balanced SBA. Pt required MaxA x2 using bed pad to scoot to EOB. Pt sat for several minutes SBA while nsg changed bandage. Pt then willing to transfer to chair ~3' away. MaxAx2 with bed raised sit> stand. Pt stood for 1 min then began taking steps forward MaxA x2 forward. Pt then instructed to turn and back to chair~2'. Pt able to back up with shuffling steps barely able to lift feet to clear the floor. Once in front of the chair pt reached back and lowered self down carefully. As pt descended he had a bowel movement and nsg was called to change pt. He stood one more time MaxA x2 and remained standing 2 min during brief change. Pt then reached back and lowered self to chair again. Pt needs to have feet blocked during sit>stand to prevent slipping forward. Pt was left in room with call light in lap and nsg in attendance. Gait Assessment Comments Gait Comments see mobility section M5 PT-IP Objective Assessments Start: 04/22/22 14:48 Freq: NEEDED Status: Active Protocol: Document 04/24/22 11:05 AB (Rec: 04/24/22 11:59 AB [id number]) Orientation Orientation/Cognition Level of Alertness Alert Orientation Name,Place,Situation Language Function Ability Hard of Hearing Safety Awareness Decreased Safety Awareness Memory Description Short Term Impaired Gross Range of Motion Lower Extremity ROM Impairments increase guarding during movement with c/o pain limiting ROM Strength Lower Extremity Strength Assessment Bilaterally Impaired Hip 3-/5 Knee 3+/5 Muscle Tone Muscle Tone WNL Yes M6 PT-IP Treatment Start: 04/22/22 14:48 Freq: NEEDED Status: Active Protocol: Document 04/27/22 12:20 JUWAN (Rec: 04/27/22 12:39 [id number]) Physical Therapy Treatment Education Education Provided Safety M7 PT-IP Assessment and Plan Start: 04/22/22 14:48 Freq: NEEDED Status: Active Protocol: Document 04/27/22 12:20 JUWAN (Rec: 04/27/22 12:39 [id number]) PT Summary Assessment and Plan Potential Rehabilitation Potential Fair Status of Condition at Evaluation Evolving Summary Impairments Pain,ROM,Strength,Balance, Coordination,Sensation,Tone, Cognition,Bed Mobility, Transfers,Gait,Activity Tolerance Assessment Summary Pt continues to require MaxA x2 for all mobility, transfers , and ambulation very short distance. Occasionally he was able to lift feet to clear floor but without consistency. Nursing advised to transfer pt with 3 assist. Ginny is risky, possibly risking injury to skin. Pt will require SNF rehab to improve mobility Goals Bed Mobility Goal Minimal Assistance Transfer Goal Minimal Assistance,Front Wheeled Walker Gait Goal Minimal Assistance,Front Wheel Walker Gait Distance 25 Other Goals improve bed mobility, transfers, ambulation using FWW 50 ft SBA Days to Meet Goals 10 Frequency of Treatment Frequency Of Treatment Once a Day Treatment Plan Physical Therapy Treatment Plan Bed Mobility Training,Transfer Training,Gait Training, Therapeutic Exercise,Balance Retraining,Discharge Planning, Hot or Cold Pack,Neuromuscular Re-ed,Coordination Retraining ,Manual Therapy Precautions Other Precautions falls, LE wounds Recommendations To Nursing Amount of Assist Needed 2 Person Assist Discharge Recommendations PT Discharge Recommendations SNF Rehab Transportation Needs at Discharge Wheelchair/Cabulance,Stretcher /Ambulance
[2022-04-27] MEDS: RIVAROXABAN 10 MG TABLET 15 MG PO (18:12)
--- NOTE | 2022-04-27 19:02 | PC.NURSE ---
Patient refused mccoy removal today. Catheter care completed, and patient educated on risks of catheter use and urinary infection. Patient states he will agree to having it removed in the morning. Dr. Hernandez notified and order for dc mccoy in am received.
[2022-04-27] MEDS: ATORVASTATIN 20 MG TABLET 40 MG PO (20:48)
[2022-04-27] MEDS: OXYCODONE 5 MG/5 ML ORAL SOLUTION 10 MG PO (23:52)
[2022-04-28] VITALS (13 sets, daily range): BP systolic 91–102; BP diastolic 43–61; PULSE 68–83; RESP 12–20; TEMP 36.1–36.9; O2SAT 95–98
[2022-04-28] MEDS: diphenhydrAMINE 25 MG TABLET 50 MG PO (04:34)
[2022-04-28] MEDS: OXYCODONE 5 MG/5 ML ORAL SOLUTION 10 MG PO (04:34)
[2022-04-28 04:54] LABS: Add Manual Diff / Slide Review NO; Basophils Absolute Auto 0 /uL (0-100); Basophils Percent Auto 0.4 % (0-2); Eosinophils Absolute Auto 400 /uL (0-450); Eosinophils Percent Auto 4.8 % (2-4); Hematocrit 27.1 % (41-53); Lymphocytes Absolute Auto 900 /uL (1100-4500); Lymphocytes Percent Auto 10.3 % (25-40); Mean Corpuscular HGB Conc 33.1 % (30-36); Mean Corpuscular Hemoglobin 30.8 PG (26-34); Monocytes Absolute Auto 1000 /uL (0-900); Monocytes Percent Auto 10.6 % (3-14); Neutrophils Absolute Auto 6800 /uL (1500-7000); Neutrophils Percent Auto 73.9 % (50-75); Platelet Count 221 X10^3/uL (150-400); Red Blood Cell Count 2.92 X10^6/uL (4.5-5.9); Red Cell Distribution Width 14.6 % (11.6-14.8); White Blood Cell Count 9.2 X10^3/uL (4.5-11.0)
[2022-04-28 04:56] LABS: BUN Creatinine Ratio 35.4 (6-22); Blood Urea Nitrogen 87 mg/dL (9-20); Calcium 8.9 mg/dL (8.4-10.2); Carbon Dioxide 19 mmol/L (22-32); Chloride 101 mmol/L (98-107); Estimated Glomerular Filt Rate 25 mL/min (>60); Glucose 137 mg/dL (80-110); HEMOLYSIS < 15 (0-50); Potassium 4.1 mmol/L (3.4-5.1); Sodium 128 mmol/L (137-145)
--- NOTE | 2022-04-28 05:33 | PC.NURSE ---
NightShift Pt refused to have indwelling catheter removed. Pt informed of the Dr orders and that he would need to remove catheter and void prior to going to SNIF/Assisted Living, Pt stated I know the Dr and i talked about this yesterday, I do not want my catheter out at all, i wont be able to pee, i cannot get up so i do not want it out. I will talk to the Dr when they get here. We are not taking this out. shop manager informed.
[2022-04-28] MEDS: polyethylene glycoL 3350 17 GM POWD.PACK PO (08:38)
[2022-04-28] MEDS: OXYCODONE IR 5 MG TABLET PO ×3 (08:38→22:08)
[2022-04-28] MEDS: COLESEVELAM 625 MG TABLET 1875 MG PO ×2 (08:38→16:54)
[2022-04-28] MEDS: ACETAMINOPHEN 325 MG TABLET 650 MG PO ×3 (08:39→22:07)
[2022-04-28] MEDS: DOXAZOSIN 2 MG TABLET PO (08:39)
[2022-04-28] MEDS: SPIRONOLACTONE 25 MG TABLET PO (08:39)
[2022-04-28] MEDS: TORSEMIDE 10 MG TABLET PO ×3 (08:40→22:08)
[2022-04-28 08:48] LABS: COVID19 -Nasal RAPID Negative (Negative)
--- NOTE | 2022-04-28 14:57 | PT.IPTN ---
Current Diagnoses Heart failure, unspecified (04/21/22) Physical Therapy Treatment Note M2 PT-IP Current Condition Start: 04/22/22 14:48 Freq: NEEDED Status: Active Protocol: Document 04/24/22 11:05 AB (Rec: 04/24/22 11:59 AB [email or web address]) Physical Therapy Current Condition Current Condition Evaluation Date 04/24/22 Treatment Diagnosis LLE cellulitis; LLE DVT; difficulty in walking Onset Date 04/21/22 M3 PT-IP Subjective Start: 04/22/22 14:48 Freq: NEEDED Status: Active Protocol: Document 04/28/22 14:25 LJ (Rec: 04/28/22 14:56 LJ [id number]) Subjective Physical Therapy Visit Type Type Treatment Note Visit Start Time 14:04 Visit Stop Time 14:37 Total Visit Minutes 33 Notes No therpy or nursing available to assist. Number of PACKING MACHINE PILOT CAN ROUTER Visits 2 Physical Therapy Visit Comments Patient Comments Pt reluctant to attempt to get up stating he wasn't able to move. Patient Goals repeated he needed to talk to his Therapy Pain Assessment Pain When Pain Assessed At Rest Location Bilateral Leg Scale Used not quantified Pain Management Techniques Distraction,Modification of Treatment,Re-positioning, Timing of Activity with Medications M4 PT-IP Mobility and Gait Start: 04/22/22 14:48 Freq: NEEDED Status: Active Protocol: Document 04/28/22 14:25 LJ (Rec: 04/28/22 14:56 [id number]) PT-Bed Mobility Assessment Rolling Type of Rolling Bilateral Level of Assist Maximal Assistance,1 Person Assistance Supine to Sit Supine to Sit Maximum Assistance,1 Person Assistance,Head of Bed Elevated,Bedrails Sit to Supine Sit to Supine Maximum Assistance,1 Person Assistance,Head of Bed Elevated,Bedrails Scooting Scooting to Edge of Bed Maximum Assistance Scooting Up and Down in Bed Maximum Assistance PT-Transfer Assessment Comments Mobility Comments Pt needed max encouragement to attempt to sit on SOB. With HOB elevated and MaxA x1 with LEs, pt able to swing legs off side of bed while being cued to push up from sidelying with elbow and use bed rails to right trunk. Scooting to side of bed took many attempts at leaning to opp. side while this therapist pulled on bed pad. Eventually pt able to put feet on floor but he would not keep them there dispite therapist holding them down on floor. Pt made numerous attempts to push buttocks up from bed to attempt to weight bear onto LEs but would not lean forward or keep feet on floor. Pt stated he was afraid of falling off bed. After sitting on side of the bed ~12 minutes and attempting to get up pt requested to lay back down. MaxA to lift LEs onto bed and position in middle of bed. With HOB flat, pt able to push into heels and use bed rails and MaxA from therapist to scoot up toward head of bed . Pt then instructed to roll bilaterally so that bed pad could be straightened out ModA and max cues to use bed rails . Pt was given all needs within reach and left in reclining position. Gait Assessment Comments Gait Comments unable to come to standing position PT-Balance Assessment Sitting Balance and Reactions Static Sitting Balance Ability Fair Dynamic Sitting Balance Ability Fair M5 PT-IP Objective Assessments Start: 04/22/22 14:48 Freq: NEEDED Status: Active Protocol: Document 04/24/22 11:05 AB (Rec: 04/24/22 11:59 AB [id number]) Orientation Orientation/Cognition Level of Alertness Alert Orientation Name,Place,Situation Language Function Ability Hard of Hearing Safety Awareness Decreased Safety Awareness Memory Description Short Term Impaired Gross Range of Motion Lower Extremity ROM Impairments increase guarding during movement with c/o pain limiting ROM Strength Lower Extremity Strength Assessment Bilaterally Impaired Hip 3-/5 Knee 3+/5 Muscle Tone Muscle Tone WNL Yes M6 PT-IP Treatment Start: 04/22/22 14:48 Freq: NEEDED Status: Active Protocol: Document 04/28/22 14:25 JUWAN (Rec: 04/28/22 14:56 [id number]) Physical Therapy Treatment Exercises Exercises Ankle Pumps,Gluteal Sets,Quad Sets Education Education Provided Safety M7 PT-IP Assessment and Plan Start: 04/22/22 14:48 Freq: NEEDED Status: Active Protocol: Document 04/28/22 14:25 JUWAN (Rec: 04/28/22 14:56 [id number]) PT Summary Assessment and Plan Potential Rehabilitation Potential Fair Status of Condition at Evaluation Evolving Summary Impairments Pain,ROM,Strength,Balance, Coordination,Sensation,Tone, Cognition,Bed Mobility, Transfers,Gait,Activity Tolerance Assessment Summary Pt remains MaxA x1-2 with all bed mobility. Unable to stand from EOB with assist x1 and question if he braulio have been able had there been another commercial real estate assistant. Pt remains maxA with cueing also. He will require SNF to improve function and mobiltiy. Recommending 3 person assist from nursing for transfers and 2 person assist with bed mobility. Goals Bed Mobility Goal Minimal Assistance Transfer Goal Minimal Assistance,Front Wheeled Walker Gait Goal Minimal Assistance,Front Wheel Walker Gait Distance 25 Other Goals improve bed mobility, transfers, ambulation using FWW 50 ft SBA Days to Meet Goals 10 Frequency of Treatment Frequency Of Treatment Once a Day Treatment Plan Physical Therapy Treatment Plan Bed Mobility Training,Transfer Training,Gait Training, Therapeutic Exercise,Balance Retraining,Discharge Planning, Hot or Cold Pack,Neuromuscular Re-ed,Coordination Retraining ,Manual Therapy Precautions Other Precautions falls, LE wounds Recommendations To Nursing Amount of Assist Needed 2 Person Assist Discharge Recommendations PT Discharge Recommendations SNF Rehab Transportation Needs at Discharge Wheelchair/Cabulance,Stretcher /Ambulance
[2022-04-28] MEDS: RIVAROXABAN 10 MG TABLET 15 MG PO (16:54)
--- NOTE | 2022-04-28 17:49 | OT.IPNOTE ---
Pt eating dinner. Able to talk to pt regarding going to skilled rehab. Pt not happy but agrees that his is unable to provide enough assist for pt at home. To be seen tomorrow pending triage level.
--- NOTE | 2022-04-28 19:29 | P.PN_ITS ---
Subjective Subjective Date Patient Seen: 04/28/22 Interval history: Mr. Albarado is a 86M with PMH CHFpEF, DM 2, HTN, afib, CKD stage 3 who presents to the hospital with leg swelling and short of breath. He was admitted with CHF exacerbation, possible cellulitis. He was improving, nursing staff today thought he was a bit more confused compared to previous days. His sodium was a bit lower today at 128 and he was a bit more tachypnic. BP remains soft. Diuretic increased to torsemide 10 mg TID. Exam Vital Signs (past 8 hours): - 04/28/22 13:00 04/28/22 17:00 04/28/22 15:00 Temperature 97 F L Pulse Rate 81 Respiratory Rate 14 Blood Pressure 102/61 Pulse Oximetry 95 95 96 Oxygen Delivery Method Room Air Room Air Oxygen Flow Rate 0 0 0 Oxygen Delivery Method Room Air Oxygen Flow Rate 0 Narrative Exam Narrative: GEN: no acute distress, elderly male HEENT: moist mucous membranes, PERRL NECK: trachea midline, no JVD PULM: clear bilaterally, no wheezes, rhonchi, rales CV: irregular, no murmurs ABD: soft, nontender, nondistended, no organomegaly EXT: warm and well perfused, no edema with shallow ulcers, left leg with no erythema above ankle, minimal tenderness, had some blistering on legs with bloody fluid inside which has been drained and covered with dressing NEURO: awake, alert, oriented to name and location, no focal deficits Objective Labs 04/28/22 04:32 04/28/22 04:32 Labs: Laboratory Results - last 24 hr 04/28/22 04/28/22 04/28/22 04:32 04:32 08:10 WBC 9.2 RBC 2.92 L Hgb 9.0 L Hct 27.1 L MCV 93.0 MCH 30.8 MCHC 33.1 RDW 14.6 Plt Count 221 Neut % (Auto) 73.9 Lymph % (Auto) 10.3 L [place] % (Auto) 10.6 Eos % (Auto) 4.8 H Baso % (Auto) 0.4 Neut # (Auto) 6800 Lymph # (Auto) 900 L [place] # (Auto) 1000 H Eos # (Auto) 400 Baso # (Auto) 0 Sodium 128 L Potassium 4.1 Chloride 101 Carbon Dioxide 19 L BUN 87 H Creatinine 2.46 H Estimated GFR 25 L BUN/Creatinine Ratio 35.4 H Glucose 137 H Calcium 8.9 SARS-CoV-2 (PCR) Negative [facility] Medical History Anemia Asymptomatic microscopic hematuria BPH (benign prostatic hyperplasia) Chronic diastolic heart failure DM2 (diabetes mellitus, type 2) Hypertension Interstitial lung disease Permanent atrial fibrillation Stage 3b chronic kidney disease (CKD) Surgical History S/P AVR (aortic valve replacement) Family History Mother No pertinent past medical history Father No pertinent past medical history Social History household members: spouse Smoking Status: Former smoker alcohol intake: current Assessment & Plan Assessment & Plan narrative: 1. Acute on chronic CHF exacerbation -noted on admission with fluid overload, elevated bnp, and weight 6kg higher than last office visit. -ordered 80mg IV lasix BID initally on admission, now only on sprionalactone 25 mg daily, and torsemide 10 mg daily. Will increase to 10 mg TID (home dosing is 20 mg TID) given worsened hyponatremia today likely due to reduction in diuretic. - ECHO shows ejection fraction of 60-65% - troponin was minimally elevated and downtrended. 2. YORDY on CKD stage 4 -now status post mccoy placement, trending to towards baseline values, however yesterday creatinine increased, today similar value at 2.63, query new baseline? -may also be secondary to volume overload, initially treated with IV Lasix as above and now on torsemide. -patient not sure he would want dialysis -will need to watch creatinine daily, continue 3. Possible cellulitis -possible left leg cellulitis -no leukocytosis, fevers, or elevated procalcitonin -for now ordered keflex, plan for 5-7 days 4. Chronic atrial fibrillation -was on apixaban at home, this was switch to rivaroxaban due to findings of vascular US of left leg 5. HTN -hold spironolactone initially due to IV furosemide.? Spironolactone has been reinitiated. Starting low dose torsemide tomorrow to help BNP 6. Hyponatremia. - may be hypervolemic with reduction in diuretic and worsening today, Increased torsemide to 10 mg TID, limited by soft BP as far as aggressive diuresis. 7. Myocardial injury, resolved. Expect ready for SNF to improve mobility in next 1-2 days. Code: DNR Time Spent With Patient Critical Care time: I spent a total of [] minutes of critical care time on this patient's care today; this time is exclusive of procedural time. Quality VTE Deep Vein Thrombosis/Pulmonary Embolism Present on Admission: No
[2022-04-28] MEDS: ATORVASTATIN 20 MG TABLET 40 MG PO (22:08)
[2022-04-29] VITALS (11 sets, daily range): BP systolic 89–109; BP diastolic 44–60; PULSE 44–82; RESP 16–20; TEMP 35.9–36.8; O2SAT 93–98
[2022-04-29] MEDS: OXYCODONE 5 MG/5 ML ORAL SOLUTION 10 MG PO ×2 (01:20→21:39)
[2022-04-29] MEDS: diphenhydrAMINE 25 MG TABLET 50 MG PO ×2 (01:20→20:32)
--- NOTE | 2022-04-29 06:49 | PC.NURSE ---
This JUNIOR SOFTWARE DEVELOPER got 505 ML on the bladder scanner.
[2022-04-29 09:13] LABS: Add Manual Diff / Slide Review NO; Basophils Absolute Auto 0 /uL (0-100); Basophils Percent Auto 0.4 % (0-2); Eosinophils Absolute Auto 500 /uL (0-450); Eosinophils Percent Auto 7.7 % (2-4); Hematocrit 25.4 % (41-53); Hemoglobin 8.4 g/dL (13.5-17.5); Lymphocytes Absolute Auto 1300 /uL (1100-4500); Lymphocytes Percent Auto 17.9 % (25-40); Mean Corpuscular HGB Conc 33.1 % (30-36); Mean Corpuscular Hemoglobin 30.9 PG (26-34); Mean Corpuscular Volume 93.3 fL (80-100); Monocytes Absolute Auto 1000 /uL (0-900); Monocytes Percent Auto 14.3 % (3-14); Neutrophils Absolute Auto 4200 /uL (1500-7000); Neutrophils Percent Auto 59.7 % (50-75); Platelet Count 225 X10^3/uL (150-400); Red Blood Cell Count 2.72 X10^6/uL (4.5-5.9); Red Cell Distribution Width 14.6 % (11.6-14.8); White Blood Cell Count 7.1 X10^3/uL (4.5-11.0)
[2022-04-29 09:33] LABS: BUN Creatinine Ratio 32.5 (6-22); Blood Urea Nitrogen 98 mg/dL (9-20); Carbon Dioxide 19 mmol/L (22-32); Chloride 101 mmol/L (98-107); Estimated Glomerular Filt Rate 19 mL/min (>60); Glucose 92 mg/dL (80-110); HEMOLYSIS < 15 (0-50); Magnesium 2.5 mg/dL (1.6-2.3); Potassium 4.4 mmol/L (3.4-5.1); Sodium 128 mmol/L (137-145)
[2022-04-29] MEDS: polyethylene glycoL 3350 17 GM POWD.PACK PO (10:27)
[2022-04-29] MEDS: COLESEVELAM 625 MG TABLET 1875 MG PO ×2 (10:27→16:08)
[2022-04-29] MEDS: DOXAZOSIN 2 MG TABLET PO (10:27)
[2022-04-29] MEDS: SPIRONOLACTONE 25 MG TABLET PO (10:27)
[2022-04-29] MEDS: BISACODYL 10 MG SUPP PR (10:27)
[2022-04-29] MEDS: ACETAMINOPHEN 325 MG TABLET 650 MG PO (10:28)
--- NOTE | 2022-04-29 15:06 | CM.DPNOTE ---
DCP Note [facility] and [facility] have beds available for this patient Confirmed now august at [facility] -can accept this patient for admission tomorrow if he is medically stable [place] per Dr Shemar NEUMANN team following closely for coordination of DCP; need SNF before return home w.spouse. AUBREY completed JW
--- NOTE | 2022-04-29 15:42 | OT.IPNOTE ---
Attempted to wake pt up for OT treatment to ask pt about having pain medications to prior to getting up, pt opened his eyes for a brief moment and tend when back to sleep and not able to awaken again. To check on pt tomorrow pending triage level, pt to go to skilled rehab when medically stable.
[2022-04-29] MEDS: OXYCODONE IR 5 MG TABLET PO (16:08)
[2022-04-29] MEDS: RIVAROXABAN 10 MG TABLET 15 MG PO (16:08)
--- NOTE | 2022-04-29 16:29 | OT.IP.TRT ---
Current Diagnoses Heart failure, unspecified (04/21/22) Occupational Therapy Treatment Note M2 OT-IP Current Condition Start: 04/26/22 12:46 Freq: Status: Active Protocol: Document 04/26/22 10:29 [facility] (Rec: 04/26/22 13:04 [facility] [id number]) Occupational Therapy Current Condition Current Condition Evaluation Date 04/26/22 Treatment Diagnosis LLE cellulitis, LLE DVT Diagnosis Onset Date 04/21/22 M3 OT- IP Subjective and Pain Start: 04/26/22 12:46 Freq: Status: Active Protocol: Document 04/29/22 17:02 [facility] (Rec: 04/29/22 17:14 [facility] [id number]) OT- Subjective Occupational Therapy Visit Type Type Treatment Note Visit Start Time 16:05 Visit Stop Time 16:29 Total Visit Minutes 24 Occupational Therapy Visit Comments Patient Comments Pt able to awaken when PT came to check on the pt, therefore COtxt for part of the session. Patient/Caregiver Goals TO get better OT Pain Assessment Pain When Pain Assessed During Mobility Pain Present Pain Present Pain Reported Location Bilateral Leg Intensity 7 Scale Used Numeric (0 - 10) M4 OT- IP ADL's Start: 04/26/22 12:46 Freq: Status: Active Protocol: Document 04/29/22 17:02 [facility] (Rec: 04/29/22 17:14 [facility] [id number]) OT [id number] Comments OT Self-Feeding Comments Not at meal time. OT ADL-Grooming General Evaluation Grooming Ability Standby Assistance Comments OT Grooming Comments Able to wash his face. OT ADL-Oral Care General Eval Oral Care Ability Standby Assistance Areas of Assistance Retrieving/Set-Up of Items Comments Oral Care Comments Able to do while in bed. OT ADL-Dressing General Eval Lower Body Dressing Ability Maximum Assistance,Total Assistance Areas Needing Assistance Socks OT ADL-Bathing Bathing Type Bathing Type Sponge Bath General Evaluation Bathing Ability Maximal Assistance Comments OT Bathing Comments Pt able to sponge his underarms, chest and face while seated on the edge of the bed M5 OT- IP IADL's Start: 04/26/22 12:46 Freq: Status: Active Protocol: Document 04/26/22 10:29 [facility] (Rec: 04/26/22 13:04 [facility] [id number]) OT-Instrumental Activities of Daily Living Deficits IADL Deficits Identified Deficits Home Safety Awareness Awareness of Need for Assistance at Home Decreased Awareness Ability to Problem Solve Emergency Able to Problem Solve Situations Medication Management Medication Management Caregiver Administers Money Management Money Management Caregiver Provides Assistance Meal Preparation Meal Preparation Caregiver Provides Assist Med Spa Manager Med Spa Manager Caregiver Provides Assist M6 OT- IP Functional Cognition Start: 04/26/22 12:46 Freq: Status: Active Protocol: Document 04/29/22 17:02 [facility] (Rec: 04/29/22 17:14 [facility] [id number]) Cognitive Factors Limiting Selfcare Function Cognitive Comments Cognitive Assessment Comments Pt able to follow commands after waking up to do grooming , oral care, and sitting balance needs. M7 OT- IP Mobility and Balance Start: 04/26/22 12:46 Freq: Status: Active Protocol: Document 04/29/22 17:02 [facility] (Rec: 04/29/22 17:14 [facility] [id number]) OT- Bed Mobility Assessment Supine to Sit Supine to Sit Assist Maximum Assistance,Total Assistance,2 Person Assistance Sit to Supine Sit to Supine Assist Maximum Assistance,Total Assistance,2 Person Assistance OT-Transfer Assessment Comments Mobility Comments MAX/Total Assist x2 to bed mobility needs. Pt able to sit at the edge of bed from MODA to SBA after assist to the edge of the bed for approx 10 minutes. OT- Balance Assessment Sitting Balance and Reactions Static Sitting Balance Ability Good Dynamic Sitting Balance Ability Fair M8 OT- IP Objective Assessments Start: 04/26/22 12:46 Freq: Status: Active Protocol: Document 04/26/22 10:29 [facility] (Rec: 04/26/22 13:04 [facility] [id number]) OT Gross Range of Motion Upper Extremity Range of Motion Assessment Bilaterally Impaired OT Strength Upper Extremity Strength Assessment Bilaterally Impaired Shoulder 3-/5 Elbow 4/5 Forearm 4/5 Wrist 4-/5 Hand 4-/5 OT Sensation Assessment Comments Summary Comments INtact for light touch M9 OT- IP Assessment and Plan Start: 04/26/22 12:46 Freq: Status: Active Protocol: Document 04/29/22 17:02 [facility] (Rec: 04/29/22 17:14 [facility] [id number]) OT Summary Assessment and Plan Potential Rehabilitation Potential Good Analytic Complexity at Evaluation Moderate Summary OT Impairments Pain,Range of Motion,Strength, Balance,Functional Cognition, Functional Mobility,Self- Feeding,Grooming,Dressing, Toileting,Bathing,Toilet Transfers,Shower Transfers, Activity Tolerance Progress Towards Goals Progressing Toward Goals,Slow Progress due to Pain,Slow Progress due to Medical Issues Assessment Summary Pt able to tolerate sitting balance for almost 10 minutes and still needing extensive max/total assist for bed mobility needs. Pt will benefit from skilled rehab. Goals Grooming Goal Independent Dressing Goal Minimal Assistance Bathing Goal Moderate Assistance Toilet Transfer Goal Minimal Assistance Days to Meet Goals 29 Frequency of Treatment Frequency Of Treatment Once a Day Treatment Plan OT Treatment Plan ADL Training,Functional Cognition Training,Functional Mobility,Patient/Family Education,Discharge Planning Other Treatment Recommendations and Next Transfer to [facility] with MAXA x2 Treatment Focus with FWW. Discharge Recommendations OT Discharge Recommendations SNF Rehab Transportation Needs at Discharge Wheelchair/Cabulance
--- NOTE | 2022-04-29 16:41 | PT.IPTN ---
Current Diagnoses Heart failure, unspecified (04/21/22) Physical Therapy Treatment Note M2 PT-IP Current Condition Start: 04/22/22 14:48 Freq: NEEDED Status: Active Protocol: Document 04/24/22 11:05 [facility] (Rec: 04/24/22 11:59 [facility] [id number]) Physical Therapy Current Condition Current Condition Evaluation Date 04/24/22 Treatment Diagnosis LLE cellulitis; LLE DVT; difficulty in walking Onset Date 04/21/22 M3 PT-IP Subjective Start: 04/22/22 14:48 Freq: NEEDED Status: Active Protocol: Document 04/29/22 16:26 [facility] (Rec: 04/29/22 16:40 [facility] [id number]) Subjective Physical Therapy Visit Type Type Treatment Note Visit Start Time 04:05 Visit Stop Time 04:28 Total Visit Minutes 23 Notes co-treat with OT Physical Therapy Visit Comments Patient Comments Patient reports he can't do much. Legs hurt 7/10. Willing to participate in PT. RN there to give meds as PT and OT start. Therapy Pain Assessment Pain When Pain Assessed At Rest Pain Present Pain Present Pain Reported Location Bilateral Leg Intensity 7 Description Aching,Tender,Tightness Pain Behaviors Facial Grimacing,Guarding, Wincing Pain Management Techniques Timing of Activity with Medications M4 PT-IP Mobility and Gait Start: 04/22/22 14:48 Freq: NEEDED Status: Active Protocol: Document 04/29/22 16:26 [facility] (Rec: 04/29/22 16:40 [facility] [id number]) PT-Bed Mobility Assessment Supine to Sit Supine to Sit Maximum Assistance,2 Person Assistance Sit to Supine Sit to Supine Maximum Assistance,2 Person Assistance Scooting Scooting to Edge of Bed Maximum Assistance Scooting Up and Down in Bed Maximum Assistance PT-Transfer Assessment Comments Mobility Comments Patient dangled at EOB approximately 10 min , working on sitting bal, LE AROM ex, UE ex. SBA to CGA for balance . Able to dangle his legs but minimal ability to extend his knees, lacking at least 60 degrees from straight. Stand not attempted. Gait Assessment Factors Limiting Gait Function Factors Limiting Gait Function Decreased Strength Comments Gait Comments unable to ambulate PT-Balance Assessment Sitting Balance and Reactions Static Sitting Balance Ability Fair Dynamic Sitting Balance Ability Fair Comments Other Balance Tests/Deviations/Treatment no standing attempted this : afternoon M5 PT-IP Objective Assessments Start: 04/22/22 14:48 Freq: NEEDED Status: Active Protocol: Document 04/29/22 16:26 [facility] (Rec: 04/29/22 16:40 [facility] [id number]) Orientation Orientation/Cognition Level of Alertness Lethargic Orientation Name,Situation Safety Awareness Decreased Safety Awareness Gross Range of Motion Lower Extremity ROM Assessment Left Impaired Strength Lower Extremity Strength Assessment Bilaterally Impaired Comments Strength Comments lacking anti-gravity strength M6 PT-IP Treatment Start: 04/22/22 14:48 Freq: NEEDED Status: Active Protocol: Document 04/29/22 16:26 [facility] (Rec: 04/29/22 16:40 [facility] [id number]) Physical Therapy Treatment Exercises Exercises Ankle Pumps,Quad Sets,Shoulder Flexion,Elbow Flexion/ Extension M7 PT-IP Assessment and Plan Start: 04/22/22 14:48 Freq: NEEDED Status: Active Protocol: Document 04/29/22 16:26 [facility] (Rec: 04/29/22 16:40 [facility] [id number]) PT Summary Assessment and Plan Potential Rehabilitation Potential Good Status of Condition at Evaluation Evolving Summary Impairments Pain,ROM,Strength,Balance, Cognition,Bed Mobility, Transfers,Gait,Activity Tolerance Assessment Summary Pt remains MaxA x1-2 with all bed mobility. Unable to stand from EOB due to LE weakness and pain. Sitting balance improved today, required only SBA to CGA. Will need SNF rehab at discharge Goals Bed Mobility Goal Minimal Assistance Transfer Goal Minimal Assistance,Front Wheeled Walker Gait Goal Minimal Assistance,Front Wheel Walker Gait Distance 25 Other Goals improve bed mobility, transfers, ambulation using FWW 50 ft SBA Days to Meet Goals 10 Frequency of Treatment Frequency Of Treatment Once a Day Treatment Plan Physical Therapy Treatment Plan Bed Mobility Training,Transfer Training,Gait Training, Therapeutic Exercise,Balance Retraining,Discharge Planning, Hot or Cold Pack,Neuromuscular Re-ed,Coordination Retraining ,Manual Therapy Other Recommendations and Next Treatment Le ex, STS, standing balance Focus acitivities, bed mob, gait further distances LRAD. Precautions Other Precautions falls, LE wounds Recommendations To Nursing Amount of Assist Needed 2 Person Assist Discharge Recommendations PT Discharge Recommendations SNF Rehab Transportation Needs at Discharge Wheelchair/Cabulance,Stretcher /Ambulance
--- NOTE | 2022-04-29 18:08 | P.PN_ITS ---
Subjective Subjective Date Patient Seen: 04/29/22 Interval history: Mr. Albarado is a 86M with PMH CHFpEF, DM 2, HTN, afib, CKD stage 3 who presents to the hospital with leg swelling and short of breath. He was admitted with CHF exacerbation, possible cellulitis vs DVT of his left leg. He was improving, but was a bit more confused yesterday though that has improved with increased diuresis. Unfortunately he developed worsening YORDY today with creatinine increased to 3.02 today. He feels weak and fatigued but no overt complaints including chest pain or palpitations. Exam Vital Signs (past 8 hours): - 04/29/22 10:27 04/29/22 11:00 04/29/22 14:00 Temperature 97.2 F L Pulse Rate 82 Respiratory Rate 16 Blood Pressure 105/52 L 94/47 L Pulse Oximetry 98 97 Oxygen Delivery Method Room Air Oxygen Flow Rate 0 0 04/29/22 17:30 04/29/22 18:00 Temperature 96.7 F L Pulse Rate 44 L Respiratory Rate 19 Blood Pressure 89/44 L Pulse Oximetry 93 98 Oxygen Delivery Method Room Air Oxygen Flow Rate 0 0 Oxygen Delivery Method Room Air Oxygen Flow Rate 0 Narrative Exam Narrative: GEN: no acute distress, elderly male HEENT: moist mucous membranes, PERRL NECK: trachea midline, no JVD PULM: clear bilaterally, no wheezes, rhonchi, rales CV: irregular, no murmurs ABD: soft, nontender, nondistended, no organomegaly EXT: warm and well perfused, no edema with shallow ulcers, left leg with no erythema above ankle, minimal tenderness, had some blistering on legs with bloody fluid inside which has been drained and covered with dressing NEURO: awake, alert, oriented to name and location, no focal deficits Objective Labs 04/29/22 08:40 04/29/22 08:40 Labs: Laboratory Results - last 24 hr 04/29/22 04/29/22 08:40 08:40 WBC 7.1 RBC 2.72 L Hgb 8.4 L Hct 25.4 L MCV 93.3 MCH 30.9 MCHC 33.1 RDW 14.6 Plt Count 225 Neut % (Auto) 59.7 Lymph % (Auto) 17.9 L [place] % (Auto) 14.3 H Eos % (Auto) 7.7 H Baso % (Auto) 0.4 Neut # (Auto) 4200 Lymph # (Auto) 1300 [place] # (Auto) 1000 H Eos # (Auto) 500 H Baso # (Auto) 0 Sodium 128 L Potassium 4.4 Chloride 101 Carbon Dioxide 19 L BUN 98 H Creatinine 3.02 H Estimated GFR 19 L BUN/Creatinine Ratio 32.5 H Glucose 92 Calcium 9.0 Magnesium 2.5 H PFSH Medical History Anemia Asymptomatic microscopic hematuria BPH (benign prostatic hyperplasia) Chronic diastolic heart failure DM2 (diabetes mellitus, type 2) Hypertension Interstitial lung disease Permanent atrial fibrillation Stage 3b chronic kidney disease (CKD) Surgical History S/P AVR (aortic valve replacement) Family History Mother No pertinent past medical history Father No pertinent past medical history Social History household members: spouse Smoking Status: Former smoker alcohol intake: current Assessment & Plan Assessment & Plan narrative: 1. Acute on chronic CHF exacerbation -noted on admission with fluid overload, elevated bnp, and weight 6kg higher than last office visit. -ordered 80mg IV lasix BID initally on admission, now only on sprionalactone 25 mg daily, and torsemide. 2 increased to 10 mg TID (home dosing is 20 mg TID) given worsened hyponatremia today thought due to decreased diuretic but this did not help and only caused YORDY again with creatinine increased to 3 from 2.46. Diuretic and aldactone were stopped 04/29. - ECHO shows ejection fraction of 60-65% - troponin was minimally elevated and downtrended. 2. YORDY on CKD stage 4 -now status post mccoy placement, trending to towards baseline values, however today increased again. -may also be secondary to volume overload, initially treated with IV Lasix but now appears increased diuretic has worsened YORDY. -patient not sure he would want dialysis -will need to watch creatinine daily, continue 3. Possible cellulitis -possible left leg cellulitis, but may represent DVT. -no leukocytosis, fevers, or elevated procalcitonin -for now ordered keflex, plan for 5-7 days 4. Chronic atrial fibrillation with L femoral DVT -was on apixaban 2.5 mg BID (reduced dosing due to age, renal function) at home, this was switched to rivaroxaban due to DVT noted here. 5. HTN -all BP medications held in setting of borderline low BP 6. Hyponatremia. - acute on chronic with Na of 128. complex volume status currently. Monitor with BMP now that diuretic held again. 7. Myocardial injury, resolved. Expect ready for SNF to improve mobility in next 1-2 days. Code: DNR Time Spent With Patient Critical Care time: I spent a total of [] minutes of critical care time on this patient's care today; this time is exclusive of procedural time. Quality VTE Deep Vein Thrombosis/Pulmonary Embolism Present on Admission: No
--- NOTE | 2022-04-29 19:22 | DI.US.S_ITS ---
PROCEDURE: US RENAL COMPLETE INDICATIONS: PASSED STONE TECHNIQUE: Real-time scanning was performed of the kidneys and bladder, with image documentation. COMPARISON: [facility], CT, CT CHEST ABD PEL WO CON, 04/21/2022, 18:16. [facility], US, US RENAL COMPLETE, 04/14/2022, 11:19. FINDINGS: Kidneys: Right kidney measures 11 cm. No hydronephrosis. Right renal pelvis stone measures up to 7 x 6 mm. The cortex measures 1.5 cm. The left kidney measures 10 cm. There are multiple stones, largest measures up to 13 x 12 mm. No hydronephrosis. Cortex measures 0.9 cm. Bladder: Ureteral jets not seen. Wallace catheter is present. Miscellaneous: Incidental note of cholelithiasis. IMPRESSION: No hydronephrosis bilaterally. Multiple stones, larger burden on the left measuring up to 13 x 12 mm. Bladder is not well seen, Wallace in place. Incidental cholelithiasis. Dictated by: Artur Rivera M.D. on 04/30/2022 at 8:31 Approved by: Artur Rivera M.D. on 04/30/2022 at 8:34
[2022-04-29] MEDS: SENNOSIDES 8.6 MG TABLET PO (20:31)
[2022-04-29] MEDS: ATORVASTATIN 20 MG TABLET 40 MG PO (20:31)
[2022-04-30] VITALS (12 sets, daily range): BP systolic 100–121; BP diastolic 47–67; PULSE 61–83; RESP 15–18; TEMP 36.2–36.6; O2SAT 95–98
[2022-04-30 08:43] LABS: Add Manual Diff / Slide Review NO; Basophils Absolute Auto 0 /uL (0-100); Basophils Percent Auto 0.4 % (0-2); Eosinophils Absolute Auto 500 /uL (0-450); Eosinophils Percent Auto 7.2 % (2-4); Hematocrit 24.9 % (41-53); Hemoglobin 8.3 g/dL (13.5-17.5); Lymphocytes Absolute Auto 1100 /uL (1100-4500); Lymphocytes Percent Auto 16.8 % (25-40); Mean Corpuscular HGB Conc 33.4 % (30-36); Mean Corpuscular Hemoglobin 30.9 PG (26-34); Mean Corpuscular Volume 92.6 fL (80-100); Monocytes Absolute Auto 900 /uL (0-900); Monocytes Percent Auto 13.3 % (3-14); Neutrophils Absolute Auto 4000 /uL (1500-7000); Neutrophils Percent Auto 62.3 % (50-75); Platelet Count 247 X10^3/uL (150-400); Red Blood Cell Count 2.69 X10^6/uL (4.5-5.9); Red Cell Distribution Width 14.4 % (11.6-14.8); White Blood Cell Count 6.4 X10^3/uL (4.5-11.0)
[2022-04-30 08:52] LABS: BUN Creatinine Ratio 35.5 (6-22); Blood Urea Nitrogen 103 mg/dL (9-20); Calcium 8.8 mg/dL (8.4-10.2); Carbon Dioxide 19 mmol/L (22-32); Chloride 104 mmol/L (98-107); Estimated Glomerular Filt Rate 20 mL/min (>60); Glucose 100 mg/dL (80-110); HEMOLYSIS < 15 (0-50); Potassium 4.1 mmol/L (3.4-5.1); Sodium 132 mmol/L (137-145)
[2022-04-30] MEDS: COLESEVELAM 625 MG TABLET 1875 MG PO ×2 (10:46→18:26)
--- NOTE | 2022-04-30 11:04 | CM.DPC ---
DCP Continued: THIEN spoke with hospitalist in rounds who stated patient is medically ready for DC today. CM called bharati at [facility] who stated she can accept the patient today at 1400. THIEN sent signed medication list, Rx scripts, PASSR for her review.... Hospitalist just stopped into CM office and said that she wants to keep the patient for one more night since patient is lethargic today and she wants to keep an eye on him. THIEN called August and let her know DC is was canceled for today but that more then likely will DC tomorrow. Joanne Stuart RNrfid manager
[2022-04-30] MEDS: BISACODYL 10 MG SUPP PR (11:54)
[2022-04-30] MEDS: polyethylene glycoL 3350 17 GM POWD.PACK PO (12:00)
--- NOTE | 2022-04-30 12:16 | PT-IP ANOTE ---
Attempted to see patient prior to lunch. Was on the phone with his when therapist walked in, noted I'm not ready for that stuff now, was discussing discharge options with his , unwilling to attempt to participate in therapy.
[2022-04-30 12:43] LABS: Appearance Urine UA SL CLOUDY; Bilirubin Urine UA NEGATIVE (NEGATIVE); Color Urine UA YELLOW; Glucose Urine UA NEGATIVE (Negative); Ketones Urine UA NEGATIVE (NEGATIVE); Leukocyte Esterase Urine UA 1+ (NEGATIVE); Nitrite Urine UA NEGATIVE (Negative); Occult Blood Urine UA 3+ (Negative); Protein Urine UA NEGATIVE (Negative); Specific Gravity Urine UA 1.015 (1.000-1.035); Urobilinogen Urine UA 0.2 E.U./dL (0.2); pH Urine UA 5.5 (4.5-8.0)
[2022-04-30 12:51] LABS: Bacteria Urine None Seen; Culture Indicated Urine Specimen Cultured; RBC Urine 30-100/HPF (0-5/HPF); WBC Urine 1-5/HPF (0-5/HPF)
[2022-04-30] MEDS: CALCIUM CARBONATE 500 MG TAB 1000 MG PO (13:10)
[2022-04-30] MEDS: ACETAMINOPHEN 325 MG TABLET 650 MG PO (13:10)
--- NOTE | 2022-04-30 14:53 | OT.IPNOTE ---
Attempted to see pt x2, pt refusing as wanting to use his phone to call his .
--- NOTE | 2022-04-30 15:34 | PT-IP ANOTE ---
Checked on PT x2 in afternoon-first with OT then again just this therapist. Pt refused stating he was unable to do anything. Will check back with lpt tomorrow.
--- NOTE | 2022-04-30 17:21 | PM.PN.1 ---
Subjective Subjective Interval history: 86-year-old male with congestive heart failure with preserved ejection fraction, diabetes mellitus type 2, hypertension, AFib, and CKD stage 3 who was admitted with YORDY and CKD, acute on chronic congestive heart failure, and possible left lower extremity cellulitis. He completed a course of antibiotics for the cellulitis. Hospital course has been complicated by increasing creatinine. He also did pass a kidney stone on the evening of April 28. Patient is quite drowsy today. He is having frequent hiccups. He is slow to respond. He keeps telling me that he will wake up and talk to me but falls back asleep fairly quickly Exam Vital Signs (past 8 hours): - 04/30/22 10:00 04/30/22 10:00 04/30/22 12:00 Temperature 97.1 F L Pulse Rate 70 76 Respiratory Rate 17 Blood Pressure 100/47 L 114/52 L Pulse Oximetry 97 97 Oxygen Delivery Method Room Air Oxygen Flow Rate 0 Oxygen Delivery Method Room Air Oxygen Flow Rate 0 Narrative Exam Narrative: GEN: Drowsy, oriented to self when awake, but quickly falls asleep, frequent hiccuping HEENT:NC, Face symmetric CHEST: Respiratory excursions symmetric, CTAB CV: RRR, no M/R/G ABD: Soft, obese, diffusely distended, NT, BT present in all 4 quadrants, no organomegaly or masses EXTR: warm, well perfused, no C/C, trace bilateral lower extremity edema SKIN: warm and dry, no rash NEURO: Drowsy, nonfocal Objective Labs 04/30/22 07:29 04/30/22 07:29 Labs: Laboratory Results - last 24 hr 04/30/22 04/30/22 04/30/22 07:29 07:29 11:30 WBC 6.4 RBC 2.69 L Hgb 8.3 L Hct 24.9 L MCV 92.6 MCH 30.9 MCHC 33.4 RDW 14.4 Plt Count 247 Neut % (Auto) 62.3 Lymph % (Auto) 16.8 L [place] % (Auto) 13.3 Eos % (Auto) 7.2 H Baso % (Auto) 0.4 Neut # (Auto) 4000 Lymph # (Auto) 1100 [place] # (Auto) 900 Eos # (Auto) 500 H Baso # (Auto) 0 Sodium 132 L Potassium 4.1 Chloride 104 Carbon Dioxide 19 L BUN 103 H Creatinine 2.90 H Estimated GFR 20 L BUN/Creatinine Ratio 35.5 H Glucose 100 Calcium 8.8 Urine Color Yellow Urine Appearance Sl cloudy Urine pH 5.5 Ur Specific [place] 1.015 Urine Protein Negative Urine Glucose (UA) Negative Urine Ketones Negative Urine Occult Blood 3+ H Urine Nitrate Negative Urine Bilirubin Negative Urine Urobilinogen 0.2 Ur Leukocyte Esterase 1+ H Urine RBC 30-100/hpf H Urine WBC 1-5/hpf Urine Bacteria None seen Ur Culture Indicated? Specimen cultured [facility] Medical History Anemia Asymptomatic microscopic hematuria BPH (benign prostatic hyperplasia) Chronic diastolic heart failure DM2 (diabetes mellitus, type 2) Hypertension Interstitial lung disease Permanent atrial fibrillation Stage 3b chronic kidney disease (CKD) Surgical History S/P AVR (aortic valve replacement) Family History Mother No pertinent past medical history Father No pertinent past medical history Social History household members: spouse Smoking Status: Former smoker alcohol intake: current Assessment & Plan Assessment & Plan narrative: 1. Acute on chronic CHF exacerbation Patient was initially treated with IV Lasix b.i.d.. Subsequently transitioned to spironolactone and torsemide. Unfortunately, his worsening YORDY lead to diuretics being held. Echo showed an EF of 60-65%. Initially troponin was minimally elevated but subsequently was down trending. Continue monitoring I's and O's carefully. Plan to resume diuresis when safe to do so as his kidney function improves. 2. YORDY and CKD 4 [address] catheter remains in [address]. Creatinine is minimally improved today at 2.9. His azotemia has worsened at 103. He has had a steadily rising BUN since admission. Current output was 1800 cc yesterday. Holding diuresis as noted. 3. Left Lower extremity cellulitis Patient completed a course of Keflex. No residual evidence of cellulitis on exam 4. Chronic atrial fibrillation with left femoral DVT Patient was on reduced dose apixaban on admission due to his renal function. A nonocclusive DVT was found in his left femoral vein. He was placed on Xarelto 15 mg daily (uncertain why he was not placed on b.i.d. dosing times 21 days). He will need 20 mg daily at discharge. 5. Hypertension Blood pressures have remained low normal, but overall improved compared with yesterday. Holding antihypertensive therapy. 6. Hyponatremia Sodium slowly improving. On admission his sodium was normal at 139. It came down gradually to 128. Today it is 132. Resolved issues: Myocardial injury Code status DNR Prophylaxis On Xarelto Disposition Likely nursing home facility in the next 24 hours. Time Spent With Patient Critical Care time: I spent a total of [] minutes of critical care time on this patient's care today; this time is exclusive of procedural time. Quality VTE Deep Vein Thrombosis/Pulmonary Embolism Present on Admission: No
[2022-04-30] MEDS: RIVAROXABAN 10 MG TABLET 15 MG PO (18:27)
[2022-04-30] MEDS: SENNOSIDES 8.6 MG TABLET PO (20:14)
[2022-04-30] MEDS: diphenhydrAMINE 25 MG TABLET 50 MG PO (20:14)
[2022-04-30] MEDS: LATANOPROST 0.005% OPHTH 2.5 ML 1 DROPS EYE-BOTH (20:14)
[2022-04-30] MEDS: ATORVASTATIN 20 MG TABLET 40 MG PO (20:14)
[2022-05-01 02:00] VITALS: O2SAT 93
[2022-05-01 06:00] VITALS: O2SAT 94
[2022-05-01 06:19] VITALS: BP 113/57; PULSE 66; RESP 16; TEMP 36.4; O2SAT 99
[2022-05-01 06:27] LABS: Add Manual Diff / Slide Review NO; Basophils Absolute Auto 0 /uL (0-100); Basophils Percent Auto 0.5 % (0-2); Eosinophils Absolute Auto 600 /uL (0-450); Eosinophils Percent Auto 7.8 % (2-4); Hematocrit 25.5 % (41-53); Hemoglobin 8.7 g/dL (13.5-17.5); Lymphocytes Absolute Auto 1400 /uL (1100-4500); Lymphocytes Percent Auto 19.1 % (25-40); Mean Corpuscular Hemoglobin 31.4 PG (26-34); Mean Corpuscular Volume 92.2 fL (80-100); Monocytes Absolute Auto 1100 /uL (0-900); Neutrophils Absolute Auto 4100 /uL (1500-7000); Neutrophils Percent Auto 57.6 % (50-75); Platelet Count 261 X10^3/uL (150-400); Red Blood Cell Count 2.77 X10^6/uL (4.5-5.9); Red Cell Distribution Width 14.4 % (11.6-14.8); White Blood Cell Count 7.1 X10^3/uL (4.5-11.0)
[2022-05-01 07:24] LABS: BUN Creatinine Ratio 38.1 (6-22); Blood Urea Nitrogen 96 mg/dL (9-20); Calcium 9.1 mg/dL (8.4-10.2); Carbon Dioxide 20 mmol/L (22-32); Chloride 108 mmol/L (98-107); Estimated Glomerular Filt Rate 24 mL/min (>60); Glucose 93 mg/dL (80-110); HEMOLYSIS < 15 (0-50); Potassium 4.6 mmol/L (3.4-5.1); Sodium 135 mmol/L (137-145)
[2022-05-01] MEDS: COLESEVELAM 625 MG TABLET 1875 MG PO (07:54)
[2022-05-01] MEDS: DOXAZOSIN 2 MG TABLET PO (08:02)
[2022-05-01] MEDS: ACETAMINOPHEN 325 MG TABLET 650 MG PO (08:08)
[2022-05-01 09:00] VITALS: BP 124/62; PULSE 84; RESP 17; TEMP 36.8; O2SAT 95
--- NOTE | 2022-05-01 15:30 | CM.DPC ---
DC Note Discharge to [facility], patient aware and agreeable to plan. [facility] provided Faxed completed and signed PASRR and med list to August at [facility]. IVAN Solano agreed to call nursing report [facility] arranged for picker packer at approx 1300 [address]
--- NOTE | 2022-05-01 20:40 | PM.DS.1 ---
History of Present Illness History of Present Illness Chief complaint: Lt Lower Leg Cellulitis Narrative: Per history and physical: Mr. Albarado is a 86M with PMH CHFpEF, DM 2, HTN, afib, CKD stage 3 who presents to the hospital with leg swelling and short of breath. He has notes documenting that he has some cognitive issues. He states that he notes he has had wounds and swelling in his legs for two weeks. He began having weeping legs, and some mild erythema around ulcers. He denies missing any of his medications. He came in to the hospital with exertional shortness of breath. He has had worsening difficulty with ambulating. He has no chest pain. No fevers/chills. He has seen a air pollution compliance inspector, he does not remember the details of if there were discussions of dialysis. He has seen his denture processor recently, last month, who noted that he has had right heart cath in the past to help determine medical management, and whose note states the patient would right heart cath prior to adjust diuretics. At that time he weighed 96kg, and in the ED today he is weighed in the bed at 102kg. In the ED workup was done, vitals notable for afebrile, heart rate in the 90s, blood pressure 140s/70s, sats in the 90s on room air. Labs notable for WBC 7.7, hgb 11.4, plts 286. BUN 77, creatinine 2.72. BNP 1820, Procal 0.19. Mccoy was placed for difficulty with urination, and he had over a 1L of urine out quickly. Chest xray concerning for cardiomegaly and interstitial pulmonary edema. CT chest abdomen and pelvis showed no acute process. He was given antibiotics and admitted for further treatment. Discharge Providers Provider Date of admission: 04/21/22 21:33 Discharge Date: 05/01/22 Primary care physician: Carmelina Casey MD Consults: 04/21/22 22:48 Consult to Physical Therapy Evaluate & Treat Comment: Physician Instructions: Evaluate and Treat 04/23/22 09:18 Consult to Occupational Therapy Evaluate & Treat Comment: Physician Instructions: Evaluate and treat 04/25/22 13:37 Consult to Physical Therapy Evaluate & Treat Comment: PT evaluation on 04-26-22 Physician Instructions: Evaluate and Treat Discharge provider: Bebe Guy MD Summary Hospital Course Discharge Diagnosis: 1. Acute on chronic congestive heart failure exacerbation 2. YORDY in the setting of CKD 4, improving 3. Left lower extremity cellulitis, resolved 4. Chronic atrial fibrillation 5. Left femoral DVT, nonocclusive in the setting of Eliquis anticoagulation, now transitioned to Xarelto 6. Hypertension 7. Hyponatremia 8. Myocardial injury, acute, resolved 9. Bioprosthetic aortic valve replacement 10. Mitral valve regurgitation, moderate 11. Mildly enlarged ascending aorta seen on imaging 12. Incidental cholelithiasis 13. Nephrolithiasis 14. Constipation, improved after a large bowel movement within the 24 hours prior to discharge Hospital Course: 86-year-old male with congestive heart failure with preserved ejection fraction, diabetes mellitus type 2, hypertension, AFib, and CKD stage 3 who was admitted with YORDY and CKD, acute on chronic congestive heart failure, and possible left lower extremity cellulitis.? He completed a course of antibiotics for the cellulitis.? Due to his leg swelling, ultrasound was done and showed evidence of a nonocclusive DVT which occurred in the setting of Eliquis anticoagulation. He was transitioned to Xarelto. Hospital course has been complicated by increasing creatinine.? His baseline creatinine is noted to be 1.5-1.7. It was up to 2 point 3-2.4 in March. On admission, his creatinine was 2.72. It initially showed improvement and did drop down to 1.96 on April 25. However on April 26 and increase to 2.5 and continued to increase up to 3.02 on April 29. Diuretics were held. He did pass a kidney stone on the evening of April 28. His creatinine was mildly improved at 0.90 on April 30. However his discharge was delayed as he was noted to be significantly drowsy and it was unclear to this provider as to his baseline. On the date of discharge, his creatinine had once again improved to 2.52. He was alert and more interactive. He was able to carry on a conversation with his daughter by cell phone. He felt improved overall and ready for discharge. He is discharged in stable condition. Studies during this hospitalization: Chest x-ray on April 21, 2022 revealed cardiomegaly with probable mild to moderate interstitial edema. Airspace disease in the right mid lung and right lung base may be infectious but has significantly improved compared to December 04, 2021 Chest/abdomen/pelvis CT was performed on 04/21/2022 with no acute findings. There is atrophic appearance of the kidneys with bone findings suggestive of renal osteodystrophy. Cardiomegaly noted with four-vessel coronary atherosclerosis. Cholelithiasis without cholecystitis. Echocardiogram was performed on 04/22/2022 and revealed [id number] concentric LVH. EF was 65-70% mildly dilated right ventricle, normal RV systolic function. Severe biatrial enlargement. Bioprosthetic aortic valve. Moderate tricuspid regurgitation. Ascending aorta mildly enlarged Venous lower extremity Doppler was performed on 04/22/2022 which revealed a short segment of nonocclusive DVT within the distal left femoral vein KUB x-ray was performed 04/26/2022 which revealed mildly dilated loops of bowel throughout the abdomen, possibly related to ileus. Mechanical bowel obstruction considered less likely but not excluded. Large amount of stool in the colon. Renal ultrasound was performed on 04/29/2022 and revealed no evidence of hydronephrosis. Multiple stones were noted larger burden on the left measuring to 13 x 12 mm. Incidental cholelithiasis was noted. Status at Discharge Cognitive/behavioral status at discharge: at baseline, oriented Overall status at discharge: patient is progressing back to baseline Time Spent with Patient Time spent: Greater than 30 minutes Exam Vital Signs (past 8 hours): Oxygen Delivery Method Room Air Oxygen Flow Rate 0 Narrative Exam Narrative: GEN:? Alert and oriented x3, NAD HEENT:NC, Face symmetric CHEST: Respiratory excursions symmetric, CTAB CV: RRR, no M/R/G ABD: Soft, obese, moderately distended, NT, BT present in all 4 quadrants, body habitus limits exam EXTR: warm, well perfused, no C/C, trace bilateral lower extremity edema, healing wounds noted to the lower extremities with scaly skin to the right lower extremity SKIN: warm and dry, no rash NEURO:? Drowsy, nonfocal Objective Labs 05/01/22 06:03 05/01/22 06:03 Labs: Laboratory Results - last 24 hr 05/01/22 05/01/22 06:03 06:03 WBC 7.1 RBC 2.77 L Hgb 8.7 L Hct 25.5 L MCV 92.2 MCH 31.4 MCHC 34.0 RDW 14.4 Plt Count 261 Neut % (Auto) 57.6 Lymph % (Auto) 19.1 L Schuyler % (Auto) 15.0 H Eos % (Auto) 7.8 H Baso % (Auto) 0.5 Neut # (Auto) 4100 Lymph # (Auto) 1400 Schuyler # (Auto) 1100 H Eos # (Auto) 600 H Baso # (Auto) 0 Sodium 135 L Potassium 4.6 Chloride 108 H Carbon Dioxide 20 L BUN 96 H Creatinine 2.52 H Estimated GFR 24 L BUN/Creatinine Ratio 38.1 H Glucose 93 Calcium 9.1 PFSH Medical History Anemia Asymptomatic microscopic hematuria BPH (benign prostatic hyperplasia) Chronic diastolic heart failure DM2 (diabetes mellitus, type 2) Hypertension Interstitial lung disease Permanent atrial fibrillation Stage 3b chronic kidney disease (CKD) Surgical History S/P AVR (aortic valve replacement) Family History Mother No pertinent past medical history Father No pertinent past medical history Social History household members: spouse Smoking Status: Former smoker alcohol intake: current Discharge Plan Discharge Plan Patient Disposition: SNF Transfer to: [facility] and [facility] Under care of provider: Facility Provider Discharge Comment: Pt needs f/u CBC and BMP on 05/03/22 - results to facility Lisinopril, torsemide and spironolactone have been held d/t YORDY. Facility MD to assess when it is appropriate to resume these medications Nursing Discharge Comment: mccoy was ordered to be dc'd at 1245 pm - patient reported a history of retention and requested that mccoy be left in. order received. Assisted w/ ayana-care & clean gown prior to leaving hospital. med list reviewed and completed. patient given 650mg APAP this am for general discomfort, and also at 1300. personal belongings packed up, including his slippers and iphone and primer charger cord/block. scabbed wounds cleansed w/ warm water, house barrier lotion applied to LE's to keep the skin soft and non-itchy. covered left hinson scab (approx 3cm round oozing blood blister) w/ allevyn, w/ time and date. coccyx wound will be changed after he finishes on the bedpan. will call above report and more to Graciela, accepting nurse at [facility]. meds whole w/ appleauce or water. alert and oriented w/ occassional forgetfulness. eager to return to [facility], where he resides w/ his of 60 years. understands he is dc to [facility] for therapy. thank you! Discharge orders & Medications Prescriptions: New polyethylene glycol 3350 17 gram Powder In Packet 17 g PO DAILY Qty: 30 0RF Xarelto 10 mg Tablet 20 mg PO DAILY@1700 Qty: 30 0RF sennosides [senna] 8.6 mg Tablet 8.6 mg PO BEDTIME Qty: 30 0RF Continued [vitamin D3/D2] 2,000 iu PO QDAY Qty: 0 [fish oil] 1 gm PO QDAY Qty: 0 multivitamin [Multiple Vitamins] 1 EACH tablet 1 tab PO QDAY Qty: 0 colesevelam [WelChol] 625 mg tablet 1,875 mg PO BID Qty: 540 3RF Myrbetriq 25 mg tablet extended release 24 hr 25 mg PO QDAY Qty: 90 3RF Disabled Parking Permit 1 ea topical DAILY oxycodone 5 mg tablet 5 mg PO BEDTIME PRN (Reason: pain) Qty: 10 0RF Rx Instructions: use only for severe pain at night. ok to skip doses. may use 1/2 tab latanoprost 0.005 % drops 1 drp ophthalmic (eye) DAILY nitroglycerin 0.4 mg tablet, sublingual 0.4 mg sublingual Q5M PRN (Reason: pain) Rx Instructions: do not exceed 3 doses per episode zinc gluconate 50 mg tablet 50 mg PO DAILY doxazosin [Cardura] 2 mg tablet 2 mg PO DAILY atorvastatin 40 mg tablet 40 mg PO DAILY Qty: 90 3RF mupirocin 2 % ointment kit 1 applic topical BID Qty: 1 1RF Rx Instructions: please sub generic or brand as covered by insurance acetaminophen 325 mg capsule 650 mg PO Q4H PRN (Reason: Pain (Scale Score 1-3)) albuterol sulfate 90 mcg/actuation HFA aerosol inhaler 2 puff inhalation Q6H PRN (Reason: Bronchospasm) bisacodyl 10 mg suppository 10 mg AK DAILY PRN (Reason: Constipation) Rx Instructions: Insert 10mg rectally as needed for constipation if no results from MOM dextromethorphan-guaifenesin 5-100 mg/5 mL liquid 15 ml PO Q4H PRN (Reason: Cough) Rx Instructions: Give 15mL by mouth every 4 hours as needed for cough glucagon 1 mg kit See Rx Instructions .ROUTE .COMPLEX PRN (Reason: Hypoglycemia) Rx Instructions: Inject 1mg intramuscularly every 15 minutes as needed for blood sugar < 60 if unresponsive. Repeat in 15 minutes. Notify MD. Hold all insulin coverages unless otherwise indicated. dextrose [Glutose-15] 40 % gel 10 g PO Q15M PRN (Reason: Hypoglycemia) Rx Instructions: until symptoms of low blood sugar are controlled ipratropium-albuterol 0.5 mg-3 mg(2.5 mg base)/3 mL solution for nebulization 3 ml inhalation Q6H PRN (Reason: short) magnesium hydroxide [Milk of Magnesia] 400 mg/5 mL suspension 30 ml PO DAILY PRN (Reason: Constipation) Rx Instructions: Give 30 mL by mouth as needed for no BM in 3 days, may give daily Discontinued [COQ10] 25 mg PO BID Qty: 0 taurine 1,000 mg capsule 1,000 mg PO DAILY spironolactone 25 mg tablet 25 mg PO DAILY lisinopril 20 mg tablet 20 mg PO DAILY torsemide 20 mg tablet 20 mg PO TID Qty: 270 1RF Eliquis 2.5 mg tablet 2.5 mg PO BID Qty: 180 3RF Follow up/Referrals: Carmelina Casey MD [Primary Care Provider] - Discharge Health Status Multidrug resistant organism: No MDRO Diet/Activity/Treatments Diet: Low-sodium Liquid consistency: Normal/Thin Food texture: Regular Activity: As tolerated w/PT/OT Oxygen: N/A Special Rehabilitation Services Rehab type: Physical therapy and Occupational therapy Visit Report/Discharge Packet Stand Alone Forms: Patient Portal/API Discharge Data Primary Care Provider: Carmelina Casey Quality VTE Deep Vein Thrombosis/Pulmonary Embolism Present on Admission: No
== END 2022-05-01 13:45 | DRG 291 ==
LOC: ED 20:21 → AC 04-22 07:05
PROVIDERS: Emergency Medicine; Family Medicine; Internal Medicine; Neuromusculoskeletal Medicine, Sports Medicine; Nurse Practitioner Family; Student in an Organized Health Care Education/Training Program; Admitting Provider Internal Medicine; Emergency Provider Nurse Practitioner Critical Care Medicine; Family Provider Physician Assistant; PCP Family Medicine; Visit Provider Internal Medicine
DX: I13.0 Hypertensive heart and chronic kidney disease with heart failure and stage 1 through stage 4 chronic kidney disease, or unspecified chronic kidney disease (principal); I50.33 Acute on chronic diastolic (congestive) heart failure; N17.9 Acute kidney failure, unspecified; N18.4 Chronic kidney disease, stage 4 (severe); L03.116 Cellulitis of left lower limb; I48.20 Chronic atrial fibrillation, unspecified; I82.412 Acute embolism and thrombosis of left femoral vein; E87.1 Hypo-osmolality and hyponatremia; N32.0 Bladder-neck obstruction; I5A Non-ischemic myocardial injury (non-traumatic); K80.20 Calculus of gallbladder without cholecystitis without obstruction; E11.22 Type 2 diabetes mellitus with diabetic chronic kidney disease; Z79.84 Long term (current) use of oral hypoglycemic drugs; Z66 Do not resuscitate; Z20.822 Contact with and (suspected) exposure to COVID-19; Z79.01 Long term (current) use of anticoagulants; Z87.891 Personal history of nicotine dependence; Z95.2 Presence of prosthetic heart valve
CPT/HCPCS: 0241U; 36415; 71045; 71250; 73502; 74018; 74176; 76770; 80048; 80053; 81001; 81003; 82550; 83605; 83690; 83735; 83880; 84145; 84484; 85025; 85610; 85651; 85730; 86140; 87040; 87070; 87075; 87077; 87086; 87147; 87186; 87205; 87635; 93005; 93010; 93306; 93970; 96365; 97163; 97166; 97530; 97535; 99284; C9803; J0696; J1644; J1940; J2405; J2765

== ENCOUNTER 2022-06-08 08:11 | Inpatient (IN) | payer MEDICARE, BC, SELFPAY ==
[2022-04-22 16:18] VITALS: BMI 32.8
[2022-06-08] VITALS (19 sets, daily range): BP systolic 110–164; BP diastolic 55–82; PULSE 77–114; RESP 14–30; TEMP 31–37.1; O2SAT 93–100; BMI 35.2; BMI 34.4
--- NOTE | 2022-06-08 08:18 | DI.RAD.S_ITS ---
PROCEDURE: XR CHEST 1V INDICATIONS: dyspnic TECHNIQUE: One view of the chest was acquired. COMPARISON: [facility], CR, XR CHEST 1V, 04/21/2022, 16:53. FINDINGS: Surgical changes and devices: Sternal wires. Lungs and pleura: Persistent right basilar and retrocardiac opacities. Mediastinum: Mediastinal contours appear normal. Heart size is enlarged. Bones and chest wall: No suspicious bony lesions. Overlying soft tissues appear unremarkable. IMPRESSION: Persistent appearance right basilar and retrocardiac opacities. While these could represent persistent/recurrent airspace disease such as pneumonia, underlying areas of atelectasis, scarring edema should be considered. Dictated by: Zeinab Bassett M.D. on 06/08/2022 at 9:12 Approved by: Zeinab Bassett M.D. on 06/08/2022 at 9:15
[2022-06-08 08:28] LABS: Add Manual Diff / Slide Review NO; Basophils Absolute Auto 0 /uL (0-100); Basophils Percent Auto 0.3 % (0-2); Eosinophils Absolute Auto 200 /uL (0-450); Hematocrit 23.8 % (41-53); Hemoglobin 7.8 g/dL (13.5-17.5); Lymphocytes Absolute Auto 1700 /uL (1100-4500); Mean Corpuscular HGB Conc 32.7 % (30-36); Mean Corpuscular Hemoglobin 29.5 PG (26-34); Mean Corpuscular Volume 90.3 fL (80-100); Monocytes Absolute Auto 800 /uL (0-900); Monocytes Percent Auto 6.8 % (3-14); Neutrophils Absolute Auto 8800 /uL (1500-7000); Neutrophils Percent Auto 75.9 % (50-75); Platelet Count 255 X10^3/uL (150-400); Red Blood Cell Count 2.63 X10^6/uL (4.5-5.9); Red Cell Distribution Width 14.5 % (11.6-14.8); White Blood Cell Count 11.6 X10^3/uL (4.5-11.0)
[2022-06-08 08:36] LABS: HEMOLYSIS < 15 (0-50)
[2022-06-08] MEDS: FUROSEMIDE 60 MG in SODIUM CHLORIDE 0.9% 50 ML 112 MG IV (08:40)
--- NOTE | 2022-06-08 08:40 | ED_ITS ---
HPI - SOB/Dyspnea General Chief Complaint: Shortness of Breath/Dyspnea Stated Complaint: SOB Time Seen by Provider: 06/08/22 08:16 History of Present Illness HPI Narrative: Patient is a 86-year-old male history of congestive heart failure, type 2 diabetes hypertension, atrial fibrillation on Xarelto, chronic kidney disease presents today from [facility] with increasing shortness of breath. He actually had blood work done yesterday which showed a creatinine of 1.6 and it looks like he is only on 20 mg of Lasix daily. He is obviously dyspneic with peripheral edema. He denies any fever but has a cough. He denies any chest pain. He is not actually hypoxic. Related Data Home Medications Medication Instructions Recorded Confirmed cholecalciferol (vitamin D3) 50 50 mcg PO DAILY ##0 10/20/15 06/08/22 mcg (2,000 unit) tablet multivitamin (Multiple Vitamins 1 tab PO QDAY #0 tabs 10/20/15 06/08/22 tablet) omega 8-yhr-ugy-fish oil 1,000 mg 1 cap PO DAILY ##0 10/20/15 06/08/22 (120 mg-180 mg) capsule (Fish Oil) latanoprost 0.005 % eye drops 1 drp ophthalmic (eye) BEDTIME 06/11/20 06/08/22 nitroglycerin 0.4 mg sublingual 0.4 mg sublingual Q5M PRN pain 06/11/20 06/08/22 tablet zinc gluconate 50 mg tablet 50 mg PO DAILY 06/11/20 06/08/22 Disabled Parking Permit 1 ea topical DAILY 12/04/21 06/08/22 acetaminophen 325 mg capsule 650 mg PO Q4H PRN Pain (Scale 02/16/22 06/08/22 Score 1-3) albuterol sulfate 90 mcg/actuation 2 puff inhalation Q6H PRN 02/16/22 06/08/22 aerosol inhaler Bronchospasm bisacodyl 10 mg rectal suppository 10 mg [place] DAILY PRN Constipation 02/16/22 06/08/22 dextromethorphan-guaifenesin 5 15 ml PO Q4H PRN Cough 02/16/22 06/08/22 mg-100 mg/5 mL oral liquid glucagon 1 mg injection kit See Rx Instructions .Route 02/16/22 06/08/22 .COMPLEX PRN Hypoglycemia magnesium hydroxide 400 mg/5 mL 30 ml PO DAILY PRN Constipation 02/16/22 06/08/22 oral suspension (Milk of Magnesia) doxazosin 2 mg tablet (Cardura) 2 mg PO DAILY 03/05/22 06/08/22 Lactobacillus acidophilus 5,000 mmu cells PO DAILY 06/08/22 06/08/22 albuterol sulfate 0.63 mg/3 mL 0.63 mg inhalation Q6H PRN 06/08/22 06/08/22 solution for nebulization Shortness Of Breath empagliflozin 10 mg tablet 10 mg PO DAILY 06/08/22 06/08/22 furosemide 20 mg tablet 20 mg PO DAILY 06/08/22 06/08/22 prednisone 10 mg tablet 30 mg PO DAILY 06/08/22 06/08/22 Previous Rx's Medication Instructions Recorded colesevelam 625 mg tablet (WelChol) 1,875 mg PO BID #540 tabs 03/26/21 mirabegron 25 mg tablet,extended 25 mg PO QDAY #90 tabs 06/11/21 release 24 hr (Myrbetriq) atorvastatin 40 mg tablet 40 mg PO DAILY #90 tabs 03/05/22 mupirocin 2 % ointment topical kit 1 applic topical BID #1 ea 04/19/22 oxycodone 5 mg tablet 5 mg PO BEDTIME PRN pain #10 tabs 04/30/22 polyethylene glycol 3350 17 gram 17 g PO DAILY #30 ea 04/30/22 oral powder packet rivaroxaban 10 mg tablet (Xarelto) 20 mg PO DAILY@1700 #30 tabs 04/30/22 Allergies Allergy/AdvReac Type Severity Reaction Status Date / Time No Known Drug Allergies Allergy Verified 03/05/22 13:48 Review of Systems Review of Systems ROS Unobtainable: All systems reviewed & are unremarkable except as noted in HPI and below Patient History Medical History Anemia Asymptomatic microscopic hematuria BPH (benign prostatic hyperplasia) Chronic diastolic heart failure DM2 (diabetes mellitus, type 2) Hypertension Interstitial lung disease Permanent atrial fibrillation Stage 3b chronic kidney disease (CKD) Surgical History S/P AVR (aortic valve replacement) Family History Mother No pertinent past medical history Father No pertinent past medical history Social History household members: spouse Smoking Status: Former smoker alcohol intake: current Smoking Status: Former smoker alcohol intake frequency: 0-2 drinks per day Substance Use Type: does not use Exam Initial Vital Signs Initial Vital Signs: Vital Signs Pulse Rate 89 06/08/22 08:15 Pulse Oximetry 94 06/08/22 08:15 GENERAL: Alert pleasant 86-year-old male appears in [id number]-[id number] respiratory distress HEENT: Head atraumatic,EOMI, pupils reactive, face symmetric, moist mucous membranes CARDIOVASCULAR: Regular rate and rhythm without murmurs, rubs or gallops. RESPIRATORY: Tachypnea conversational dyspnea rales ABDOMEN: Soft, nontender. Normoactive bowel sounds all 4 quadrants. No guarding or rebound. EXTREMITIES: Normal range of motion, no clubbing. +2 pitting edema lower extremities upper extremities also have pitting edema Neurovascularly intact NEUROLOGICAL: Alert and oriented x4.Normal gait and speech. SKIN: Warm, dry, no laceration, no petechiae, no rashes or lesions. Course Orders Ordered: ED Orders 06/08/22 08:15 Complete Blood Count AUTO DIFF Stat Comprehensive Metabolic Panel Stat Lipase Stat NT-proBNP (BNP-Adult 18+) Stat Procalcitonin Stat Troponin & CK Cardiac Panel Stat 06/08/22 08:18 XR chest 1V Stat 06/08/22 08:23 Covid-19 + FLU A/B + RSV - PCR Stat 06/08/22 08:36 EKG-12 Lead Stat 06/08/22 10:05 Trop I [Troponin I] Stat 06/08/22 10:13 ABG [Arterial Blood Gas] Stat 06/08/22 10:30 Urinalysis and Microscopic Stat Urine Culture Stat 06/08/22 10:39 CT angio chest PE protocol Stat Acetaminophen (Acetaminophen 325 Mg Tablet) 650 mg PO Q6H PRN PRN Reason: Fever/Mild Pain (1-3) Furosemide (Furosemide 40 Mg/4 Ml Vial) 40 mg IV 0800,1600 SAHIL Ondansetron HCl (Ondansetron 4 Mg/2 Ml Inj) 4 mg IV Q8HR PRN PRN Reason: Nausea And Vomiting Discontinued Medications Furosemide 60 mg/ Sodium (Chloride) 56 mls @ 112 mls/hr IV NOW ONE Stop: 06/08/22 08:17 Last Infusion: 06/08/22 09:12 Dose: 0 mls/hr Documented By: Admin: 06/08/22 08:40 Dose: 112 mls/hr Documented By: LEMUEL Morphine Sulfate (Morphine 2 Mg/Ml Inj) 2 mg IV NOW ONE Stop: 06/08/22 09:49 Last Admin: 06/08/22 09:54 Dose: 2 mg Documented By: LEMUEL Vital Signs Vital signs: Vital Signs - 8 hr 06/08/22 08:18 06/08/22 08:15 06/08/22 08:17 Temperature 97.4 F L Pulse Rate 94 H 89 95 H Respiratory Rate 22 27 H Blood Pressure 153/82 H Pulse Oximetry 98 94 96 Oxygen Delivery Method Room Air Fraction of Inspired Oxygen 06/08/22 08:17 06/08/22 08:30 06/08/22 08:30 Temperature Pulse Rate 114 H Respiratory Rate Blood Pressure 153/82 H 151/76 H Pulse Oximetry 95 Oxygen Delivery Method Fraction of Inspired Oxygen 06/08/22 08:45 06/08/22 09:00 06/08/22 09:00 Temperature 97.3 F L Pulse Rate 96 H 86 Respiratory Rate 22 Blood Pressure 164/82 H Pulse Oximetry 99 98 Oxygen Delivery Method Fraction of Inspired Oxygen 06/08/22 09:15 06/08/22 09:15 06/08/22 09:30 Temperature 97.7 F Pulse Rate 84 Respiratory Rate 30 H Blood Pressure 144/72 H 140/70 Pulse Oximetry 97 Oxygen Delivery Method Fraction of Inspired Oxygen 06/08/22 09:30 06/08/22 09:00 06/08/22 09:45 Temperature 97.9 F Pulse Rate 79 Respiratory Rate 14 Blood Pressure 151/76 H 136/72 Pulse Oximetry 97 Oxygen Delivery Method Fraction of Inspired Oxygen 25 06/08/22 09:45 06/08/22 10:00 06/08/22 10:00 Temperature 97.9 F 97.9 F Pulse Rate 80 83 Respiratory Rate 20 Blood Pressure 135/59 L Pulse Oximetry 98 98 Oxygen Delivery Method Fraction of Inspired Oxygen 06/08/22 10:15 06/08/22 10:15 06/08/22 10:30 Temperature 97.9 F Pulse Rate 84 Respiratory Rate Blood Pressure 138/73 134/64 Pulse Oximetry 98 Oxygen Delivery Method Fraction of Inspired Oxygen 06/08/22 10:30 06/08/22 10:45 06/08/22 10:45 Temperature 97.9 F 97.9 F Pulse Rate 86 84 Respiratory Rate Blood Pressure 154/78 H Pulse Oximetry 98 96 Oxygen Delivery Method Fraction of Inspired Oxygen 06/08/22 11:07 06/08/22 11:30 Temperature 97.9 F 97.7 F Pulse Rate 96 H Respiratory Rate Blood Pressure Pulse Oximetry 94 Oxygen Delivery Method Fraction of Inspired Oxygen MDM - SOB/Dyspnea Lab Data 06/08/22 08:15 06/08/22 08:15 Labs: Lab Results 06/08/22 06/08/22 06/08/22 Range/Units 08:15 08:15 08:15 WBC 11.6 H (4.5-11.0) X10^3/uL RBC 2.63 L (4.5-5.9) X10^6/uL Hgb 7.8 L (13.5-17.5) g/dL Hct 23.8 L (41-53) % MCV 90.3 (80-100) fL MCH 29.5 (26-34) PG MCHC 32.7 (30-36) % RDW 14.5 (11.6-14.8) % Plt Count 255 (150-400) X10^3/uL Neut % (Auto) 75.9 H (50-75) % Lymph % (Auto) 15.0 L (25-40) % [place] % (Auto) 6.8 (3-14) % Eos % (Auto) 2.0 (2-4) % Baso % (Auto) 0.3 (0-2) % Neut # (Auto) 8800 H (1948-4944) /uL Lymph # (Auto) 1700 (4472-6339) /uL [place] # (Auto) 800 (0-900) /uL Eos # (Auto) 200 (0-450) /uL Baso # (Auto) 0 (0-100) /uL Sodium 135 L (137-145) mmol/L Potassium 4.9 (3.4-5.1) mmol/L Chloride 108 H (98-107) mmol/L Carbon Dioxide 24 (22-32) mmol/L BUN 29 H (9-20) mg/dL Creatinine 1.48 H (0.66-1.25) mg/dL Estimated GFR 46 L (>60) mL/min BUN/Creatinine Ratio 19.6 (6-22) Glucose 90 (80-110) mg/dL Calcium 8.8 (8.4-10.2) mg/dL Total Bilirubin 0.4 (0.2-1.3) mg/dL AST 19 (17-59) IU/L ALT 17 (<50) IU/L Alkaline Phosphatase 77 (38-126) U/L Total Creatine Kinase 51 L (55-170) U/L CK-MB (CK-2) TNP CK-MB (CK-2) Rel Index TNP Troponin I 0.033 (0.01-0.034) ng/mL NT-Pro-B Natriuret Pep 6860 H (<450) pg/mL Total Protein 6.0 L (6.3-8.2) g/dL Albumin 2.9 L (3.5-5.0) g/dL Globulin 3.1 (1.7-4.1) g/dL Albumin/Globulin Ratio 0.9 L (1.0-2.8) Lipase 102 (23-300) U/L Procalcitonin 0.20 (<0.5) ng/mL Urine Color Urine Appearance Urine pH (4.5-8.0) Ur Specific [place] (1.000-1.035) Urine Protein (Negative) Urine Glucose (UA) (Negative) g/dL Urine Ketones (NEGATIVE) Urine Occult Blood (Negative) Urine Nitrate (Negative) Urine Bilirubin (NEGATIVE) Urine Urobilinogen (0.2) E.U./dL Ur Leukocyte Esterase (NEGATIVE) Urine RBC (0-5/HPF) Urine WBC (0-5/HPF) Urine Bacteria (None) Ur Culture Indicated? SARS-CoV-2 (PCR) (Negative) Influenza A (RT-PCR) (NEGATIVE) Influenza B (RT-PCR) (NEGATIVE) RSV (PCR) (Negative) 06/08/22 06/08/22 06/08/22 Range/Units 08:23 10:05 10:30 WBC (4.5-11.0) X10^3/uL RBC (4.5-5.9) X10^6/uL Hgb (13.5-17.5) g/dL Hct (41-53) % MCV (80-100) fL MCH (26-34) PG MCHC (30-36) % RDW (11.6-14.8) % Plt Count (150-400) X10^3/uL Neut % (Auto) (50-75) % Lymph % (Auto) (25-40) % [place] % (Auto) (3-14) % Eos % (Auto) (2-4) % Baso % (Auto) (0-2) % Neut # (Auto) (4687-2575) /uL Lymph # (Auto) (0126-7431) /uL [place] # (Auto) (0-900) /uL Eos # (Auto) (0-450) /uL Baso # (Auto) (0-100) /uL Sodium (137-145) mmol/L Potassium (3.4-5.1) mmol/L Chloride (98-107) mmol/L Carbon Dioxide (22-32) mmol/L BUN (9-20) mg/dL Creatinine (0.66-1.25) mg/dL Estimated GFR (>60) mL/min BUN/Creatinine Ratio (6-22) Glucose (80-110) mg/dL Calcium (8.4-10.2) mg/dL Total Bilirubin (0.2-1.3) mg/dL AST (17-59) IU/L ALT (<50) IU/L Alkaline Phosphatase (38-126) U/L Total Creatine Kinase (55-170) U/L CK-MB (CK-2) CK-MB (CK-2) Rel Index Troponin I 0.031 (0.01-0.034) ng/mL NT-Pro-B Natriuret Pep (<450) pg/mL Total Protein (6.3-8.2) g/dL Albumin (3.5-5.0) g/dL Globulin (1.7-4.1) g/dL Albumin/Globulin Ratio (1.0-2.8) Lipase (23-300) U/L Procalcitonin (<0.5) ng/mL Urine Color Yellow Urine Appearance Clear Urine pH 5.5 (4.5-8.0) Ur Specific [place] 1.010 (1.000-1.035) Urine Protein Negative (Negative) Urine Glucose (UA) 1+ H (Negative) g/dL Urine Ketones Negative (NEGATIVE) Urine Occult Blood 3+ H (Negative) Urine Nitrate Negative (Negative) Urine Bilirubin Negative (NEGATIVE) Urine Urobilinogen 0.2 (0.2) E.U./dL Ur Leukocyte Esterase Trace H (NEGATIVE) Urine RBC 10-30/hpf H (0-5/HPF) Urine WBC 1-5/hpf (0-5/HPF) Urine Bacteria None seen (None) Ur Culture Indicated? Specimen cultured SARS-CoV-2 (PCR) Negative (Negative) Influenza A (RT-PCR) Flu a negative (NEGATIVE) Influenza B (RT-PCR) Flu b negative (NEGATIVE) RSV (PCR) Negative (Negative) Imaging Data Chest x-ray: Radiologist's Impression: PROCEDURE:? XR CHEST 1V ? INDICATIONS:? dyspnic ? TECHNIQUE:? One view of the chest was acquired.? ? COMPARISON:? [facility], CR, XR CHEST 1V, 04/21/2022, 16:53. ? FINDINGS:? ? Surgical changes and devices:? Sternal wires. ? Lungs and pleura:? Persistent right basilar and retrocardiac opacities. ? Mediastinum:? Mediastinal contours appear normal.? Heart size is enlarged. ? Bones and chest wall:? No suspicious bony lesions.? Overlying soft tissues appear unremarkable.? ? IMPRESSION:? Persistent appearance right basilar and retrocardiac opacities.? While these could represent persistent/recurrent airspace disease such as pneumonia, underlying areas of atelectasis, scarring edema should be considered. ? ? Dictated by: Zeinab Bassett M.D. on 06/08/2022 at 9:12 ? ? CT scan - chest: Radiologist's Impression: PROCEDURE:? CT ANGIO CHEST PE PROTOCOL ? INDICATIONS:? short of breath ? TECHNIQUE:? After the administration of intravenous contrast, 2 mm thick sections acquired from the pulmonary apices to the posterior costophrenic angles.? 3-dimensional maximum intensity projection (MIP) coronal and sagittal reformats were then acquired through the thorax.? For radiation dose reduction, the following was used:? automated exposure control, adjustment of mA and/or kV according to patient size.? ? COMPARISON:? [facility], CT, CT CHEST ABD PEL WO CON, 04/21/2022, 18:16. ? FINDINGS:? Image quality:? Excellent.? ? Pulmonary arteries:? Pulmonary arteries are normal in size, and demonstrate no intraluminal filling defects to suggest central pulmonary embolism.? ? Lungs and pleura:? Mild bilateral effusions. ? Mediastinum:? Heart size is enlarged, without pericardial effusion.? 1.5 cm anterior paratracheal lymph node on series 2, image 42, unchanged.? Thoracic aorta is normal in caliber and enhancement.? Esophagus is normal in caliber, without hiatal hernia.? ? Bones and chest wall:? No suspicious bony lesions.? Ribs and thoracic spine appear intact throughout.? Thyroid gland is not well seen secondary to artifact.? No axillary or supraclavicular adenopathy.? ? Abdomen:? Visualized upper abdominal solid organs appear normal in the early arterial phase of enhancement.? ? IMPRESSION:? ? Mild bilateral effusions. ? No pulmonary embolism. ? Unchanged enlarged paratracheal lymph node. ? ? Dictated by: Zeinab Bassett M.D. on 06/08/2022 at 11:32 ? ECG Data Interpretation: Irregular rhythm right bundle-branch block PVCs noted similar to previous EKG 04/21/[address] changes MDM Narrative Medical decision making narrative: Patient is a 86-year-old male with multiple comorbidities presenting today with increased peripheral edema and shortness of. He is found have congestive heart failure with BNP of 6800 requiring BiPAP to his breathing. He responded well to BiPAP and Lasix 60mg. He is found to have mild leukocytosis of 11 with minimal left shift hemoglobin 7.8 hematocrit 23.8 down from previously 8.7 and 25.5. No active bleeding he is on Xarelto. Electrolytes show creatinine of 1.48 much improved from previously other electrolytes are stable. Troponin is negative at 0.03 Patient tolerated BiPAP really well he actually improved on it he is put out over 500 cc of urine. Doing better off BiPAP probably does not need ICU. CT angio was negative for pulmonary embolism but did show some mild pleural effusions. Discussed case with Dr. Staton who requests trial off BiPAP and PE steady. He apparently has had DVTs while on Xarelto. Discharge Plan Departure Patient Disposition: Admitted as Observation Clinical Impression: CHF (congestive heart failure) Admit Date/Time: 06/08/22 11:34 Admit Provider: Arpit Staton
[2022-06-08 08:50] LABS: Alanine Aminotransferase 17 IU/L (<50); Albumin 2.9 g/dL (3.5-5.0); Albumin Globulin Ratio 0.9 (1.0-2.8); Alkaline Phosphatase 77 U/L (38-126); Aspartate Aminotransferase 19 IU/L (17-59); BUN Creatinine Ratio 19.6 (6-22); Bilirubin Total 0.4 mg/dL (0.2-1.3); Blood Urea Nitrogen 29 mg/dL (9-20); Calcium 8.8 mg/dL (8.4-10.2); Carbon Dioxide 24 mmol/L (22-32); Chloride 108 mmol/L (98-107); Estimated Glomerular Filt Rate 46 mL/min (>60); Globulin 3.1 g/dL (1.7-4.1); Glucose 90 mg/dL (80-110); Lipase 102 U/L (23-300); Potassium 4.9 mmol/L (3.4-5.1); Sodium 135 mmol/L (137-145)
[2022-06-08 08:51] LABS: Creatine Kinase 51 U/L (55-170)
[2022-06-08 08:52] LABS: NT-proBNP (BNP-Adult 18+) 6860 pg/mL (<450); Troponin I 0.033 ng/mL (0.01-0.034)
--- NOTE | 2022-06-08 08:59 | PC.NURSE ---
Pt arrives from [facility] with c/o increased SOB. Noted to have crackles and audible wheezing throughout. 95% sat. Able to speak in full sentences. 3+ pitting edema to all peripheral extremities with L>R. Denies pain. Pt placed on bipap on arrival by RT, 02/09 at 25% and pt tolerating well. Arrived with 18G PIV in RFA. 2nd 18G IV placed in R AC. Lasix given per order. Temp mccoy placed with minimal initial output. HR 78-85 NSR with frequent PVC's. Full code.
[2022-06-08 09:06] LABS: Influenza A - CEPHEID Flu A NEGATIVE (NEGATIVE); Influenza B - CEPHEID Flu B NEGATIVE (NEGATIVE); Respiratory Syncytial Virus Negative (Negative)
[2022-06-08 09:07] LABS: COVID-19 CEPHEID 4-PLEX PCR Negative (Negative)
--- NOTE | 2022-06-08 09:15 | PC.NURSE ---
Spoke to Loreta, and updated her on the plan of care.
[2022-06-08] MEDS: MORPHINE 2 MG/ML INJ IV (09:54)
[2022-06-08 10:33] LABS: Troponin I 0.031 ng/mL (0.01-0.034)
[2022-06-08 10:34] LABS: Appearance Urine UA CLEAR; Bilirubin Urine UA NEGATIVE (NEGATIVE); Color Urine UA YELLOW; Glucose Urine UA 1+ g/dL (Negative); Ketones Urine UA NEGATIVE (NEGATIVE); Leukocyte Esterase Urine UA TRACE (NEGATIVE); Nitrite Urine UA NEGATIVE (Negative); Occult Blood Urine UA 3+ (Negative); Protein Urine UA NEGATIVE (Negative); Urobilinogen Urine UA 0.2 E.U./dL (0.2); pH Urine UA 5.5 (4.5-8.0)
[2022-06-08 10:37] LABS: Bacteria Urine None Seen; Culture Indicated Urine Specimen Cultured; RBC Urine 10-30/HPF (0-5/HPF); WBC Urine 1-5/HPF (0-5/HPF)
--- NOTE | 2022-06-08 10:39 | DI.CT.S_ITS ---
PROCEDURE: CT ANGIO CHEST PE PROTOCOL INDICATIONS: short of breath TECHNIQUE: After the administration of intravenous contrast, 2 mm thick sections acquired from the pulmonary apices to the posterior costophrenic angles. 3-dimensional maximum intensity projection (MIP) coronal and sagittal reformats were then acquired through the thorax. For radiation dose reduction, the following was used: automated exposure control, adjustment of mA and/or kV according to patient size. COMPARISON: [facility], CT, CT CHEST ABD PEL WO CON, 04/21/2022, 18:16. FINDINGS: Image quality: Excellent. Pulmonary arteries: Pulmonary arteries are normal in size, and demonstrate no intraluminal filling defects to suggest central pulmonary embolism. Lungs and pleura: Mild bilateral effusions. Mediastinum: Heart size is enlarged, without pericardial effusion. 1.5 cm anterior paratracheal lymph node on series 2, image 42, unchanged. Thoracic aorta is normal in caliber and enhancement. Esophagus is normal in caliber, without hiatal hernia. Bones and chest wall: No suspicious bony lesions. Ribs and thoracic spine appear intact throughout. Thyroid gland is not well seen secondary to artifact. No axillary or supraclavicular adenopathy. Abdomen: Visualized upper abdominal solid organs appear normal in the early arterial phase of enhancement. IMPRESSION: Mild bilateral effusions. No pulmonary embolism. Unchanged enlarged paratracheal lymph node. Dictated by: Zeinab Bassett M.D. on 06/08/2022 at 11:32 Approved by: Zeinab Bassett M.D. on 06/08/2022 at 11:46
--- NOTE | 2022-06-08 12:15 | PC.NURSE ---
1030: Pt trialed off bipap per Dr Cui request. Pt taken to and from CT without issue. Was able to tolerate lying flat for short period of time. Returns to room. RT performing ABG. On RA at this time--95%. Noted to be in Afib intermittently with frequent PVC's. Dr Helms made aware and reports similar to previous hospitalizations. No new orders.
--- NOTE | 2022-06-08 13:18 | PM.HP.1 ---
History of Present Illness History of Present Illness Date Patient Seen: 06/08/22 Time Patient Seen: 13:10 Chief complaint: SOB Narrative: Mr. Albarado is a 86M with PMH CHFpEF, DM 2, HTN, afib, CKD stage 3 who presents to the hospital with leg swelling and short of breath. He was here a little over 1 month ago with YORDY and acute encephalopathy. He has been residing at [facility] since discharge. He is unable to tell me today how long he had felt short of breath, only stating for a long time but unable to further specify. He appears to have been started on 20 mg of oral furosemide 2 days ago after having it held here last admission for YORDY, along with a number of other medications. He was sent to the ER for worsening shortness of breath from [facility] this AM. He denies any chest pain or palpitations, he is unsure as to how long his legs have been swollen. He feels improved after therapies in the ER, and denies current shortness of breath though he gets dyspnic with prolonged sentences. [facility] Medical History Anemia Asymptomatic microscopic hematuria BPH (benign prostatic hyperplasia) Chronic diastolic heart failure DM2 (diabetes mellitus, type 2) Hypertension Interstitial lung disease Permanent atrial fibrillation Stage 3b chronic kidney disease (CKD) Surgical History S/P AVR (aortic valve replacement) Family History Mother No pertinent past medical history Father No pertinent past medical history Social History household members: spouse Smoking Status: Former smoker alcohol intake: current Meds Home Medications and Allergies Home Medications Medication Instructions Recorded Confirmed Type cholecalciferol (vitamin D3) 50 50 mcg PO DAILY ##0 10/20/15 06/08/22 History mcg (2,000 unit) tablet multivitamin (Multiple Vitamins 1 tab PO QDAY #0 tabs 10/20/15 06/08/22 History tablet) omega 5-ull-huy-fish oil 1,000 mg 1 cap PO DAILY ##0 10/20/15 06/08/22 History (120 mg-180 mg) capsule (Fish Oil) latanoprost 0.005 % eye drops 1 drp ophthalmic (eye) BEDTIME 06/11/20 06/08/22 History nitroglycerin 0.4 mg sublingual 0.4 mg sublingual Q5M PRN pain 06/11/20 06/08/22 History tablet zinc gluconate 50 mg tablet 50 mg PO DAILY 06/11/20 06/08/22 History colesevelam 625 mg tablet (WelChol) 1,875 mg PO BID #540 tabs 03/26/21 06/08/22 Rx mirabegron 25 mg tablet,extended 25 mg PO QDAY #90 tabs 06/11/21 06/08/22 Rx release 24 hr (Myrbetriq) Disabled Parking Permit 1 ea topical DAILY 12/04/21 06/08/22 History acetaminophen 325 mg capsule 650 mg PO Q4H PRN Pain (Scale 02/16/22 06/08/22 History Score 1-3) albuterol sulfate 90 mcg/actuation 2 puff inhalation Q6H PRN 02/16/22 06/08/22 History aerosol inhaler Bronchospasm bisacodyl 10 mg rectal suppository 10 mg PA DAILY PRN Constipation 02/16/22 06/08/22 History dextromethorphan-guaifenesin 5 15 ml PO Q4H PRN Cough 02/16/22 06/08/22 History mg-100 mg/5 mL oral liquid glucagon 1 mg injection kit See Rx Instructions .Route 02/16/22 06/08/22 History .COMPLEX PRN Hypoglycemia magnesium hydroxide 400 mg/5 mL 30 ml PO DAILY PRN Constipation 02/16/22 06/08/22 History oral suspension (Milk of Magnesia) atorvastatin 40 mg tablet 40 mg PO DAILY #90 tabs 03/05/22 06/08/22 Rx doxazosin 2 mg tablet (Cardura) 2 mg PO DAILY 03/05/22 06/08/22 History mupirocin 2 % ointment topical kit 1 applic topical BID #1 ea 04/19/22 06/08/22 Rx oxycodone 5 mg tablet 5 mg PO BEDTIME PRN pain #10 tabs 04/30/22 06/08/22 Rx polyethylene glycol 3350 17 gram 17 g PO DAILY #30 ea 04/30/22 06/08/22 Rx oral powder packet rivaroxaban 10 mg tablet (Xarelto) 20 mg PO DAILY@1700 #30 tabs 04/30/22 06/08/22 Rx Lactobacillus acidophilus 5,000 mmu cells PO DAILY 06/08/22 06/08/22 History albuterol sulfate 0.63 mg/3 mL 0.63 mg inhalation Q6H PRN 06/08/22 06/08/22 History solution for nebulization Shortness Of Breath empagliflozin 10 mg tablet 10 mg PO DAILY 06/08/22 06/08/22 History furosemide 20 mg tablet 20 mg PO DAILY 06/08/22 06/08/22 History prednisone 10 mg tablet 30 mg PO DAILY 06/08/22 06/08/22 History Allergies Allergy/AdvReac Type Severity Reaction Status Date / Time No Known Drug Allergies Allergy Verified 03/05/22 13:48 Review of Systems Review of Systems Narrative: All other systems reviewed with the patient and are negative unless otherwise stated. Exam Vital Signs (past 8 hours): - 06/08/22 08:18 06/08/22 08:15 06/08/22 08:17 Temperature 97.4 F L Pulse Rate 94 H 89 95 H Respiratory Rate 22 27 H Blood Pressure 153/82 H Pulse Oximetry 98 94 96 Oxygen Delivery Method Room Air Fraction of Inspired Oxygen 06/08/22 08:17 06/08/22 08:30 06/08/22 08:30 Temperature Pulse Rate 114 H Respiratory Rate Blood Pressure 153/82 H 151/76 H Pulse Oximetry 95 Oxygen Delivery Method Fraction of Inspired Oxygen 06/08/22 08:45 06/08/22 09:00 06/08/22 09:00 Temperature 97.3 F L Pulse Rate 96 H 86 Respiratory Rate 22 Blood Pressure 164/82 H Pulse Oximetry 99 98 Oxygen Delivery Method Fraction of Inspired Oxygen 06/08/22 09:15 06/08/22 09:15 06/08/22 09:30 Temperature 97.7 F Pulse Rate 84 Respiratory Rate 30 H Blood Pressure 144/72 H 140/70 Pulse Oximetry 97 Oxygen Delivery Method Fraction of Inspired Oxygen 06/08/22 09:30 06/08/22 09:00 06/08/22 09:45 Temperature 97.9 F Pulse Rate 79 Respiratory Rate 14 Blood Pressure 151/76 H 136/72 Pulse Oximetry 97 Oxygen Delivery Method Fraction of Inspired Oxygen 25 06/08/22 09:45 06/08/22 10:00 06/08/22 10:00 Temperature 97.9 F 97.9 F Pulse Rate 80 83 Respiratory Rate 20 Blood Pressure 135/59 L Pulse Oximetry 98 98 Oxygen Delivery Method Fraction of Inspired Oxygen 06/08/22 10:15 06/08/22 10:15 06/08/22 10:30 Temperature 97.9 F Pulse Rate 84 Respiratory Rate Blood Pressure 138/73 134/64 Pulse Oximetry 98 Oxygen Delivery Method Fraction of Inspired Oxygen 06/08/22 10:30 06/08/22 10:45 06/08/22 10:45 Temperature 97.9 F 97.9 F Pulse Rate 86 84 Respiratory Rate Blood Pressure 154/78 H Pulse Oximetry 98 96 Oxygen Delivery Method Fraction of Inspired Oxygen 06/08/22 11:07 06/08/22 11:30 06/08/22 12:00 Temperature 97.9 F 97.7 F 97.7 F Pulse Rate 96 H 83 Respiratory Rate 23 Blood Pressure Pulse Oximetry 94 95 Oxygen Delivery Method Fraction of Inspired Oxygen 06/08/22 12:37 Temperature Pulse Rate Respiratory Rate Blood Pressure Pulse Oximetry 95 Oxygen Delivery Method Room Air Fraction of Inspired Oxygen Fraction of Inspired Oxygen 25 Oxygen Delivery Method Room Air Narrative Exam Narrative: General:? Patient is well developed and well nourished, dyspnic with short sentences HEENT:? Normocephalic, atraumatic, extraocular muscles intact, oral pharynx is clear and mucous membranes are moist. Neck: supple and symmetric, trachea is midline, no cervical adenopathy. + JVD Chest:? Normal AP diameter and contour without kyphoscoliosis, no tachypnea, equal chest rise bilaterally. Lungs:? CTA b/l no wheezing rhonchi or rales. Diminished at b/l lung bases however Cardio:?regular rate, irregularly irregular rhythm, no m/r/g. Abdomen: S NT ND. Musculoskeletal:? Muscle strength and tone are equal within normal limits, no deformity. Extremities: 2-3+ pitting edema b/l LE. No joint effusions. No cyanosis or clubbing. 1+ edema bilateral upper extremities as well. L slightly greater than R. Skin:? Pale,? Warm to touch,dry and intact without rashes, ulcerations or petechiae.? Neuro:? Alert and orientated to name,?location, situation. sensation to touch intact in all extremities, no gross deficits noted of cranial nerves. Psych:? Patient has a well-kept appearance, appropriate affect, mental status attitude thought context and judgment are appropriate for age. Objective ECG Impression: ATRIAL FIBRILLATION WITH CONTROLLED VENTRICULAR RESPONSE Left axis deviation Right bundle branch block similar to prior tracings Labs 06/08/22 08:15 06/08/22 08:15 Labs: Laboratory Results - last 24 hr 06/08/22 06/08/22 06/08/22 08:15 08:15 08:15 WBC 11.6 H RBC 2.63 L Hgb 7.8 L Hct 23.8 L MCV 90.3 MCH 29.5 MCHC 32.7 RDW 14.5 Plt Count 255 Neut % (Auto) 75.9 H Lymph % (Auto) 15.0 L Woods % (Auto) 6.8 Eos % (Auto) 2.0 Baso % (Auto) 0.3 Neut # (Auto) 8800 H Lymph # (Auto) 1700 Woods # (Auto) 800 Eos # (Auto) 200 Baso # (Auto) 0 Sodium 135 L Potassium 4.9 Chloride 108 H Carbon Dioxide 24 BUN 29 H Creatinine 1.48 H Estimated GFR 46 L BUN/Creatinine Ratio 19.6 Glucose 90 Calcium 8.8 Total Bilirubin 0.4 AST 19 ALT 17 Alkaline Phosphatase 77 Total Creatine Kinase 51 L CK-MB (CK-2) TNP CK-MB (CK-2) Rel Index TNP Troponin I 0.033 NT-Pro-B Natriuret Pep 6860 H Total Protein 6.0 L Albumin 2.9 L Globulin 3.1 Albumin/Globulin Ratio 0.9 L Lipase 102 Procalcitonin 0.20 Urine Color Urine Appearance Urine pH Ur Specific Eolia Urine Protein Urine Glucose (UA) Urine Ketones Urine Occult Blood Urine Nitrate Urine Bilirubin Urine Urobilinogen Ur Leukocyte Esterase Urine RBC Urine WBC Urine Bacteria Ur Culture Indicated? SARS-CoV-2 (PCR) Influenza A (RT-PCR) Influenza B (RT-PCR) RSV (PCR) 06/08/22 06/08/22 06/08/22 08:23 10:05 10:30 WBC RBC Hgb Hct MCV MCH MCHC RDW Plt Count Neut % (Auto) Lymph % (Auto) Woods % (Auto) Eos % (Auto) Baso % (Auto) Neut # (Auto) Lymph # (Auto) Woods # (Auto) Eos # (Auto) Baso # (Auto) Sodium Potassium Chloride Carbon Dioxide BUN Creatinine Estimated GFR BUN/Creatinine Ratio Glucose Calcium Total Bilirubin AST ALT Alkaline Phosphatase Total Creatine Kinase CK-MB (CK-2) CK-MB (CK-2) Rel Index Troponin I 0.031 NT-Pro-B Natriuret Pep Total Protein Albumin Globulin Albumin/Globulin Ratio Lipase Procalcitonin Urine Color Yellow Urine Appearance Clear Urine pH 5.5 Ur Specific [place] 1.010 Urine Protein Negative Urine Glucose (UA) 1+ H Urine Ketones Negative Urine Occult Blood 3+ H Urine Nitrate Negative Urine Bilirubin Negative Urine Urobilinogen 0.2 Ur Leukocyte Esterase Trace H Urine RBC 10-30/hpf H Urine WBC 1-5/hpf Urine Bacteria None seen Ur Culture Indicated? Specimen cultured SARS-CoV-2 (PCR) Negative Influenza A (RT-PCR) Flu a negative Influenza B (RT-PCR) Flu b negative RSV (PCR) Negative Assessment & Plan Assessment & Plan narrative: 1. Acute on chronic CHF exacerbation, diastolic with respiratory distress - Worsening shortness of breath over indeterminant time frame currently with patient's underlying cognitive impairment. Appears to have been started 2 days ago on 20 mg of oral lasix at [facility]. - given 60 mg IV lasix in the ER, initially treated with biPAP for tachypnea but was not hypoxic. Responeded well to diuresis, more comfortable an no supplemental oxygen needs currently. - will continue furosemide 40 mg IV BID for now, monitor creatinine closely. - repeat TTE will not currently telephone exchange operator. - troponins unremarkable and no chest pain to suggest ACS. EKG without acute ischemia. CTA negative for PE. 2. CKD stage 3-4 - current creatinine 1.48, unclear baseline but was previously above 2. Continue to monitor with diuresis noted above, renally dose medications. 3. Chronic atrial fibrillation, prior VTE. -continue home medications with rivaroxaban 4. HTN - currently only on furosemide, continue to monitor. Recently most medications were held on prior admission. 5. Chronic anemia - continue to follow. Hg 7.8 today, prior admission was in the 8s. 6. Chronic cognitive impairment - SLUMS 12/04 previously. I have discussed the case with bedside RN and ED physician. I have discussed the plan of care with the patient. I have personally reviewed the labs, oupatient clinic notes, chest xray and CT scan, and EKG CODE: DNR/DNI Proxy: Loreta Boothmarlo, spouse I have utilized all available resources to reconcile the patient's home medications COVID-19 COVID-19 status: Negative Quality VTE Deep Vein Thrombosis/Pulmonary Embolism Present on Admission: No
--- NOTE | 2022-06-08 14:18 | PC.NURSE ---
1237 Pt arrived via gurney from ED, slide board used to move pt to bed, connected to monitoring equipment VSS, currently on RA sat 94-98% pt does have some SOB when talking for long periods of time. Wallace catheter patent and draining clear yellow urine. Oriented to room and call light system, Dr Staton at bedside. Bed alarm on for safety, bed low and locked, call light within reach, will continue to monitor
--- NOTE | 2022-06-08 15:18 | CM.DANOTE ---
Pt is an 86 yo male, resident of [facility] , presents to the ER w/worsening swelling to his bilateral lower extremities and admitted for management of CHF and diuresis. PMH includes CHF, CKD with a baseline creatinine of around 2, carotid artery stenosis, CAD, diabetes, hyperlipidemia, atrial fibrillation and chronic anticoagulation. PCP: Carmelina Casey Payer: [facility] Pt was recently admitted at the end of Apr this year and discharged to [facility]hab and his lasix had been held at d/c to SNF and only restarted a couple days ago with low dose oral Lasix and needing diuresis but likely will improve quickly. SW called [facility] admissions and confirmed pt had been making progress and was getting to min assist with ambulation and min assist with ADLs and some CGA and was likely close to d/c to home within the week. [facility] confirms they can accept pt back at d/c if needed and no PASRR would be needed. Patient lives on [facility] w/spouse at baseline who assists w/most ADLs- toileting, bathing, meal prep, meds, chores and transportation. Patient has hx of [facility] services as well and his 3 adult dtrs live out of state. SW met bedside with pt and explained role and he confirms he feels he has made improvements at SNF to where he felt he was getting closer to being able to d/c home but currently feeling below baseline and would be agreeable to d/c back to [facility] until stronger for home if needed. Pt states spouse and Dtrs have not visited while he was at [facility] but he has kept them updated via phone daily and he states he just updated his spouse now that he is at the hospital. Plan: SW to follow for likely PT orders to be placed if needed and plan of return to [facility] at d/c in likely 1-2 days before safe d/c back home to [place] with spouse. ESTUARDO Lehman Discharge Planning/Care Management Advanced directive, confirm from FAMILY Start: 06/08/22 12:59 Freq: Q24H Status: Active Protocol: Document 06/08/22 12:59 MS (Rec: 06/08/22 13:11 MS [id number]) Advance Directive, confirm on record Time 13:11 Person contacted patient Copy received No CM Discharge Assessment Start: 06/08/22 15:14 Freq: Status: Active Protocol: Document 06/08/22 15:14 BF (Rec: 06/08/22 15:17 BF [id number]) Discharge Planning Assessment Assigned Maintainer Plant ESTUARDO Huff DPOA/Assigned Designee Name spouse and Dtrs Advance Directives? Yes Advance Directives on File No History Provided By Patient,Medical Record Has Patient been admitted in last 30 Yes days? Comment Recent discharge to [facility] for rehab, admit from [facility] Prior Living Arrangements House Household Members spouse Type of transporation used prior to Relies on Others admit Facility Name Admitted From: [facility] Willing to Return to Facility? Yes Independent with ADL's No: spouse would assist at home at baseline Is patient alert and oriented? Yes Needs Assistance With Meal Prep,Managing Medications ,Home Chores / Shopping Caregiver for Another No Community Services used prior to Physical Therapy,Occupational admission: Therapy Comment Has used [facility] in the past DME Already Rented / Owned FWW / Walker Patient/Family Preference [facility] Facility,Home with Home Health Comment Pending progress, was admitted from [facility] but was within a week of d/c to home likely Barriers to Discharge No Discharge Plan [facility] Transportation Arrangement If return to SNF then facility van or if home likely spouse Referrals Initiated [facility] If patient plan is SNF: Has PASSR been No: return to SNF, no PASRR completed? needed Has Agency SNF been contacted Yes Whiteboard Updated in Patient Room with Yes name and ext. # of Maintainer Plant Review Status In Process Please Provide Date Initial DC 06/08/22 Assessment Was Performed Next Review Type Continued Stay Review
[2022-06-08 15:25] LABS: MRSA (Nasal) PCR DETECTED (Not Detect)
[2022-06-08] MEDS: FUROSEMIDE 40 MG/4 ML VIAL IV (16:34)
[2022-06-09] VITALS (24 sets, daily range): BP systolic 123–151; BP diastolic 56–80; PULSE 69–92; RESP 15–30; TEMP 36.6–37; O2SAT 94–99
[2022-06-09 05:24] LABS: Alanine Aminotransferase 17 IU/L (<50); Albumin 2.7 g/dL (3.5-5.0); Albumin Globulin Ratio 0.9 (1.0-2.8); Alkaline Phosphatase 67 U/L (38-126); Aspartate Aminotransferase 20 IU/L (17-59); BUN Creatinine Ratio 19.2 (6-22); Bilirubin Total 0.5 mg/dL (0.2-1.3); Blood Urea Nitrogen 35 mg/dL (9-20); Calcium 8.2 mg/dL (8.4-10.2); Carbon Dioxide 24 mmol/L (22-32); Chloride 107 mmol/L (98-107); Estimated Glomerular Filt Rate 36 mL/min (>60); Glucose 77 mg/dL (80-110); HEMOLYSIS < 15 (0-50); Magnesium 1.7 mg/dL (1.6-2.3); Potassium 4.5 mmol/L (3.4-5.1); Sodium 134 mmol/L (137-145); Total Protein 5.7 g/dL (6.3-8.2)
[2022-06-09 05:26] LABS: Add Manual Diff / Slide Review NO; Basophils Absolute Auto 0 /uL (0-100); Basophils Percent Auto 0.3 % (0-2); Eosinophils Absolute Auto 700 /uL (0-450); Eosinophils Percent Auto 5.9 % (2-4); Hematocrit 22.1 % (41-53); Hemoglobin 7.2 g/dL (13.5-17.5); Lymphocytes Absolute Auto 1900 /uL (1100-4500); Lymphocytes Percent Auto 17.1 % (25-40); Mean Corpuscular HGB Conc 32.5 % (30-36); Mean Corpuscular Hemoglobin 29.3 PG (26-34); Monocytes Absolute Auto 800 /uL (0-900); Monocytes Percent Auto 7.3 % (3-14); Neutrophils Absolute Auto 7800 /uL (1500-7000); Neutrophils Percent Auto 69.4 % (50-75); Platelet Count 249 X10^3/uL (150-400); Red Blood Cell Count 2.46 X10^6/uL (4.5-5.9); Red Cell Distribution Width 14.9 % (11.6-14.8); White Blood Cell Count 11.3 X10^3/uL (4.5-11.0)
--- NOTE | 2022-06-09 05:26 | PC.NURSE ---
Patient sleeping on and off, explaining why he need to turn side to side. Listened to patient about neck pain when turned onto lt. side. offered pain medication, support for head and neck, and turn only slightly to lt. side.
[2022-06-09] MEDS: polyethylene glycoL 3350 17 GM POWD.PACK PO (08:27)
[2022-06-09] MEDS: predniSONE 20 MG TABLET 30 MG PO (08:29)
[2022-06-09] MEDS: CHOLECALCIFEROL (VITAMIN D3) 1,000 UNIT TABLET 2000 UNIT PO (08:29)
[2022-06-09] MEDS: ATORVASTATIN 20 MG TABLET 40 MG PO (08:29)
[2022-06-09] MEDS: DOXAZOSIN 2 MG TABLET PO (08:29)
[2022-06-09] MEDS: FUROSEMIDE 40 MG/4 ML VIAL IV ×2 (08:31→16:09)
[2022-06-09] MEDS: MULTIVITAMIN 1 TABLET 1 TAB PO (08:32)
[2022-06-09] MEDS: COLESEVELAM 625 MG TABLET 1875 MG PO ×2 (09:03→21:41)
--- NOTE | 2022-06-09 11:34 | OT.IP.EVAL ---
Past Medical History (Last Reviewed 06/08/22 @ 16:44 by Arpit Staton DO) Anemia Asymptomatic microscopic hematuria BPH (benign prostatic hyperplasia) Chronic diastolic heart failure DM2 (diabetes mellitus, type 2) Hypertension Interstitial lung disease Permanent atrial fibrillation Stage 3b chronic kidney disease (CKD) Surgical History (Last Reviewed 06/08/22 @ 16:44 by Arpit Staton DO) S/P AVR (aortic valve replacement) Occupational Therapy Inpatient Evaluation/Re-Eval M1 PT/OT-IP Prior Functional Status Start: 06/09/22 13:15 Freq: NEEDED Status: Active Protocol: Document 06/09/22 11:10 [facility] (Rec: 06/09/22 13:34 [facility] [id number]) Medical Review Prior Functional Status Communication independent Mobility and Gait Pt able to use a walker at skilled rehab with one person assist. Activities of Daily Living and IADL's Per chart, pt needing DEL for ADL needs at skilled rehab. Prior Functional Level (Other details) Pt lives with his , who pt states has broken her foot recently but not sure of the timeline and aware that he will have to be more independent with his needs at home. Social History Household Members spouse Living Arrangements House Number of Stairs To Enter/Railing? no steps Home Environment High Toilet,Walk in Shower Home Equipment Front Wheel Walker,Four Wheel Walker,Manual Wheelchair,Hand Held Shower,Grab Bars Near Toilet,Grab Bars In Shower Additional Social History Comment Pt sleeps in a recliner at home. M2 OT-IP Current Condition Start: 06/09/22 13:15 Freq: Status: Active Protocol: Document 06/09/22 11:10 [facility] (Rec: 06/09/22 13:34 [facility] [id number]) Occupational Therapy Current Condition Current Condition Evaluation Date 06/09/22 Treatment Diagnosis CHF, weakness Diagnosis Onset Date 06/08/22 M3 OT- IP Subjective and Pain Start: 06/09/22 13:15 Freq: Status: Active Protocol: Document 06/09/22 11:10 [facility] (Rec: 06/09/22 13:34 [facility] [id number]) OT- Subjective Occupational Therapy Visit Type Type Initial Evaluation Visit Start Time 11:10 Visit Stop Time 11:43 Total Visit Minutes 33 Occupational Therapy Visit Comments Patient Comments Pt a little resistant to getting up as feeling tired but eventually agreed to get up. Pt's 7.2, HCT 22.1 andn per hospitalist okay to work with pt today. Patient/Caregiver Goals To get better. OT Pain Assessment Pain When Pain Assessed At Rest Pain Present Pain Present Pain Reported M4 OT- IP ADL's Start: 06/09/22 13:15 Freq: Status: Active Protocol: Document 06/09/22 11:10 [facility] (Rec: 06/09/22 13:34 [facility] [id number]) OT [id number] Comments OT Self-Feeding Comments NOt at meal time. OT ADL-Grooming Comments OT Grooming Comments set-up with wash cloth to wash his hands OT ADL-Oral Care General Eval Oral Care Ability Independent Areas of Assistance Retrieving/Set-Up of Items Comments Oral Care Comments Able to do with HOB up in bed. OT ADL-Dressing General Eval Lower Body Dressing Ability Maximum Assistance Comments OT Dressing Comments At this time due to weakness, RLE>LLE to raise up pt will need MAXA for all bed mobility needs. OT ADL-Toileting General Evaluation Toileting Ability Total Assistance Areas Needing Assistance Empty Catheter or Colostomy Comments OT Toileting Comments Wallace in place OT ADL-Bathing Comments OT Bathing Comments Sponge bath more appropriate at this time M5 OT- IP IADL's Start: 06/09/22 13:15 Freq: Status: Active Protocol: Document 06/09/22 11:10 [facility] (Rec: 06/09/22 13:34 [facility] [id number]) OT-Instrumental Activities of Daily Living Medication Management Medication Management Caregiver Administers Money Management Money Management Caregiver Provides Assistance Meal Preparation Meal Preparation Caregiver Provides Assist Regulatory Administrator Regulatory Administrator Caregiver Provides Assist M6 OT- IP Functional Cognition Start: 06/09/22 13:15 Freq: Status: Active Protocol: Document 06/09/22 11:10 [facility] (Rec: 06/09/22 13:34 [facility] [id number]) Cognitive Factors Limiting Selfcare Function Cognitive Ability Level of Alertness Alert Patient Orientation Name,Place,Situation Attention Span Ability Capable of Focused Attention, Capable of Sustained Attention Ability to Follow Commands Able to Follow One Step Commands Memory Description Short Term Impaired Cognitive Comments Cognitive Assessment Comments Pt able to follow commands for ADL and mobility needs. OT- Vision and Hearing OT- Hearing Assessment OT- Hearing Assessment WFL OT- Vision Assessment Visual Acuity WFL Vision Assessment Comments Pt able to read the clock correctly. M7 OT- IP Mobility and Balance Start: 06/09/22 13:15 Freq: Status: Active Protocol: Document 06/09/22 11:10 [facility] (Rec: 06/09/22 13:34 [facility] [id number]) OT- Bed Mobility Assessment Rolling Level of Assistance Moderate Assistance,Head of Bed Elevated Supine to Sit Supine to Sit Assist Maximum Assistance,Head of Bed Elevated,Bedrails OT-Transfer Assessment Comments Mobility Comments Pt needing heavy use of his UE with the bed rail and MAXA form the therapist to get mostly upright to the edge of the bed but too fatigued and had to lie back down. M8 OT- IP Objective Assessments Start: 06/09/22 13:15 Freq: Status: Active Protocol: Document 06/09/22 11:10 [facility] (Rec: 06/09/22 13:34 [facility] [id number]) OT Gross Range of Motion Upper Extremity Range of Motion Assessment Bilaterally Impaired OT Strength Comments Strength Comments BUE elbow to hands 4/5 to 4-/5 M9 OT- IP Assessment and Plan Start: 06/09/22 13:15 Freq: Status: Active Protocol: Document 06/09/22 11:10 [facility] (Rec: 06/09/22 13:34 [facility] [id number]) OT Summary Assessment and Plan Potential Rehabilitation Potential Good Analytic Complexity at Evaluation Moderate Summary OT Impairments Pain,Strength,Balance, Functional Cognition, Functional Mobility,Self- Feeding,Grooming,Dressing, Toileting,Bathing,Toilet Transfers,Shower Transfers, Activity Tolerance Progress Towards Goals Slow Progress due to Pain,Slow Progress due to Medical Issues,Slow Progress due to Activity Tolerance,Slow Progress due to Cognition Assessment Summary Pt MOD complexity and main barriers are decreased balance , activity tolerance, and now needing MAXA to for bed mobility needs. Pt having limited activity tolerance and currently far from his baseline as per chart was DEL for all ADl and and mobility needs at SNF. Pt would benefit to go back to skilled rehab when medically stable. Goals Self-Feeding Goal Independent Grooming Goal Independent Dressing Goal Minimal Assistance Toileting Goal Standby Assistance Bathing Goal Minimal Assistance Toilet Transfer Goal Independent Shower Transfer Goal Minimal Assistance Days to Meet Goals 30 Frequency of Treatment Frequency Of Treatment Once a Day Treatment Plan OT Treatment Plan ADL Training,Functional Cognition Training,Functional Mobility,Patient/Family Education,Discharge Planning Discharge Recommendations OT Discharge Recommendations SNF Rehab Transportation Needs at Discharge Wheelchair/Cabulance
--- NOTE | 2022-06-09 12:25 | P.PN_ITS ---
Subjective Subjective Interval history: 86 M admitted with congestive heart failure. He has improved shortness of breath at rest, but remains very weak from baseline requiring significant assistance today with therapies. He is diuresing well, slight bump in creatinine to 1.8 today. Exam Vital Signs (past 8 hours): - 06/09/22 08:00 06/09/22 08:00 06/09/22 07:00 Temperature 98.1 F Pulse Rate 84 Respiratory Rate 23 Blood Pressure 123/59 L Pulse Oximetry 97 98 Oxygen Delivery Method Room Air Room Air Oxygen Flow Rate 0 Fraction of Inspired Oxygen 25 Oxygen Delivery Method Room Air Oxygen Flow Rate 0 Narrative Exam Narrative: General:? Patient is well developed and well nourished, dyspnic with short sentences HEENT:? Normocephalic, atraumatic, extraocular muscles intact, oral pharynx is clear and mucous membranes are moist. Neck: supple and symmetric, trachea is midline, no cervical adenopathy. + JVD Chest:? Normal AP diameter and contour without kyphoscoliosis, no tachypnea, equal chest rise bilaterally. Lungs:? CTA b/l no wheezing rhonchi or rales. Diminished at b/l lung bases h owever Cardio:?regular rate, irregularly irregular rhythm, no m/r/g. Abdomen: S NT ND. Musculoskeletal:? Muscle strength and tone are equal within normal limits, no deformity. Extremities: 2-3+ pitting edema b/l LE. No joint effusions. No cyanosis or clubbing. 1+ edema bilateral upper extremities as well. L slightly greater than R. Skin:? Pale,? Warm to touch,dry and intact without rashes, ulcerations or petechiae.? Neuro:? Alert and orientated to name,?location, situation. sensation to touch in tact in all extremities, no gross deficits noted of cranial nerves. Psych:? Patient has a well-kept appearance, appropriate affect, mental status attitude thought context and judgment are appropriate for age. Objective Labs 06/09/22 03:50 06/09/22 03:50 Labs: Laboratory Results - last 24 hr 06/08/22 06/09/22 06/09/22 12:37 03:50 03:50 WBC 11.3 H RBC 2.46 L Hgb 7.2 L Hct 22.1 L MCV 90.0 MCH 29.3 MCHC 32.5 RDW 14.9 H Plt Count 249 Neut % (Auto) 69.4 Lymph % (Auto) 17.1 L [place] % (Auto) 7.3 Eos % (Auto) 5.9 H Baso % (Auto) 0.3 Neut # (Auto) 7800 H Lymph # (Auto) 1900 [place] # (Auto) 800 Eos # (Auto) 700 H Baso # (Auto) 0 Sodium 134 L Potassium 4.5 Chloride 107 Carbon Dioxide 24 BUN 35 H Creatinine 1.82 H Estimated GFR 36 L BUN/Creatinine Ratio 19.2 Glucose 77 L Calcium 8.2 L Magnesium 1.7 Total Bilirubin 0.5 AST 20 ALT 17 Alkaline Phosphatase 67 Total Protein 5.7 L Albumin 2.7 L Globulin 3.0 Albumin/Globulin Ratio 0.9 L Nasal Screen MRSA (PCR) Detected [facility] Medical History Anemia Asymptomatic microscopic hematuria BPH (benign prostatic hyperplasia) Chronic diastolic heart failure DM2 (diabetes mellitus, type 2) Hypertension Interstitial lung disease Permanent atrial fibrillation Stage 3b chronic kidney disease (CKD) Surgical History S/P AVR (aortic valve replacement) Family History Mother No pertinent past medical history Father No pertinent past medical history Social History household members: spouse Smoking Status: Former smoker alcohol intake: current Assessment & Plan Assessment & Plan narrative: 1. Acute on chronic CHF exacerbation, diastolic with respiratory distress - Worsening shortness of breath over indeterminant time frame currently with patient's underlying cognitive impairment. Appears to have been started 2 days prior to admission on 20 mg of oral lasix at [facility]. - given 60 mg IV lasix in the ER, initially treated with biPAP for tachypnea but was not hypoxic. Responeded well to diuresis, more comfortable an no supplemental oxygen needs currently. - will continue furosemide 40 mg IV BID for now, monitor creatinine closely with slight bump today after initial dosing. - repeat TTE will not currently drying rack changer. - troponins unremarkable and no chest pain to suggest ACS. EKG without acute ischemia. CTA negative for PE. 2. YORDY on CKD stage 3-4 - admit creatinine 1.48, unclear baseline but was previously above 2. With diuresis increase to 1.8 today. 3. Chronic atrial fibrillation, prior VTE. -continue home medications with rivaroxaban 4. HTN - currently only on furosemide, continue to monitor. Recently most medications were held on prior admission. 5. Chronic anemia - continue to follow. Hg 7.2 today. No obvious signs or symptoms of bleeding. Transfuse if Hg drops to <7. 6. Chronic cognitive impairment - SLUMS 12/04 previously. Dispo: changed to inpatient, will return to SNF probable in 2-3 days once adequate diuresis achieved. CODE: DNR/DNI Proxy: Loreta Boothmarlo, spouse I have utilized all available resources to reconcile the patient's home medications COVID-19 COVID-19 status: Negative Quality VTE Deep Vein Thrombosis/Pulmonary Embolism Present on Admission: No
[2022-06-09] MEDS: RIVAROXABAN 10 MG TABLET 20 MG PO (16:09)
--- NOTE | 2022-06-09 16:44 | PT.IIE ---
Surgical History (Last Reviewed 06/08/22 @ 16:44 by Arpit Staton DO) S/P AVR (aortic valve replacement) Medical History (Last Reviewed 06/08/22 @ 16:44 by Arpit Staton DO) Anemia Asymptomatic microscopic hematuria BPH (benign prostatic hyperplasia) Chronic diastolic heart failure DM2 (diabetes mellitus, type 2) Hypertension Interstitial lung disease Permanent atrial fibrillation Stage 3b chronic kidney disease (CKD) Physical Therapy Inpatient Evaluation/Re-Eval M1 PT/OT-IP Prior Functional Status Start: 06/09/22 12:56 Freq: NEEDED Status: Active Protocol: Document 06/09/22 16:31 [facility] (Rec: 06/09/22 16:44 [facility] [id number]) Medical Review Prior Functional Status Medical History Reviewed Yes Communication independent Mobility and Gait Pt able to use a walker at skilled rehab with one person assist. Activities of Daily Living and IADL's Per chart, pt needing DEL for ADL needs at skilled rehab. Prior Functional Level (Other details) Pt lives with his , who pt states has broken her foot recently but not sure of the timeline and aware that he will have to be more independent with his needs at home. Social History Household Members spouse Living Arrangements House Number of Stairs To Enter/Railing? no steps Home Environment High Toilet,Walk in Shower Home Equipment Front Wheel Walker,Four Wheel Walker,Manual Wheelchair,Hand Held Shower,Grab Bars Near Toilet,Grab Bars In Shower Additional Social History Comment Pt sleeps in a recliner at home. M1 PT/OT-IP Prior Functional Status Start: 06/09/22 13:15 Freq: NEEDED Status: Active Protocol: Document 06/09/22 11:10 [facility] (Rec: 06/09/22 13:34 [facility] [id number]) Medical Review Prior Functional Status Communication independent Mobility and Gait Pt able to use a walker at skilled rehab with one person assist. Activities of Daily Living and IADL's Per chart, pt needing DEL for ADL needs at skilled rehab. Prior Functional Level (Other details) Pt lives with his , who pt states has broken her foot recently but not sure of the timeline and aware that he will have to be more independent with his needs at home. Social History Household Members spouse Living Arrangements House Number of Stairs To Enter/Railing? no steps Home Environment High Toilet,Walk in Shower Home Equipment Front Wheel Walker,Four Wheel Walker,Manual Wheelchair,Hand Held Shower,Grab Bars Near Toilet,Grab Bars In Shower Additional Social History Comment Pt sleeps in a recliner at home. M2 PT-IP Current Condition Start: 06/09/22 12:56 Freq: NEEDED Status: Active Protocol: Document 06/09/22 16:31 [facility] (Rec: 06/09/22 16:44 [facility] [id number]) Physical Therapy Current Condition Current Condition Evaluation Date 06/09/22 Treatment Diagnosis CHF exacerbation, weakness Onset Date 06/08/22 M3 PT-IP Subjective Start: 06/09/22 12:56 Freq: NEEDED Status: Active Protocol: Document 06/09/22 16:31 [facility] (Rec: 06/09/22 16:44 [facility] [id number]) Subjective Physical Therapy Visit Type Type Initial Evaluation Visit Start Time 13:55 Visit Stop Time 14:20 Total Visit Minutes 25 Physical Therapy Visit Comments Patient Comments Patient reports he is fatigued , unable to get up with OT this am, feels more tired this afternoon. Patient Goals Be able to walk with walker again Therapy Pain Assessment Pain When Pain Assessed At Rest Pain Present Pain Present Denied Pain M4 PT-IP Mobility and Gait Start: 06/09/22 12:56 Freq: NEEDED Status: Active Protocol: Document 06/09/22 16:31 [facility] (Rec: 06/09/22 16:44 [facility] [id number]) PT-Bed Mobility Assessment Rolling Type of Rolling Bilateral Level of Assist Maximal Assistance Supine to Sit Supine to Sit Maximum Assistance,Head of Bed Elevated Sit to Supine Sit to Supine Maximum Assistance,Head of Bed Elevated PT-Transfer Assessment Comments Mobility Comments Patient expressed fatigue, didn't feel up to trying to get OOB, requires maximal assist for bed mobility, unable to transfer or stand, will need mechanical lift. Gait Assessment Comments Gait Comments unable PT-Balance Assessment Comments Other Balance Tests/Deviations/Treatment unable to assess, patient : remained seated in bed M5 PT-IP Objective Assessments Start: 06/09/22 12:56 Freq: NEEDED Status: Active Protocol: Document 06/09/22 16:31 [facility] (Rec: 06/09/22 16:44 [facility] [id number]) Orientation Orientation/Cognition Level of Alertness Alert Orientation Name,Place,Situation Language Function Ability No Deficits Noted Safety Awareness Understands Safety Issues Memory Description No Deficits Noted Gross Range of Motion Upper Extremity ROM Assessment Within Functional Limits Lower Extremity ROM Assessment Bilaterally Impaired Impairments moderate limitations in ankle ROM due to edema Strength Upper Extremity Strength Assessment Within Functional Limits Lower Extremity Strength Assessment Bilaterally Impaired Hip 3/5 Knee 4-/5 Ankle 3+/5 Comments Strength Comments Fatigues quickly with gross muscle testing Sensation Assessment Sensation Gross Sensation WNL M7 PT-IP Assessment and Plan Start: 06/09/22 12:56 Freq: NEEDED Status: Active Protocol: Document 06/09/22 16:31 [facility] (Rec: 06/09/22 16:44 [facility] [id number]) PT Summary Assessment and Plan Potential Rehabilitation Potential Good Status of Condition at Evaluation Evolving Summary Impairments Strength,Bed Mobility, Transfers,Gait,Activity Tolerance Assessment Summary Patient seen for PT evaluation due to weakness related to CHF exacerbation. Patient baseline is ambulation with min assist using walker. At today's PT evaluation patient expressed fatigue and SOB and was unable to stand, transfer, or walk due to poor activity tolerance and weakness. Bed mobility requires maximal assistance, he was unable to come fully to sit at EOB, requesting return to supine. Hospital bed was put into chair mode and leg exercises were performed in sitting position. He is far from his baseline mobility and will benefit from physical therapy for strengthening and mobility skills. Anticipate he will need SNF at discharge from hospital. Goals Bed Mobility Goal Minimal Assistance Transfer Goal Minimal Assistance Gait Goal Minimal Assistance Gait Distance 50 Days to Meet Goals 5 Frequency of Treatment Frequency Of Treatment Once a Day Treatment Plan Physical Therapy Treatment Plan Bed Mobility Training,Transfer Training,Gait Training, Therapeutic Exercise,Balance Retraining,Neuromuscular Re-ed Recommendations To Nursing Amount of Assist Needed Mechanical Lift Discharge Recommendations PT Discharge Recommendations SNF Rehab Transportation Needs at Discharge Wheelchair/Cabulance,Stretcher /Ambulance
--- NOTE | 2022-06-09 22:39 | PC.NURSE ---
22-15: Patient tipped to the left side. A short time later he had 8 beats of V Tach rate 150. Electrolytes are WNL. Will monitor.
[2022-06-09 23:36] LABS: BUN Creatinine Ratio 23.2 (6-22); Blood Urea Nitrogen 39 mg/dL (9-20); Calcium 8.3 mg/dL (8.4-10.2); Carbon Dioxide 27 mmol/L (22-32); Chloride 103 mmol/L (98-107); Estimated Glomerular Filt Rate 39 mL/min (>60); Glucose 142 mg/dL (80-110); HEMOLYSIS < 15 (0-50); Magnesium 1.7 mg/dL (1.6-2.3); Potassium 4.5 mmol/L (3.4-5.1); Sodium 134 mmol/L (137-145)
[2022-06-10] VITALS (31 sets, daily range): BP systolic 111–143; BP diastolic 49–79; PULSE 65–96; RESP 13–41; TEMP 36.6–36.9; O2SAT 85–99
[2022-06-10 05:14] LABS: Alanine Aminotransferase 18 IU/L (<50); Albumin 2.7 g/dL (3.5-5.0); Albumin Globulin Ratio 0.9 (1.0-2.8); Alkaline Phosphatase 65 U/L (38-126); Aspartate Aminotransferase 20 IU/L (17-59); BUN Creatinine Ratio 24.7 (6-22); Bilirubin Total 0.4 mg/dL (0.2-1.3); Blood Urea Nitrogen 38 mg/dL (9-20); Calcium 8.2 mg/dL (8.4-10.2); Carbon Dioxide 26 mmol/L (22-32); Chloride 105 mmol/L (98-107); Estimated Glomerular Filt Rate 44 mL/min (>60); Glucose 119 mg/dL (80-110); HEMOLYSIS < 15 (0-50); Magnesium 1.8 mg/dL (1.6-2.3); Potassium 4.2 mmol/L (3.4-5.1); Sodium 135 mmol/L (137-145); Total Protein 5.7 g/dL (6.3-8.2)
[2022-06-10 05:22] LABS: Add Manual Diff / Slide Review NO; Basophils Absolute Auto 0 /uL (0-100); Basophils Percent Auto 0.1 % (0-2); Eosinophils Absolute Auto 200 /uL (0-450); Eosinophils Percent Auto 1.6 % (2-4); Hemoglobin 7.3 g/dL (13.5-17.5); Lymphocytes Absolute Auto 1300 /uL (1100-4500); Lymphocytes Percent Auto 9.9 % (25-40); Mean Corpuscular HGB Conc 32.8 % (30-36); Mean Corpuscular Hemoglobin 29.1 PG (26-34); Mean Corpuscular Volume 88.7 fL (80-100); Monocytes Absolute Auto 1000 /uL (0-900); Monocytes Percent Auto 7.5 % (3-14); Neutrophils Absolute Auto 10600 /uL (1500-7000); Neutrophils Percent Auto 80.9 % (50-75); Platelet Count 259 X10^3/uL (150-400); Red Blood Cell Count 2.51 X10^6/uL (4.5-5.9); Red Cell Distribution Width 14.8 % (11.6-14.8); White Blood Cell Count 13.1 X10^3/uL (4.5-11.0)
[2022-06-10 05:32] LABS: Hematocrit 22.3 % (41-53)
[2022-06-10] MEDS: NYSTATIN POWDER 15GM 1 APPLIC TOP (08:26)
[2022-06-10] MEDS: polyethylene glycoL 3350 17 GM POWD.PACK PO (08:26)
[2022-06-10] MEDS: MULTIVITAMIN 1 TABLET 1 TAB PO (08:28)
[2022-06-10] MEDS: CHOLECALCIFEROL (VITAMIN D3) 1,000 UNIT TABLET 2000 UNIT PO (08:28)
[2022-06-10] MEDS: predniSONE 20 MG TABLET 30 MG PO (08:28)
[2022-06-10] MEDS: DOXAZOSIN 2 MG TABLET PO (08:29)
[2022-06-10] MEDS: ATORVASTATIN 20 MG TABLET 40 MG PO (08:30)
[2022-06-10] MEDS: FUROSEMIDE 40 MG/4 ML VIAL IV ×2 (08:30→16:11)
[2022-06-10] MEDS: COLESEVELAM 625 MG TABLET 1875 MG PO ×2 (08:30→21:00)
--- NOTE | 2022-06-10 11:20 | OT.IP.TRT ---
Current Diagnoses Acute on chronic diastolic (congestive) heart failure (06/08/22) Occupational Therapy Treatment Note M2 OT-IP Current Condition Start: 06/09/22 13:15 Freq: Status: Active Protocol: Document 06/09/22 11:10 [facility] (Rec: 06/09/22 13:34 [facility] [id number]) Occupational Therapy Current Condition Current Condition Evaluation Date 06/09/22 Treatment Diagnosis CHF, weakness Diagnosis Onset Date 06/08/22 M3 OT- IP Subjective and Pain Start: 06/09/22 13:15 Freq: Status: Active Protocol: Document 06/10/22 11:10 [facility] (Rec: 06/10/22 13:55 [facility] [id number]) OT- Subjective Occupational Therapy Visit Type Visit Start Time 11:10 Visit Stop Time 11:36 Total Visit Minutes 26 Occupational Therapy Visit Comments Patient Comments Pt agreed to try to get up, ROLL PRESS OPERATOR present due to pt needing extensive assist. Patient/Caregiver Goals To get better. OT Pain Assessment Pain When Pain Assessed During Mobility Pain Present Pain Present Pain Reported M4 OT- IP ADL's Start: 06/09/22 13:15 Freq: Status: Active Protocol: Document 06/10/22 11:10 [facility] (Rec: 06/10/22 13:55 [facility] [id number]) OT [id number] Comments OT Self-Feeding Comments NOt at meal time. OT ADL-Grooming Comments OT Grooming Comments Not performed. OT ADL-Oral Care Comments Oral Care Comments Not performed OT ADL-Dressing General Eval Lower Body Dressing Ability Maximum Assistance Comments OT Dressing Comments Pt able to assist to lift his feet up a little and assist to get his socks on. OT ADL-Toileting Comments OT Toileting Comments Wallace in place OT ADL-Bathing Comments OT Bathing Comments Sponge bath more appropriate at this time M5 OT- IP IADL's Start: 06/09/22 13:15 Freq: Status: Active Protocol: Document 06/09/22 11:10 [facility] (Rec: 06/09/22 13:34 [facility] [id number]) OT-Instrumental Activities of Daily Living Medication Management Medication Management Caregiver Administers Money Management Money Management Caregiver Provides Assistance Meal Preparation Meal Preparation Caregiver Provides Assist Gas Worker Gas Worker Caregiver Provides Assist M6 OT- IP Functional Cognition Start: 06/09/22 13:15 Freq: Status: Active Protocol: Document 06/10/22 11:10 [facility] (Rec: 06/10/22 13:55 [facility] [id number]) Cognitive Factors Limiting Selfcare Function Cognitive Comments Cognitive Assessment Comments Pt able to follow commands and cooperative even though pt not feeling well, able to participate in therapy. M7 OT- IP Mobility and Balance Start: 06/09/22 13:15 Freq: Status: Active Protocol: Document 06/10/22 11:10 [facility] (Rec: 06/10/22 13:55 [facility] [id number]) OT- Bed Mobility Assessment Supine to Sit Supine to Sit Assist Maximum Assistance,1 Person Assistance,2 Person Assistance ,Head of Bed Elevated Sit to Supine Sit to Supine Assist Maximum Assistance,2 Person Assistance OT-Transfer Assessment Comments Mobility Comments Pt able to move his right LE move today and still needing assist from therapist to get his legs to the edge of the bed. Pt able to sit upright with SBA for 5 minutes, O2 on RA was at 70-80's and then hospitalist came in to put pt on 4L on O2 and up to 90's. Pt too tired to try to do grooming needs while seated and wanting to get back into bed. OT- Balance Assessment Sitting Balance and Reactions Static Sitting Balance Ability Good Dynamic Sitting Balance Ability Fair M8 OT- IP Objective Assessments Start: 06/09/22 13:15 Freq: Status: Active Protocol: Document 06/09/22 11:10 [facility] (Rec: 06/09/22 13:34 [facility] [id number]) OT Gross Range of Motion Upper Extremity Range of Motion Assessment Bilaterally Impaired OT Strength Comments Strength Comments BUE elbow to hands 4/5 to 4-/5 M9 OT- IP Assessment and Plan Start: 06/09/22 13:15 Freq: Status: Active Protocol: Document 06/10/22 11:10 [facility] (Rec: 06/10/22 13:55 [facility] [id number]) OT Summary Assessment and Plan Potential Rehabilitation Potential Good Analytic Complexity at Evaluation Moderate Summary OT Impairments Pain,Strength,Balance, Functional Cognition, Functional Mobility,Self- Feeding,Grooming,Dressing, Toileting,Bathing,Toilet Transfers,Shower Transfers, Activity Tolerance Progress Towards Goals Slow Progress due to Pain,Slow Progress due to Medical Issues,Slow Progress due to Activity Tolerance Assessment Summary Pt able to tolerate sitting at the edge of the bed today for 5 minutes, versus unable to tolerate getting all the way upright. Pt still needing extensive assist for all ADl and mobility needs and having to be on 4L of O2 at this time . When medically stable, pt looking to go back to skilled rehab. Goals Self-Feeding Goal Independent Grooming Goal Independent Dressing Goal Minimal Assistance Toileting Goal Standby Assistance Bathing Goal Minimal Assistance Toilet Transfer Goal Independent Shower Transfer Goal Minimal Assistance Days to Meet Goals 30 Frequency of Treatment Frequency Of Treatment Once a Day Treatment Plan OT Treatment Plan ADL Training,Functional Cognition Training,Functional Mobility,Patient/Family Education,Discharge Planning Other Treatment Recommendations and Next sit at edge of bed for grooming Treatment Focus needs Discharge Recommendations OT Discharge Recommendations SNF Rehab Transportation Needs at Discharge Wheelchair/Cabulance
--- NOTE | 2022-06-10 11:36 | PT.IPTN ---
Current Diagnoses Acute on chronic diastolic (congestive) heart failure (06/08/22) Physical Therapy Treatment Note M2 PT-IP Current Condition Start: 06/09/22 12:56 Freq: NEEDED Status: Active Protocol: Document 06/09/22 16:31 [facility] (Rec: 06/09/22 16:44 [facility] [id number]) Physical Therapy Current Condition Current Condition Evaluation Date 06/09/22 Treatment Diagnosis CHF exacerbation, weakness Onset Date 06/08/22 M3 PT-IP Subjective Start: 06/09/22 12:56 Freq: NEEDED Status: Active Protocol: Document 06/10/22 11:20 [facility] (Rec: 06/10/22 11:48 [facility] [id number]) Subjective Physical Therapy Visit Type Type Treatment Note Visit Start Time 11:20 Visit Stop Time 11:36 Total Visit Minutes 16 Number of HYSTER MACHINE OPERATOR Visits 1 Physical Therapy Visit Comments Patient Comments Pt feeling weak, agreeable to mobilize. Patient Goals Be able to walk with walker again M4 PT-IP Mobility and Gait Start: 06/09/22 12:56 Freq: NEEDED Status: Active Protocol: Document 06/10/22 11:20 [facility] (Rec: 06/10/22 11:48 [facility] [id number]) PT-Bed Mobility Assessment Rolling Type of Rolling Bilateral Level of Assist Moderate Assistance Supine to Sit Supine to Sit Maximum Assistance,Head of Bed Elevated Sit to Supine Sit to Supine Maximum Assistance,Head of Bed Elevated Scooting Scooting to Edge of Bed Maximum Assistance PT-Transfer Assessment Comments Mobility Comments Pt supine in bed upon arrival, agreeable to sit EOB. Pt able to move LE minimally towards side of bed but faitgues quickly and has difficulty. Ultimately required Max A x2 for sup<>sit and scooting EOB. Pt became SOB w/ O2 in low 70s to low 80s while seated EOB. Dr arrived, pt placed on 4L and O2 increased to mid to high 90s. Pt sat EOB for ~5 min SBA to CGA, but stated he was too weak to attempt standing today. Max A x2 for sit<>sup and scooting up/ repositioning in bed. Pt left w/ RN in room. Gait Assessment Comments Gait Comments unable PT-Balance Assessment Sitting Balance and Reactions Static Sitting Balance Ability Good Comments Other Balance Tests/Deviations/Treatment unable to assess, patient : remained seated in bed M5 PT-IP Objective Assessments Start: 06/09/22 12:56 Freq: NEEDED Status: Active Protocol: Document 06/09/22 16:31 [facility] (Rec: 06/09/22 16:44 [facility] [id number]) Orientation Orientation/Cognition Level of Alertness Alert Orientation Name,Place,Situation Language Function Ability No Deficits Noted Safety Awareness Understands Safety Issues Memory Description No Deficits Noted Gross Range of Motion Upper Extremity ROM Assessment Within Functional Limits Lower Extremity ROM Assessment Bilaterally Impaired Impairments moderate limitations in ankle ROM due to edema Strength Upper Extremity Strength Assessment Within Functional Limits Lower Extremity Strength Assessment Bilaterally Impaired Hip 3/5 Knee 4-/5 Ankle 3+/5 Comments Strength Comments Fatigues quickly with gross muscle testing Sensation Assessment Sensation Gross Sensation WNL M6 PT-IP Treatment Start: 06/09/22 12:56 Freq: NEEDED Status: Active Protocol: Document 06/10/22 11:48 [facility] (Rec: 06/10/22 11:49 [facility] [id number]) Physical Therapy Treatment Education Education Provided Safety M7 PT-IP Assessment and Plan Start: 06/09/22 12:56 Freq: NEEDED Status: Active Protocol: Document 06/10/22 11:20 [facility] (Rec: 06/10/22 11:48 [facility] [id number]) PT Summary Assessment and Plan Potential Rehabilitation Potential Fair Summary Impairments Strength,Bed Mobility, Transfers,Gait,Activity Tolerance Progress Towards Goals Slow Progress due to Medical Issues,Slow Progress due to Activity Tolerance Assessment Summary Pt limited by weakness, low tolerance for activity and SOB today. applied 4L O2 due to pt desat to low 70s following mobility. Required Max Ax2 for bed mobility, sup <>sit<>Sup. Able to maintain seated balance EOB ~5 min mostly SBA. [place] too weak to attempt standing. At this time , pt will require SNF to improve strength, activity tolerance and functional mobility. Goals Bed Mobility Goal Minimal Assistance Transfer Goal Minimal Assistance Gait Goal Minimal Assistance Gait Distance 50 Days to Meet Goals 5 Frequency of Treatment Frequency Of Treatment Once a Day Treatment Plan Physical Therapy Treatment Plan Bed Mobility Training,Transfer Training,Gait Training, Therapeutic Exercise,Balance Retraining,Neuromuscular Re-ed Recommendations To Nursing Amount of Assist Needed Mechanical Lift Discharge Recommendations PT Discharge Recommendations SNF Rehab Transportation Needs at Discharge Wheelchair/Cabulance,Stretcher /Ambulance
--- NOTE | 2022-06-10 16:09 | PM.PN.1 ---
Subjective Subjective Interval history: 86 M admitted with congestive heart failure. He has improved shortness of breath at rest, but remains very weak from baseline requiring significant assistance today with therapies. He is diuresing well, creatinine improved today despite diuresis. He did desaturate to the mid 70s when attempting to get out of bed today. Improved with rest at 4L of O2 via NC. Exam Vital Signs (past 8 hours): - 06/10/22 08:29 06/10/22 12:00 06/10/22 12:00 Temperature 98.4 F Pulse Rate 86 Respiratory Rate Blood Pressure 132/65 Pulse Oximetry 96 Oxygen Delivery Method Room Air 06/10/22 08:30 06/10/22 09:00 06/10/22 09:30 Temperature Pulse Rate 84 85 86 Respiratory Rate 20 24 28 H Blood Pressure Pulse Oximetry 96 99 95 Oxygen Delivery Method 06/10/22 10:00 06/10/22 10:30 06/10/22 11:00 Temperature Pulse Rate 82 84 73 Respiratory Rate 17 25 H 16 Blood Pressure Pulse Oximetry 96 95 96 Oxygen Delivery Method 06/10/22 11:30 06/10/22 12:00 Temperature Pulse Rate 96 H 74 Respiratory Rate 33 H 17 Blood Pressure Pulse Oximetry 85 L 95 Oxygen Delivery Method Fraction of Inspired Oxygen 25 Oxygen Delivery Method Room Air Oxygen Flow Rate 0 Narrative Exam Narrative: General:? Patient is well developed and well nourished, dyspnic with short sentences HEENT:? Normocephalic, atraumatic, extraocular muscles intact, oral pharynx is clear and mucous membranes are moist. Neck: supple and symmetric, trachea is midline, no cervical adenopathy. + JVD Chest:? Normal AP diameter and contour without kyphoscoliosis, no tachypnea, equal chest rise bilaterally. Lungs:? CTA b/l no wheezing rhonchi or rales. Diminished at b/l lung bases however Cardio:?regular rate, irregularly irregular rhythm, no m/r/g. Abdomen: S NT ND. Musculoskeletal:? Muscle strength and tone are equal within normal limits, no deformity. Extremities: now 1-2+ pitting edema b/l LE. No joint effusions. No cyanosis or clubbing. trace edema bilateral upper extremities as well. L slightly greater than R. Improved edema overall today. Skin:? Pale,? Warm to touch,dry and intact without rashes, ulcerations or petechiae.? Neuro:? Alert and orientated to name,?location, situation. sensation to touch intact in all extremities, no gross deficits noted of cranial nerves. Psych:? Patient has a well-kept appearance, appropriate affect, mental status attitude thought context and judgment are appropriate for age. Objective Labs 06/10/22 04:13 06/10/22 04:13 Labs: Laboratory Results - last 24 hr 06/09/22 06/10/22 06/10/22 23:20 04:13 04:13 WBC 13.1 H RBC 2.51 L Hgb 7.3 L Hct 22.3 L MCV 88.7 MCH 29.1 MCHC 32.8 RDW 14.8 Plt Count 259 Neut % (Auto) 80.9 H Lymph % (Auto) 9.9 L [place] % (Auto) 7.5 Eos % (Auto) 1.6 L Baso % (Auto) 0.1 Neut # (Auto) 96588 H Lymph # (Auto) 1300 [place] # (Auto) 1000 H Eos # (Auto) 200 Baso # (Auto) 0 Sodium 134 L 135 L Potassium 4.5 4.2 Chloride 103 105 Carbon Dioxide 27 26 BUN 39 H 38 H Creatinine 1.68 H 1.54 H Estimated GFR 39 L 44 L BUN/Creatinine Ratio 23.2 H 24.7 H Glucose 142 H 119 H Calcium 8.3 L 8.2 L Magnesium 1.7 1.8 Total Bilirubin 0.4 AST 20 ALT 18 Alkaline Phosphatase 65 Total Protein 5.7 L Albumin 2.7 L Globulin 3.0 Albumin/Globulin Ratio 0.9 L PFSH Medical History Anemia Asymptomatic microscopic hematuria BPH (benign prostatic hyperplasia) Chronic diastolic heart failure DM2 (diabetes mellitus, type 2) Hypertension Interstitial lung disease Permanent atrial fibrillation Stage 3b chronic kidney disease (CKD) Surgical History S/P AVR (aortic valve replacement) Family History Mother No pertinent past medical history Father No pertinent past medical history Social History household members: spouse Smoking Status: Former smoker alcohol intake: current Assessment & Plan Assessment & Plan narrative: 1. Acute on chronic CHF exacerbation, diastolic with acute respiratory failure with hypoxia. - Worsening shortness of breath over indeterminant time frame currently with patient's underlying cognitive impairment. Appears to have been started 2 days prior to admission on 20 mg of oral lasix at SNF. - given 60 mg IV lasix in the ER, initially treated with biPAP for tachypnea but was not hypoxic. Responeded well to diuresis, more comfortable an no supplemental oxygen needs currently at rest, but did desaturate with therapies today to the mid 70s. May need home O2 with activity depending on response to continued diuresis. - will continue furosemide 40 mg IV BID for now, monitor creatinine closely with slight bump after initial dosing but improvement today. - repeat TTE will not currently change management coordinator. - troponins unremarkable and no chest pain to suggest ACS. EKG without acute ischemia. CTA negative for PE. 2. YORDY on CKD stage 3-4 - admit creatinine 1.48, unclear baseline but was previously above 2. With diuresis increased to 1.8 on HD#1 but is improved again today. 3. Chronic atrial fibrillation, prior VTE. -continue home medications with rivaroxaban 4. HTN - currently only on furosemide, continue to monitor. Recently most medications were held on prior admission. 5. Chronic anemia - continue to follow. Hg 7.2 today. No obvious signs or symptoms of bleeding. Transfuse if Hg drops to <7. 6. Chronic cognitive impairment - SLUMS 12/04 previously. Dispo: inpatient, will return to SNF probable in 2-4 days once adequate diuresis achieved. CODE: DNR/DNI Proxy: Loreta Albarado, spouse I have utilized all available resources to reconcile the patient's home medications COVID-19 COVID-19 status: Negative Quality VTE Deep Vein Thrombosis/Pulmonary Embolism Present on Admission: No
[2022-06-10] MEDS: RIVAROXABAN 10 MG TABLET 20 MG PO (16:10)
[2022-06-10] MEDS: LATANOPROST 0.005% OPHTH 2.5 ML 1 DROPS EYE-BOTH (20:59)
[2022-06-10] MEDS: OXYCODONE IR 5 MG TABLET PO (23:38)
[2022-06-11] VITALS (10 sets, daily range): BP systolic 128–142; BP diastolic 57–69; PULSE 63–95; RESP 13–23; TEMP 36.4–36.9; O2SAT 93–99
--- NOTE | 2022-06-11 01:42 | PC.NURSE ---
2229- Patient continues to have good UOP. Hematuria noted in mccoy bag. Patient denies discomfort. RICKY Arrieta notified and xeralto held for 06/11. Urine sent per orders. Will monitor.
[2022-06-11 05:45] LABS: Add Manual Diff / Slide Review NO; Basophils Absolute Auto 0 /uL (0-100); Basophils Percent Auto 0.3 % (0-2); Eosinophils Absolute Auto 300 /uL (0-450); Eosinophils Percent Auto 2.2 % (2-4); Hematocrit 22.9 % (41-53); Hemoglobin 7.6 g/dL (13.5-17.5); Lymphocytes Absolute Auto 1700 /uL (1100-4500); Lymphocytes Percent Auto 12.6 % (25-40); Mean Corpuscular HGB Conc 33.3 % (30-36); Mean Corpuscular Hemoglobin 29.5 PG (26-34); Mean Corpuscular Volume 88.6 fL (80-100); Monocytes Absolute Auto 900 /uL (0-900); Monocytes Percent Auto 6.2 % (3-14); Neutrophils Absolute Auto 10900 /uL (1500-7000); Neutrophils Percent Auto 78.7 % (50-75); Platelet Count 267 X10^3/uL (150-400); Red Blood Cell Count 2.58 X10^6/uL (4.5-5.9); Red Cell Distribution Width 14.3 % (11.6-14.8); White Blood Cell Count 13.9 X10^3/uL (4.5-11.0)
[2022-06-11 05:53] LABS: Alanine Aminotransferase 18 IU/L (<50); Albumin 2.9 g/dL (3.5-5.0); Alkaline Phosphatase 64 U/L (38-126); Aspartate Aminotransferase 19 IU/L (17-59); BUN Creatinine Ratio 25.8 (6-22); Bilirubin Total 0.5 mg/dL (0.2-1.3); Blood Urea Nitrogen 41 mg/dL (9-20); Calcium 8.2 mg/dL (8.4-10.2); Carbon Dioxide 27 mmol/L (22-32); Chloride 106 mmol/L (98-107); Estimated Glomerular Filt Rate 42 mL/min (>60); Globulin 2.9 g/dL (1.7-4.1); Glucose 118 mg/dL (80-110); HEMOLYSIS < 15 (0-50); Magnesium 1.8 mg/dL (1.6-2.3); Potassium 4.3 mmol/L (3.4-5.1); Sodium 136 mmol/L (137-145); Total Protein 5.8 g/dL (6.3-8.2)
[2022-06-11] MEDS: FUROSEMIDE 40 MG/4 ML VIAL IV ×2 (07:54→16:55)
[2022-06-11] MEDS: MULTIVITAMIN 1 TABLET 1 TAB PO (08:33)
[2022-06-11] MEDS: polyethylene glycoL 3350 17 GM POWD.PACK PO (08:33)
[2022-06-11] MEDS: DOXAZOSIN 2 MG TABLET PO (08:33)
[2022-06-11] MEDS: ATORVASTATIN 20 MG TABLET 40 MG PO (08:33)
[2022-06-11] MEDS: CHOLECALCIFEROL (VITAMIN D3) 1,000 UNIT TABLET 2000 UNIT PO (08:33)
[2022-06-11] MEDS: predniSONE 20 MG TABLET 30 MG PO (08:36)
[2022-06-11] MEDS: COLESEVELAM 625 MG TABLET 1875 MG PO ×2 (08:37→21:12)
[2022-06-11] MEDS: ALBUMIN HUMAN 25 GM/100 ML VIAL IV ×2 (09:17→21:12)
[2022-06-11] MEDS: MUPIROCIN 22 GM OINT 1 APPLIC TOP ×2 (09:48→21:13)
--- NOTE | 2022-06-11 15:02 | PT.IPTN ---
Current Diagnoses Acute on chronic diastolic (congestive) heart failure (06/08/22) Physical Therapy Treatment Note M2 PT-IP Current Condition Start: 06/09/22 12:56 Freq: NEEDED Status: Active Protocol: Document 06/09/22 16:31 SAK (Rec: 06/09/22 16:44 SAK [id number]) Physical Therapy Current Condition Current Condition Evaluation Date 06/09/22 Treatment Diagnosis CHF exacerbation, weakness Onset Date 06/08/22 M3 PT-IP Subjective Start: 06/09/22 12:56 Freq: NEEDED Status: Active Protocol: Document 06/11/22 16:33 TS (Rec: 06/11/22 16:51 TS [id number]) Subjective Physical Therapy Visit Type Type Treatment Note Visit Start Time 15:02 Visit Stop Time 15:36 Total Visit Minutes 34 Notes Co-treat with OT Number of [employer] Visits 2 Physical Therapy Visit Comments Patient Comments Pt agreeable to PT session. Patient Goals Be able to walk with walker again M4 PT-IP Mobility and Gait Start: 06/09/22 12:56 Freq: NEEDED Status: Active Protocol: Document 06/11/22 16:33 TS (Rec: 06/11/22 16:51 TS [id number]) PT-Bed Mobility Assessment Supine to Sit Supine to Sit Minimal Assistance,Head of Bed Elevated Scooting Scooting to Edge of Bed Minimal Assistance PT-Transfer Assessment Sit to and From Stand Sit to and from Stand Minimal Assistance,2 Person Assistance Equipment Transfer Assistive Device Gait Belt,Front Wheeled Walker Transfers Transfer Destination Chair Transfer Technique Stand Step Pivot Transfer Ability Level of Assist Minimal Assistance Comments Mobility Comments Pt found resting in bed, agreeable to PT session. Supine to sit Pablo for trunk positioning, scooted EOB Pablo with cues fo rfeet flat and hips forward. Sit to stand x2 Pablo x2 cues for weight forward and BUE support on bed . Pt performed side steps x5 along EOB before fatiguing and required to sit EOB for rest break, Stand step pivot transfer to chair Pablo x1, cues for FWW management and steps. Pt was left in bedside chair with call light nearby, Rn notified. Gait Assessment Gait Gait Assistance Required: Minimum Assistance Distance (Feet) 3 Assistive Devices Assistive Device Front Wheeled Walker Orthotic/Prosthetic Devices or Brace: No Gait Deviations General Gait Pattern Decreased Stride Length, Decreased Feet Clearance, Flexed Trunk Factors Limiting Gait Function Factors Limiting Gait Function Decreased Activity Tolerance, Decreased Strength,Poor Balance,Poor Safety Awareness, Respiratory Distress Comments Gait Comments Pt performed side steps x5 EOB Pablo, required cues for FWW management and steps. PT-Balance Assessment Sitting Balance and Reactions Static Sitting Balance Ability Good Dynamic Sitting Balance Ability Fair Standing Balance and Reactions Static Standing Balance Ability Fair Dynamic Standing Balance Ability Poor M5 PT-IP Objective Assessments Start: 06/09/22 12:56 Freq: NEEDED Status: Active Protocol: Document 06/09/22 16:31 SAK (Rec: 06/09/22 16:44 SAK [id number]) Orientation Orientation/Cognition Level of Alertness Alert Orientation Name,Place,Situation Language Function Ability No Deficits Noted Safety Awareness Understands Safety Issues Memory Description No Deficits Noted Gross Range of Motion Upper Extremity ROM Assessment Within Functional Limits Lower Extremity ROM Assessment Bilaterally Impaired Impairments moderate limitations in ankle ROM due to edema Strength Upper Extremity Strength Assessment Within Functional Limits Lower Extremity Strength Assessment Bilaterally Impaired Hip 3/5 Knee 4-/5 Ankle 3+/5 Comments Strength Comments Fatigues quickly with gross muscle testing Sensation Assessment Sensation Gross Sensation WNL M6 PT-IP Treatment Start: 06/09/22 12:56 Freq: NEEDED Status: Active Protocol: Document 06/11/22 16:33 TS (Rec: 06/11/22 16:51 TS [id number]) Physical Therapy Treatment Education Education Provided Safety M7 PT-IP Assessment and Plan Start: 06/09/22 12:56 Freq: NEEDED Status: Active Protocol: Document 06/11/22 16:33 TS (Rec: 06/11/22 16:51 TS [id number]) PT Summary Assessment and Plan Potential Rehabilitation Potential Fair Summary Impairments Strength,Bed Mobility, Transfers,Gait,Activity Tolerance Progress Towards Goals Slow Progress due to Medical Issues,Slow Progress due to Activity Tolerance Assessment Summary Pt progressed into standing this session x2 Pablo x2. He progressed to lateral steps x5 along EOB with Pablo x1. Pt progressed to stand step pivot trasnfer to chair Pablo x1. He maintained good sitting balance ~5mins on EOB with BUE support for dressing change. Pt on RA this session maintained o2 in low to mid 90 's throughout session. PT continues to recommend SNF to improve activity tolerance, trasnfers and gait. Goals Bed Mobility Goal Minimal Assistance Transfer Goal Minimal Assistance Gait Goal Minimal Assistance Gait Distance 50 Days to Meet Goals 5 Frequency of Treatment Frequency Of Treatment Once a Day Treatment Plan Physical Therapy Treatment Plan Bed Mobility Training,Transfer Training,Gait Training, Therapeutic Exercise,Balance Retraining,Neuromuscular Re-ed Recommendations To Nursing Amount of Assist Needed 2 Person Assist Discharge Recommendations PT Discharge Recommendations SNF Rehab Transportation Needs at Discharge Wheelchair/Cabulance,Stretcher /Ambulance
--- NOTE | 2022-06-11 15:36 | OT.IP.TRT ---
Current Diagnoses Acute on chronic diastolic (congestive) heart failure (06/08/22) Occupational Therapy Treatment Note M2 OT-IP Current Condition Start: 06/09/22 13:15 Freq: Status: Active Protocol: Document 06/09/22 11:10 [facility] (Rec: 06/09/22 13:34 [facility] [id number]) Occupational Therapy Current Condition Current Condition Evaluation Date 06/09/22 Treatment Diagnosis CHF, weakness Diagnosis Onset Date 06/08/22 M3 OT- IP Subjective and Pain Start: 06/09/22 13:15 Freq: Status: Active Protocol: Document 06/11/22 15:07 [facility] (Rec: 06/11/22 17:21 [facility] [id number]) OT- Subjective Occupational Therapy Visit Type Type Treatment Note Visit Start Time 15:07 Visit Stop Time 15:36 Total Visit Minutes 14 Notes Cotxt with CARE INFORMATION ASSOCIATE Occupational Therapy Visit Comments Patient Comments Pt agreed to try to get up. Patient/Caregiver Goals To get better. OT Pain Assessment Pain When Pain Assessed During Mobility Pain Present Pain Present Pain Reported M4 OT- IP ADL's Start: 06/09/22 13:15 Freq: Status: Active Protocol: Document 06/11/22 15:07 [facility] (Rec: 06/11/22 17:21 [facility] [id number]) OT ADL-Oral Care Comments Oral Care Comments Pt not wanting to do at this time. OT ADL-Dressing General Eval Upper Body Dressing Ability Moderate Assistance Lower Body Dressing Ability Maximum Assistance Areas Needing Assistance Socks Comments OT Dressing Comments Assist with change of gown and to help put on socks. OT ADL-Bathing Bathing Type Bathing Type Bed Bath General Evaluation Bathing Ability Maximal Assistance Comments OT Bathing Comments Pt able to assist to wash under his arms and chest. M5 OT- IP IADL's Start: 06/09/22 13:15 Freq: Status: Active Protocol: Document 06/09/22 11:10 [facility] (Rec: 06/09/22 13:34 [facility] [id number]) OT-Instrumental Activities of Daily Living Medication Management Medication Management Caregiver Administers Money Management Money Management Caregiver Provides Assistance Meal Preparation Meal Preparation Caregiver Provides Assist Customer Service Driver Customer Service Driver Caregiver Provides Assist M6 OT- IP Functional Cognition Start: 06/09/22 13:15 Freq: Status: Active Protocol: Document 06/11/22 15:07 [facility] (Rec: 06/11/22 17:21 [facility] [id number]) Cognitive Factors Limiting Selfcare Function Cognitive Comments Cognitive Assessment Comments Pt needing intial encouragement and then able to transfer to the recliner. Pt is cooperative and motivated to get better. M7 OT- IP Mobility and Balance Start: 06/09/22 13:15 Freq: Status: Active Protocol: Document 06/11/22 15:07 [facility] (Rec: 06/11/22 17:21 [facility] [id number]) OT- Bed Mobility Assessment Supine to Sit Supine to Sit Assist Moderate Assistance,1 Person Assistance OT-Transfer Assessment Sit to and From Stand Sit to and from Stand Minimal Assistance,2 Person Assistance Transfers Transfer Ability Minimal Assistance Technique Transfer Destination Bed,Chair Comments Mobility Comments Pt able to actively move his legs to the edge of the bed witout assist today and just assist to help with his trunk. MINax2 to stand to the FWW. DEL x1 to transfer to the recliner. OT- Balance Assessment Sitting Balance and Reactions Static Sitting Balance Ability Good Dynamic Sitting Balance Ability Fair Standing Balance and Reactions Static Standing Balance Ability Fair Dynamic Standing Balance Ability Fair M8 OT- IP Objective Assessments Start: 06/09/22 13:15 Freq: Status: Active Protocol: Document 06/09/22 11:10 [facility] (Rec: 06/09/22 13:34 [facility] [id number]) OT Gross Range of Motion Upper Extremity Range of Motion Assessment Bilaterally Impaired OT Strength Comments Strength Comments BUE elbow to hands 4/5 to 4-/5 M9 OT- IP Assessment and Plan Start: 06/09/22 13:15 Freq: Status: Active Protocol: Document 06/11/22 15:07 [facility] (Rec: 06/11/22 17:21 [facility] [id number]) OT Summary Assessment and Plan Potential Rehabilitation Potential Good Analytic Complexity at Evaluation Moderate Summary OT Impairments Pain,Strength,Balance, Functional Cognition, Functional Mobility,Self- Feeding,Grooming,Dressing, Toileting,Bathing,Toilet Transfers,Shower Transfers, Activity Tolerance Progress Towards Goals Progressing Toward Goals Assessment Summary Pt great improvement with bed mobility and transfer needs today and able to partake in partial sponging off at this time. Pt to go to skilled rehab when medically stable. Goals Self-Feeding Goal Independent Grooming Goal Independent Dressing Goal Minimal Assistance Toileting Goal Standby Assistance Bathing Goal Minimal Assistance Toilet Transfer Goal Independent Shower Transfer Goal Independent Days to Meet Goals 25 Frequency of Treatment Frequency Of Treatment Once a Day Treatment Plan OT Treatment Plan ADL Training,Functional Cognition Training,Functional Mobility,Patient/Family Education,Discharge Planning Discharge Recommendations OT Discharge Recommendations SNF Rehab Transportation Needs at Discharge Wheelchair/Cabulance
[2022-06-11] MEDS: RIVAROXABAN 10 MG TABLET 20 MG PO (17:21)
--- NOTE | 2022-06-11 20:05 | PM.PN.1 ---
Subjective Subjective Interval history: 86-year-old male with congestive heart failure preserved ejection fraction, diabetes mellitus type 2, hypertension, AFib, and CKD 3 who was admitted with acute on chronic CHF with exacerbation, acute hypoxic respiratory failure, and YORDY. Patient reports he is feeling very slightly better today. He says he is mildly less short of breath. He notes that he was becoming dyspneic at rest prior to admission. He now notes he has some dyspnea with conversation. He denies any chest pain. Denies any abdominal pain or nausea. He is a large dressing on his head with a big ulcer but does not know what it is from or how long it has been there. Exam Vital Signs (past 8 hours): - 06/11/22 16:00 06/11/22 15:00 06/11/22 20:00 Temperature 97.5 F L Pulse Rate 92 H Respiratory Rate 23 Blood Pressure 129/57 L Pulse Oximetry 96 96 98 Oxygen Delivery Method Room Air Room Air Oxygen Flow Rate 0 0 Fraction of Inspired Oxygen 25 Oxygen Delivery Method Room Air Oxygen Flow Rate 0 Narrative Exam Narrative: GEN: Elderly male, Alert and oriented x 2, NAD HEENT:NC, Face symmetric, large open ulcer on the crown of his head (possible skin cancer, although details are unclear at this time) CHEST: Respiratory excursions symmetric, coarse but CTAB CV: Irregularly irregular, no M/R/G ABD: Soft, NT/ND, BT present in all 4 quadrants, no organomegaly or masses EXTR: warm, well perfused, no C/C, 3+ bilateral lower extremity pitting edema SKIN: warm and dry, no rash NEURO: Alert and oriented x 2, nonfocal Objective Labs 06/11/22 05:10 06/11/22 05:10 Labs: Laboratory Results - last 24 hr 06/11/22 06/11/22 05:10 05:10 WBC 13.9 H RBC 2.58 L Hgb 7.6 L Hct 22.9 L MCV 88.6 MCH 29.5 MCHC 33.3 RDW 14.3 Plt Count 267 Neut % (Auto) 78.7 H Lymph % (Auto) 12.6 L [place] % (Auto) 6.2 Eos % (Auto) 2.2 Baso % (Auto) 0.3 Neut # (Auto) 53818 H Lymph # (Auto) 1700 [place] # (Auto) 900 Eos # (Auto) 300 Baso # (Auto) 0 Sodium 136 L Potassium 4.3 Chloride 106 Carbon Dioxide 27 BUN 41 H Creatinine 1.59 H Estimated GFR 42 L BUN/Creatinine Ratio 25.8 H Glucose 118 H Calcium 8.2 L Magnesium 1.8 Total Bilirubin 0.5 AST 19 ALT 18 Alkaline Phosphatase 64 Total Protein 5.8 L Albumin 2.9 L Globulin 2.9 Albumin/Globulin Ratio 1.0 PFSH Medical History Anemia Asymptomatic microscopic hematuria BPH (benign prostatic hyperplasia) Chronic diastolic heart failure DM2 (diabetes mellitus, type 2) Hypertension Interstitial lung disease Permanent atrial fibrillation Stage 3b chronic kidney disease (CKD) Surgical History S/P AVR (aortic valve replacement) Family History Mother No pertinent past medical history Father No pertinent past medical history Social History household members: spouse Smoking Status: Former smoker alcohol intake: current Assessment & Plan Assessment & Plan narrative: 1. Acute on chronic diastolic congestive heart failure Patient continues to have significant evidence of volume overload. He has been on furosemide 40 mg IV b.i.d.. He did have a net diuresis of 2700 cc yesterday. He is tolerated that fairly well. Creatinine is stable at 1.59. Potassium normal. Incidentally, he has low albumin at 2.9. Will add IV albumin for the next 24 hours to assist with increasing his oncotic pressure and helping with maintaining his intravascular volume status with diuresis. 2. YORDY in CKD 4 Creatinine was 1.48 on admission. It did increase up 1.82 on June 09. It has now stabilized in the 1.5-1.6 range. Will continue to monitor. 3. Chronic atrial fibrillation Presently rate controlled. Prior to his last hospitalization he had been on Eliquis anticoagulation. However he developed a DVT as noted below and was transitioned to Xarelto. He is currently rate controlled. 4. Recent diagnosis of left femoral nonocclusive vein DVT in April of 2021 No evidence of recurrent DVT. On Xarelto. 5. Hypertension Blood pressures are normotensive presently. 6. Hyponatremia Sodium is stable and improving at 136 7. Anemia Hemoglobin is stable at 7.6, up from 7.3 yesterday. During his prior hospitalization his hemoglobin ranged in the 8-9 range. Code status DNR Prophylaxis On Xarelto Disposition Likely another 48 hours of IV diuresis Quality VTE Deep Vein Thrombosis/Pulmonary Embolism Present on Admission: No
[2022-06-11] MEDS: LATANOPROST 0.005% OPHTH 2.5 ML 1 DROPS EYE-BOTH (21:11)
[2022-06-12] VITALS (12 sets, daily range): BP systolic 109–158; BP diastolic 61–110; PULSE 78–95; RESP 18–26; TEMP 36.5–37.1; O2SAT 93–100
[2022-06-12 05:09] LABS: Add Manual Diff / Slide Review NO; Basophils Absolute Auto 0 /uL (0-100); Basophils Percent Auto 0.3 % (0-2); Eosinophils Absolute Auto 100 /uL (0-450); Eosinophils Percent Auto 0.9 % (2-4); Hematocrit 23.4 % (41-53); Hemoglobin 7.8 g/dL (13.5-17.5); Lymphocytes Absolute Auto 1500 /uL (1100-4500); Lymphocytes Percent Auto 10.1 % (25-40); Mean Corpuscular HGB Conc 33.3 % (30-36); Mean Corpuscular Hemoglobin 29.7 PG (26-34); Monocytes Absolute Auto 700 /uL (0-900); Neutrophils Absolute Auto 12200 /uL (1500-7000); Neutrophils Percent Auto 83.7 % (50-75); Platelet Count 263 X10^3/uL (150-400); Red Blood Cell Count 2.62 X10^6/uL (4.5-5.9); Red Cell Distribution Width 14.9 % (11.6-14.8); White Blood Cell Count 14.6 X10^3/uL (4.5-11.0)
--- NOTE | 2022-06-12 05:15 | PC.NURSE ---
Patient sleeping off and on, no complaints of chest pain or shortness of breath.
[2022-06-12 05:19] LABS: Alanine Aminotransferase 19 IU/L (<50); Albumin 3.2 g/dL (3.5-5.0); Albumin Globulin Ratio 1.1 (1.0-2.8); Alkaline Phosphatase 63 U/L (38-126); Aspartate Aminotransferase 19 IU/L (17-59); BUN Creatinine Ratio 26.9 (6-22); Bilirubin Total 0.6 mg/dL (0.2-1.3); Blood Urea Nitrogen 39 mg/dL (9-20); Calcium 8.5 mg/dL (8.4-10.2); Carbon Dioxide 29 mmol/L (22-32); Chloride 103 mmol/L (98-107); Estimated Glomerular Filt Rate 47 mL/min (>60); Globulin 2.9 g/dL (1.7-4.1); Glucose 123 mg/dL (80-110); HEMOLYSIS < 15 (0-50); Potassium 4.1 mmol/L (3.4-5.1); Sodium 136 mmol/L (137-145); Total Protein 6.1 g/dL (6.3-8.2)
[2022-06-12] MEDS: FUROSEMIDE 40 MG/4 ML VIAL IV ×2 (07:55→17:02)
[2022-06-12] MEDS: polyethylene glycoL 3350 17 GM POWD.PACK PO (08:14)
[2022-06-12] MEDS: ALBUMIN HUMAN 25 GM/100 ML VIAL IV ×2 (08:15→21:02)
[2022-06-12] MEDS: CHOLECALCIFEROL (VITAMIN D3) 1,000 UNIT TABLET 2000 UNIT PO (08:15)
[2022-06-12] MEDS: DOXAZOSIN 2 MG TABLET PO (08:15)
[2022-06-12] MEDS: ATORVASTATIN 20 MG TABLET 40 MG PO (08:15)
[2022-06-12] MEDS: MULTIVITAMIN 1 TABLET 1 TAB PO (08:15)
[2022-06-12] MEDS: COLESEVELAM 625 MG TABLET 1875 MG PO ×2 (08:15→20:31)
[2022-06-12] MEDS: predniSONE 20 MG TABLET 30 MG PO (08:16)
[2022-06-12] MEDS: MUPIROCIN 22 GM OINT 1 APPLIC TOP ×2 (08:19→20:31)
--- NOTE | 2022-06-12 09:03 | PT-IP ANOTE ---
Pt refused treatment at this time. Needs to make phone call with first.
[2022-06-12] MEDS: DOXYCYCLINE HYCLATE 100 MG TABLET PO ×2 (09:13→20:31)
--- NOTE | 2022-06-12 13:05 | PT.IPTN ---
Current Diagnoses Acute on chronic diastolic (congestive) heart failure (06/08/22) Physical Therapy Treatment Note M2 PT-IP Current Condition Start: 06/09/22 12:56 Freq: NEEDED Status: Active Protocol: Document 06/09/22 16:31 SAK (Rec: 06/09/22 16:44 SAK [id number]) Physical Therapy Current Condition Current Condition Evaluation Date 06/09/22 Treatment Diagnosis CHF exacerbation, weakness Onset Date 06/08/22 M3 PT-IP Subjective Start: 06/09/22 12:56 Freq: NEEDED Status: Active Protocol: Document 06/12/22 13:29 TS (Rec: 06/12/22 13:43 TS [id number]) Subjective Physical Therapy Visit Type Type Treatment Note Visit Start Time 13:05 Visit Stop Time 13:25 Total Visit Minutes 20 Physical Therapy Visit Comments Patient Comments Pt agreeable to PT session. Patient Goals Be able to walk with walker again M4 PT-IP Mobility and Gait Start: 06/09/22 12:56 Freq: NEEDED Status: Active Protocol: Document 06/12/22 13:29 TS (Rec: 06/12/22 13:43 TS [id number]) PT-Bed Mobility Assessment Supine to Sit Supine to Sit Minimal Assistance,Head of Bed Elevated Scooting Scooting to Edge of Bed Contact Guard Assistance PT-Transfer Assessment Sit to and From Stand Sit to and from Stand Minimal Assistance,1 Person Assistance Equipment Transfer Assistive Device Gait Belt,Front Wheeled Walker Orthotic/Prosthetic Devices or Brace: No Transfers Transfer Destination Chair Transfer Technique Stand Step Pivot Transfer Ability Level of Assist Contact Guard Assistance Comments Mobility Comments Supine to sit Pablo for uprighting of trunk, cues for LE mobilization. Scooted EOB CGA with BUE support on handrails. Sat with flexed posture and no UE support on EOB, maintained good midline. Sit to stand Pablo x1, provided cues for RUE support on bed and LUE on FWW, uppright posture in standing. Pt performed heel lift x1 ea and may x2 no sign of buckling or LOB. Pt performed step pivot transfer to chair Pablo x1, cues for FWW management and reaching back for arms of chair for eccentric control. Pt o2 remained in mid to low 90's throughout session. Pt was left in bedside chair with call light nearby, RN notified . Gait Assessment Comments Gait Comments Performed step pivot transfer to chair. PT-Balance Assessment Sitting Balance and Reactions Static Sitting Balance Ability Good Dynamic Sitting Balance Ability Fair Standing Balance and Reactions Static Standing Balance Ability Fair Dynamic Standing Balance Ability Poor M5 PT-IP Objective Assessments Start: 06/09/22 12:56 Freq: NEEDED Status: Active Protocol: Document 06/09/22 16:31 SAK (Rec: 06/09/22 16:44 SAK [id number]) Orientation Orientation/Cognition Level of Alertness Alert Orientation Name,Place,Situation Language Function Ability No Deficits Noted Safety Awareness Understands Safety Issues Memory Description No Deficits Noted Gross Range of Motion Upper Extremity ROM Assessment Within Functional Limits Lower Extremity ROM Assessment Bilaterally Impaired Impairments moderate limitations in ankle ROM due to edema Strength Upper Extremity Strength Assessment Within Functional Limits Lower Extremity Strength Assessment Bilaterally Impaired Hip 3/5 Knee 4-/5 Ankle 3+/5 Comments Strength Comments Fatigues quickly with gross muscle testing Sensation Assessment Sensation Gross Sensation WNL M6 PT-IP Treatment Start: 06/09/22 12:56 Freq: NEEDED Status: Active Protocol: Document 06/12/22 13:29 TS (Rec: 06/12/22 13:43 TS [id number]) Physical Therapy Treatment Education Education Provided Safety M7 PT-IP Assessment and Plan Start: 06/09/22 12:56 Freq: NEEDED Status: Active Protocol: Document 06/12/22 13:29 TS (Rec: 06/12/22 13:43 TS [id number]) PT Summary Assessment and Plan Potential Rehabilitation Potential Fair Summary Impairments Strength,Bed Mobility, Transfers,Gait,Activity Tolerance Progress Towards Goals Slow Progress due to Medical Issues,Slow Progress due to Activity Tolerance Assessment Summary Pt requiring less assistance today with mobility, he required Pablo for uprighting trunk with HOB elevated for supine to sit, he scooted CGA to EOB, performed sit to stand x1 Pablo x1. He performed a stand step pivot trasnfer x1 with Pablo to bedside chair, pt did not want to progress ambualtion this session required rest break in chair. PT continues to recommend SNF to improve activity toelrance, bed mobility, transfers and gait. Goals Bed Mobility Goal Minimal Assistance Transfer Goal Minimal Assistance Gait Goal Minimal Assistance Gait Distance 50 Days to Meet Goals 5 Frequency of Treatment Frequency Of Treatment Once a Day Treatment Plan Physical Therapy Treatment Plan Bed Mobility Training,Transfer Training,Gait Training, Therapeutic Exercise,Balance Retraining,Neuromuscular Re-ed Other Recommendations and Next Treatment Progress gait. Focus Recommendations To Nursing Amount of Assist Needed 1 Person Assist Discharge Recommendations PT Discharge Recommendations SNF Rehab Transportation Needs at Discharge Wheelchair/Cabulance,Stretcher /Ambulance
--- NOTE | 2022-06-12 15:27 | CM.DPNOTE ---
DCP Note Discharge back to [facility] H+R remains discharge plan; patient likely here today and likely through tomorrow CM team continues to follow closely for coordination of DCP when patient is medically stable JW
[2022-06-12] MEDS: RIVAROXABAN 10 MG TABLET 20 MG PO (17:13)
--- NOTE | 2022-06-12 17:59 | PM.PN.1 ---
Subjective Subjective Interval history: 86-year-old male with congestive heart failure preserved ejection fraction, diabetes mellitus type 2, hypertension, AFib, and CKD 3 who was admitted with acute on chronic CHF with exacerbation, acute hypoxic respiratory failure, and YORDY.? Patient reports he is feeling somewhat better today.? He says he is mildly less short of breath.? He feels less dyspneic at rest than he did yesterday, but continues to be conversationally dyspneic.He denies any chest pain.? Denies any abdominal pain or nausea.? Exam Vital Signs (past 8 hours): - 06/12/22 13:07 06/12/22 14:07 06/12/22 16:43 Temperature 98.1 F 98.8 F Pulse Rate 91 H 95 H Respiratory Rate 20 26 H Blood Pressure 109/61 138/74 Pulse Oximetry 98 100 97 Oxygen Delivery Method Room Air Oxygen Flow Rate 0 0 0 06/12/22 17:00 Temperature Pulse Rate Respiratory Rate Blood Pressure Pulse Oximetry 98 Oxygen Delivery Method Room Air Oxygen Flow Rate 0 Fraction of Inspired Oxygen 25 Oxygen Delivery Method Room Air Oxygen Flow Rate 0 Narrative Exam Narrative: GEN:? Elderly male, Alert and oriented x 2, NAD HEENT:NC, Face symmetric, large open ulcer measuring approximately 3 cm in diameter on the crown of his head which today is oozing purulent fluid CHEST: Respiratory excursions symmetric, coarse but CTAB CV:? Mildly tachycardic, Irregularly irregular, no M/R/G ABD: Soft, NT/ND, BT present in all 4 quadrants, no organomegaly or masses EXTR: warm, well perfused, no C/C, 3+ bilateral lower extremity pitting edema SKIN: warm and dry, no rash NEURO: Alert and oriented x 2, nonfocal Objective Labs 06/12/22 04:44 06/12/22 04:44 Labs: Laboratory Results - last 24 hr 06/12/22 06/12/22 04:44 04:44 WBC 14.6 H RBC 2.62 L Hgb 7.8 L Hct 23.4 L MCV 89.0 MCH 29.7 MCHC 33.3 RDW 14.9 H Plt Count 263 Neut % (Auto) 83.7 H Lymph % (Auto) 10.1 L [place] % (Auto) 5.0 Eos % (Auto) 0.9 L Baso % (Auto) 0.3 Neut # (Auto) 70322 H Lymph # (Auto) 1500 [place] # (Auto) 700 Eos # (Auto) 100 Baso # (Auto) 0 Sodium 136 L Potassium 4.1 Chloride 103 Carbon Dioxide 29 BUN 39 H Creatinine 1.45 H Estimated GFR 47 L BUN/Creatinine Ratio 26.9 H Glucose 123 H Calcium 8.5 Total Bilirubin 0.6 AST 19 ALT 19 Alkaline Phosphatase 63 Total Protein 6.1 L Albumin 3.2 L Globulin 2.9 Albumin/Globulin Ratio 1.1 PFSH Medical History Anemia Asymptomatic microscopic hematuria BPH (benign prostatic hyperplasia) Chronic diastolic heart failure DM2 (diabetes mellitus, type 2) Hypertension Interstitial lung disease Permanent atrial fibrillation Stage 3b chronic kidney disease (CKD) Surgical History S/P AVR (aortic valve replacement) Family History Mother No pertinent past medical history Father No pertinent past medical history Social History household members: spouse Smoking Status: Former smoker alcohol intake: current Assessment & Plan Assessment & Plan narrative: 1. Acute on chronic diastolic congestive heart failure Patient continues to have significant evidence of volume overload.? He has been on furosemide 40 mg IV b.i.d..? He did have a net diuresis of 18 130 cc yesterday.? He is tolerated that fairly well.? Creatinine is improved at 1.45 today.? Potassium normal.? Albumin up today with the addition of IV albumin with diuresis..? Plan to discontinue this evening. Continue diuresis as tolerated. 2. YORDY in CKD 4 Creatinine was 1.48 on admission.? It did increase up 1.82 on June 09.? Today it is back down to 1.45.. 3. Chronic atrial fibrillation Presently rate controlled.? Prior to his last hospitalization he had been on Eliquis anticoagulation.? However he developed a DVT as noted below and was transitioned to Xarelto.? He is currently rate controlled. 4. Recent diagnosis of left femoral nonocclusive vein DVT in April of 2021 No evidence of recurrent DVT.? On Xarelto. 5. Hypertension Blood pressures remain normotensive. 6. Hyponatremia Sodium is stable at 136. 7. Anemia Hemoglobin is stable at 7.8, up from 7.3 yesterday.? During his prior hospitalization his hemoglobin ranged in the 8-9 range. Code status DNR Prophylaxis On Xarelto; his Xarelto had been held yesterday secondary to a report of hematuria. When I saw him yesterday there was no hematuria noted. Again today his Wallace catheter reveals clear urine without any evidence of edilson blood. Xarelto will be resumed. Disposition Anticipate another 48 hours inpatient to continue improving his volume status and resting symptoms. Quality VTE Deep Vein Thrombosis/Pulmonary Embolism Present on Admission: No
[2022-06-12] MEDS: OXYCODONE IR 5 MG TABLET PO (20:31)
[2022-06-12] MEDS: LATANOPROST 0.005% OPHTH 2.5 ML 1 DROPS EYE-BOTH (20:31)
[2022-06-13] VITALS (60 sets, daily range): BP systolic 122–163; BP diastolic 68–87; PULSE 65–97; RESP 12–31; TEMP 36.5–37.1; O2SAT 79–99
[2022-06-13 04:44] LABS: Add Manual Diff / Slide Review NO; Basophils Absolute Auto 100 /uL (0-100); Basophils Percent Auto 0.6 % (0-2); Eosinophils Absolute Auto 200 /uL (0-450); Eosinophils Percent Auto 1.4 % (2-4); Hematocrit 23.5 % (41-53); Hemoglobin 7.7 g/dL (13.5-17.5); Lymphocytes Absolute Auto 1800 /uL (1100-4500); Lymphocytes Percent Auto 11.8 % (25-40); Mean Corpuscular HGB Conc 32.8 % (30-36); Mean Corpuscular Hemoglobin 29.4 PG (26-34); Mean Corpuscular Volume 89.4 fL (80-100); Monocytes Absolute Auto 1000 /uL (0-900); Monocytes Percent Auto 6.7 % (3-14); Neutrophils Absolute Auto 12100 /uL (1500-7000); Neutrophils Percent Auto 79.5 % (50-75); Platelet Count 264 X10^3/uL (150-400); Red Blood Cell Count 2.62 X10^6/uL (4.5-5.9); Red Cell Distribution Width 14.7 % (11.6-14.8); White Blood Cell Count 15.2 X10^3/uL (4.5-11.0)
[2022-06-13 04:58] LABS: BUN Creatinine Ratio 28.7 (6-22); Blood Urea Nitrogen 41 mg/dL (9-20); Calcium 8.6 mg/dL (8.4-10.2); Carbon Dioxide 32 mmol/L (22-32); Chloride 102 mmol/L (98-107); Estimated Glomerular Filt Rate 48 mL/min (>60); Glucose 117 mg/dL (80-110); HEMOLYSIS < 15 (0-50); Potassium 3.9 mmol/L (3.4-5.1); Sodium 137 mmol/L (137-145)
--- NOTE | 2022-06-13 07:22 | PM.PN.1 ---
Subjective Subjective Interval history: 86-year-old male with congestive heart failure preserved ejection fraction, diabetes mellitus type 2, hypertension, AFib, and CKD 3 who was admitted with acute on chronic CHF with exacerbation, acute hypoxic respiratory failure, and YORDY.? Patient reports he continues to feel a bit better each day. He is not sure breath this morning. RN notes continued seepage of purulent fluid from his scalp lesion. He also now has some recurrent hematuria.? Exam Vital Signs (past 8 hours): - 06/13/22 01:00 06/13/22 00:00 06/13/22 04:40 Temperature 98.4 F 97.7 F Pulse Rate 91 H 82 Respiratory Rate 23 20 Blood Pressure 153/84 H 155/78 H Pulse Oximetry 97 93 94 Oxygen Delivery Method Room Air Oxygen Flow Rate 0 0 06/13/22 05:00 Temperature Pulse Rate Respiratory Rate Blood Pressure Pulse Oximetry 95 Oxygen Delivery Method Room Air Oxygen Flow Rate Fraction of Inspired Oxygen 25 Oxygen Delivery Method Room Air Oxygen Flow Rate 0 Narrative Exam Narrative: GEN:? Elderly male, Alert and oriented x 2, NAD HEENT:NC, Face symmetric, thick eschar with open area that was allowing for drainage of purulent fluid on the crown of the head, eschar was removed without any complication or bleeding. Wound bed now appears clean, Aquacel being applied CHEST: Respiratory excursions symmetric, coarse but CTAB CV:? Rate controlled, Irregularly irregular, no M/R/G ABD: Soft, NT/ND, BT present in all 4 quadrants, body habitus limits exam EXTR: warm, well perfused, no C/C, 2 + bilateral lower extremity pitting edema SKIN: warm and dry, no rash NEURO: Alert and oriented x 2, nonfocal Wallace bag does reveal some slight hematuria Objective Labs 06/13/22 04:21 06/13/22 04:21 Labs: Laboratory Results - last 24 hr 06/13/22 06/13/22 04:21 04:21 WBC 15.2 H RBC 2.62 L Hgb 7.7 L Hct 23.5 L MCV 89.4 MCH 29.4 MCHC 32.8 RDW 14.7 Plt Count 264 Neut % (Auto) 79.5 H Lymph % (Auto) 11.8 L [place] % (Auto) 6.7 Eos % (Auto) 1.4 L Baso % (Auto) 0.6 Neut # (Auto) 32069 H Lymph # (Auto) 1800 [place] # (Auto) 1000 H Eos # (Auto) 200 Baso # (Auto) 100 Sodium 137 Potassium 3.9 Chloride 102 Carbon Dioxide 32 BUN 41 H Creatinine 1.43 H Estimated GFR 48 L BUN/Creatinine Ratio 28.7 H Glucose 117 H Calcium 8.6 PFSH Medical History Anemia Asymptomatic microscopic hematuria BPH (benign prostatic hyperplasia) Chronic diastolic heart failure DM2 (diabetes mellitus, type 2) Hypertension Interstitial lung disease Permanent atrial fibrillation Stage 3b chronic kidney disease (CKD) Surgical History S/P AVR (aortic valve replacement) Family History Mother No pertinent past medical history Father No pertinent past medical history Social History household members: spouse Smoking Status: Former smoker alcohol intake: current Assessment & Plan Assessment & Plan narrative: 1. Acute on chronic diastolic congestive heart failure Patient continues to have significant evidence of volume overload.? He has been on furosemide 40 mg IV b.i.d.. He has been tolerating diuresis well. His had net negative output each day for the last 4 days. His edema is improving and is able to palpate his tibias quite easily today. Suspect he could transition from IV furosemide to oral furosemide tomorrow. Creatinine is stable at 1.43. Potassium is normal at 3.9. He has had azotemia which has increased since June 08, but has been stable over the last 3 days. Anticipate this will improve with discontinuation of IV diuresis. 2. YORDY in CKD 4 Creatinine was 1.48 on admission.? It did increase up 1.82 on June 09.? Today it remained stable at 1.43. 3. Infected scalp ulcer Started doxycycline yesterday d/t purulent drainage and MRSA colonization. Await culture results. I did remove the eschar today and Aquacel was ordered to cover and help it heal. 4. GN UTI, likely catheter associated Urine cx taken on 06/10 is growing GNR. Will add Rocephin today. Although he does not complain of urinary symptoms and is catheterized, his WBC is rising, he is having recurrent hematuria, and he does not have a lot of insight into his health issues. 5. Chronic atrial fibrillation Presently rate controlled.? Prior to his last hospitalization he had been on Eliquis anticoagulation.? However he developed a DVT as noted below and was transitioned to Xarelto.? He is currently rate controlled. 6. Recent diagnosis of left femoral nonocclusive vein DVT in April of 2021 No evidence of recurrent DVT.? On Xarelto. 7. Hypertension Blood pressures remain normotensive. 8. Hyponatremia Sodium is stable at 137. 9. Anemia Hemoglobin is stable at 7.7..? During his prior hospitalization his hemoglobin ranged in the 8-9 range. Code status DNR Prophylaxis Xarelto had been held d/t hematuria but restarted 2 days ago as the hematuria resolved. Although it has recurred today, I feel it is more likely related to his UTI. No gross clots or obstruction. Disposition Anticipate another 24 hours inpatient to continue improving his volume status and resting symptoms. Suspect he can transition back to [facility] tomorrow. This evening, he reported anxiety over being discharge. He does not quite feel he is ready. Nursing did reassure him that this would be addressed by the hospitalist tomorrow and he would only be discharged if it was appropriate to do so. Quality VTE Deep Vein Thrombosis/Pulmonary Embolism Present on Admission: No
[2022-06-13] MEDS: cefTRIAXone 1,000 MG in SODIUM CHLORIDE 0.9% 100 ML 200 MG IV (07:59)
[2022-06-13] MEDS: FUROSEMIDE 40 MG/4 ML VIAL IV ×2 (07:59→16:39)
[2022-06-13] MEDS: MULTIVITAMIN 1 TABLET 1 TAB PO (09:20)
[2022-06-13] MEDS: polyethylene glycoL 3350 17 GM POWD.PACK PO (09:20)
[2022-06-13] MEDS: DOXAZOSIN 2 MG TABLET PO (09:20)
[2022-06-13] MEDS: predniSONE 20 MG TABLET 30 MG PO (09:21)
[2022-06-13] MEDS: DOXYCYCLINE HYCLATE 100 MG TABLET PO ×2 (09:21→21:14)
[2022-06-13] MEDS: COLESEVELAM 625 MG TABLET 1875 MG PO ×2 (09:22→21:14)
[2022-06-13] MEDS: ATORVASTATIN 20 MG TABLET 40 MG PO (09:22)
[2022-06-13] MEDS: CHOLECALCIFEROL (VITAMIN D3) 1,000 UNIT TABLET 2000 UNIT PO (09:22)
[2022-06-13] MEDS: MUPIROCIN 22 GM OINT 1 APPLIC TOP ×2 (09:23→21:15)
--- NOTE | 2022-06-13 11:46 | PT.IPTN ---
Current Diagnoses Acute on chronic diastolic (congestive) heart failure (06/08/22) Physical Therapy Treatment Note M2 PT-IP Current Condition Start: 06/09/22 12:56 Freq: NEEDED Status: Active Protocol: Document 06/09/22 16:31 SAK (Rec: 06/09/22 16:44 SAK [id number]) Physical Therapy Current Condition Current Condition Evaluation Date 06/09/22 Treatment Diagnosis CHF exacerbation, weakness Onset Date 06/08/22 M3 PT-IP Subjective Start: 06/09/22 12:56 Freq: NEEDED Status: Active Protocol: Document 06/13/22 11:26 KS (Rec: 06/13/22 12:30 KS [id number]) Subjective Physical Therapy Visit Type Type Treatment Note Visit Start Time 11:26 Visit Stop Time 11:46 Total Visit Minutes 20 Number of MEDICAL CLERICAL ASSISTANT Visits 1 Physical Therapy Visit Comments Patient Comments Pt agreeable to PT session. Patient Goals Be able to walk with walker again M4 PT-IP Mobility and Gait Start: 06/09/22 12:56 Freq: NEEDED Status: Active Protocol: Document 06/13/22 11:26 KS (Rec: 06/13/22 12:30 KS [id number]) PT-Bed Mobility Assessment Supine to Sit Supine to Sit Minimal Assistance,Moderate Assistance,2 Person Assistance ,Head of Bed Elevated Scooting Scooting to Edge of Bed Minimal Assistance PT-Transfer Assessment Sit to and From Stand Sit to and from Stand Minimal Assistance,1 Person Assistance Equipment Transfer Assistive Device Gait Belt,Front Wheeled Walker Orthotic/Prosthetic Devices or Brace: No Transfers Transfer Destination Chair Transfer Technique Stand Step Pivot Transfer Ability Level of Assist Contact Guard Assistance Comments Mobility Comments Pt in bed upon arrival. Apprehensive to transfer to chair, but agreeable. Requests second person to assist, RN arrived. Min to Mod A x2 for sup<>sit, Mod A for scooting EOB. Min A for sit<>Stand w/ FWW and CGA for stand step pivot to chair w/ FWW. Pt reported high level of fatigue and refused further ambulation or treatment. Left reclined in chair w/ all needs in reach. Gait Assessment Gait Gait Assistance Required: Contact Guard Assist,1 Person Assist Distance (Feet) 3 Assistive Devices Assistive Device Front Wheeled Walker Orthotic/Prosthetic Devices or Brace: No Gait Deviations General Gait Pattern Decreased Stride Length, Decreased Feet Clearance, Flexed Trunk Factors Limiting Gait Function Factors Limiting Gait Function Decreased Activity Tolerance, Decreased Strength,Poor Balance,Poor Safety Awareness, Respiratory Distress Comments Gait Comments Performed step pivot transfer to chair. PT-Balance Assessment Sitting Balance and Reactions Static Sitting Balance Ability Good Dynamic Sitting Balance Ability Fair Standing Balance and Reactions Static Standing Balance Ability Fair Dynamic Standing Balance Ability Fair Device Used FWW M5 PT-IP Objective Assessments Start: 06/09/22 12:56 Freq: NEEDED Status: Active Protocol: Document 06/09/22 16:31 SAK (Rec: 06/09/22 16:44 SAK [id number]) Orientation Orientation/Cognition Level of Alertness Alert Orientation Name,Place,Situation Language Function Ability No Deficits Noted Safety Awareness Understands Safety Issues Memory Description No Deficits Noted Gross Range of Motion Upper Extremity ROM Assessment Within Functional Limits Lower Extremity ROM Assessment Bilaterally Impaired Impairments moderate limitations in ankle ROM due to edema Strength Upper Extremity Strength Assessment Within Functional Limits Lower Extremity Strength Assessment Bilaterally Impaired Hip 3/5 Knee 4-/5 Ankle 3+/5 Comments Strength Comments Fatigues quickly with gross muscle testing Sensation Assessment Sensation Gross Sensation WNL M6 PT-IP Treatment Start: 06/09/22 12:56 Freq: NEEDED Status: Active Protocol: Document 06/13/22 11:26 KS (Rec: 06/13/22 12:30 KS [id number]) Physical Therapy Treatment Education Education Provided Safety M7 PT-IP Assessment and Plan Start: 06/09/22 12:56 Freq: NEEDED Status: Active Protocol: Document 06/13/22 11:26 KS (Rec: 06/13/22 12:30 KS [id number]) PT Summary Assessment and Plan Potential Rehabilitation Potential Fair Summary Impairments Strength,Bed Mobility, Transfers,Gait,Activity Tolerance Progress Towards Goals Slow Progress due to Medical Issues,Slow Progress due to Activity Tolerance Assessment Summary Pt requires mostly 1 person assist, seems to be limited by weakness and low activity tolerance still, but was able to complete stand step pivot transfer to chair w/ FWW and CGA. PT continues to recommend SNF to improve activity tolerance, bed mobility, transfers and gait. Goals Bed Mobility Goal Minimal Assistance Transfer Goal Minimal Assistance Gait Goal Minimal Assistance Gait Distance 50 Days to Meet Goals 5 Frequency of Treatment Frequency Of Treatment Once a Day Treatment Plan Physical Therapy Treatment Plan Bed Mobility Training,Transfer Training,Gait Training, Therapeutic Exercise,Balance Retraining,Neuromuscular Re-ed Other Recommendations and Next Treatment Progress gait. Focus Recommendations To Nursing Amount of Assist Needed 1 Person Assist Discharge Recommendations PT Discharge Recommendations SNF Rehab Transportation Needs at Discharge Wheelchair/Cabulance,Stretcher /Ambulance
[2022-06-13] MEDS: RIVAROXABAN 10 MG TABLET 20 MG PO (16:41)
[2022-06-13] MEDS: LATANOPROST 0.005% OPHTH 2.5 ML 1 DROPS EYE-BOTH (21:14)
[2022-06-14] VITALS (14 sets, daily range): BP systolic 141–149; BP diastolic 49–72; PULSE 65–102; RESP 13–20; TEMP 36.2–36.4; O2SAT 96–98
[2022-06-14 05:18] LABS: Add Manual Diff / Slide Review NO; Basophils Absolute Auto 0 /uL (0-100); Basophils Percent Auto 0.1 % (0-2); Eosinophils Absolute Auto 0 /uL (0-450); Eosinophils Percent Auto 0.3 % (2-4); Hemoglobin 7.6 g/dL (13.5-17.5); Lymphocytes Absolute Auto 1200 /uL (1100-4500); Lymphocytes Percent Auto 7.4 % (25-40); Mean Corpuscular HGB Conc 33.1 % (30-36); Mean Corpuscular Hemoglobin 29.7 PG (26-34); Mean Corpuscular Volume 89.6 fL (80-100); Monocytes Absolute Auto 900 /uL (0-900); Monocytes Percent Auto 6.1 % (3-14); Neutrophils Absolute Auto 13400 /uL (1500-7000); Neutrophils Percent Auto 86.1 % (50-75); Platelet Count 253 X10^3/uL (150-400); Red Blood Cell Count 2.57 X10^6/uL (4.5-5.9); Red Cell Distribution Width 14.8 % (11.6-14.8); White Blood Cell Count 15.6 X10^3/uL (4.5-11.0)
[2022-06-14 05:33] LABS: BUN Creatinine Ratio 35.7 (6-22); Blood Urea Nitrogen 46 mg/dL (9-20); Calcium 8.6 mg/dL (8.4-10.2); Carbon Dioxide 29 mmol/L (22-32); Chloride 101 mmol/L (98-107); Estimated Glomerular Filt Rate 54 mL/min (>60); Glucose 127 mg/dL (80-110); HEMOLYSIS < 15 (0-50); Magnesium 1.7 mg/dL (1.6-2.3); Potassium 4.3 mmol/L (3.4-5.1); Sodium 135 mmol/L (137-145)
[2022-06-14] MEDS: cefTRIAXone 1,000 MG in SODIUM CHLORIDE 0.9% 100 ML 200 MG IV (06:36)
[2022-06-14] MEDS: polyethylene glycoL 3350 17 GM POWD.PACK PO (07:52)
[2022-06-14] MEDS: FUROSEMIDE 40 MG/4 ML VIAL IV (07:52)
[2022-06-14] MEDS: DOXAZOSIN 2 MG TABLET PO (08:01)
[2022-06-14] MEDS: ATORVASTATIN 20 MG TABLET 40 MG PO (08:01)
[2022-06-14] MEDS: DOXYCYCLINE HYCLATE 100 MG TABLET PO (08:01)
[2022-06-14] MEDS: COLESEVELAM 625 MG TABLET 1875 MG PO (08:01)
[2022-06-14] MEDS: MULTIVITAMIN 1 TABLET 1 TAB PO (08:01)
[2022-06-14] MEDS: MUPIROCIN 22 GM OINT 1 APPLIC TOP (08:01)
[2022-06-14] MEDS: CHOLECALCIFEROL (VITAMIN D3) 1,000 UNIT TABLET 2000 UNIT PO (08:01)
[2022-06-14] MEDS: predniSONE 20 MG TABLET 30 MG PO (08:01)
[2022-06-14] MEDS: SODIUM CHLORIDE 0.9% FLUSH 10 ML IV (08:09)
--- NOTE | 2022-06-14 08:38 | PM.DS.1 ---
History of Present Illness History of Present Illness Date Patient Seen: 06/14/22 Time Patient Seen: 08:38 Chief complaint: SOB Narrative: Mr. Albarado is a 86M with PMH CHFpEF, DM 2, HTN, afib, CKD stage 3 who presents to the hospital with leg swelling and short of breath. He was here a little over 1 month ago with YORDY and acute encephalopathy. He has been residing at [facility] since discharge. He is unable to tell me today how long he had felt short of breath, only stating for a long time but unable to further specify. He appears to have been started on 20 mg of oral furosemide 2 days ago after having it held here last admission for YORDY, along with a number of other medications. He was sent to the ER for worsening shortness of breath from [facility] this AM. He denies any chest pain or palpitations, he is unsure as to how long his legs have been swollen. He feels improved after therapies in the ER, and denies current shortness of breath though he gets dyspnic with prolonged sentences. Discharge Providers Provider Date of admission: 06/08/22 11:34 Discharge Date: 06/14/22 Primary care physician: Carmelina Casey MD Consults: 06/09/22 10:51 Consult to Occupational Therapy Evaluate & Treat Comment: Physician Instructions: Evaluate and treat Consult to Physical Therapy Evaluate & Treat Comment: Physician Instructions: Evaluate and Treat Discharge provider: Arpit Staton DO Summary Hospital Course Discharge Diagnosis: Please see hospital course by problem list noted below Hospital Course: 1. Acute on chronic diastolic congestive heart failure with acute respiratory failure with hypoxia. Patient admitted with hypoxic respiratory failure initially, marked volume overload.?CTA was negative for PE on admission. Echocardiogram was not ordered given recent echo showing normal EF and would not change acute management. He has been on furosemide 40 mg IV b.i.d. which he has been tolerating well and is net negative almost 12 L since admission. He is transitioned to oral diuresis with 80 mg PO BID today at discharge given continued volume overload. He is no longer hypoxic. Recommend repeat evaluation in the next 3-5 days to see if a lower dose of furosemide is needed, but may need to continue given appearance of volume overload. Stable for transfer to SNF today. 2. YORDY in CKD 4 Creatinine was 1.48 on admission.? It did increase up 1.82 on June 09 but is improved to 1.3 today. Likely due to continued diuresis with chronic anemia and scalp infection, now improving. 3. Infected scalp ulcer secondary to MRSA and pseudomonas. Started doxycycline on 06/12, however cultures negative. Continue linezolid and ciprofloxacin for treatment of MRSA and pseudomonas based on cultures and sensitivity. Antibiotics to continue for 1 week after discharge. Recommend outpatient follow up with primary care, continue aquacel dressing for now, and consider wound care referral depending on how wound is healing in the coming few weeks. 4.? GN UTI, likely catheter associated Urine cx taken on 06/10 is growing E.coli. associated with indwelling mccoy. Will be treated adequately with ciprofloxacin given for above scalp infection as well. 5. Chronic atrial fibrillation Presently rate controlled.? Prior to his last hospitalization he had been on Eliquis anticoagulation.? However he developed a DVT as noted below and was transitioned to Xarelto.? He is currently rate controlled. 6. Recent diagnosis of left femoral nonocclusive vein DVT in April of 2021 No evidence of recurrent DVT.? On Xarelto. 7. Hypertension Blood pressures remain fairly controlled 8. Hyponatremia, resolved Sodium is stable at 134-137. 9. Anemia Hemoglobin is stable at 7.7..? During his prior hospitalization his hemoglobin ranged in the 8-9 range. Recommend outpatient follow up with primary care for continued monitoring / evaluation of chronic anemia. Code status DNR Dispo: Transfer to SNF. Time Spent with Patient Time spent: Greater than 30 minutes Exam Vital Signs (past 8 hours): - 06/14/22 04:51 06/14/22 01:00 06/14/22 01:30 Temperature 97.2 F L Pulse Rate 66 68 70 Respiratory Rate 18 15 14 Blood Pressure 141/72 H Pulse Oximetry 98 Oxygen Delivery Method Oxygen Flow Rate 0 06/14/22 02:00 06/14/22 02:30 06/14/22 03:00 Temperature Pulse Rate 76 71 76 Respiratory Rate 16 14 15 Blood Pressure Pulse Oximetry Oxygen Delivery Method Oxygen Flow Rate 06/14/22 03:30 06/14/22 04:00 06/14/22 04:30 Temperature Pulse Rate 75 68 65 Respiratory Rate 16 15 15 Blood Pressure Pulse Oximetry Oxygen Delivery Method Oxygen Flow Rate 06/14/22 04:36 06/14/22 04:36 06/14/22 07:53 Temperature 97.5 F L Pulse Rate 66 102 H Respiratory Rate 18 20 Blood Pressure 141/72 H 149/49 H Pulse Oximetry 98 96 Oxygen Delivery Method Oxygen Flow Rate 0 06/14/22 07:00 06/14/22 08:16 Temperature Pulse Rate Respiratory Rate Blood Pressure Pulse Oximetry 97 Oxygen Delivery Method Room Air Room Air Oxygen Flow Rate 0 Fraction of Inspired Oxygen 25 Oxygen Delivery Method Room Air Oxygen Flow Rate 0 Narrative Exam Narrative: GEN:? Elderly male, Alert and oriented x 2, NAD HEENT:NC, Face symmetric, aquacel dressing in place on scalp. CHEST: Respiratory excursions symmetric, coarse but CTAB CV:? Rate controlled, Irregularly irregular, no M/R/G ABD: Soft, NT/ND, BT present in all 4 quadrants, body habitus limits exam EXTR: warm, well perfused, no C/C, 2 + bilateral lower extremity pitting edema SKIN: warm and dry, no rash NEURO: Alert and oriented x 2, nonfocal Mccoy: clear urine today Objective Labs 06/14/22 04:17 06/14/22 04:17 Labs: Laboratory Results - last 24 hr 06/14/22 06/14/22 04:17 04:17 WBC 15.6 H RBC 2.57 L Hgb 7.6 L Hct 23.0 L MCV 89.6 MCH 29.7 MCHC 33.1 RDW 14.8 Plt Count 253 Neut % (Auto) 86.1 H Lymph % (Auto) 7.4 L [place] % (Auto) 6.1 Eos % (Auto) 0.3 L Baso % (Auto) 0.1 Neut # (Auto) 00979 H Lymph # (Auto) 1200 [place] # (Auto) 900 Eos # (Auto) 0 Baso # (Auto) 0 Sodium 135 L Potassium 4.3 Chloride 101 Carbon Dioxide 29 BUN 46 H Creatinine 1.29 H Estimated GFR 54 L BUN/Creatinine Ratio 35.7 H Glucose 127 H Calcium 8.6 Magnesium 1.7 PFSH Medical History Anemia Asymptomatic microscopic hematuria BPH (benign prostatic hyperplasia) Chronic diastolic heart failure DM2 (diabetes mellitus, type 2) Hypertension Interstitial lung disease Permanent atrial fibrillation Stage 3b chronic kidney disease (CKD) Surgical History S/P AVR (aortic valve replacement) Family History Mother No pertinent past medical history Father No pertinent past medical history Social History household members: spouse Smoking Status: Former smoker alcohol intake: current Discharge Plan Discharge Plan Patient Disposition: SNF Transfer to: [facility] Provider Discharge Comment: 86 year old male admitted with CHF exacerbation, course complicated by infected scalp ulcer and UTI. Will discharge on antibiotics for another week. Will need continued diuresis as an outpatient as he is probably still overloaded. Recommend re-evaluation in 3-5 days regarding continued furosemide dosing. Discharge orders & Medications Prescriptions: New linezolid 600 mg tablet 600 mg PO BID 7 Days Qty: 14 0RF ciprofloxacin HCl 500 mg tablet 500 mg PO Q12H 7 Days Qty: 14 0RF furosemide 80 mg tablet 80 mg PO BID 30 Days Qty: 60 0RF Continued cholecalciferol (vitamin D3) 50 mcg (2,000 unit) Tablet 50 mcg PO DAILY Qty: 0 omega 5-rod-jbm-fish oil [Fish Oil] 1,000 mg (120 mg-180 mg) Capsule 1 cap PO DAILY Qty: 0 multivitamin [Multiple Vitamins] 1 EACH tablet 1 tab PO QDAY Qty: 0 colesevelam [WelChol] 625 mg tablet 1,875 mg PO BID Qty: 540 3RF Myrbetriq 25 mg tablet extended release 24 hr 25 mg PO QDAY Qty: 90 3RF Disabled Parking Permit 1 ea topical DAILY polyethylene glycol 3350 17 gram Powder In Packet 17 g PO DAILY Qty: 30 0RF Xarelto 10 mg Tablet 20 mg PO DAILY@1700 Qty: 30 0RF albuterol sulfate 0.63 mg/3 mL solution for nebulization 0.63 mg inhalation Q6H PRN (Reason: Shortness Of Breath) prednisone 10 mg Tablet 30 mg PO DAILY Rx Instructions: Give 30 mg by mouth in the morning for repiratory for 2 administrations Lactobacillus acidophilus Capsule 5,000 mmu cells PO DAILY empagliflozin 10 mg Tablet 10 mg PO DAILY oxycodone 5 mg tablet 5 mg PO BEDTIME PRN (Reason: pain) Qty: 10 0RF Rx Instructions: use only for severe pain at night. ok to skip doses. may use 1/2 tab latanoprost 0.005 % drops 1 drp ophthalmic (eye) BEDTIME nitroglycerin 0.4 mg tablet, sublingual 0.4 mg sublingual Q5M PRN (Reason: pain) Rx Instructions: do not exceed 3 doses per episode zinc gluconate 50 mg tablet 50 mg PO DAILY doxazosin [Cardura] 2 mg tablet 2 mg PO DAILY atorvastatin 40 mg tablet 40 mg PO DAILY Qty: 90 3RF mupirocin 2 % ointment kit 1 applic topical BID Qty: 1 1RF Rx Instructions: please sub generic or brand as covered by insurance acetaminophen 325 mg capsule 650 mg PO Q4H PRN (Reason: Pain (Scale Score 1-3)) albuterol sulfate 90 mcg/actuation HFA aerosol inhaler 2 puff inhalation Q6H PRN (Reason: Bronchospasm) bisacodyl 10 mg suppository 10 mg SC DAILY PRN (Reason: Constipation) Rx Instructions: Insert 10mg rectally as needed for constipation if no results from MOM dextromethorphan-guaifenesin 5-100 mg/5 mL liquid 15 ml PO Q4H PRN (Reason: Cough) Rx Instructions: Give 15mL by mouth every 4 hours as needed for cough glucagon 1 mg kit See Rx Instructions .ROUTE .COMPLEX PRN (Reason: Hypoglycemia) Rx Instructions: Inject 1mg intramuscularly every 15 minutes as needed for blood sugar < 60 if unresponsive. Repeat in 15 minutes. Notify MD. Hold all insulin coverages unless otherwise indicated. magnesium hydroxide [Milk of Magnesia] 400 mg/5 mL suspension 30 ml PO DAILY PRN (Reason: Constipation) Rx Instructions: Give 30 mL by mouth as needed for no BM in 3 days, may give daily Discontinued furosemide 20 mg Tablet 20 mg PO DAILY Follow up/Referrals: Carmelina Casey MD [Primary Care Provider] - Discharge Health Status Multidrug resistant organism: MRSA Precautions: Contact Diet/Activity/Treatments Diet: Diet as Tolerated Liquid consistency: Normal/Thin Food texture: Regular Activity: As tolerated Special Rehabilitation Services Reason for rehabilitation: Recovery r/t decondition Rehab type: Physical therapy and Occupational therapy Visit Report/Discharge Packet Instructions: DI for Heart Failure, DI for Urinary Tract Infection (UTI), DI for Methicillin-Resistant Staph Infection (MRSA) Stand Alone Forms: Patient Portal/API Discharge Data Primary Care Provider: Carmelina Casey VTE Deep Vein Thrombosis/Pulmonary Embolism Present on Admission: No
--- NOTE | 2022-06-14 08:44 | CM.DPC ---
DCP/continued: Reviewed chart. Orders obtained for patient to d/c to [facility] today. Placed call to August at [facility] and she reports that patient can be picked up at 12:30pm. Met with patient explained explained role. Patient appears to understand that he is discharged and transferring to [facility] today. Patient reports that he is not quite sure he is ready to go? Spoke with Dr. Staton and he confirms medical clearance. Asked RN/Mann to call spouse re: d/c plan today. Asked LESLIE/Nicki to finalize arrangements. P: [facility] today at 12:30pm. GERRI
[2022-06-14] MEDS: MAGNESIUM CHLORIDE 64 MG TABLET 128 MG PO (10:26)
--- NOTE | 2022-06-14 11:03 | PC.NURSE ---
Patient reports feeling not ready to go, I like the care here better. Dr. Staton notified, states he is aware. Patient's notified of patient's discharge order and transfer orders to return to [facility] with flower picker scheduled at 1230. Neither patient nor his able to give specific concerns at this time. Report called to Paula at [facility].
== END 2022-06-14 12:45 | DRG 291 ==
LOC: ED 08:18 → ICU 12:08 → AC 06-09 11:19 → ICU 06-09 11:19
PROVIDERS: Family Medicine; Internal Medicine; Admitting Provider Internal Medicine; Emergency Provider Emergency Medicine; Family Provider Physician Assistant; PCP Family Medicine; Referring Provider Emergency Medicine; Visit Provider Internal Medicine
DX: I13.0 Hypertensive heart and chronic kidney disease with heart failure and stage 1 through stage 4 chronic kidney disease, or unspecified chronic kidney disease (principal); I50.33 Acute on chronic diastolic (congestive) heart failure; T83.511A Infection and inflammatory reaction due to indwelling urethral catheter, initial encounter; N39.0 Urinary tract infection, site not specified; J96.01 Acute respiratory failure with hypoxia; N18.4 Chronic kidney disease, stage 4 (severe); I48.20 Chronic atrial fibrillation, unspecified; N17.9 Acute kidney failure, unspecified; D64.9 Anemia, unspecified; L98.499 Non-pressure chronic ulcer of skin of other sites with unspecified severity; L08.89 Other specified local infections of the skin and subcutaneous tissue; B96.5 Pseudomonas (aeruginosa) (mallei) (pseudomallei) as the cause of diseases classified elsewhere; B95.62 Methicillin resistant Staphylococcus aureus infection as the cause of diseases classified elsewhere; B96.20 Unspecified Escherichia coli [E. coli] as the cause of diseases classified elsewhere; N40.0 Benign prostatic hyperplasia without lower urinary tract symptoms; E11.22 Type 2 diabetes mellitus with diabetic chronic kidney disease; Z79.84 Long term (current) use of oral hypoglycemic drugs; Z87.891 Personal history of nicotine dependence; Z66 Do not resuscitate; Z86.718 Personal history of other venous thrombosis and embolism; Z20.822 Contact with and (suspected) exposure to COVID-19; Z79.01 Long term (current) use of anticoagulants; Z95.2 Presence of prosthetic heart valve
CPT/HCPCS: 0241U; 36415; 71045; 71275; 80048; 80053; 81001; 82550; 83690; 83735; 83880; 84145; 84484; 85025; 87070; 87077; 87086; 87147; 87186; 87205; 87797; 93005; 94660; 96365; 96375; 97162; 97166; 97530; 97535; 99284; 99291; 99292; J0696; J1940; J2270; P9041; Q9967

== ENCOUNTER → 2022-07-06 11:05 | Outpatient (CLI) | payer MEDICARE, BC, SELFPAY ==
[2022-06-08 09:00] VITALS: PULSE 90; RESP 22; O2SAT 98
[2022-06-08 12:36] VITALS: BMI 34.4
[2022-07-06 19:24] LABS: Add Manual Diff / Slide Review NO; Basophils Absolute Auto 0 /uL (0-100); Basophils Percent Auto 0.5 % (0-2); Eosinophils Absolute Auto 300 /uL (0-450); Eosinophils Percent Auto 2.8 % (2-4); Hematocrit 26.9 % (41-53); Hemoglobin 8.9 g/dL (13.5-17.5); Lymphocytes Absolute Auto 1000 /uL (1100-4500); Lymphocytes Percent Auto 10.6 % (25-40); Mean Corpuscular Hemoglobin 29.8 PG (26-34); Mean Corpuscular Volume 90.4 fL (80-100); Monocytes Absolute Auto 900 /uL (0-900); Monocytes Percent Auto 9.8 % (3-14); Neutrophils Absolute Auto 7100 /uL (1500-7000); Neutrophils Percent Auto 76.3 % (50-75); Platelet Count 308 X10^3/uL (150-400); Red Blood Cell Count 2.98 X10^6/uL (4.5-5.9); Red Cell Distribution Width 17.7 % (11.6-14.8); White Blood Cell Count 9.3 X10^3/uL (4.5-11.0)
[2022-07-06 19:29] LABS: Alanine Aminotransferase 20 IU/L (<50); Albumin 3.7 g/dL (3.5-5.0); Albumin Globulin Ratio 1.4 (1.0-2.8); Alkaline Phosphatase 84 U/L (38-126); Aspartate Aminotransferase 21 IU/L (17-59); Bilirubin Total 1.4 mg/dL (0.2-1.3); Blood Urea Nitrogen 34 mg/dL (9-20); Calcium 9.1 mg/dL (8.4-10.2); Carbon Dioxide 27 mmol/L (22-32); Chloride 105 mmol/L (98-107); Estimated Glomerular Filt Rate 32 mL/min (>60); Globulin 2.7 g/dL (1.7-4.1); Glucose 80 mg/dL (80-110); HEMOLYSIS < 15 (0-50); Potassium 4.3 mmol/L (3.4-5.1); Sodium 138 mmol/L (137-145); Total Protein 6.4 g/dL (6.3-8.2)
[2022-07-06 19:36] LABS: HEMOLYSIS < 15 (0-50); Iron 76 ug/dL (49-181)
[2022-07-06 19:47] LABS: Percent Iron Saturation 31 % (20-50); Total Iron Binding Capacity 246 ug/dL (261-462); Transferrin 191 mg/dL (206-381)
[2022-07-07 07:43] LABS: Cholesterol 135 mg/dL (140-199); HDL Cholesterol 62 mg/dL (40-60); LDL Cholesterol Calculated 56 mg/dL (<100); Triglycerides 84 mg/dL (35-150)
[2022-07-07 08:15] LABS: TSH w/ Reflex to FT4 4.31 uIU/mL (0.47-4.68)
[2022-07-07 08:33] LABS: Vitamin B12 784 pg/mL (239-931)
[2022-07-08 00:19] LABS: x Labcorp Estim. Avg Glu (eAG) 120 mg/dL (.); x Labcorp Hemoglobin A1c 5.8 % (4.8-5.6)
== END ==
PROVIDERS: Family Medicine; PCP Family Medicine; Visit Provider Family Medicine
DX: D64.9 Anemia, unspecified (principal); I50.42 Chronic combined systolic (congestive) and diastolic (congestive) heart failure; E11.22 Type 2 diabetes mellitus with diabetic chronic kidney disease; N18.30 Chronic kidney disease, stage 3 unspecified; E11.9 Type 2 diabetes mellitus without complications; I50.9 Heart failure, unspecified; N18.31 Chronic kidney disease, stage 3a
CPT/HCPCS: 80053; 80061; 82607; 83036; 83540; 83550; 84443; 85025

== ENCOUNTER → 2022-07-14 13:59 | Outpatient (CLI) | payer MEDICARE, BC, SELFPAY ==
[2022-06-08 09:00] VITALS: PULSE 90; RESP 22; O2SAT 98
[2022-06-08 12:36] VITALS: BMI 34.4
== END ==
PROVIDERS: PCP Family Medicine; Referring Provider Family Medicine; Visit Provider Surgery
DX: L59.8 Other specified disorders of the skin and subcutaneous tissue related to radiation (principal); L98.492 Non-pressure chronic ulcer of skin of other sites with fat layer exposed
CPT/HCPCS: 11042; 11045; 99203; 99213

== ENCOUNTER → 2022-07-28 11:41 | Outpatient (CLI) | payer MEDICARE, BC, SELFPAY ==
[2022-06-08 09:00] VITALS: PULSE 90; RESP 22; O2SAT 98
[2022-06-08 12:36] VITALS: BMI 34.4
== END ==
PROVIDERS: PCP Family Medicine; Referring Provider Family Medicine; Visit Provider Surgery
DX: L59.8 Other specified disorders of the skin and subcutaneous tissue related to radiation (principal); L98.492 Non-pressure chronic ulcer of skin of other sites with fat layer exposed
CPT/HCPCS: 11106

== ENCOUNTER → 2022-08-06 11:37 | Outpatient (CLI) | payer MEDICARE, BC, SELFPAY ==
[2022-06-08 09:00] VITALS: PULSE 90; RESP 22; O2SAT 98
[2022-06-08 12:36] VITALS: BMI 34.4
== END ==
PROVIDERS: PCP Family Medicine; Referring Provider Family Medicine; Visit Provider Physician Assistant
DX: L59.8 Other specified disorders of the skin and subcutaneous tissue related to radiation (principal); S01.00XA Unspecified open wound of scalp, initial encounter; C44.42 Squamous cell carcinoma of skin of scalp and neck; Z79.01 Long term (current) use of anticoagulants; E11.628 Type 2 diabetes mellitus with other skin complications
CPT/HCPCS: 87070; 87077; 87147; 87186; 87205; 99213; 99214

== ENCOUNTER → 2022-08-10 11:43 | Outpatient (CLI) | payer MEDICARE, BC, SELFPAY ==
[2022-06-08 09:00] VITALS: PULSE 90; RESP 22; O2SAT 98
[2022-06-08 12:36] VITALS: BMI 34.4
[2022-08-10 19:51] LABS: Add Manual Diff / Slide Review NO; Basophils Absolute Auto 100 /uL (0-100); Basophils Percent Auto 0.5 % (0-2); Eosinophils Absolute Auto 500 /uL (0-450); Hematocrit 34.1 % (41-53); Hemoglobin 11.2 g/dL (13.5-17.5); Lymphocytes Absolute Auto 1700 /uL (1100-4500); Lymphocytes Percent Auto 16.1 % (25-40); Mean Corpuscular HGB Conc 32.9 % (30-36); Mean Corpuscular Hemoglobin 29.8 PG (26-34); Mean Corpuscular Volume 90.6 fL (80-100); Monocytes Absolute Auto 900 /uL (0-900); Monocytes Percent Auto 8.5 % (3-14); Neutrophils Absolute Auto 7400 /uL (1500-7000); Neutrophils Percent Auto 69.9 % (50-75); Platelet Count 275 X10^3/uL (150-400); Red Blood Cell Count 3.77 X10^6/uL (4.5-5.9); Red Cell Distribution Width 18.4 % (11.6-14.8); White Blood Cell Count 10.6 X10^3/uL (4.5-11.0)
[2022-08-10 20:07] LABS: Alanine Aminotransferase 17 IU/L (<50); Albumin 3.9 g/dL (3.5-5.0); Albumin Globulin Ratio 1.2 (1.0-2.8); Alkaline Phosphatase 87 U/L (38-126); Aspartate Aminotransferase 25 IU/L (17-59); BUN Creatinine Ratio 29.9 (6-22); Bilirubin Total 0.8 mg/dL (0.2-1.3); Blood Urea Nitrogen 60 mg/dL (9-20); Calcium 9.9 mg/dL (8.4-10.2); Carbon Dioxide 26 mmol/L (22-32); Chloride 99 mmol/L (98-107); Estimated Glomerular Filt Rate 32 mL/min (>60); Globulin 3.2 g/dL (1.7-4.1); Glucose 119 mg/dL (80-110); HEMOLYSIS < 15 (0-50); Potassium 4.3 mmol/L (3.4-5.1); Sodium 134 mmol/L (137-145); Total Protein 7.1 g/dL (6.3-8.2)
[2022-08-10 20:36] LABS: Ferritin 72 ng/mL (18-464)
[2022-08-10 21:07] LABS: Folate > 20.0 ng/mL (2.76-20.0)
== END ==
PROVIDERS: PCP Family Medicine; Visit Provider Family Medicine
DX: I50.42 Chronic combined systolic (congestive) and diastolic (congestive) heart failure (principal); D64.9 Anemia, unspecified; I50.9 Heart failure, unspecified; N18.4 Chronic kidney disease, stage 4 (severe)
CPT/HCPCS: 80053; 82728; 82746; 85025

== ENCOUNTER 2022-08-18 11:04 | Day surgery (SDC) | payer MEDICARE, BC, SELFPAY ==
[2022-08-12 11:53] VITALS: PULSE 90; RESP 22; O2SAT 98; BMI 34.4
[2022-08-12 14:28] VITALS: BMI 31.5
--- NOTE | 2022-08-18 | PATH_ITS ---
[facility] Accession Number: [id number] No. of containers..01 Tissue . 01 Material submitted: . scalp - SCALP . 01 Clinical history: . SQUAMOUS CELL CARCINOMA . 01 Diagnosis: Skin and Subcutis, Scalp, Excision: Invasive well to moderately differentiated squamous cell carcinoma, associated with focal perineural invasion of large caliber peripheral nerve fiber. Squamous cell carcinoma identified at deep margin of excision, multifocally; remaining margins appear clear. MRV 08/23/2022 1310 Local . 01 Comment: Byproducts Supervisor sections of this case are also reviewed by Dr. Precious Danielson, who concurs with the given interpretation. . 01 Electronically signed: . Elham Barry MD, Pathologist NPI- [id number] . 01 Gross description: . The specimen is received in formalin labeled with the patient's name, , and squamous cell CA, scalp consists of an ovoid excision of skin with a small blue dot of ink with no designation per the requisition and is now arbitrarily designated 12 o'clock. The specimen measures 6.2 cm from 12 to 6 o'clock, 6.8 cm from 3 to 9 o'clock, and is excised to a depth of 0.3 cm. A centrally located, ulcerated lesion is identified measuring 5.0 x 4.1 cm. The specimen is inked as follows: 12 to 3 o'clock orange, 3 to 6 to 9 o'clock blue, and 9 to 12 o'clock green. Serially sectioned from 3 to 9 o'clock into 15 slices. Submitted entirely as follows: A1: Ends. A2-A14: Remaining sequential slices. See diagram. ([id number]) /MRV 08/19/2022 1911 Local . 01 Pathologist provided ICD-10: C44.92 . 01 CPT . 732354 Specimen Comment: A courtesy copy of this report has been sent to [phone] Performed at: 01 [facility] [address] [place] [address] [id number] MD Nishant Galaviz MD Phone: [phone]
[2022-08-18 12:05] VITALS: BP 146/81; PULSE 75; RESP 16; TEMP 36.6; O2SAT 99; BMI 30.8
[2022-08-18] MEDS: LACTATED RINGERS 1,000 ML 42 ML IV (12:20)
--- NOTE | 2022-08-18 13:37 | P.HP_ITS ---
History of Present Illness History of Present Illness Date Patient Seen: 08/18/22 Time Patient Seen: 13:[address] [facility] [place]arrative: Elias is here for his split-thickness skin graft. 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 [facility] and treated for chronic wound. Apparently he had radiation therapy a year ago which failed. He does not smoke but he used to many years ago. He has not taken his rivaroxaban. He does not take steroids [facility] Medical History (Updated 08/12/22 @ 14:41 by Lizz Mcdermott RN) Anemia Asymptomatic microscopic hematuria BPH (benign prostatic hyperplasia) Chronic diastolic heart failure DM2 (diabetes mellitus, type 2) History of cardioversion (04/2015) Hypertension Interstitial lung disease Permanent atrial fibrillation Stage 3b chronic kidney disease (CKD) Surgical History (Updated 08/12/22 @ 14:41 by Lizz Mcdermott RN) Hx of prostatectomy (2000) S/P AVR (aortic valve replacement) Family History Mother No pertinent past medical history Father No pertinent past medical history Social History household members: spouse Smoking Status: Former smoker alcohol intake: current Meds Home Medications and Allergies Home Medications Medication Instructions Recorded Confirmed Type cholecalciferol (vitamin D3) 50 50 mcg PO DAILY ##0 10/20/15 08/18/22 History mcg (2,000 unit) tablet multivitamin (Multiple Vitamins 1 tab PO QDAY #0 tabs 10/20/15 08/18/22 History tablet) omega 0-uam-wtd-fish oil 1,000 mg 1 cap PO DAILY ##0 10/20/15 08/18/22 History (120 mg-180 mg) capsule (Fish Oil) latanoprost 0.005 % eye drops 1 drp ophthalmic (eye) BEDTIME 06/11/20 08/18/22 History nitroglycerin 0.4 mg sublingual 0.4 mg sublingual Q5M PRN pain 06/11/20 08/18/22 History tablet Disabled Parking Permit 1 ea topical DAILY 12/04/21 08/12/22 History glucagon 1 mg injection kit See Rx Instructions .Route 02/16/22 08/18/22 History .COMPLEX PRN Hypoglycemia Lactobacillus acidophilus 5,000 mmu cells PO DAILY 06/08/22 08/18/22 History oxycodone 5 mg tablet 5 mg PO BEDTIME PRN pain #10 tabs 06/14/22 08/18/22 Rx atorvastatin 40 mg tablet 40 mg PO DAILY #90 tabs 07/06/22 08/18/22 Rx colesevelam 625 mg tablet (WelChol) 1,875 mg PO BID #540 tabs 07/06/22 08/18/22 Rx doxazosin 2 mg tablet (Cardura) 2 mg PO BEDTIME #90 tabs 07/06/22 08/18/22 Rx mirabegron 25 mg tablet,extended 25 mg PO QDAY #90 tabs 07/06/22 08/18/22 Rx release 24 hr (Myrbetriq) potassium chloride 20 mEq 20 meq PO BID #180 tabs 07/06/22 08/18/22 Rx tablet,extended release(part/cryst) rivaroxaban 20 mg tablet (Xarelto) 20 mg PO DAILY #90 tabs 07/06/22 08/18/22 Rx furosemide 80 mg tablet See Rx Instructions PO BID 30 days 07/27/22 08/18/22 Rx #180 tabs Allergies Allergy/AdvReac Type Severity Reaction Status Date / Time No Known Drug Allergies Allergy Verified 08/18/22 11:48 Exam Vital Signs (past 8 hours): - 08/18/22 12:05 Temperature 97.9 F Pulse Rate 75 Respiratory Rate 16 Blood Pressure 146/81 H Pulse Oximetry 99 Oxygen Delivery Method Room Air Oxygen Delivery Method Room Air Narrative Exam Narrative: There is an open bleeding wound on the crown of scalp that measures approximately 7 cm in diameter Assessment & Plan Assessment and plan (1) Squamous cell carcinoma: Status: Acute Plan 86-year-old man with a 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 We discussed the risks and benefits of excision with split-thickness skin grafting taken from the thigh. He would like to proceed.
[2022-08-18] MEDS: CEFAZOLIN 2 GM/100 ML PREMIX 100 ML IV (14:00)
--- NOTE | 2022-08-18 14:21 | SUR.OPER ---
Supine on padded OR bed, head on wedged pillow, arms padded and tucked at sides, legs uncrossed, tape over blanket over lower legs .
[2022-08-18] MEDS: BUPIVACAINE 0.25% (PF) 30 ML, EPINEPHrine 0.15 MG INJ (14:26)
--- NOTE | 2022-08-18 15:35 | PM.OP.1 ---
Operative Date/Time/Diagnoses Date of procedure: 08/18/22 Time of procedure: 15:36 Pre-op diagnosis: Squamous cell carcinoma of the scalp Post-op diagnosis: same Procedure & Clinicians Procedure: 1. Wide local excision of squamous cell carcinoma of the scalp 2. Split-thickness skin graft of the scalp wound Same procedure as scheduled: Yes Surgeon: [place] Feather Stitcher: Jhon Sheikh Anesthesia Type: General Operative Notes Procedure in detail: The patient is an 86-year-old man who presented with a chronic wound from a squamous cell carcinoma of the scalp. He was consented for a wide local excision of the scalp skin cancer and a split-thickness skin graft. The patient was given preoperative antibiotic. The patient was brought to the operating room and general anesthesia was induced with an LMA. The scalp and right thigh were prepped and draped in the usual fashion and a time-out was performed. We started by excising the scalp wound with a 1 cm margin from the edge of the lesion. We dissected down to the galea aponeurosis. The specimen lifted off the galea easily with no indication of deep margin involvement of the galea. Scalp bleeders were addressed with either cautery or deep Vicryl stitches. Once we had hemostasis of the scalp wound we covered it with a saline soaked gauze and moved on to the skin graft. We injected Marcaine with epinephrine into the dermis and subcutaneous adipose tissue of the right anterior thigh. [place] mineral oil was applied over the skin of the proposed donor site. We then performed a split-thickness skin graft using the dermatome set at 9 1000 of an inch using a 5 cm wide guard. A total of 5 cm x 10 cm of skin was taken from the donor site. The donor site was then covered with a gauze soaked 1:1000 epinephrine to saline. The skin graft was meshed 3-1. The graft was then applied over the scalp wound. The edges of the skin graft were tacked to the edge of the wound with multiple interrupted 4-0 Monocryl sutures. We then covered the skin graft with a Xeroform gauze an added extra bacitracin. We then created a bolster using multiple 4x4s and several nylon sutures into the scalp tied just distal to the edge of the wound. We then covered the patient's scalp with a fishnet stocking. We then went back to the donor site and found it to be hemostatic. We applied Xeroform gauze over the donor site followed by several 4x4s and Tegaderms. The patient was awakened and brought to recovery room. EBL: 30 mL Specimen: Scalp squamous cell carcinoma. Post-operative Condition: stable Disposition: PACU
[2022-08-18 15:37] VITALS: BP 165/84; PULSE 82; RESP 14; O2SAT 96
[2022-08-18 15:42] VITALS: BP 159/98; PULSE 79; RESP 14; O2SAT 96
[2022-08-18 15:47] VITALS: BP 164/107; PULSE 90; RESP 16; O2SAT 96
[2022-08-18 15:52] VITALS: BP 175/90; PULSE 82; RESP 14; TEMP 36.5; O2SAT 96
[2022-08-18 16:01] VITALS: BP 158/99; PULSE 85; RESP 20; O2SAT 96
== END 2022-08-18 16:42 | disposition home or self-care (01) ==
PROVIDERS: PCP Family Medicine; Referring Provider Surgery; Visit Provider Surgery
PROC: (CPT 11626; principal; 2022-08-18 13:45)
DX: C44.42 Squamous cell carcinoma of skin of scalp and neck (principal)
CPT/HCPCS: 11626; 15120; J0171; J0690; J2405; J2704; J3010

== ENCOUNTER → 2023-01-11 09:53 | Outpatient (CLI) | payer MEDICARE, BC, SELFPAY ==
[2022-08-18 15:57] VITALS: PULSE 90; RESP 22; O2SAT 98; BMI 34.4
[2023-01-11 19:34] LABS: Add Manual Diff / Slide Review NO; Basophils Absolute Auto 100 /uL (0-100); Basophils Percent Auto 0.6 % (0-2); Eosinophils Absolute Auto 700 /uL (0-450); Eosinophils Percent Auto 7.9 % (2-4); Hematocrit 34.5 % (41-53); Hemoglobin 11.5 g/dL (13.5-17.5); Lymphocytes Absolute Auto 2000 /uL (1100-4500); Lymphocytes Percent Auto 21.4 % (25-40); Mean Corpuscular HGB Conc 33.3 % (30-36); Mean Corpuscular Hemoglobin 30.8 PG (26-34); Mean Corpuscular Volume 92.5 fL (80-100); Monocytes Absolute Auto 700 /uL (0-900); Monocytes Percent Auto 7.9 % (3-14); Neutrophils Absolute Auto 5900 /uL (1500-7000); Neutrophils Percent Auto 62.2 % (50-75); Platelet Count 203 X10^3/uL (150-400); Red Blood Cell Count 3.73 X10^6/uL (4.5-5.9); Red Cell Distribution Width 15.9 % (11.6-14.8); White Blood Cell Count 9.4 X10^3/uL (4.5-11.0)
[2023-01-11 19:50] LABS: Cholesterol 140 mg/dL (140-199); HDL Cholesterol 67 mg/dL (40-60); LDL Cholesterol Calculated 57 mg/dL (<100); Triglycerides 82 mg/dL (35-150)
[2023-01-11 19:54] LABS: Alanine Aminotransferase 17 IU/L (<50); Albumin 3.8 g/dL (3.5-5.0); Albumin Globulin Ratio 1.1 (1.0-2.8); Alkaline Phosphatase 85 U/L (38-126); Aspartate Aminotransferase 23 IU/L (17-59); BUN Creatinine Ratio 26.7 (6-22); Bilirubin Total 0.9 mg/dL (0.2-1.3); Blood Urea Nitrogen 47 mg/dL (9-20); Calcium 9.4 mg/dL (8.4-10.2); Carbon Dioxide 22 mmol/L (22-32); Estimated Glomerular Filt Rate 37 mL/min (>60); Globulin 3.6 g/dL (1.7-4.1); Glucose 104 mg/dL (80-110); HEMOLYSIS < 15 (0-50); Total Protein 7.4 g/dL (6.3-8.2)
[2023-01-11 20:22] LABS: Hemoglobin A1C% w Est Avg Glu 5.7 % (4.0-6.0)
[2023-01-11 20:39] LABS: Chloride 109 mmol/L (98-107); Potassium 4.6 mmol/L (3.4-5.1); Sodium 139 mmol/L (137-145)
[2023-01-11 20:45] LABS: Creatinine Urine Random 80.9 mg/dL
[2023-01-11 20:49] LABS: Microalbumi Creatinin Ratio Ur 29.6 ug/mg CR (<30); Microalbumin Urine Random 2.4 mg/dL (0-1.6)
== END ==
PROVIDERS: Family Medicine; PCP Family Medicine; Visit Provider Family Medicine
DX: E11.622 Type 2 diabetes mellitus with other skin ulcer (principal); L97.909 Non-pressure chronic ulcer of unspecified part of unspecified lower leg with unspecified severity; I10 Essential (primary) hypertension; I50.42 Chronic combined systolic (congestive) and diastolic (congestive) heart failure; E11.9 Type 2 diabetes mellitus without complications; I25.10 Atherosclerotic heart disease of native coronary artery without angina pectoris; N18.31 Chronic kidney disease, stage 3a; D64.9 Anemia, unspecified; E11.22 Type 2 diabetes mellitus with diabetic chronic kidney disease; N18.4 Chronic kidney disease, stage 4 (severe)
CPT/HCPCS: 80053; 80061; 82043; 82570; 83036; 85025

== ENCOUNTER → 2023-04-29 11:52 | Outpatient (CLI) | payer MEDICARE, BC, SELFPAY ==
[2022-08-18 15:57] VITALS: PULSE 90; RESP 22; O2SAT 98; BMI 34.4
== END ==
LOC: WC 12:05
PROVIDERS: PCP Family Medicine; Referring Provider Family Medicine; Visit Provider Physician Assistant
DX: S01.00XA Unspecified open wound of scalp, initial encounter (principal); B95.62 Methicillin resistant Staphylococcus aureus infection as the cause of diseases classified elsewhere; B96.5 Pseudomonas (aeruginosa) (mallei) (pseudomallei) as the cause of diseases classified elsewhere; C44.42 Squamous cell carcinoma of skin of scalp and neck; Z79.01 Long term (current) use of anticoagulants; R60.0 Localized edema; L53.9 Erythematous condition, unspecified; E11.628 Type 2 diabetes mellitus with other skin complications; I50.9 Heart failure, unspecified; I48.91 Unspecified atrial fibrillation
CPT/HCPCS: 87070; 87075; 87077; 87147; 87186; 87205; 97597; 97598; 99213; 99214

== ENCOUNTER → 2023-05-26 10:32 | Outpatient (CLI) | payer MEDICARE, BC, SELFPAY ==
[2022-08-18 15:57] VITALS: PULSE 90; RESP 22; O2SAT 98; BMI 34.4
[2023-05-26 18:59] LABS: Add Manual Diff / Slide Review NO; Basophils Absolute Auto 100 /uL (0-100); Basophils Percent Auto 0.6 % (0-2); Eosinophils Absolute Auto 500 /uL (0-450); Eosinophils Percent Auto 5.6 % (2-4); Hemoglobin 12.2 g/dL (13.5-17.5); Lymphocytes Absolute Auto 1700 /uL (1100-4500); Lymphocytes Percent Auto 19.9 % (25-40); Mean Corpuscular HGB Conc 33.8 % (30-36); Mean Corpuscular Hemoglobin 32.1 PG (26-34); Monocytes Absolute Auto 800 /uL (0-900); Monocytes Percent Auto 9.7 % (3-14); Neutrophils Absolute Auto 5600 /uL (1500-7000); Neutrophils Percent Auto 64.2 % (50-75); Platelet Count 202 X10^3/uL (150-400); Red Blood Cell Count 3.79 X10^6/uL (4.5-5.9); Red Cell Distribution Width 15.3 % (11.6-14.8); White Blood Cell Count 8.7 X10^3/uL (4.5-11.0)
[2023-05-26 19:15] LABS: Alanine Aminotransferase 16 IU/L (<50); Albumin 3.7 g/dL (3.5-5.0); Albumin Globulin Ratio 1.1 (1.0-2.8); Alkaline Phosphatase 84 U/L (38-126); Aspartate Aminotransferase 26 IU/L (17-59); Bilirubin Total 1.3 mg/dL (0.2-1.3); Blood Urea Nitrogen 96 mg/dL (9-20); Calcium 9.7 mg/dL (8.4-10.2); Carbon Dioxide 27 mmol/L (22-32); Chloride 105 mmol/L (98-107); Cholesterol 129 mg/dL (140-199); Estimated Glomerular Filt Rate 25 mL/min (>60); Globulin 3.5 g/dL (1.7-4.1); Glucose 113 mg/dL (80-110); HDL Cholesterol 43 mg/dL (40-60); HEMOLYSIS < 15 (0-50); LDL Cholesterol Calculated 71 mg/dL (<100); Potassium 4.7 mmol/L (3.4-5.1); Sodium 138 mmol/L (137-145); Total Protein 7.2 g/dL (6.3-8.2); Triglycerides 73 mg/dL (35-150)
== END ==
PROVIDERS: PCP Family Medicine; Visit Provider Family Medicine
DX: I48.20 Chronic atrial fibrillation, unspecified (principal); I12.9 Hypertensive chronic kidney disease with stage 1 through stage 4 chronic kidney disease, or unspecified chronic kidney disease; I25.10 Atherosclerotic heart disease of native coronary artery without angina pectoris; I65.29 Occlusion and stenosis of unspecified carotid artery; Z79.01 Long term (current) use of anticoagulants; N18.4 Chronic kidney disease, stage 4 (severe); E11.9 Type 2 diabetes mellitus without complications; I50.30 Unspecified diastolic (congestive) heart failure; I38 Endocarditis, valve unspecified; H40.9 Unspecified glaucoma; E78.2 Mixed hyperlipidemia; I10 Essential (primary) hypertension; C61 Malignant neoplasm of prostate; N39.3 Stress incontinence (female) (male)
CPT/HCPCS: 80053; 80061; 85025

== ENCOUNTER → 2023-09-16 11:03 | Outpatient (CLI) | payer MEDICARE, BC, SELFPAY ==
[2022-08-18 15:57] VITALS: PULSE 90; RESP 22; O2SAT 98; BMI 34.4
[2023-09-16 19:31] LABS: Add Manual Diff / Slide Review NO; Basophils Absolute Auto 100 /uL (0-100); Basophils Percent Auto 0.7 % (0-2); Eosinophils Absolute Auto 700 /uL (0-450); Eosinophils Percent Auto 6.5 % (2-4); Hematocrit 40.4 % (41-53); Hemoglobin 13.5 g/dL (13.5-17.5); Lymphocytes Absolute Auto 1700 /uL (1100-4500); Lymphocytes Percent Auto 16.7 % (25-40); Mean Corpuscular HGB Conc 33.4 % (30-36); Mean Corpuscular Hemoglobin 32.2 PG (26-34); Mean Corpuscular Volume 96.5 fL (80-100); Monocytes Absolute Auto 800 /uL (0-900); Monocytes Percent Auto 7.4 % (3-14); Neutrophils Absolute Auto 7000 /uL (1500-7000); Neutrophils Percent Auto 68.7 % (50-75); Platelet Count 183 X10^3/uL (150-400); Red Blood Cell Count 4.19 X10^6/uL (4.5-5.9); Red Cell Distribution Width 14.9 % (11.6-14.8); White Blood Cell Count 10.3 X10^3/uL (4.5-11.0)
[2023-09-16 19:45] LABS: BUN Creatinine Ratio 37.1 (6-22); Blood Urea Nitrogen 89 mg/dL (9-20); Calcium 9.3 mg/dL (8.4-10.2); Carbon Dioxide 23 mmol/L (22-32); Chloride 108 mmol/L (98-107); Estimated Glomerular Filt Rate 25 mL/min (>60); Glucose 109 mg/dL (80-110); HEMOLYSIS 30 (0-50); Potassium 4.6 mmol/L (3.4-5.1); Sodium 137 mmol/L (137-145)
[2023-09-16 20:11] LABS: TSH w/ Reflex to FT4 2.16 uIU/mL (0.47-4.68)
[2023-09-16 21:02] LABS: Creatinine Urine Random 83.14 mg/dL
[2023-09-16 21:05] LABS: Microalbumin Urine Random 1.8 mg/dL (0-1.6)
== END ==
PROVIDERS: PCP Family Medicine; Visit Provider Family Medicine
DX: D64.9 Anemia, unspecified (principal); I25.810 Atherosclerosis of coronary artery bypass graft(s) without angina pectoris; I12.9 Hypertensive chronic kidney disease with stage 1 through stage 4 chronic kidney disease, or unspecified chronic kidney disease; N18.4 Chronic kidney disease, stage 4 (severe); I50.30 Unspecified diastolic (congestive) heart failure; I38 Endocarditis, valve unspecified; I48.20 Chronic atrial fibrillation, unspecified; I25.10 Atherosclerotic heart disease of native coronary artery without angina pectoris; I65.29 Occlusion and stenosis of unspecified carotid artery; E11.9 Type 2 diabetes mellitus without complications; H40.9 Unspecified glaucoma; E78.2 Mixed hyperlipidemia; C61 Malignant neoplasm of prostate; N39.3 Stress incontinence (female) (male); Z79.01 Long term (current) use of anticoagulants
CPT/HCPCS: 80048; 82043; 82570; 84443; 85025

== ENCOUNTER → 2023-11-03 12:01 | Outpatient (CLI) | payer MEDICARE, BC, SELFPAY ==
[2022-08-18 15:57] VITALS: PULSE 90; RESP 22; O2SAT 98; BMI 34.4
[2023-11-03 19:24] LABS: Add Manual Diff / Slide Review NO; Basophils Absolute Auto 100 /uL (0-100); Basophils Percent Auto 0.8 % (0-2); Eosinophils Absolute Auto 600 /uL (0-450); Eosinophils Percent Auto 6.1 % (2-4); Hematocrit 37.8 % (41-53); Hemoglobin 12.5 g/dL (13.5-17.5); Lymphocytes Absolute Auto 1000 /uL (1100-4500); Mean Corpuscular HGB Conc 33.1 % (30-36); Mean Corpuscular Hemoglobin 31.7 PG (26-34); Mean Corpuscular Volume 95.9 fL (80-100); Monocytes Absolute Auto 700 /uL (0-900); Monocytes Percent Auto 7.4 % (3-14); Neutrophils Absolute Auto 6800 /uL (1500-7000); Neutrophils Percent Auto 74.7 % (50-75); Platelet Count 201 X10^3/uL (150-400); Red Blood Cell Count 3.94 X10^6/uL (4.5-5.9); Red Cell Distribution Width 14.8 % (11.6-14.8); White Blood Cell Count 9.2 X10^3/uL (4.5-11.0)
[2023-11-03 19:28] LABS: Alanine Aminotransferase 10 IU/L (<50); Albumin 3.4 g/dL (3.5-5.0); Alkaline Phosphatase 85 U/L (38-126); Aspartate Aminotransferase 19 IU/L (17-59); BUN Creatinine Ratio 25.7 (6-22); Bilirubin Total 0.9 mg/dL (0.2-1.3); Blood Urea Nitrogen 53 mg/dL (9-20); Calcium 9.5 mg/dL (8.4-10.2); Carbon Dioxide 20 mmol/L (22-32); Chloride 111 mmol/L (98-107); Estimated Glomerular Filt Rate 31 mL/min (>60); Globulin 3.4 g/dL (1.7-4.1); Glucose 127 mg/dL (80-110); HEMOLYSIS < 15 (0-50); Potassium 4.7 mmol/L (3.4-5.1); Sodium 138 mmol/L (137-145); Total Protein 6.8 g/dL (6.3-8.2)
[2023-11-03 19:29] LABS: Magnesium 2.2 mg/dL (1.6-2.3)
[2023-11-03 21:47] LABS: TSH w/ Reflex to FT4 3.19 uIU/mL (0.47-4.68)
== END ==
PROVIDERS: PCP Family Medicine; Visit Provider Internal Medicine
DX: C44.40 Unspecified malignant neoplasm of skin of scalp and neck (principal)
CPT/HCPCS: 80053; 83735; 84443; 85025

== ENCOUNTER → 2023-11-24 10:04 | Outpatient (CLI) | payer MEDICARE, BC, SELFPAY ==
[2022-08-18 15:57] VITALS: PULSE 90; RESP 22; O2SAT 98; BMI 34.4
[2023-11-24 19:47] LABS: Add Manual Diff / Slide Review NO; Basophils Absolute Auto 0 /uL (0-100); Basophils Percent Auto 0.4 % (0-2); Eosinophils Absolute Auto 600 /uL (0-450); Eosinophils Percent Auto 5.6 % (2-4); Hematocrit 35.3 % (41-53); Hemoglobin 11.7 g/dL (13.5-17.5); Lymphocytes Absolute Auto 900 /uL (1100-4500); Lymphocytes Percent Auto 8.5 % (25-40); Mean Corpuscular HGB Conc 33.3 % (30-36); Mean Corpuscular Hemoglobin 31.8 PG (26-34); Mean Corpuscular Volume 95.5 fL (80-100); Monocytes Absolute Auto 900 /uL (0-900); Monocytes Percent Auto 8.7 % (3-14); Neutrophils Absolute Auto 7700 /uL (1500-7000); Neutrophils Percent Auto 76.8 % (50-75); Platelet Count 213 X10^3/uL (150-400); Red Blood Cell Count 3.69 X10^6/uL (4.5-5.9); Red Cell Distribution Width 15.3 % (11.6-14.8); White Blood Cell Count 10.1 X10^3/uL (4.5-11.0)
[2023-11-24 19:51] LABS: Magnesium 1.9 mg/dL (1.6-2.3)
[2023-11-24 19:54] LABS: Alanine Aminotransferase 17 IU/L (<50); Albumin 3.2 g/dL (3.5-5.0); Alkaline Phosphatase 85 U/L (38-126); Aspartate Aminotransferase 27 IU/L (17-59); BUN Creatinine Ratio 20.9 (6-22); Bilirubin Total 1.3 mg/dL (0.2-1.3); Blood Urea Nitrogen 47 mg/dL (9-20); Calcium 9.5 mg/dL (8.4-10.2); Carbon Dioxide 17 mmol/L (22-32); Chloride 115 mmol/L (98-107); Estimated Glomerular Filt Rate 28 mL/min (>60); Globulin 3.3 g/dL (1.7-4.1); Glucose 122 mg/dL (80-110); HEMOLYSIS < 15 (0-50); Potassium 4.7 mmol/L (3.4-5.1); Sodium 136 mmol/L (137-145); Total Protein 6.5 g/dL (6.3-8.2)
[2023-11-24 20:23] LABS: TSH w/ Reflex to FT4 3.13 uIU/mL (0.47-4.68)
== END ==
PROVIDERS: PCP Family Medicine; Visit Provider Internal Medicine
DX: C44.40 Unspecified malignant neoplasm of skin of scalp and neck (principal)
CPT/HCPCS: 80053; 83735; 84443; 85025